=== PATIENT | male | born 1940 | race Caucasian/White ===

== ENCOUNTER 2022-03-04 12:03 | Outpatient (CLI) | payer MEDICARE, SELFPAY ==
--- NOTE | 2022-03-04 12:55 | USCV_ITS ---
AMANDA MCGOWAN Age: 81 Gender: M : 1940 Exam Date: 03/04/2022 13:03 Ordering Phys: Lizzie Turk MD Technologist: Dave Bahena [place] [facility] [place]: CCA stenosis Risk Factors: Previous Vascular Surgery: Right Brachial BP: / Left Brachial BP: / Right Left Velocity (cm/s) Spectral Plaque Velocity (cm/s) Spectral Plaque Syst/Diast Broadening Syst/Diast Broadening 55.20/ 10.10 Prox CCA 94.80 / 14.50 140.70/21.00 Mid CCA 82.90 / 17.90 79.50/ 17.10 Distal CCA 81.20 / 22.20 66.40/ 14.50 Prox ICA 98.60 / 15.80 126.20/25.00 Mid ICA 121.30/ 26.50 123.60/30.20 Distal ICA 80.10 / 22.40 58.50 ECA 107.80 0.90 ICA/CCA 1.46 Antegrade Vertebral Antegrade 45.10/ 10.90 cm/s 68.40/ 17.90 cm/s Tri Subclavian Tri 47.50 131.5 0 CONCLUSIONS Right ICA stenosis <50%. Mild atheromatous plaque right carotid bulb/ICA. Left ICA stenosis <50%. Mild atheromatous plaque left carotid bulb/ICA. Normal antegrade Doppler flow noted in the right vertebral artery. Normal antegrade Doppler flow noted in the left vertebral artery. Ta Diez MD (Electronically Signed) Final Date: 04 March 2022 16:22 S
== END 2022-03-04 12:04 | disposition home or self-care (01) ==
PROVIDERS: PCP Family Medicine; Visit Provider Family Medicine
DX: I25.10 Atherosclerotic heart disease of native coronary artery without angina pectoris (principal); I65.23 Occlusion and stenosis of bilateral carotid arteries
CPT/HCPCS: 93880

== ENCOUNTER → 2024-01-15 10:38 | Outpatient (BNVA) | payer MEDICARE, SELFPAY | PROVIDERS: PCP Nurse Practitioner Family; Visit Provider Nurse Practitioner | DX: R53.83 Other fatigue (principal) | CPT/HCPCS: 87426 ==

== ENCOUNTER 2024-03-08 07:44 | Outpatient (CLI) | payer MEDICARE, SELFPAY ==
--- NOTE | 2024-03-08 08:50 | XR_ITS ---
WS: [id number] XR cervical spine min 6V [id number] REASON FOR EXAM: CERVICALGIA FINDINGS: Anterior subluxation of the cervical spine. Plate and screw anterior fusion C4-C7. Severe narrowing of the disc space at C7-T1. Moderate degenerative arthropathy in the uncovertebral and facet joints. Neural foramina do not appea r significantly narrowed. XR/XR cervical spine min 6V [id number] IMPRESSION: Anterior fusion of the cervical spine as above. Significant degenerative spondylosis.
== END 2024-03-08 07:45 | disposition home or self-care (01) ==
PROVIDERS: PCP Nurse Practitioner Family; Visit Provider Family Medicine
DX: M54.2 Cervicalgia (principal); Z98.1 Arthrodesis status; M47.892 Other spondylosis, cervical region
CPT/HCPCS: 72052

== ENCOUNTER → 2024-09-23 09:44 | Outpatient (BNVA) | payer MEDICARE, SELFPAY | PROVIDERS: PCP Nurse Practitioner Family; Visit Provider Nurse Practitioner | DX: R35.0 Frequency of micturition (principal) | CPT/HCPCS: 81000 ==

== ENCOUNTER 2025-03-03 16:51 | Observation (INO) | payer MEDICARE, SELFPAY ==
--- OUTSIDE RECORDS SUMMARY | 2025-02-27 06:21 | XMS_ITS | Encounter Summary ---
Author Organization [employer] Address [address] [place] [address] Care Team Providers Care Integrated Logistics Support Manager Name Role Phone MarianelaParveen Primary Care Provider [phone] Reason for Referral * Home Health (Routine) - Open Specialty Diagnoses / Procedures Referred By Jessica lang Referred To Contact Diagnoses S/P cervical spinal fusion Chalo Shepherd MD [address] [place] [phone] Phone: tel: fax: [facility] [address] [place] [address] Phone: tel: fax: Referral ID Status Reason Start Date Expiration Date Visits Re quested Visits Authorized [id number] Open 03/02/2025 03/02/2026 1 1 * Radiology Services (Routine) - Open Specialty Diagnoses / Procedures Referred By Jessica t Referred To Contact Diagnoses Chronic neck pain Procedures XR FLUORO LESS THAN 1 HOUR Chalo Shepherd MD [address] [place] [phone] Phone: tel: fax: Referral ID Status Reason Start Date Expiration Date Visits Re quested Visits Authorized [id number] Open 02/27/2025 03/30/2026 1 1 Reason for Visit * Auth/Cert (Routine) Specialty Diagnoses / Procedures Referred By Saiac t Referred To Contact Perioperative Diagnoses Chronic neck pain Spinal stenosis of cervical region Chronic neck pain [M54.2, G89.29] Spinal stenosis of cervical region [M48.02] Procedures RI REMOVAL POSTERIOR SEGMENTAL INSTRUMENTATION RI ARTHRD ANT INTERBODY DECOMPRESS CERVICAL BELW C2 RI ANTERIOR INSTRUMENTATION 2-3 VERTEBRAL SEGMENTS RI INSJ BIOMCHN DEV INTERVERTEBRAL DSC SPC W/ARTHRD RI AUTOGRAFT SPINE SURGERY LOCAL FROM SAME INCISION RI ALLOGRAFT FOR SPINE SURGERY ONLY MORSELIZED RI REMOVAL POSTERIOR NONSEGMENTAL INSTRUMENTATION BACK HARDWARE REMOVAL CERVICAL DISCECTOMY FUSION ANTERIOR - 1 LEVEL Chalo Shepherd MD [address] [place] [phone] Phone: tel: fax: [facility] Operating Room [address] [place] [address] Phone: tel: fax: Referral ID Status Reason Start Date Expiration Date Visits Re quested Visits Authorized [id number] 1 1 Encounter Details Date Type Department Care Team (Latest Contact Info) Description 02/27/2025 6:21 AM CDT - 03/02/2025 2:55 PM CDT Hospital Encounter [facility] 3C Ortho Neuro [address] [place] [address] Chalo Shepherd MD [address] [place] [phone] Chronic neck pain Discharge Disposition: Home Health Care Svc Social History Tobacco Use Types Packs/Day Years Used Date Smoking Tobacco: Former Cigarettes 0.8 28 S tarted: 05/04/1953 Smokeless Tobacco: Never Alcohol Use Standard Drinks/Week Comments Not Currently 0 (1 standard drink = 0.6 oz pur e alcohol) Food Insecurity Answer Date Recorded Do you find you are eating l ess than you should because you can t pay for food? No 02/27/2025 Transportation Needs Answer Date Record ed Have you gone without health care because you didn t have a way to get there? Or worry about transportation for future doctor visits, picker feeder medication, etc.? No 2024 Housing Stability Answer Date Recorded Do you worry you won t have a steady place to sleep or struggle to pay rent or mortgage? No 02/27/2025 Utility Needs Answer Date Recorded Do you have difficulty payin g for utility costs (electric, water or gas bills)? No 02/27/2025 Medication Needs Answer Date Recorded Have you skipped taking medi cation due to cost or worry you can t afford new medications? No 02/27/2025 Feeling Safe Answer Date Recorded Are you in a relationship wi th someone who hurts you emotionally and/or physically? 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 Gender Identity Male 11/15/2024 4:33 PM CDT Sexual Orientation Not on file documented as of this encounter Last Filed Vital Signs Vital Sign Reading Time Taken Comments Blood Pressure 112/65 03/02/2025 11:00 AM CDT Pulse 69 03/02/2025 11:00 AM CDT Temperature 37.2 C (98.9 F) 03/02/2025 11:00 AM CDT Respiratory Rate 16 03/02/2025 11:00 AM CDT Oxygen Saturation 95% 03/02/2025 11:00 AM CDT Inhaled Oxygen Concentration - - Weight 64 kg (141 lb) 03/02/2025 2:58 AM CDT Height 172.7 cm (5' 8 ) 02/28/2025 4:24 AM CDT Body Mass Index 21.44 02/28/2025 4:24 AM CDT documented in this encounter Discharge Instructions * Discharge Instructions* Cristal Judge NP - 02/28/2025 11:09 AM CDT Thank you for choosing [facility] Neurosurgery for your care! The following is a listof instructions, from your provider, to follow upon your discharge to ensure you have the optimal recovery from your recent injury or surgery. Follow up with Cristal RAJAN in 2 weeks. An appointment will be made for you prior to your discharge, however if you are being dismissed on a weekend or after hours please call on the next business day to schedule an appointment Medications will be prescribed for you at your provider???s discretion. These medications are to beused as instructed; if they are taken more often that prescribed they will not be refilled early and in most cases will not be refilled at all. When a refill is needed, you should contact our office 2-3 business days before your prescription runs out. Medications will NOT be refilled by ???regional sales associate?? providers after hours! Many pain medications contain Tylenol (Acetaminophen). Do not consume more than 4,000 mg of Tylenol per day in total with any combination of medications. Pain medicationscan cause constipation. Please use an over the counter stool softener as directed, while taking pain medications. Consult your local pharmacist with questions or recommendations on stool softeners. If constipation persists, contact our office or your primary care provider. While under our care, youare not to receive pain medications or other controlled substances from any other provider unless our office is notified and approves. Any attempts to do so will result in refusal to prescribe any further pain medications and possible dismissal from our practice. Your wound and/or dressing should remain clean and dry for 2 days after surgery. On postoperative day 5 the dressing (if present) should be removed and the wound should be washed twice daily with soap and water. No further dressing should be required from that point on. It is normal for there to dale small amount of discharge (bloody or blood tinged) present from a surgical wound for the first 1-3 days. The wound should be examined twice a day for signs of infection. Mild redness or bruising isto be expected but indications that an infection may be starting would include; An increase in redness, swelling, or discharge, a foul odor present around the incision, and/or a fever greater than 101 ??F Showering is permitted, however we ask that you do not take a bath, sit in a whirlpool / Jacuzzi, or go swimming until further notice. For only the first 2 days after surgery, it will be necessary for you to cover your wound/dressing with plastic and tape to keep it dry. Walking is essential for the healing process after surgery. We would like you to slowly build up to1 mile per day over the next two weeks. This should be done on relatively flat clear ground (insideor out) or can be done on a treadmill. Remember this goal does not have to happen all at once, slowly increase your distance and duration until you can achieve 1 mile. This can be broken into more than one walk per day. Patients who walk as directed after surgery rarely require Physical Therapy. Inthe unlikely event this issue arises your provider will direct hospital staff to make the appropriate arrangements. No lifting over 8 pounds (a gallon of milk) or bending/twisting until further notice. Each of theseactivities places an unnecessary amount of stress onto the body and can impede the delicate healingprocess. Instead of bending at the waist, keep your back straight and bend at the knees. Instead oftwisting your torso, keep your back straight and turn your entire body with your feet. You may sleep in any position which makes you comfortable. Many patients find comfort sleeping in areclining chair. It is not abnormal to have difficulty sleeping for the first several weeks following your surgery. We recommend trying Benadryl or Tylenol PM as directed to help with your sleeping difficulties. Both medications are over the counter and available without prescription. No sexual activity until further notice. NO SMOKING!!! Smoking dramatically increases the probability of developing postoperative wound infections Common complaints after lumbar and/or thoracic spine surgery include, but are not limited to: numbness and/or tingling in the legs, pain around the incision and surrounding tissues, muscle spasms, orstiffness of the middle to low back. Contact our office if these symptoms persist or if an acute change occurs. No driving until further notice. There are no restrictions for riding on short trips, however if you take a longer trip, arrangements should be made to make regular stops to get out of the vehicle and ???stretch?? . Swelling is an unfortunate event that will take place with any surgery and is the primary source ofyour postoperative discomfort. While walking and regular approved activities helps control inflammation, there are additional steps you can take to minimize swelling. Place ice over the surgical siteand surrounding tissue for twenty minutes, followed by applying a low/medium heat (heating pad) shakeel additional twenty minutes every 1-2 hours as needed for pain relief. STARTING 10 days after surgery, use over the counter anti-inflammatory medications (Ibuprofen, Motrin, Aleve, Advil, etc) as directed on the package label will significantly reduce the amount of discomfort you experience after s urgery from swelling. It should be noted that if you have and allergy to any of these medications, or a history of ulcers or kidney disease you should consult you primary care provider prior to starting these medications. If your have been given a brace or bone growth stimulator after your surgery it should be worn exactly as instructed. Contact our office with any concerns or questions about the brace or stimulator. For any further questions or concerns please contact our office at: * Attachments The following attachments cannot be sent through Care Everywhere. * Cervical Collars: General Info (Swazi) * Diazepam (Swazi) * Opioids: Safe Use (Swazi) documented in this encounter Medications at Time of Discharge oxyCODONE (ROXICODONE) 5 mg tabletIndications: S/P cervical spinal fusion Take 1 Tablet (5 mg) by mouth every 4 hours as needed for Pain. Max Daily Amount: 30 mg 42 Tablet 02/28/2025 diazePAM (VALIUM) 5 mg tabletIndications: S/P cervical spinal fusion Take 1 Tablet (5 mg) by mouth every 8 hours as needed for Spasm. 42 Tablet 02/28/2025 acetaminophen (TYLENOL ARTHRITIS) 650 mg Extended Release tablet Take 650 mg by mouth daily. L. acidophilus/L. rhamnosus (PROBIOTIC ORAL) Take 1 Caplet by mouth daily. calcium carbonate (ADAMS-SELTZER ANTACID ORAL) Take by mouth 1 time daily as needed. DULoxetine (CYMBALTA) 30 mg Capsule, Delayed Release(E.C.) Take 1 Capsule by mouth daily. 01/24/2025 sucralfate (CARAFATE) 1 gram tablet Take 1 Gram by mouth 2 times daily. 12/12/2024 docusate sodium (COLACE) 100 mg capsule Take 100 mg by mouth 3 times daily. ferrous sulfate 325 mg (65 mg iron) tablet Take 325 mg by mouth daily. ascorbic acid, vitamin C, (VITAMIN C) 500 mg tablet Take 500 mg by mouth 2 times daily. vitamin A-vitamin C-vitamin E (OCUVITE) Tablet Take 1 Tablet by mouth daily. fluticasone propionate (FLONASE) 50 mcg/spray [place], Suspension nasal inhaler Administer 2 Sprays in each nostril daily. 06/23/2023 sertraline (ZOLOFT) 100 mg tabletIndications: Mild episode of recurrent major depressive disorder Take 1 Tablet (100 mg) by mouth daily. 90 Tablet 1 06/26/2023 hydroCHLOROthiazid e 25 mg tabletIndications: Primary hypertension Take 1 Tablet (25 mg) by mouth daily. 90 Tablet 1 06/26/2023 gabapentin (NEURONTIN) 400 mg capsule Take 400 mg by mouth 2 times daily. 07/07/2022 losartan (COZAAR) 100 mg tablet Take 100 mg by mouth daily. 08/12/2022 omeprazole (PriLOSEC) 20 mg Capsule, Delayed Release(E.C.) 09/02/2022 oxyCODONE (ROXICODONE) 5 mg tablet 06/16/2022 predniSONE (DELTASONE) 1 mg tablet Take 1 mg by mouth daily. 07/31/2022 primidone (MYSOLINE) 50 mg tablet 08/12/2022 rOPINIRole (REQUIP) 2 mg Tablet Take 2 mg by mouth 2 times daily. 06/23/2022 tamsulosin (FLOMAX) 0.4 mg capsule Take 0.4 mg by mouth daily at bedtime. 07/16/2022 traZODone (DESYREL) 100 mg tablet Take 100 mg by mouth daily at bedtime. 09/02/2022 buPROPion HCL (WELLBUTRIN XL) 150 mg Extended Release 24 hour tablet Take 150 mg by mouth 2 times daily. 08/12/2022 documented as of this encounter Progress Notes * Genesis Elder RN - 03/02/2025 2:34 PM CDT Abraham Henson will be discharged via wheelchair to home. Abraham Henson is accompanied by family member(s) and will be transported via private vehicle. * Cristal Judge NP - 03/02/2025 9:30 AM CDT POD #3 No issues Vitals: 03/01/25 1500 03/01/25 1914 03/02/25 0258 03/02/25 0708 Temp: 98 ??F (36.7 ??C) 98 ??F (36.7 ??C) 98 ??F (36.7 ??C) 98.4 ??F (36.9 ??C) Pulse: 71 74 76 73 Heart Rate: BP: 125/72 126/74 128/72 107/62 Mean Arterial Pressure: Resp: 16 20 18 18 SpO2: 96% 97% 96% 94% Assessment: s/p ACDF and posterior back hardware removal Plan: Pt wanting to d/c home today. He has assistance from family. PT is educating family this morning. Plan to d/c home Cosigned by Chalo Shepherd MD at 03/02/2025 12:37 PM CDT * Mando Solomon, Blockmason - 03/01/2025 12:56 PM CDT Attempted to see patient for PT treatment. Patient/Family chose not to participate in therapy due to I just got comfortable . Will continue with attempts for evaluation/established plan of care. Thank you, Mando Solomon, Blockmason * Eloise Duque - 03/01/2025 11:48 AM CDT Reason for Visit: Referral Patient spiritual issues identified: Responded to staff. I visited with Abraham. Who's awake and alert. Abraham has post surgery. No family present. RN and goodwill ambassador were at bedside, I offered spiritual comfort and prayer for God healing be upon Abraham. summary of patient???s most significant issue(s): Family : Abraham has family support at home. His will come. Ada/values: Abraham has FAITH ada tradition. Open for goodwill ambassador visit & prayer Needs/hopes resources: Medical team have been provide good care for Abraham. Spiritual interventions Ministry of presence. Utilized presence and active listening to explore feelings, stressors, perceptions, questions/concerns, and coping patterns of Spiritual support provided;Emotional support CATEGORY MANAGER???S ASSESSMENT OF PATIENT???S LEVEL OF DISTRESS: High Outcomes of Care Abraham's found comfort from goodwill ambassador visit. Expressed thanks for being and prayer with him. Goals of Spiritual Care High School Science Teacher Plan Spiritual Care Services remain available for referral PRN. Recommendations for Healthcare Team As spiritual needs and distress arise, please contact Spiritual Care Services. We will follow up as needed. Thank you for this referral. Sister Elosie Martinezantwan Iqbal Kina.[facility] [employer] Science Teacher-Spiritual Care Team * Cristal Judge NP - 03/01/2025 8:40 AM CDT POD #2 Pt in bed; requesting a wheelchair to get around the room Vitals: 02/28/25 1904 03/01/25 0152 03/01/25 0350 03/01/25 0719 Temp: 98.1 ??F (36.7 ??C) 97.1 ??F (36.2 ??C) 97.6 ??F (36.4 ??C) Pulse: 73 75 63 70 Heart Rate: BP: 107/59 121/68 119/55 134/69 Mean Arterial Pressure: 76 MM HG 83 MM HG 75 MM HG Resp: 18 18 18 16 SpO2: 97% 90% 94% 97% Patient is awake, alert, oriented X 4, in no apparent distress. Speech is fluent. Content is appropriate. Cranial nerves II -intact bilaterally. Vision intact. CN III, IV, - intact bilaterally, good extraocular movements CN V - intact bilaterally, good jaw strength CN VII - facial strength appears nl CN VIII - [facility] CN IX and X - palate elevates symmetrically CN XII - tongue is midline Strength is graded 5/5 throughout the upper and lower extremities on the MRC scale. Incision c/d/I Assessment: s/p ACDF and posterior back hardware removal Plan: PT/OT Awaiting insurance auth for SNF discharge OK to discharge now Cosigned by Chalo Shepherd MD at 03/01/2025 11:53 AM CDT * Brandy Spicer, Occupational Therapist - 02/28/2025 3:40 PM CDT [facility] - Therapy Services Ph. Acute Occupational Therapy Evaluation 02/28/2025 Room: [address] [place] [address] Name: Abraham Henson Age: 84 y.o. Patient Class: Inpatient Date of : 1940 Insurance: Payor: [employer] MEDICARE ADVANTAGE / Plan: Kleen Extreme[employer] MCR / ProductType: HMO / Prior to OT session thorough chart review completed, including prior OT notes as applicable. 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 Home environment: 1-level home Ramp to enter Walk-in shower Durable medical equipment already in home: Walkers: 2WW and 4WW Canes: single point cane Wheelchairs: manual Shower chair Elevated toilet seat Grab bars Hand-held shower head Health And Safety Specialist Sock aid Additional Information Patient/family statement/goal(s): To go to a senior living Comments: Pt was agreeable to treatment. Pain: Refer to flowsheet for documentation of pain and interventions. OBJECTIVE Cognition Level of alertness: alert Orientation: x4 WNL Command following: good Safety awareness: good Memory: WFL conversationally Vision: wears glasses at baseline UE Function Right-hand dominant UE Assessment Right Left ROM Not formally assessed; adequate for functional tasks Not formally assessed; adequate for functional tasks Strength Not formally manual muscle tested; strength is adequate for functional tasks Not formally manual muscle tested; strength is adequate for functional tasks Muscle Tone Normal; frail Normal; frail Coordination WFL; WFL; Sensation Not assessed Not assessed Edema None noted None noted Occupational Performance Activities of Daily Living Feeding: independent for vekh-lt-ehjmg excursion Grooming: minimal assistance standing at sink for oral care and face washing. Upper extremity dressing: maximal assistance to don C-Collar supine in bed. Lower extremity dressing: minimal assistance to don and doff garments at EOB. Toileting: minimal assistance in standing for anterior gemini-care. Toilet transfer: minimal assistance sit < > stand from toilet All tasks not tested with anticipated assist levels are based on observed tasks and movement patterns. Functional Mobility All mobility completed with gait belt, walker, and personal shoes Bed mobility: minimal assistance supine > sit EOB with HOB raised and use of bed rails. Sit to stand: supervision for watchful oversight for safety from EOB Functional ambulation: minimal assistance x 45 feet in room. Pt observed with ambulating with walker too far in front, jerking movements and walking fast. V/c used to slow down. A couple of LOB occurred, tactile assist to correct. Sitting balance: supervision to minimal assistance for static tasks and dynamic tasks at EOB. Pt observed with posterior lean , tactile assist used to correct. Standing balance: minimal assistance for static tasks and dynamic tasks in room. Patient required verbal and tactile cues for attention to task, safety due to impulsivity, sequencing, initiation of task, and command following. [facility]-P[facility] Daily Activity How much help from another person does the patient currently need? Score 1. Putting on and taking off regular lower body clothing? 3 - A little (supervision to min assist) 2. Bathing (including washing, rinsing, drying)? 3 - A little (supervision to min assist) 3. Toileting, which includes using toilet, bedpan or urinal? 3 - A little (supervision to min assist) 4. Putting on and taking off regular upper body clothing? 2 - A lot (max to mod assist) 5. Taking care of personal grooming such as brushing teeth? 3 - A little (supervision to min assist) 6. Eating meals? 4 - None (independent) Total score 18/24 0-19 indicates likely facility discharge 19-24 indicates likely community discharge *Scores determined based on patient report, observation or professional expertise* Vitals Current O2 requirement: room air Vital signs stable throughout. Precautions Patient precautions: fall and spinal with log roll Patient bracing: cervical collar Weight bearing: no restrictions ASSESSMENT & PLAN Evaluation Details Abraham Henson is a 84 y.o. male referred for OT following admission for Chronic neck pain . Additional pertinent diagnoses and past medical history related to this hospital stay are present in physician H&P and physician daily notes. PT and OT combined this date due to anticipated need for two therapists to manage medical complexity impacting safety during transfers. Will separate future sessions to maximize time in therapy and progression with individual disciplines. OT evaluation: Low complexity Assessment Patient is currently functioning below his prior level of function. Patient presents with acute functional deficits including: Functional balance Safety awareness Pain Motor planning Medical complexity These deficits impact patient ability to complete: Functional mobility Bathing Toileting Dressing Personal hygiene/grooming Home management Patient would benefit from continued skilled OT services in order to increase occupational performance through modification and remediation approaches such as ADL training, balance training, endurance training, strength training, functional transfer training, neuromuscular re-education, home safetyeducation, and patient education Plan During acute hospitalization, recommend medium frequency treatment (3-5 times/week). Current plan of care to continue until goals met or patient discharges from facility Anticipate ongoing OT treatment sessions with specific focus on ADL and mobility Recommendations Based on OT assessment of patient's ability to complete self care tasks and AM- PAC Daily Activity Score, anticipated discharge disposition, once medically ready: senior care facility (02/28/25 131). Rationale: Patient needs daily (weekday) skilled OT services. Anticipate tolerance is limited for intensive or adapted intensive rehab program. * The final discharge location is determined through physician, case management, and patient/caregiver input along with insurance authorization of skilled services when appropriate. Plan of care and discharge recommendations shared with patient, toddler caregiver, and PT OT recommended DME and AE upon discharge: No new DME recommended (02/28/251312) No new additional adaptive equipment necessary (02/28/251312) Education provided to patient regarding OT recommendations and plan of care Education response: verbalized understanding Nursing Staff Mobility Recommendations Recommended daily activity during admission: toileting in bathroom, up to chair for meals, and assist x 1 Disposition At start of session, patient found lying in bed At end of session, patient left seated in chair, call light in reach, and phone in reach Further treatment notes and therapeutic goals can be found in Care Plan Notes. If the patient discharges from facility before another therapy visit, this shall serve as therapy discharge summary. Thank you for this referral, Brandy Spicer, Occupational Therapist * Mat Coates, Physical Therapist - 02/28/2025 2:04 PM CDT [facility] - Therapy Services 3K Ph. Acute Physical Therapy Evaluation 02/28/2025 Room: [address] [place] [address]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 8:23 AM CDT Care Management Initial Assessment Initial Discharge Planning Assessment completed. Discussed Care Management's role and Discharge planning. Does the patient have family and/or a caregiver that is willing, able and available to assist if needed? No - Reason: his is on Hospice Patient feels like he need SNF prior to home. DA 124 code is [id number] and sent to the provider for signature did Secure chat the PT and OT for evaluation to determine his need. Provided patient will the in network SNF choice list for his area with his insurance patient choices are [facility], [facility], [place], [facility], [place]. Will send referrals Comments: Patient lives at home and was independent with walking and ADLs. His son in law drives him. Patient Discharge Planning Goal: home vs snf Patient will potentially discharge to a SNF/NH? Yes Care Management visited with: patient via in person. Prior to admission, patient resides at: own home. Patient resides in a one story home with ramp to enter. Patient's bedroom and bathroom are located on the main floor. Prior to admission, living arrangements: family/friend. Prior to admission, patient's functional level:independent; uses N/A for mobility; needs assistancewith iADLs: N/A Community Ambulator: yes Prior to admission, the patient has the following DME? N/A Services in the home/community: none Receives hemodialysis? No Emergency contact(s): Extended Emergency Contact Information Primary Emergency Contact: [place] [address] [facility] [place] Relation: Son-in-Law, Nsydjhhm-ed-Cig Prescription coverage: yes Preferred Pharmacy verified: [facility] - [place], [place] - [address] Insurance coverage verified: Payor: [employer] MEDICARE ADVANTAGE / Plan: [employer] HMO MCR / Product Type: HMO / Secondary Insurance:N/A Medicaid Status: NA Has VA Benefits: no Employment Status: retired PCP verified as: Parveen Bear, Patient has not had a stay at an acute care hospital in the last 30 days. Recent Falls?: Last Known Fall: Within the last month Plan for transportation at discharge: Nannette arango in law Care Management contact information provided. Care Management will continue to follow and assist asneeded. * Care Plan - Abraham Smith RN - 02/28/2025 5:29 AM CDT Shift Summary Pain management interventions included repositioning and administration of oxyCODONE, resulting in decreased pain ratings and verbalized relief. ceFAZolin was administered and then stopped during the shift. Spinal precautions and fall risk measures were maintained, with safety checks completed regularly. Wounds remained within defined limits and skin integrity was supported by regular repositioning andhygiene care. Peripheral neurovascular function in the left upper extremity remained unchanged, with tingling present and ROM performed. Verbalizes/displays acceptable comfort level or baseline comfort level: Pain ratings at rest and with activity increased early in the shift but decreased after administration of oxyCODONE and repositioning, with verbalized relief noted after interventions. Infection Risk/Actual: Infection prevention, control, or resolution by discharge: No changes in temperature or wound status were noted, and ceFAZolin was administered during the shift. Safety/Fall: Absence of fall, injury, harm during hospitalization: Spinal precautions and fall riskarmbands remained in place, and safety checks were completed throughout the shift. Maintain skin integrity and/or promote wound healing by discharge: Wounds on the right cervical spine anterior, cervical spine anterior, and back remained within defined limits, and ecchymosis was unchanged in location and size; regular repositioning and hygiene care were provided. Achieve optimal peripheral neurovascular function by discharge or maintain baseline function: Peripheral sensation in the left upper extremity remained decreased with tingling present, and active/passive ROM was performed during the shift. documented in this encounter Plan of Treatment Upcoming Encounters Date Type Department Care Team (Late st Contact Info) Description 03/14/2025 11:00 AM PAYMENT MANAGER Office Visit [facility] [address] [place] [address] Cristal Judge NP [address] [place] [address] 03/16/2025 3:00 PM PAYMENT MANAGER Office Visit [facility] [address] [phone] Leela Ramires, FLANGING ROLL OPERATOR [address] [place] [phone] Scheduled Referrals Name Type Priority Associated Diagnoses Orde r Schedule AMB REFERRAL TO HOME CARE Outpatient Referral Routine S/P cervical spinal fusion Ordered: 03/02/2025 documented as of this encounter Procedures Procedure Name Priority Date/Time Associated Diagnosis Comments TELEMETRY REPORT 03/03/2025 3:06 AM CDT XR CERVICAL SPINE 2 OR 3 VIEWS Routine 02/28/2025 4:02 PM CDT POC GLUCOSE Routine 02/27/2025 11:45 AM CDT XR FLUORO LESS THAN 1 HOUR Routine 02/27/2025 11:23 AM CDT Chronic neck pain XR CERVICAL SPINE 2 OR 3 VIEWS Routine 02/27/2025 9:56 AM CDT Chronic neck pain BACK HARDWARE REMOVAL 02/27/2025 8:00 AM CDT Chronic neck pain Spinal stenosis of cervical region RI ARTHRD ANT INTERBODY DECOMPRESS CERVICAL BELW C2 02/27/2025 8:00 AM CDT Chronic neck pain Spinal stenosis of cervical region INTRAOP NEUROPHYSIO MONITORING Routine 02/27/2025 7:31 AM CDT documented in this encounter Results * TELEMETRY REPORT (03/03/2025 3:06 AM CDT) us Provider Scanning ECG ORDERABLES Final Result * XR CERVICAL SPINE 2 OR 3 VIEWS (02/28/2025 4:02 PM CDT) Anatomical Region Laterality Modality Spine Computed Radiogr aphy 02/28/2025 4:02 PM CDT Impressions 02/28/2025 6:25 PM CDT IMPRESSION: Recent appearing postsurgical changes without apparent complication. Narrative 02/28/2025 6:25 PM CDT Exam: XR CERVICAL SPINE 2 OR 3 VIEWS Date/Time of Exam: 02/28/2025 4:02 PM Reason For Exam: Fusion. Diagnosis: S/P cervical spinal fusion; Chronic neck pain; Chronic neck pain. Comparison: None. Findings: There are postsurgical changes of discectomy and anterior fusion with intact-appearing hardware at the C3-C6 levels. The vertebral body alignment appears anatomic. There is no definitive evidence of an acute osseous abnormality. There is postsurgical soft tissue swelling and subcutaneous emphysema with a surgical drain in place. Procedure Note Ted Sanford, DO - 02/28/2025 Exam: XR CERVICAL SPINE 2 OR 3 VIEWS Date/Time of Exam: 02/28/2025 4:02 PM Reason For Exam: Fusion. Diagnosis: S/P cervical spinal fusion; Chronic neck pain; Chronic neck pain. Comparison: None. Findings: There are postsurgical changes of discectomy and anterior fusion with intact-appearing hardware at the C3-C6 levels. The vertebral body alignment appears anatomic. There is no definitive evidence of an acute osseous abnormality. There is postsurgical soft tissue swelling and subcutaneous emphysema with a surgical drain in place. IMPRESSION: Recent appearing postsurgical changes without apparent complication. us Chalo Shepherd MD DIAGNOSTIC IMAGING OR DERABLES Final Result * (ABNORMAL) POC GLUCOSE (02/27/2025 11:45 AM CDT) GLUCOSE POC 127(H) 74 - 99 mg/dL 02/27/2025 11:45 AM CDT [facility] SPECIMEN SOURCE, GLUCOSE POC Capillary 02/27/2025 11:45 AM CDT [facility] Blood, whole 02/27/2025 11:4 5 AM CDT 02/27/2025 11:52 AM CDT us Chalo Shepherd MD POINT OF CARE TESTING Final Result [facility] CLIA # [id number] [address] [address] * XR FLUORO LESS THAN 1 HOUR (02/27/2025 11:23 AM CDT) Narrative 02/27/2025 11:24 AM CDT Order information only. Exam was auto-finalized. us Chalo Shepherd MD DIAGNOSTIC IMAGING OR DERABLES Final Result * XR CERVICAL SPINE 2 OR 3 VIEWS (02/27/2025 9:56 AM CDT) Anatomical Region Laterality Modality Spine Computed Radiogr aphy 02/27/2025 9:56 AM CDT Impressions 02/27/2025 10:52 AM CDT IMPRESSION: Please see below. EXAM: XR CERVICAL SPINE 2 OR 3 VIEWS DATE/TIME OF EXAM: 02/27/2025 9:56 AM REASON FOR STUDY: See Diagnosis DIAGNOSIS: Chronic neck pain; Chronic neck pain COMPARISON: None FINDINGS: 4 intraoperative fluoroscopic spot images demonstrate localization of the C3-C4 disc space and subsequent ACDF at this level. Prior ACDF at C4-C6 is noted. Narrative 02/27/2025 10:52 AM CDT Procedure Note Rafael Humphrey MD - 02/27/2025 IMPRESSION: Please see below. EXAM: XR CERVICAL SPINE 2 OR 3 VIEWS DATE/TIME OF EXAM: 02/27/2025 9:56 AM REASON FOR STUDY: See Diagnosis DIAGNOSIS: Chronic neck pain; Chronic neck pain COMPARISON: None FINDINGS: 4 intraoperative fluoroscopic spot images demonstrate localization of the C3-C4 disc space and subsequent ACDF at this level. Prior ACDF at C4-C6 is noted. us Chalo Shepherd MD DIAGNOSTIC IMAGING OR DERABLES Final Result documented in this encounter Visit Diagnoses Diagnosis S/P cervical spinal fusion- Primary Arthrodesis status Chronic neck pain Cervicalgia Chronic neck pain Cervicalgia S/P hardware removal Protein-calorie malnutrition, moderate Malnutrition of moderate degree documented in this encounter Admitting Diagnoses Diagnosis Chronic neck pain Cervicalgia documented in this encounter Administered Medications Inactive Administered Medications - up to 3 most recent administrations Medication Order MAR Action Action Date Dose Rate Site acetaminophen (TYLENOL) tablet 650 mg 650 mg, Oral, EVERY 6 HOURS PRN, Starting on 02/27/25 at 1429, Until Ashly 03/02/25 at 1655, Other (See Comment), See admin instructions, Routine, Post-op - Floor bisacodyL (DULCOLAX) rectal suppository 10 mg 10 mg, Rectal, DAILY PRN, Starting on Thu02/27/25 at 1429, Until Thu03/02/25 at 1655, Constipation, Routine, Post-op - Floor buPROPion HCL (WELLBUTRIN XL) 24 hour tablet 150 mg 150 mg, Oral, TWO TIMES DAILY, First dose on Thu02/27/25 at 2100, Until Discontinued, Routine, Previous Med: buPROPion HCL (WELLBUTRIN XL) 150 mg Extended Release 24 hour tablet - Orig Sig - Take 150 mg by mouth 2 times daily. Given 03/02/2025 9:49 AM CDT 150 mg Given 03/01/2025 8:15 PM CDT 150 mg Given 03/01/2025 8:32 AM CDT 150 mg ceFAZolin (ANCEF,KEFZOL) 2,000 mg in sodium chloride 0.9% 50 mL IVPB (MBP) 2,000 mg, IV, POST-PROCEDURE Q 8 HOURS, 2 doses, First dose on Thu02/27/25 at 1600, Last dose on Thu02/28/25 at 0000, Routine, Post-op - Floor, Antibiotic Indication: Surgical prophylaxis New Bag 02/27/2025 11:52 PM CDT 2,000 mg 118 mL/hr New Bag 02/27/2025 3:56 PM CDT 2,000 mg 118 mL/hr diazePAM (VALIUM) tablet 5 mg 5 mg, Oral, EVERY 8 HOURS PRN, Starting on Thu02/27/25 at 1429, Until Thu03/02/25 at 1655, Spasm, Routine, Post-op - Floor diphenhydrAMINE (BENADRYL) tablet 25 mg 25 mg, Oral, EVERY 8 HOURS PRN, Starting on Thu02/27/25 at 1429, Until Thu03/02/25 at 1655, Itching, Routine, Post-op - Floor docusate sodium (COLACE) capsule 100 mg 100 mg, Oral, TWO TIMES DAILY, First dose on Thu02/27/25 at 2100, Until Discontinued, Routine, Post-op - Floor Given 03/02/2025 9:49 AM CDT 100 mg Given 03/01/2025 8:15 PM CDT 100 mg Given 03/01/2025 8:32 AM CDT 100 mg DULoxetine (CYMBALTA) capsule 30 mg 30 mg, Oral, DAILY, First dose on Thu02/27/25 at 1500, Until Discontinued, Routine, Previous Med: DULoxetine (CYMBALTA) 30 mg Capsule, Delayed Release(E.C.) - Orig Sig - Take 1 Capsule by mouth daily. Given 03/02/2025 9:49 AM CDT 30 mg Given 03/01/2025 8:32 AM CDT 30 mg Given 02/28/2025 8:39 AM CDT 30 mg famotidine (PEPCID) tablet 20 mg 20 mg, Oral, TWO TIMES DAILY, First dose on Thu02/27/25 at 2100, Until Discontinued, Routine, Post-op - Floor Given 03/02/2025 9:49 AM CDT 20 mg Given 03/01/2025 8:15 PM CDT 20 mg Given 03/01/2025 8:32 AM CDT 20 mg fentaNYL (PF) (SUBLIMAZE) 50 mcg/mL injection 50 mcg 50 mcg, IV, POST-PROCEDURE Q 3 MINUTES PRN, 5 doses, Starting on Thu02/27/25 at 0713, Until Thu02/27/25 at 1428, Pain, Mild, Pain, Moderate, Routine, PACU Given 02/27/2025 11:55 AM CDT 50 mcg ferrous sulfate tablet 325 mg 325 mg, Oral, DAILY, First dose on Thu02/27/25 at 1500, Until Discontinued, Routine, Previous Med: ferrous sulfate 325 mg (65 mg iron) tablet - Orig Sig - Take 325 mg by mouth daily. Given 03/02/2025 9:49 AM CDT 325 mg Given 03/01/2025 9:00 AM CDT 325 mg Given 02/28/2025 8:40 AM CDT 325 mg gabapentin (NEURONTIN) capsule 400 mg 400 mg, Oral, TWO TIMES DAILY, First dose on Thu02/27/25 at 2100, Until Discontinued, Routine, Previous Med: gabapentin (NEURONTIN) 400 mg capsule - Orig Sig - Take 400 mg by mouth 2 times daily. Given 03/02/2025 9:49 AM CDT 400 mg Given 03/01/2025 8:15 PM CDT 400 mg Given 03/01/2025 8:32 AM CDT 400 mg hydroCHLOROthiazide tablet 25 mg 25 mg, Oral, DAILY, First dose on Thu02/27/25 at 1500, Until Discontinued, Routine, Previous Med: hydroCHLOROthiazide 25 mg tablet - Orig Sig - Take 1 Tablet (25 mg) by mouth daily. Given 03/02/2025 9:49 AM CDT 25 mg Given 03/01/2025 8:32 AM CDT 25 mg Given 02/28/2025 8:39 AM CDT 25 mg HYDROmorphone (PF) (DILAUDID) injection 0.5 mg 0.5 mg, IV, POST-PROCEDURE Q 5 MINUTES PRN, 5 doses, Starting on Thu02/27/25 at 0713, Until Thu02/27/25 at 1428, Pain, Severe, Routine, PACU Given 02/27/2025 12:43 PM CDT 0.5 mg Given 02/27/2025 12:37 PM CDT 0.5 mg Given 02/27/2025 12:27 PM CDT 0.5 mg HYDROmorphone (PF) (DILAUDID) injection 0.6 mg 0.6 mg, IV, EVERY 3 HOURS PRN, Starting on Thu02/27/25 at 1429, Until Ashly 03/02/25 at 1655, Pain (See admin instructions), Routine, Post-op - Floor lactated ringers infusion IV, at 125 mL/hr, POST-PROCEDURE CONTINUOUS, Starting on Thu02/27/25 at 0715, Until Thu02/27/25 at 1428, Routine, PACU Rate Verify 02/27/2025 7:15 AM CDT 125 mL/hr losartan (COZAAR) tablet 100 mg 100 mg, Oral, DAILY, First dose on Thu02/27/25 at 1500, Until Discontinued, Routine, Previous Med: losartan (COZAAR) 100 mg tablet - Orig Sig - Take 100 mg by mouth daily. Given 03/02/2025 9:49 AM CDT 100 mg Given 03/01/2025 8:32 AM CDT 100 mg Given 02/28/2025 8:40 AM CDT 100 mg naloxone (NARCAN) 0.4 mg/mL injection 0.1-0.4 mg 0.1-0.4 mg, IV, SEE ADMIN INSTRUCTIONS, Starting on Thu02/27/25 at 0713, Until Ashly 03/02/25 at 1655, Routine, PACU ondansetron (ZOFRAN ODT) tablet 4 mg 4 mg, Oral, EVERY 6 HOURS PRN, Starting on Thu02/27/25 at 1429, Until Ashly 03/02/25 at 1655, Nausea/Emesis, Routine, Post-op - Floor ondansetron (ZOFRAN) 4 mg/2 mL injection 4 mg 4 mg, IV, EVERY 6 HOURS PRN, Starting on Thu02/27/25 at 1429, Until Ashly 03/02/25 at 1655, Nausea/Emesis, Routine, Post-op - Floor oxyCODONE (ROXICODONE) tablet 5 mg 5 mg, Oral, EVERY 4 HOURS PRN, Starting on Thu02/27/25 at 1429, Until Ashly 03/02/25 at 1655, Pain (See admin instructions), Routine, Post-op - Floor Given 03/02/2025 7:55 AM CDT 5 mg Given 03/01/2025 8:15 PM CDT 5 mg Given 02/28/2025 10:29 PM CDT 5 mg oxyCODONE (ROXICODONE) tablet 7.5 mg 7.5 mg, Oral, EVERY 4 HOURS PRN, Starting on Thu02/27/25 at 1429, Until Ashly 03/02/25 at 1655, Pain (See admin instructions), Routine, Post-op - Floor Given 03/01/2025 10:48 AM CDT 7.5 mg pantoprazole (PROTONIX) tablet 40 mg 40 mg, Oral, DAILY BEFORE BREAKFAST, First dose on Thu02/27/25 at 1500, Until Discontinued, Indication: Gastroesophageal reflux disease (GERD) Given 03/02/2025 7:47 AM CDT 40 mg Given 03/01/2025 8:32 AM CDT 40 mg Given 02/28/2025 8:39 AM CDT 40 mg polyethylene glycol (MIRALAX) packet 17 Gram 17 Gram, Oral, DAILY PRN, Starting on Thu03/01/25 at 1414, Until Ashly 03/02/25 at 1655, Constipation, Routine Given 03/02/2025 7:56 AM CDT 17 Grams Given 03/01/2025 2:25 PM CDT 17 Grams povidone-iodine (BETADINE) 5 % topical solution Both Nostrils, ONE TIME ONLY, 1 dose, On Thu02/27/25 at 0630, Routine, Pre-op Given 02/27/2025 7:00 AM CDT 4 mL predniSONE (DELTASONE) tablet 1 mg 1 mg, Oral, DAILY, First dose on Thu02/27/25 at 1500, Until Discontinued, Routine, Previous Med: predniSONE (DELTASONE) 1 mg tablet - Orig Sig - Take 1 mg by mouth daily. Given 03/02/2025 9:49 AM CDT 1 mg Given 03/01/2025 11:54 AM CDT 1 mg Given 02/28/2025 8:43 AM CDT 1 mg prochlorperazine maleate (COMPAZINE) tablet 10 mg 10 mg, Oral, EVERY 6 HOURS PRN, Starting on Thu02/27/25 at 1429, Until Ashly 03/02/25 at 1655, Nausea/Emesis, Routine, Post-op - Floor rOPINIRole (REQUIP) tablet 2 mg 2 mg, Oral, TWO TIMES DAILY, First dose on Thu02/27/25 at 2100, Until Discontinued, Routine, Previous Med: rOPINIRole (REQUIP) 2 mg Tablet - Orig Sig - Take 2 mg by mouth 2 times daily. Given 03/02/2025 9:49 AM CDT 2 mg Given 03/01/2025 8:15 PM CDT 2 mg Given 03/01/2025 8:32 AM CDT 2 mg sertraline (ZOLOFT) tablet 100 mg 100 mg, Oral, DAILY, First dose on Thu02/27/25 at 1500, Until Discontinued, Routine, Previous Med: sertraline (ZOLOFT) 100 mg tablet - Orig Sig - Take 1 Tablet (100 mg) by mouth daily. Given 03/02/2025 9:49 AM CDT 100 mg Given 03/01/2025 8:32 AM CDT 100 mg Given 02/28/2025 8:40 AM CDT 100 mg sodium chloride flush injection 10 mL 10 mL, IV, TWO TIMES DAILY, First dose on Thu02/27/25 at 0900, Until Discontinued, Routine, Pre-op Given 03/02/2025 9:49 AM CDT 10 mL Given 03/01/2025 8:16 PM CDT 10 mL Given 03/01/2025 9:00 AM CDT 10 mL tamsulosin (FLOMAX) SR 24 hour capsule 0.4 mg 0.4 mg, Oral, DAILY AT BEDTIME, First dose on Thu02/27/25 at 2100, Until Discontinued, Routine, Previous Med: tamsulosin (FLOMAX) 0.4 mg capsule - Orig Sig - Take 0.4 mg by mouth daily at bedtime. Given 03/01/2025 8:15 PM CDT 0.4 mg Given 02/28/2025 9:08 PM CDT 0.4 mg Given 02/27/2025 9:30 PM CDT 0.4 mg traZODone (DESYREL) tablet 100 mg 100 mg, Oral, DAILY AT BEDTIME, First dose on Thu02/27/25 at 2100, Until Discontinued, Routine, Previous Med: traZODone (DESYREL) 100 mg tablet - Orig Sig - Take 100 mg by mouth daily at bedtime. Given 03/01/2025 8:15 PM CDT 100 mg Given 02/28/2025 9:08 PM CDT 100 mg Given 02/27/2025 10:09 PM CDT 100 mg documented in this encounter Active and Recently Administered Medications Times are shown in CDT. Scheduled Medication Order 02/28/2025 03/01/2025 03/02/2025 buPROPion HCL (WELLBUTRIN XL) 24 hour tablet 150 mg 150 mg, Oral, TWO TIMES DAILY, First dose on Thu02/27/25 at 2100, Until Discontinued, Routine, Previous Med: buPROPion HCL (WELLBUTRIN XL) 150 mg Extended Release 24 hour tablet - Orig Sig - Take 150 mg by mouth 2 times daily. 0839 (Given - Provider: Ivon Quinn RN)2107 (Given - Provider: Kaylee Bee RN) 08 (Given - Provider: Eleni Busch RN)2014 (Given - Provider: Kaylee Bee RN) 0949 (Given - Provider: Genesis Elder RN) docusate sodium (COLACE) capsule 100 mg 100 mg, Oral, TWO TIMES DAILY, First dose on Thu02/27/25 at 2100, Until Discontinued, Routine, Post-op - Floor 0840 (Given - Provider: Ivon Quinn RN)2107 (Given - Provider: Kaylee Bee, ROYCE) 08 (Given - Provider: Eleni Busch, ROYCE)2014 (Given - Provider: Kaylee Bee RN) 0949 (Given - Provider: Genesis Elder, ROYCE) DULoxetine (CYMBALTA) capsule 30 mg 30 mg, Oral, DAILY, First dose on Thu02/27/25 at 1500, Until Discontinued, Routine, Previous Med: DULoxetine (CYMBALTA) 30 mg Capsule, Delayed Release(E.C.) - Orig Sig - Take 1 Capsule by mouth daily. 0839 (Given - Provider: Ivon Quinn RN) 0832 (Given - Provider: Eleni Busch RN) 0949 (Given - Provider: Genesis Elder, ROYCE) famotidine (PEPCID) tablet 20 mg 20 mg, Oral, TWO TIMES DAILY, First dose on Thu02/27/25 at 2100, Until Discontinued, Routine, Post-op - Floor 0840 (Given - Provider: Ivon Quinn RN)2107 (Given - Provider: Kaylee Bee RN) 831 (Given - Provider: Eleni Busch, ROYCE)2014 (Given - Provider: Kaylee Bee RN) 0949 (Given - Provider: Genesis Elder, ROYCE) ferrous sulfate tablet 325 mg 325 mg, Oral, DAILY, First dose on Thu02/27/25 at 1500, Until Discontinued, Routine, Previous Med: ferrous sulfate 325 mg (65 mg iron) tablet - Orig Sig - Take 325 mg by mouth daily. 0840 (Given - Provider: Ivon Quinn RN) 0900 (Given - Provider: Eleni Busch, ROYCE) 0949 (Given - Provider: Genesis Elder, ROYCE) gabapentin (NEURONTIN) capsule 400 mg 400 mg, Oral, TWO TIMES DAILY, First dose on Thu02/27/25 at 2100, Until Discontinued, Routine, Previous Med: gabapentin (NEURONTIN) 400 mg capsule - Orig Sig - Take 400 mg by mouth 2 times daily. 0840 (Given - Provider: Ivon Quinn RN)2107 (Given - Provider: Kaylee Bee RN) 0832 (Given - Provider: Eleni Busch, ROYCE)2014 (Given - Provider: Kaylee Bee RN) 0949 (Given - Provider: Genesis Elder RN) hydroCHLOROthiazide tablet 25 mg 25 mg, Oral, DAILY, First dose on Thu02/27/25 at 1500, Until Discontinued, Routine, Previous Med: hydroCHLOROthiazide 25 mg tablet - Orig Sig - Take 1 Tablet (25 mg) by mouth daily. 0839 (Given - Provider: Ivon Quinn RN) 0832 (Given - Provider: Eleni Busch RN) 0949 (Given - Provider: Genesis Elder RN) losartan (COZAAR) tablet 100 mg 100 mg, Oral, DAILY, First dose on Thu02/27/25 at 1500, Until Discontinued, Routine, Previous Med: losartan (COZAAR) 100 mg tablet - Orig Sig - Take 100 mg by mouth daily. 0840 (Given - Provider: Ivon Quinn RN) 0832 (Given - Provider: Eleni Busch RN) 0949 (Given - Provider: Genesis Elder RN) naloxone (NARCAN) 0.4 mg/mL injection 0.1-0.4 mg 0.1-0.4 mg, IV, SEE ADMIN INSTRUCTIONS, Starting on Thu02/27/25 at 0713, Until Ashly 03/02/25 at 1655, Routine, PACU pantoprazole (PROTONIX) tablet 40 mg 40 mg, Oral, DAILY BEFORE BREAKFAST, First dose on Thu02/27/25 at 1500, Until Discontinued, Indication: Gastroesophageal reflux disease (GERD) 0839 (Given - Provider: Ivon Quinn RN) 0832 (Given - Provider: Eleni Busch, ROYCE) 0747 (Given - Provider: Genesis Elder RN) predniSONE (DELTASONE) tablet 1 mg 1 mg, Oral, DAILY, First dose on Thu02/27/25 at 1500, Until Discontinued, Routine, Previous Med: predniSONE (DELTASONE) 1 mg tablet - Orig Sig - Take 1 mg by mouth daily. 0843 (Given - Provider: Ivon Quinn RN) 1154 (Given - Provider: Eleni Busch RN) 0949 (Given - Provider: Genesis Elder, ROYCE) rOPINIRole (REQUIP) tablet 2 mg 2 mg, Oral, TWO TIMES DAILY, First dose on Thu02/27/25 at 2100, Until Discontinued, Routine, Previous Med: rOPINIRole (REQUIP) 2 mg Tablet - Orig Sig - Take 2 mg by mouth 2 times daily. 0840 (Given - Provider: Ivon Quinn RN)2107 (Given - Provider: Kaylee Bee RN) 08 (Given - Provider: Eleni Busch RN)2014 (Given - Provider: Kaylee Bee RN) 0949 (Given - Provider: Genesis Elder RN) sertraline (ZOLOFT) tablet 100 mg 100 mg, Oral, DAILY, First dose on Thu02/27/25 at 1500, Until Discontinued, Routine, Previous Med: sertraline (ZOLOFT) 100 mg tablet - Orig Sig - Take 1 Tablet (100 mg) by mouth daily. 0840 (Given - Provider: Ivon Quinn RN) 0832 (Given - Provider: Eleni Busch RN) 0949 (Given - Provider: Genesis Elder RN) sodium chloride flush injection 10 mL 10 mL, IV, TWO TIMES DAILY, First dose on Thu02/27/25 at 0900, Until Discontinued, Routine, Pre-op 0840 (Given - Provider: Ivon Quinn RN)2108 (Given - Provider: Kaylee Bee RN) 899 (Given - Provider: Eleni Busch RN)2015 (Given - Provider: Kaylee Bee RN) 0949 (Given - Provider: Genesis Elder RN) tamsulosin (FLOMAX) SR 24 hour capsule 0.4 mg 0.4 mg, Oral, DAILY AT BEDTIME, First dose on Thu02/27/25 at 2100, Until Discontinued, Routine, Previous Med: tamsulosin (FLOMAX) 0.4 mg capsule - Orig Sig - Take 0.4 mg by mouth daily at bedtime. 2107 (Given - Provider: Kaylee Bee RN) 2014 (Given - Provider: Kaylee Bee RN) traZODone (DESYREL) tablet 100 mg 100 mg, Oral, DAILY AT BEDTIME, First dose on Thu02/27/25 at 2100, Until Discontinued, Routine, Previous Med: traZODone (DESYREL) 100 mg tablet - Orig Sig - Take 100 mg by mouth daily at bedtime. 2107 (Given - Provider: Kaylee Bee RN) 2014 (Given - Provider: Kaylee Bee RN) PRN Medication Order 02/28/2025 03/01/2025 03/02/2025 acetaminophen (TYLENOL) tablet 650 mg 650 mg, Oral, EVERY 6 HOURS PRN, Starting on Thu02/27/25 at 1429, Until Thu03/02/25 at 1655, Other (See Comment), See admin instructions, Routine, Post-op - Floor bisacodyL (DULCOLAX) rectal suppository 10 mg 10 mg, Rectal, DAILY PRN, Starting on Thu02/27/25 at 1429, Until Thu03/02/25 at 1655, Constipation, Routine, Post-op - Floor diazePAM (VALIUM) tablet 5 mg 5 mg, Oral, EVERY 8 HOURS PRN, Starting on Thu02/27/25 at 1429, Until Thu03/02/25 at 1655, Spasm, Routine, Post-op - Floor diphenhydrAMINE (BENADRYL) tablet 25 mg 25 mg, Oral, EVERY 8 HOURS PRN, Starting on Thu02/27/25 at 1429, Until Thu03/02/25 at 1655, Itching, Routine, Post-op - Floor HYDROmorphone (PF) (DILAUDID) injection 0.6 mg 0.6 mg, IV, EVERY 3 HOURS PRN, Starting on Thu02/27/25 at 1429, Until Thu03/02/25 at 1655, Pain (See admin instructions), Routine, Post-op - Floor ondansetron (ZOFRAN ODT) tablet 4 mg 4 mg, Oral, EVERY 6 HOURS PRN, Starting on Thu02/27/25 at 1429, Until Thu03/02/25 at 1655, Nausea/Emesis, Routine, Post-op - Floor ondansetron (ZOFRAN) 4 mg/2 mL injection 4 mg 4 mg, IV, EVERY 6 HOURS PRN, Starting on Thu02/27/25 at 1429, Until Ashly 03/02/25 at 1655, Nausea/Emesis, Routine, Post-op - Floor oxyCODONE (ROXICODONE) tablet 5 mg 5 mg, Oral, EVERY 4 HOURS PRN, Starting on Thu02/27/25 at 1429, Until Ashly 03/02/25 at 1655, Pain (See admin instructions), Routine, Post-op - Floor 0844 (Given - Provider: Ivon Quinn RN)9 (Given - Provider: Kaylee Bee, ROYCE) 2014 (Given - Provider: Kaylee Bee, ROYCE) 0755 (Given - Provider: Genesis Elder, ROYCE) oxyCODONE (ROXICODONE) tablet 7.5 mg 7.5 mg, Oral, EVERY 4 HOURS PRN, Starting on Thu02/27/25 at 1429, Until Ashly 03/02/25 at 1655, Pain (See admin instructions), Routine, Post-op - Floor 1048 (Given - Provider: Eleni Busch, ROYCE) polyethylene glycol (MIRALAX) packet 17 Gram 17 Gram, Oral, DAILY PRN, Starting on Thu03/01/25 at 1414, Until Ashly 03/02/25 at 1655, Constipation, Routine 1425 (Given - Provider: Eleni Busch, ROYCE) 0756 (Given - Provider: Genesis Elder, ROYCE) prochlorperazine maleate (COMPAZINE) tablet 10 mg 10 mg, Oral, EVERY 6 HOURS PRN, Starting on Thu02/27/25 at 1429, Until Ashly 03/02/25 at 1655, Nausea/Emesis, Routine, Post-op - Floor documented in this encounter Care Teams Integrated Logistics Support Manager Relationship Specialty Start Date End Date Parveen Bear DO [address] [place] [id number] PCP - General Family Practice 06/26/23 documented as of this encounter
--- OUTSIDE RECORDS SUMMARY | 2025-02-27 07:54 | XMS_ITS | Encounter Summary ---
Author Organization [facility] Address [address] [place] [address] Care Team Providers Care Sharepoint Solutions Architect Name Role Phone Parveen Bear Primary Care Provider [phone] Reason for Visit * Auth/Cert (Routine) Specialty Diagnoses / Procedures Referred By Jessica lang Referred To Contact Perioperative Diagnoses Chronic neck pain Spinal stenosis of cervical region Chronic neck pain [M54.2, G89.29] Spinal stenosis of cervical region [M48.02] Procedures DC REMOVAL POSTERIOR SEGMENTAL INSTRUMENTATION DC ARTHRD ANT INTERBODY DECOMPRESS CERVICAL BELW C2 DC ANTERIOR INSTRUMENTATION 2-3 VERTEBRAL SEGMENTS DC INSJ BIOMCHN DEV INTERVERTEBRAL DSC SPC W/ARTHRD DC AUTOGRAFT SPINE SURGERY LOCAL FROM SAME INCISION DC ALLOGRAFT FOR SPINE SURGERY ONLY MORSELIZED DC REMOVAL POSTERIOR NONSEGMENTAL INSTRUMENTATION BACK HARDWARE REMOVAL CERVICAL DISCECTOMY FUSION ANTERIOR - 1 LEVEL Chalo Shepherd MD [address] [place] [address] Phone: tel: fax: [facility] Operating Room [address] [place] [address] Phone: tel: fax: Referral ID Status Reason Start Date Expiration Date Visits Re quested Visits Authorized [id number] 1 1 Encounter Details Date Type Department Care Team (Late st Contact Info) Description 02/27/2025 7:54 AM CDT Anesthesia Event [facility] Operating Room [address] [place] [address] Daniel Pal II, DO [address] [place] [phone] Jaun Clemons CRNA NO ADDRESS ON FILE Anesthesia Record Procedure Summary Procedure Name Responsible Anesthesiologist Anesthesia Start Time Anesthesia Stop Time CERVICAL DISCECTOMY FUSION ANTERIOR - 1 LEVEL (Neck) Kae Daniel ANNE, 02/27/25 0754 02/27/25 1129 Events Date Time Event Comment 02/27/2025 0655 AN Equip Check Anesthesia eq uipment and materials checked in accordance with local policy. 0715 0753 In Room This event disp lays the In Room time documented in the Surgical Log. Deleting this event will not remove it from the log but will remove it from the Grid and Graph timeline. 0754 An Start 0754 An Start Data 0754 Pre-Induction Immediate pre- induction anesthetic assessment performed. Vital signs as noted on graphic. 0800 An Induction 0802 An Intubation 0810 Anesthesia Ready 0832 Quick Note Bite block plac ed for neuroinitoring 0846 Quick Note Eladio hugger inf lated, fluid watmer on each IV 0848 Procedure Start This event d isplays the Procedure Start time documented in the Surgical Log. Deleting this event will not remove it from the log but will remove it from the Grid and Graph timeline. 0915 Quick Note Face checked 1005 Quick Note Temp probe ferny олег 1034 Quick Note Face checked 1038 Quick Note Surgeon inject local with epi 1115 Procedure Stop This event di splays the Procedure Stop time documented in the Surgical Log. Deleting this event will not remove it from the log but will remove it from the Grid and Graph timeline. 1123 An Extubation Emergence unev entful Awake, spontaneous respirations. Adequate muscle strength demonstrated Adequate tidal volume. Orapharynx suctioned. Extubated with positive pressure ventilation. 1124 an stop data 1125 Out of Room This event disp lays the Out of Room time documented in the Surgical Log. Deleting this event will not remove it from the log but will remove it from the Grid and Graph timeline. 1129 An Stop 1129 Hand-off to Receiving Clinic naina Meds Name Total ceFAZolin in sterile water (ANCEF) 2 gra m/20 mL IV Syringe (PREMIX) 2,000 mg 2,000 mg ketamine (KETALAR) 100 mg/mL injection 30 mg midazolam (VERSED) 1 mg/mL injection 2 mg propofol (DIPRIVAN) 10 mg/mL injection 610.4 mg lidocaine (XYLOCAINE) 2% injection 200 m g fentaNYL (SUBLIMAZE) PF 50 mcg/mL injection 100 mcg phenylephrine 20 mg in dextrose 5 % 250 mL infusion 3.58 mg ePHEDrine 50 mg/mL injection 20 mg dexamethasone (DECADRON) 4 mg/mL injecti on 4 mg glycopyrrolate (ROBINUL) 0.2 mg/mL injec tion 0.6 mg rocuronium (ZEMURON) 10mg/mL injection 5 0 mg hydromorPHONE PF (DILAUDID) 2 mg/mL inje ction 0.6 mg ondansetron (ZOFRAN) 4 mg/2 mL injection 4 mg neostigmine (BLOXIVERZ) 1 mg/mL injectio n 3 mg lactated ringers infusion 500 mL electrolyte-a (PLASMA-LYTE A) 1,000 mL * Agents Name Air O2 O2 * Blood No blood administrations on file. Lines, Drains, and Airways Type Details Placement Removal Wound 02/27/25; 1007; No; 1; Right; cervical spine anterior; Surgical; Closed Surgi 02/27/25 1007 by Ngoc No RN Wound 02/27/25; 1131; cervical spine anterior; Surgical 02/27/25 1131 by Bria Ramirez RN Wound 02/27/25; 1131; back ; Surgical 02/27/25 1131 by Bria Ramirez RN Peripheral IV Orientation: Right; Location: Antecubital; Device: Angiocath; Gauge: 20 gauge; Insertion Attempts: 2; Patient Tolerance: tolerated well; Removal Indication: no longer indicated, removed per policy; Removal Interventions: pressure dressing, catheter intact 02/27/25 0656 by Angelita Olivo (Student), RN 03/02/25 1252 by Genesis Elder RN Endotracheal Airway Type: ETT; Size: 8; Attempts: 1; Verification: Auscultated bilateral breath sounds, Equal chest movement, Continuous waveform capnography 02/27/25 0800 by Jaun Clemons CRNA 02/27/25 1123 by Jaun Clemons CRNA Indwelling Urethral Catheter 02/27/25; 0815; No; Indwelling double lumen coud tip catheter; 16 Fr; inserted; 1; 5; 10; 02/28/25; 0500 02/27/25 0815 by Ngoc No RN 02/28/25 0500 by Abraham Smith RN ART Line Orientation: Right:; Location: radial artery; Size (Ga): 20 Ga; Removal Indication: no longer indicated, removed per policy; Removal Interventions: pressure dressing, direct pressure, catheter intact 02/27/25 0817 by Daniel Pal II, DO 02/27/25 1150 by Kanchan Fernandez RN Drain Present on Admission : No; Tube Number: #1; Orientation: anterior; Location: neck; Type: Drew-[place] 02/27/25 1004 by Ngoc No RN 02/28/252106 by Kaylee Bee RN documented in this encounter Social History Tobacco Use Types Packs/Day Years [...] worry about transportation for future doctor visits, peanut picker medication, etc.? No 2024 Housing Stability Answer [...] on file Legal Sex Male 5:26 AM BLUEPRINTER Gender Identity Male 11/15/2024 4:33 PM CDT Sexual Orientation Not on file documented as of this encounter OR Notes * Anesthesia Postprocedure Evaluation - Daniel Pal II, DO - 02/27/2025 5:51 PM CDT Post Anesthesia Evaluation Vitals: Vitals Value Taken Time BP 167/67 02/27/25 16:57 Temp 36.6 ??C 02/27/25 16:57 Resp 16 02/27/25 16:57 SpO2 100 % 02/27/25 16:57 Pulse 61 02/27/25 16:57 Heart Rate 67 bpm 02/27/25 14:15 Pain Rating: Pain Rating: Rest: 6 (02/27/25 1740) Presence of Pain: complains of pain/discomfort (02/27/25 1155) Score: FLACC (rest): 0 (02/27/25 1350) Anesthesia Post Evaluation Patient location during evaluation: PACU Patient participation: patient was able to participate in the post op evaluation Level of consciousness: 0 = alert, responsive, answers simple questions appropriately, able to perform simple tasks Pain management: adequate Airway patency: patent Nausea or Vomiting: none Cardiovascular status: regular rate and rhythm Respiratory status: no respiratory symptoms Hydration status: well hydrated No notable events documented. Daniel Pal II, DO * Anesthesia Handoff - Jaun Clemons CRNA - 02/27/2025 11:29 AM CDT Post-Anesthetic transfer of care report elements to appropriate post-anesthesia recovery environment completed in accordance with procedure. I completed my handoff to the receiving nurse during which we: 1. Identified the patient 2. Identified the responsible provider 3. Reviewed the pertinent medical history 4. Discussed the surgical course 5. Reviewed intra-op anesthesia management and issues during anesthesia 6. Set expectations for post-procedure period 7. Orders as necessary and appropriate for continuation of care are present in Epic. 8. Allowed opportunity for questions and acknowledgement of understanding. Vital Signs: Vitals Value Taken Time BP 170/69 02/27/25 11:28 Temp Resp 9 02/27/25 11:28 SpO2 100 % 02/27/25 11:28 Pulse 58 02/27/25 11:28 Heart Rate 59 bpm 02/27/25 11:28 Vitals shown include unfiled device data. 11:29 AM Jaun Vides CRNA * Anesthesia Procedure Notes - Jaun Clemons CRNA - 02/27/2025 8:26 AM CDT Associated Order(s): Airway Airway Date/Time: 02/27/2025 8:00 AM Location: OR Plan: routine intubation Patient Identity Confirmed by: Verbally with patient and armband Airway: not difficult Staffing Performed: STEVE/CAA Authorized by: Daniel Pal II, DO Performed by: Jaun Clemons CRNA Indications and Patient Condition: Indications for Airway Management: Anesthesia Sedation Level: general anesthesia Preoxygenated: yes Patient Position: Sniffing (pt positioned self to comfort) Mask Difficulty Assessment: 1 - vent by mask Plan to extubate at end of case: Yes Final Airway Details: Final Airway Type: Endotracheal airway ETT Cuffed: Yes Technique Used for Successful ETT Placement: Direct laryngoscopy Devices/Methods Used in Placement: Intubating stylet Blade Type: curved blade Blade Size: 4 Insertion Site: Oral ETT Size (mm): 8.0 Measured from: Gums ETT to Gums (cm): 21 Tube secured with: Tape Placement Verified by: auscultation, end tidal CO2 and chest rise Cormack-Lehane Classification: Grade I - full view of glottis Number of Attempts at Approach: 1 Additional Procedure Information: atraumatic * Anesthesia Procedure Notes - Daniel Pal II, DO - 02/27/2025 8:13 AM CDTAssociated Order(s): Arterial Line Insertion Arterial Line Insertion Patient location during procedure: OR Staffing Performed: Anesthesiologist (/) Authorized by: Daniel Pal II, DO Performed by: Daniel Pal II, DO time out called Patient was prepped and draped in usual sterile fashion Indications: hemodynamic monitoring Local Anesthetic: lidocaine 1% without epinephrine Anesthetic total: 1 mL Hand hygiene performed prior to procedure Preparation: skin prepped with ChloraPrep Skin prep agent dried: skin prep agent completely dried prior to procedure Patient position: flat Location: right radial modified Seldinger technique used Catheter type: radial kit Catheter size: 20 G Catheter Length (in.): 1.75 [place] Identification: palpation technique Number of attempts: 1 Successful placement: yes Assessment: blood return through port Procedure uneventful Post-procedure: line secured and dressing applied Comments: Sterile technique, sterile dressing, tape secured. * Anesthesia Preprocedure Evaluation - Daniel Pal II, DO - 02/27/2025 7:13 AM CDT Relevant Problems CARDIOVASCULAR (+) Hypertension (+) Mild aortic stenosis (+) Mitral regurgitation (+) Systolic murmur GI (+) GERD (gastroesophageal reflux disease) Anesthesia Evaluation Airway Mallampati: II TM distance: >3 FB Neck ROM: limited Dental Pulmonary breath sounds clear to auscultation (-) asthma, shortness of breath, recent URI Cardiovascular Exercise tolerance: good (+) hypertension, valvular problems/murmurs (-) pacemaker, past CT, CAD, CABG/stent, dysrhythmias, angina, CHF, orthopnea, PND, WILKINSON Rhythm: regular Rate: normal ROS comment: Summary and Conclusion: - Left ventricle: The [...] - Tricuspid valve: There is mild regurgitation. Neuro/Psych (+) psychiatric history (-) neuromuscular disease, TIA, CVA GI/Hepatic/Renal (+) GERD, chronic renal disease (-) PUD, hepatitis Endo/Other (+) arthritis (-) diabetes mellitus, hypothyroidism, hyperthyroidism Abdominal Anesthesia History No history of anesthetic complications and no history of malignant hyperthermia. Anesthesia Plan ASA Final: 3 General (GETA, Glidescope, large bore PIV access, A-line prn.) Intravenous induction Oral ETT airway maintenance NPO status > 8 hours Anesthetic plan and risks discussed with Patient. Use of blood products: consented to blood products. Plan discussed with Instructional Technologist. Post-op Pain Control Plan to use Per surgeon for post-op pain control. Abraham Henson is a 84 y.o. male Date: 02/27/2025 Interview: Pre-Op Preoperative Diagnosis Chronic neck pain [M54.2, G89.29] Spinal stenosis of cervical region [M48.02] Scheduled Procedure CERVICAL DISCECTOMY FUSION ANTERIOR - 1 LEVEL, LUMBAR TO PELVIS FUSION - REVISION NPO: >8 hours (solid food) and >2 hours (clear liquids) Allergies Allergen Reactions Atorvastatin Calcium Muscle Pain Past Medical History: Diagnosis Date Allergic rhinitis 02/13/2025 Anemia 02/13/2025 Arthritis Back pain Cataract Chest pain 6-7 years, comes and goes, points to right side of chest, last time today stated 02/13/2025 CRI (chronic renal insufficiency) GERD (gastroesophageal reflux disease) Hyperlipidemia Hypertension Macular degeneration Motion sickness Pneumothorax, traumatic 74 yo, left pneumo PUD (peptic ulcer disease) Past Surgical History: Procedure Laterality Date HX [...] (POST CATARACT) PT DENIES RELEVANT SURGICAL HISTORY No current facility-administered medications on file prior to encounter. Current Outpatient Medications on File Prior to Encounter Medication Sig Dispense Refill fluticasone propionate (FLONASE) 50 mcg/spray [place], Suspension nasal inhaler Administer 2 Sprays in each nostril daily. meloxicam (MOBIC) 15 mg tablet Take 15 mg by mouth daily. sertraline (ZOLOFT) 100 mg tablet Take 1 Tablet (100 mg) by mouth daily. 90 Tablet 1 hydroCHLOROthiazide 25 mg tablet Take 1 Tablet (25 mg) by mouth daily. 90 Tablet 1 gabapentin (NEURONTIN) 400 mg capsule Take 400 mg by mouth 2 times daily. losartan (COZAAR) 100 mg tablet Take 100 mg by mouth daily. omeprazole (PriLOSEC) 20 mg Capsule, Delayed Release(E.C.) predniSONE (DELTASONE) 1 mg tablet Take 1 mg by mouth daily. primidone (MYSOLINE) 50 mg tablet rOPINIRole (REQUIP) 2 mg Tablet Take 2 mg by mouth 2 times daily. tamsulosin (FLOMAX) 0.4 mg capsule Take 0.4 mg by mouth daily at bedtime. traZODone (DESYREL) 100 mg tablet Take 100 mg by mouth daily at bedtime. buPROPion HCL (WELLBUTRIN XL) 150 mg Extended Release 24 hour tablet Take 150 mg by mouth 2 times daily. oxyCODONE (ROXICODONE) 5 mg tablet Physical Exam: Airway Class: II (soft palate, uvula, fauces visible) Dentition: upper and lower dentures Pulmonary: clear to auscultation Cardiac: regular rate and rhythm Neuro: alert Pertinent lab: No results found for this visit on 02/27/25 (from the past 24 hours). Pertinent lab: Lab Results Component Value Date/Time WBC 6.0 02/13/2025 01:51 PM HGB 11.0 (L) 02/13/2025 01:51 PM HCT 31.4 (L) 02/13/2025 01:51 PM PLT 150 02/13/2025 01:51 PM MCV 91.3 02/13/2025 01:51 PM Lab Results Component Value Date/Time NA 140 02/13/2025 01:51 PM K 3.9 02/13/2025 01:51 PM CL 105 02/13/2025 01:51 PM CO2 26 02/13/2025 01:51 PM CA 8.8 02/13/2025 01:51 PM BUN 16 02/13/2025 01:51 PM CREAT 0.90 02/13/2025 01:51 PM GLUCOSE 98 02/13/2025 01:51 PM TOTALPROTEIN 5.8 (L) 02/13/2025 01:51 PM ALBUMIN 3.9 02/13/2025 01:51 PM BILITOTAL 0.3 02/13/2025 01:51 PM ALKPHOS 70 02/13/2025 01:51 PM AST 18 02/13/2025 01:51 PM ALT 13 02/13/2025 01:51 PM ANIONGAP 9 02/13/2025 01:51 PM BCRATIO SEE NOTE: 06/26/2023 03:05 PM Receiving beta-lisa therapy? No Received dose within last 24 hours? No The risks and benefits of the proposed anesthetic have been discussed. The patient has agreed to GETA. Anesthesia guideline orders initiated. Special considerations: Daniel Pal II, DO documented in this encounter Plan of Treatment Upcoming Encounters Date Type Department Care Team (Late st Contact Info) Description 03/14/2025 11:00 AM BLUEPRINTER Office Visit [facility] Neuro[facility] [address] [place] [phone] Cristal Judge NP [address] [place] [phone] 03/16/2025 3:00 PM BLUEPRINTER Office Visit [facility] Medicine [place] [address] [place] [phone] Leela Ramires FNP [address] [place] [phone] documented as of this encounter Procedures Procedure Name Priority Date/Time Associated Diagnosis Comments DC ANES INSERT CATH, ART, PERCUT, SHORTTERM Routine 02/27/2025 8:13 AM CDT DC ANES INSERT ENDOTRACHEAL AIRWAY Routine 02/27/2025 8:00 AM CDT documented in this encounter Results * DC ANES INSERT CATH, ART, PERCUT, SHORTTERM (02/27/2025 8:13 AM CDT) Narrative Daniel Pal II, DO - 02/27/2025 8:13 AM CDT Daniel Pal II, DO 02/27/2025 8:17 AM Arterial Line Insertion Patient location during procedure: OR Staffing Performed: Anesthesiologist (/) Authorized by: Daniel Pal II, DO Performed by: Daniel Pal II, DO time out called Patient was prepped and draped in usual sterile fashion Indications: hemodynamic monitoring Local Anesthetic: lidocaine 1% without epinephrine Anesthetic total: 1 mL Hand hygiene performed prior to procedure Preparation: skin prepped with ChloraPrep Skin prep agent dried: skin prep agent completely dried prior to procedure Patient position: flat Location: right radial modified Seldinger technique used Catheter type: radial kit Catheter size: 20 G Catheter Length (in.): 1.75 [place] Identification: palpation technique Number of attempts: 1 Successful placement: yes Assessment: blood return through port Procedure uneventful Post-procedure: line secured and dressing applied Comments: Sterile technique, sterile dressing, tape secured. Daniel Pal II, DO PROCEDURE/MINOR ARNDT RGICAL ORDERABLES Final Result * DC ANES INSERT ENDOTRACHEAL AIRWAY (02/27/2025 8:00 AM CDT) Narrative Jaun Clemons CRNA - 02/27/2025 8:00 AM CDT Jaun Clemons CRNA 02/27/2025 8:26 AM Airway Date/Time: 02/27/2025 8:00 AM Location: OR Plan: routine intubation Patient Identity Confirmed by: Verbally with patient and armband Airway: not difficult Staffing Performed: OFFICE CLINICIAN/CAA Authorized by: Daniel Pal II, DO Performed by: Jaun Clemons CRNA Indications and Patient Condition: Indications for Airway Management: Anesthesia Sedation Level: general anesthesia Preoxygenated: yes Patient Position: Sniffing (pt positioned self to comfort) Mask Difficulty Assessment: 1 - vent by mask Plan to extubate at end of case: Yes Final Airway Details: Final Airway Type: Endotracheal airway ETT Cuffed: Yes Technique Used for Successful ETT Placement: Direct laryngoscopy Devices/Methods Used in Placement: Intubating stylet Blade Type: curved blade Blade Size: 4 Insertion Site: Oral ETT Size (mm): 8.0 Measured from: Gums ETT to Gums (cm): 21 Tube secured with: Tape Placement Verified by: auscultation, end tidal CO2 and chest rise Cormack-Lehane Classification: Grade I - full view of glottis Number of Attempts at Approach: 1 Additional Procedure Information: atraumatic Daniel Pal II, DO PROCEDURE/MINOR ARNDT RGICAL ORDERABLES Final Result documented in this encounter Visit Diagnoses Not on filedocumented in this encounter Administered Medications Inactive Administered Medications - up to 3 most recent administrations Medication Order MAR Action Action Date Dose Rate Site ceFAZolin in sterile water (ANCEF) 2 gram/20 mL IV Syringe (PREMIX) 2,000 mg 2,000 mg, IV, PRE-PROCEDURE ONCE, 1 dose, Starting on Thu02/27/25 at 0627, Until Thu02/27/25 at 0819, Routine, Pre-op, Antibiotic Indication: Surgical prophylaxis Given 02/27/2025 8:14 AM CDT 2,000 mg dexAMETHasone (DECADRON) injection IV, INTRA-PROCEDURE PRN, Starting on Thu02/27/25 at 0827, Until Thu02/27/25 at 1129, Routine, Anesthesia Intra-op Given 02/27/2025 8:27 AM CDT 4 mg electrolyte-a (PLASMA-LYTE A) infusion IV, INTRA-PROCEDURE CONTINUOUS PRN, Starting on Thu02/27/25 at 0815, Until Thu02/27/25 at 1129, Routine, Anesthesia Intra-op New Bag 02/27/2025 8:15 AM CDT ePHEDrine injection IV, INTRA-PROCEDURE PRN, Starting on Thu02/27/25 at 1026, Until Thu02/27/25 at 1129, Routine, Anesthesia Intra-op Given 02/27/2025 10:27 AM CDT 10 mg Given 02/27/2025 10:26 AM CDT 10 mg fentaNYL (PF) (SUBLIMAZE) 50 mcg/mL injection IV, INTRA-PROCEDURE PRN, Starting on Thu02/27/25 at 0800, Until Thu02/27/25 at 1129, Routine, Anesthesia Intra-op Given 02/27/2025 8:21 AM CDT 50 mcg Given 02/27/2025 8:00 AM CDT 50 mcg glycopyrrolate (ROBINUL) injection IV, INTRA-PROCEDURE PRN, Starting on Thu02/27/25 at 0823, Until Thu02/27/25 at 1129, Routine, Anesthesia Intra-op Given 02/27/2025 10:53 AM CDT 0.4 mg Given 02/27/2025 8:23 AM CDT 0.2 mg HYDROmorphone (PF) (DILAUDID) injection IV, INTRA-PROCEDURE PRN, Starting on Thu02/27/25 at 0856, Until Thu02/27/25 at 1129, Routine, Anesthesia Intra-op Given 02/27/2025 11:13 AM CDT 0.2 mg Given 02/27/2025 8:56 AM CDT 0.4 mg ketamine 100 mg/mL injection IV, INTRA-PROCEDURE PRN, Starting on Thu02/27/25 at 0823, Until Thu02/27/25 at 1129, Routine, Anesthesia Intra-op Given 02/27/2025 9:39 AM CDT 10 mg Given 02/27/2025 8:39 AM CDT 10 mg Given 02/27/2025 8:23 AM CDT 10 mg lactated ringers infusion IV, at 40 mL/hr, CONTINUOUS, Starting on Thu02/27/25 at 0630, Until Thu02/28/25 at 0629, Routine, Pre-op New Bag 02/27/2025 8:00 AM CDT lidocaine 2 % (XYLOCAINE) injection IV, INTRA-PROCEDURE PRN, Starting on Thu02/27/25 at 0800, Until Thu02/27/25 at 1129, Routine, Anesthesia Intra-op Given 02/27/2025 11:17 AM CDT 100 mg Given 02/27/2025 8:00 AM CDT 100 mg midazolam (VERSED) injection IV, INTRA-PROCEDURE PRN, Starting on Thu02/27/25 at 0753, Until Thu02/27/25 at 1129, Routine, Anesthesia Intra-op Given 02/27/2025 7:59 AM CDT 1 mg Given 02/27/2025 7:53 AM CDT 1 mg neostigmine (BLOXIVERZ) 1 mg/mL injection IV, INTRA-PROCEDURE PRN, Starting on Thu02/27/25 at 1053, Until Thu02/27/25 at 1129, Routine, Anesthesia Intra-op Given 02/27/2025 10:53 AM CDT 3 mg ondansetron (ZOFRAN) 4 mg/2 mL injection IV, INTRA-PROCEDURE PRN, Starting on Thu02/27/25 at 1039, Until Thu02/27/25 at 1129, Routine, Anesthesia Intra-op Given 02/27/2025 10:39 AM CDT 4 mg phenylephrine 20 mg in dextrose 5 % 250 mL infusion IV, INTRA-PROCEDURE CONTINUOUS PRN, Starting on Thu02/27/25 at 0804, Until Thu02/27/25 at 1129, Anesthesia Intra-op Rate Change 02/27/2025 10:54 AM CDT 0.3 mcg/kg/min 14.355 mL/hr Rate Change 02/27/2025 10:26 AM CDT 0.5 mcg/kg/min 23.925 mL/hr Rate Change 02/27/2025 8:50 AM CDT 0.2 mcg/kg/min 9.57 mL/ hr propofoL (DIPRIVAN) injection IV, INTRA-PROCEDURE PRN, Starting on Thu02/27/25 at 0800, Until Thu02/27/25 at 1129, Anesthesia Intra-op Rate Change 02/27/2025 9:45 AM CDT 50 mcg/kg/min 19.14 mL/hr Rate Change 02/27/2025 8:59 AM CDT 75 mcg/kg/min 28.71 mL/ hr New Bag 02/27/2025 8:03 AM CDT 50 mcg/kg/min 19.14 mL/h r rocuronium injection IV, INTRA-PROCEDURE PRN, Starting on Thu02/27/25 at 0800, Until Thu02/27/25 at 1129, Routine, Anesthesia Intra-op Given 02/27/2025 8:00 AM CDT 50 mg documented in this encounter Care Teams Sharepoint Solutions Architect Relationship Specialty Start Date End Date Parveen Bear DO [address], [place] [phone] PCP - General Family Practice 06/26/23 documented as of this encounter
--- OUTSIDE RECORDS SUMMARY | 2025-02-27 08:00 | XMS_ITS | Encounter Summary ---
Author Organization [facility] Address [address] [place] [address] Care Team Providers Care In House Counsel Name Role Phone Parveen Bear Primary Care Provider Reason for Visit * Auth/Cert (Routine) Specialty Diagnoses / Procedures Referred By Jessica lang Referred To Contact Perioperative Diagnoses Chronic neck pain Spinal stenosis of cervical region Chronic neck pain [M54.2, G89.29] Spinal stenosis of cervical region [M48.02] Procedures AR REMOVAL POSTERIOR SEGMENTAL INSTRUMENTATION AR ARTHRD ANT INTERBODY DECOMPRESS CERVICAL BELW C2 AR ANTERIOR INSTRUMENTATION 2-3 VERTEBRAL SEGMENTS AR INSJ BIOMCHN DEV INTERVERTEBRAL DSC SPC W/ARTHRD AR AUTOGRAFT SPINE SURGERY LOCAL FROM SAME INCISION AR ALLOGRAFT FOR SPINE SURGERY ONLY MORSELIZED AR REMOVAL POSTERIOR NONSEGMENTAL INSTRUMENTATION BACK HARDWARE REMOVAL CERVICAL DISCECTOMY FUSION ANTERIOR - 1 LEVEL Chalo Shepherd MD [address] [place] [address] Phone: tel: fax: [facility] Operating Room [address] [place] [address] Phone: tel: fax: Referral ID Status Reason Start Date Expiration Date Visits Re quested Visits Authorized [id number] 1 1 Encounter Details Date Type Department Care Team (Late st Contact Info) Description 02/27/2025 8:00 AM CDT - 02/27/2025 12:10 PM CDT Surgery [facility] Operating Room [address] [place] [address] Chalo Shepherd MD [address] [place] [phone] CERVICAL DISCECTOMY FUSION ANTERIOR - 1 LEVEL Surgery Details Date/Time Status Location OR Service Patient Class Case Class Case Type Trauma Case? 02/27/2025 8:00 AM Posted [facility] OR OR 08 Neurological Surgery Surgical OP/Extended Care Elective No Panel 1 Procedure LRB Anes Op Region Wound Class Comments CERVICAL DISCECTOMY FUSION A NTERIOR - 1 LEVEL N/A General Neck Clean-I BACK HARDWARE REMOVAL N/A General Spine Lumbar Clean -I Surgeon Surgeon Role Service Panel Chalo Shepherd MD Primary Neurological Surgery 1 Carlton Cobb MD Assisting Otorhinolaryngology 1 documented in this encounter Social History Tobacco [...] worry about transportation for future doctor visits, mixing picker tender medication, etc.? No 2024 Housing Stability Answer [...] on file Legal Sex Male 5:26 AM PEDIATRIC ASSISTANT Gender Identity Male 11/15/2024 4:33 PM CDT Sexual Orientation Not on file documented as of this encounter Last Filed Vital Signs Vital Sign Reading Time Taken Comments Blood Pressure 160/74 02/27/2025 12:10 PM CDT Pulse 60 02/27/2025 12:10 PM CDT Temperature 36.1 C (97 F) 02/27/2025 11:42 AM CDT Respiratory Rate 10 02/27/2025 11:3 5 AM CDT Oxygen Saturation 95% 02/27/2025 12: 10 PM CDT Inhaled Oxygen Concentration - - Weight 63.8 kg (140 lb 11.2 oz) 02/27/2025 6:45 AM CDT Height 172.7 cm (5' 8 ) 02/27/2025 6:45 AM CDT Body Mass Index 21.44 02/28/2025 4:24 AM CDT documented in this encounter Discharge Instructions * Discharge Instructions* Cristal Judge NP - 02/28/2025 11:09 AM CDT Thank you for choosing [facility] Neurosurgery for your care! The following is [...] out. Medications will NOT be refilled by ???condemnation engineer?? providers after hours! Many pain medications contain [...] Care Everywhere. * Cervical Collars: General Info (Russian) * Diazepam (Russian) * Opioids: Safe Use (Russian) documented in this encounter Medications at Time [...] mouth daily. fluticasone propionate (FLONASE) 50 mcg/spray Raven, Suspension nasal inhaler Administer 2 Sprays in [...] 03/02/2025 12:37 PM CDT * Mando Solomon, Special Assets Officer - 03/01/2025 12:56 PM CDT Attempted to see patient for PT treatment. Patient/Family chose not to participate in therapy due to I just got comfortable . Will continue with attempts for evaluation/established plan of care. Thank you, Mando Solomon, Special Assets Officer * Winifred Duquezabeth - 03/01/2025 11:48 AM CDT Reason for Visit: Referral Patient spiritual issues identified: Responded to staff. I visited with Abraham. Who's awake and alert. Abraham has post surgery. No family present. RN and chart snatcher were at bedside, I offered spiritual comfort and prayer for God healing be upon Abraham. summary of patient???s most significant issue(s): Family : Abraham has family support at home. His will come. Ada/values: Abraham has [employer]EH[employer] WIT[employer] ada tradition. Open for chart snatcher visit & prayer Needs/hopes resources: Medical team have been provide good care for Abraham. Spiritual interventions Ministry of presence. Utilized presence and active listening to explore feelings, stressors, perceptions, questions/concerns, and coping patterns of Spiritual support provided;Emotional support [facility] ATTENDANT???S ASSESSMENT OF PATIENT???S LEVEL OF DISTRESS: High Outcomes of Care Abraham's found comfort from chart snatcher visit. Expressed thanks for being and prayer with him. Goals of Spiritual Care Round Kiln Drawer Plan Spiritual Care Services remain available for referral PRN. Recommendations for Healthcare Team As spiritual needs and distress arise, please contact Spiritual Care Services. We will follow up as needed. Thank you for this referral. Sister Eloise Deepa Iqbal RSKina.OA Round [place]n Drawer-Spiritual Care Team * Cristal Judge NP - [...] facial strength appears nl CN VIII - KEWEENAW CN IX and X - palate elevates [...] Occupational Therapist - 02/28/2025 3:40 PM CDT [facility] 3K Ph. Acute Occupational Therapy Evaluation 02/28/2025 Room: [address] [place] [address] Name: Abraham Henson Age: 84 y.o. 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 Home environment: 1-level home Ramp to enter Walk-in shower Durable medical equipment already in home: Walkers: 2WW and 4WW Canes: single point cane Wheelchairs: manual Shower chair Elevated toilet seat Grab bars Hand-held shower head Board Hammer Operator Sock aid Additional Information Patient/family statement/goal(s): To go to a [facility] Comments: Pt was agreeable to treatment. Pain: [...] Activities of Daily Living Feeding: independent for shax-gf-mfpnp excursion Grooming: minimal assistance standing at sink [...] sequencing, initiation of task, and command following. [facility] AM-PAC Daily Activity How much help from another [...] Score, anticipated discharge disposition, once medically ready: [facility] facility (02/28/251312). Rationale: Patient needs daily (weekday) skilled OT services. Anticipate tolerance is limited for intensive or adapted intensive rehab program. * The final discharge location is determined through physician, case management, and patient/caregiver input along with insurance authorization of skilled services when appropriate. Plan of care and discharge recommendations shared with patient, district manager primary care sales, and PT OT recommended DME and AE [...] referral, Brandy Spicer, Occupational Therapist * Mat Coates Physical Therapist - 02/28/2025 2:04 PM CDT [facility] 3K Ph. Acute Physical Therapy Evaluation 02/28/2025 Room: [address] [place] [address] Name: Abraham Henson Age: 84 y.o. Date of : 1940 Insurance: Payor: YESIKAKatieREYMUNDO MEDICARE ADVANTAGE / Plan: ABELARDO O MCR / ProductType: HMO / Patient Class: [...] during interventions Vitals Patient on room air [facility] AM-PAC Basic Mobility How much help from [...] patient discharges from facility. Anticipated discharge disposition: [facility] facility (02/28/25 9335). PT Recommended DME: Front Wheeled Walker (02/28/25 7040). Plan of care and/or discharge recommendations shared with: Patient, Banquet Cook, and Nurse Daily activity recommendations: Up with [...] Notes. Thank you for this referral, Mat Coates, Physical Therapist * Qian Chi, BILL - 02/28/2025 12:25 PM CDT The patient was evaluated by the dietitian and was found to have Malnutrition Nutrition Diagnosis: Moderate protein-calorie malnutrition (02/28/251214). The malnutrition pathway is recommended and the assessment via ASPEN criteria and nutrition recommendations from the dietitian are as follows: ASPEN Malnutrition Assessment and Findings Subcutaneous Fat Loss Assessment: Moderate fat loss (02/28/251214) Muscle Wasting Assessment: Moderate (02/28/251214) Edema: Normal contour with a barely perceptible pit (no findings) (02/28/251214) Hand Senior Administrator Support: Mild validation architect (mild) (02/28/251214) Percentage of Energy: < 75% for > or equal to 1 month (moderate-chronic) (02/28/251214) Percentage of Weight Loss: Other (see comments) (weight fluctutaions) (02/28/251214) Malnutrition Decision Malnutrition Nutrition Diagnosis: Moderate protein-calorie malnutrition (02/28/251214) BMI BMI (Calculated): 23.13 (02/28/25 0424) Malnutrition Recommendations Nutrition Interventions: Encourage adequate intake;Modified [...] facial strength appears nl CN VIII - KEWEENAW CN IX and X - palate elevates [...] potato soup ordered for him, consult to cooler supervisor made to make diet dental soft. 1210 Patient able to eat soup for lunch 1330 Patient up in chair. No needs at this time. 1530 Patient transported to [facility] 1730 Patient supervised to the bathroom. Did not eat all of dinner but did consume all of the protein supplement. Patient back into bed. 1820 Resting in bed with no needs at this time. * Michelle Peña, Physical Therapist - 02/27/2025 3:07 PM CDT [facility] Ph. [phone] ORTHOTIC NOTE 02/27/2025 Reason For Visit: education and initial fit of Cervical Collar Abraham Gonzalez Sixto [id number] 1940 3221/02 Time In: 1507 Time Out: 1515 Indications for Orthotic Use: Ordered by Physician: Dr. Shepherd for s/p C3-4 ACDF SUBJECTIVE Patient Subjective: patient reports has not worn a neck brace before, but acknowledges it should bebeneficial. Pain: 0/10 OBJECTIVE Intervention: Patient fit with BREG Poteet Cervical Collar: Issued extra pads. Change replacementpads [...] Peña, Physical Therapist Please contact therapy @ [phone] or Orthotic Coordinator Office [phone] for any questions or concerns. documented in this encounter H&P Notes * Chalo Shepherd MD - 02/27/2025 8:00 AM CDT SPINE HISTORY AND PHYSICAL Abraham Henson 02/27/2025 1940 [id number] PRIMARY CARE PROVIDER: Parveen Bear DO REFERRING [...] injection 10 mL, 10 mL, IV, BID, Shepherd, Luke Sloan Jauregui, MD lactated ringers infusion, , IV, post-proc continuous, Daniel Pal II, DO fentaNYL (PF) (SUBLIMAZE) 50 mcg/mL injection 50 mcg, 50 mcg, IV, post-proc every 3 minutes PRN, Daniel Pal II, DO HYDROmorphone (PF) (DILAUDID) injection 0.5 mg, 0.5 mg, IV, post-proc every 5 minutes PRN, Daniel Pal II, DO naloxone (NARCAN) 0.4 mg/mL injection 0.1-0.4 mg, 0.1-0.4 mg, IV, see admin instructions, Daniel Pal II, DO ondansetron (ZOFRAN) 4 mg/2 mL injection 4 mg, 4 mg, IV, post-proc one time PRN, Daniel Pal II, DO diphenhydrAMINE (BENADRYL) injection 12.5 mg, 12.5 [...] COMPLETE - CONTRAST AND STRAIN IF INDICATED [facility] Cardiovascular Services Echocardiography Laboratory [facility], [id number] [place] [address] Transthoracic Echocardiography Patient: Abraham Henson Study ID: ECHO COMPLETE - F Gender: M : 1940 Age: 84 Room: [facility] 02/17/2025 Outpatient Date: Status: Study 11:29:20 AM CSN #: [id number] Time: Ordering:Sudha Fernandez Tower Technician: ANDREW Indications and History: Systolic murmur. Summary [...] (H) rubén values outside specified reference range. [facility] Echo Labs are accredited with the Intersocietal [...] this documentation were created by an artificial certified bench jeweler technician software. Effort has been done to assure accuracy of certified bench jeweler technician. Any obvious errors or omissions should be clarified with the author of the document. documented in this encounter Consult Notes * Qian Chi, BILL - 02/28/2025 12:19 PM CDTAssociated Order(s): IP [...] barely perceptible pit (no findings) (02/28/251214) Hand Senior Administrator Support: Mild validation architect (mild) (02/28/251214) Percentage of Energy: < 75% for > or equal to 1 month (moderate-chronic) (02/28/251214) Percentage of Weight Loss: Other (see comments) (weight fluctutaions) (02/28/251214) Estimated Needs: Estimated Energy Target: 8252-0025 (02/28/251214) Estimated Protein Target: 70-85 (02/28/251214) Estimated Fluid Target : 9183-9455 (02/28/251214) Nutrition Energy Formula: Calories per kilogram (02/28/251214) Weight Used for Formula: Actual weight (02/28/251214) Clinical Data: Height: 5' 8 (172.7 cm) (02/28/25 042) [place] body weight: 68.4 kg (150 lb 12.7 oz) Adjusted ideal body weight: 68.6 kg (151 lb 5.2 oz) Body mass index is 23.13 kg/m??. Admission:Weight: 63.8 kg (140 lb 11.2 oz) (02/27/25 0645) Weight Method: Actual (02/27/25644) Current:Weight: 69 kg [...] , AMYLASE , LIPASE , HGBA1C , [id number] in the last 72 hours. Invalid input(s): [...] 11:32 AM CDT Brief Postoperative Note Abraham Henson [id number] Pre-operative Diagnosis: Chronic neck pain Spinal stenosis [...] Implant Name Type Inv. Item Serial No. Medical Case Manager Lot No. LRB No. Used Action Thorasic and Lumbar screws, rods, and set screws UNKNOWN [employer] UNKNOWN N/A 1 Explanted Estimated Blood Loss: 150 cc Complications: none Chalo Shepherd MD * Operative Report - Carlton Cobb MD - 02/27/2025 9:21 AM CDT Abraham Henson CSN: [id number] Date of Service: 02/27/2025 Surgeon: Carlton Cobb [...] Notes * Care Plan - Mando Solomon, Special Assets Officer - 03/02/2025 9:26 AM CDT [facility] Ph. Acute Physical Therapy Treatment 03/02/2025 Room: [address] [place] [address] Name: Abraham Henson Age: 84 y.o. Date of : 1940 Insurance: Payor: YESIKAKatieREYMUNDO MEDICARE ADVANTAGE / Plan: AETNA HMO MCR [...] for watchful oversight for safety Balance exercise: [facility] AM-PAC Basic Mobility How much help from [...] assessment of and/or progress with physical function, AM-PAC Basic Mobility score, potential for improvement, participation in therapeutic intervention, tolerance for activity, and safety, anticipated discharge disposition: [facility] facility (pt will d/c home) (03/02/25 8688). Safety concerns if patient is without supervision/assistance. . * The final discharge location is determined through physician, case management, and patient/caregiver input along with insurance authorization of skilled services when appropriate PT Recommended DME: Front Wheeled Walker (02/28/25 3164). Daily activity recommendations: Up with 1 assist, [...] Thank you for this referral, Mando Solomon, Special Assets Officer * Care Plan - Brianne Prakash RN - 03/02/2025 9:05 AM CDT Problem: Discharge Planning Goal: Identify discharge needs upon admission and through discharge Description: Outcome: Resolved Banquet Cook Discharge Planning Patient now is wanting to go home with family and has been accepted to [facility]. Likely discharge home today. Family to transport. 03/02/25 1000 Final Discharge Arrangements Final Discharge Disposition Home Health Agency Name [facility] Plan Discharge To: Home Health Services (02/28/251245) Plan Discharge To - Alternate: Residential Facility (02/28/251245) Family/Caregiver Assist Does the patient have family and/or a caregiver that is willing, able and available to assist if needed?: No (02/28/251245) Reason: His is Ill (02/28/251245) Referrals Status: Follow-up on Referrals Sent: Yes (02/28/251245) Preferred Pharmacy: [facility] [place] [address] [facility] Patient / Family Communications: Patient/Family Communications: Plan [...] admission and through discharge Description: Outcome: Progressing Banquet Cook Discharge Planning [facility] nursing is reviewing patients referral and will get back with CM. Will still need Insurance auth to go to SNF. Plan Discharge To: Home Health Services (02/28/251245) Plan Discharge To - Alternate: Residential Facility (02/28/251245) Family/Caregiver Assist Does the patient have family and/or a caregiver that is willing, able and available to assist if needed?: No (02/28/251245) Reason: His is Ill (02/28/251245) Referrals Status: Facility Referrals - Pending Follow-up on Referrals Sent: Yes (02/28/251245) Preferred Pharmacy: [facility] - [place], [place] - [address] [facility] Patient / Family Communications: Patient/Family Communications: Plan [...] provided, and criteria for home health and longterm facility discussed; however, no family or caregiver [...] prior to home. DA 124 code is [id number] and sent to the provider for signature did Secure chat the PT and OT for evaluation to determine his need. Provided patient will the in network SNF choice list for his area with his insurance patient choices are [facility], [facility], [place], [facility], [place]. Will send referrals Comments: Patient lives at [...] Contact Information Primary Emergency [place] [address] [facility] Relation: Son-in-Law, Laljzdek-ic-Srr Prescription coverage: yes Preferred Pharmacy verified: [facility] [place] - [address] [facility] Insurance coverage verified: Payor: T MEDICARE ADVANTAGE / Plan: AET HMO MCR / Product Type: HMO / Secondary Insurance:N/A Medicaid Status: NA Has VA Benefits: no Employment Status: retired PCP verified as: Parveen Bear DO Patient has not had a stay at [...] st Contact Info) Description 03/14/2025 11:00 AM PEDIATRIC ASSISTANT Office Visit [facility] [address] [place] [phone] Cristal Judge NP [address] [place] [phone] 03/16/2025 3:00 PM PEDIATRIC ASSISTANT Office Visit [facility] Medicine [address] [phone] Leela Ramires FNP [address] [phone] Scheduled Referrals Name Type Priority Associated Diagnoses [...] neck pain Spinal stenosis of cervical region AR ARTHRD ANT INTERBODY DECOMPRESS CERVICAL BELW C2 [...] - 99 mg/dL 02/27/2025 11:45 AM CDT [facility] SPECIMEN SOURCE, GLUCOSE POC Capillary 02/27/2025 11:45 AM CDT [facility] Blood, whole 02/27/2025 11:4 5 AM CDT 02/27/2025 11:52 AM CDT us Chalo Shepherd MD POINT OF CARE TESTING Final Result Performing Organization Address City/State/[facility] Co de Phone Number [facility] CLIA # [id number] [address] [place] [id number] * XR FLUORO LESS THAN 1 HOUR [...] level. Prior ACDF at C4-C6 is noted. Chalo Shepherd MD DIAGNOSTIC IMAGING OR DERABLES Final Result documented in this encounter Visit Diagnoses Diagnosis S/P cervical spinal fusion- Primary Arthrodesis status Chronic neck pain Cervicalgia Chronic neck pain Cervicalgia Spinal stenosis of cervical region Spinal stenosis in cervical region documented in this encounter Admitting Diagnoses Diagnosis [...] at 1429, Until Ashly 03/02/25 at 1655, Constipation, Routine, Post-op - Floor BUPivacaine-EPINEPHrine (PF) (SENSORCAINE MPF WITH EPI) 0.5 %-1:200,000 injection INTRA-PROCEDURE PRN, Starting on Thu02/27/25 at 0845, Until Thu02/27/25 at 1126, Routine, Intra-op Given 02/27/2025 10:45 AM CDT 12 mL Operative Site Given 02/27/2025 8:45 AM CDT 5 mL Op erative Site buPROPion HCL (WELLBUTRIN XL) 24 hour tablet [...] Given 03/01/2025 8:32 AM CDT 150 mg diazePAM (VALIUM) tablet 5 mg 5 mg, [...] Given 03/01/2025 8:32 AM CDT 20 mg ferrous sulfate tablet 325 mg 325 mg, [...] CDT 25 mg HYDROmorphone (PF) (DILAUDID) injection 0.6 mg 0.6 mg, IV, EVERY 3 HOURS PRN, Starting on Thu02/27/25 at 1429, Until Ashly 03/02/25 at 1655, Pain (See admin instructions), Routine, Post-op - Floor losartan (COZAAR) tablet 100 mg 100 mg, [...] Given 03/01/2025 2:25 PM CDT 17 Grams predniSONE (DELTASONE) tablet 1 mg 1 mg, [...] 8:40 AM CDT 100 mg sodium chloride 0.9% irrigation 1,000 mL with vancomycin (VANCOCIN) 1,000 mg IRRIGATION INTRA-PROCEDURE PRN, Starting on Thu02/27/25 at 0920, Until Thu02/27/25 at 1126, Routine, Intra-op Given 02/27/2025 9:20 AM CDT 1,000 mL Opera tive Site sodium chloride flush injection 10 mL 10 [...] Bee RN) 08 (Given - Provider: Eleni Busch, ROYCE)2014 (Given - Provider: Kaylee Bee RN) 0949 (Given - Provider: Genesis Elder, ROYEC) DULoxetine (CYMBALTA) capsule 30 mg 30 mg, [...] Bee RN) 08 (Given - Provider: Eleni Busch, ROYCE)2014 [...] Quinn RN) 0900 (Given - Provider: Eleni Busch RN) 0949 (Given - Provider: Genesis Elder RN) gabapentin (NEURONTIN) capsule 400 mg 400 mg, Oral, TWO TIMES DAILY, First dose on Thu02/27/25 at 2100, Until Discontinued, Routine, Previous Med: gabapentin (NEURONTIN) 400 mg capsule - Orig Sig - Take 400 mg by mouth 2 times daily. 0840 (Given - Provider: Ivon Quinn RN)2107 (Given - Provider: Kaylee Bee, ROYCE) 0832 (Given - Provider: Eleni Busch, ROYCE)2014 [...] 0832 (Given - Provider: Eleni Busch, ROYCE) 0949 (Given - Provider: Genesis Elder, ROYCE) losartan (COZAAR) tablet 100 mg 100 mg, Oral, DAILY, First dose on Thu02/27/25 at 1500, Until Discontinued, Routine, Previous Med: losartan (COZAAR) 100 mg tablet - Orig Sig - Take 100 mg by mouth daily. 0840 (Given - Provider: Ivon Quinn RN) 0832 (Given - Provider: Eleni Busch RN) 0949 (Given - Provider: Genesis Elder, ROYCE) naloxone (NARCAN) 0.4 mg/mL injection 0.1-0.4 mg [...] Busch, ROYCE) 0747 (Given - Provider: Genesis Elder, ROYCE) predniSONE (DELTASONE) tablet 1 mg 1 mg, [...] Bee RN) 0832 (Given - Provider: Eleni Busch RN)2014 (Given [...] RN)2108 (Given - Provider: Kaylee Bee RN) 09 (Given - Provider: Eleni Busch RN)2015 (Given - Provider: Kaylee Bee RN) 0949 (Given - Provider: Genesis Elder RN) tamsulosin (FLOMAX) SR 24 hour capsule 0.4 mg 0.4 mg, Oral, DAILY AT BEDTIME, First dose on Thu02/27/25 at 2100, Until Discontinued, Routine, Previous Med: tamsulosin (FLOMAX) 0.4 mg capsule - Orig Sig - Take 0.4 mg by mouth daily at bedtime. 210 (Given - Provider: Kaylee Bee RN) 2014 [...] Bee RN) 2014 (Given - Provider: Kaylee eBe RN) PRN Medication Order 02/28/2025 03/01/2025 03/02/2025 acetaminophen (TYLENOL) tablet 650 mg 650 mg, Oral, EVERY 6 HOURS PRN, Starting on Thu02/27/25 at 1429, Until Ashly 03/02/25 at 1655, Other (See Comment), See admin instructions, Routine, Post-op - Floor bisacodyL (DULCOLAX) rectal suppository 10 mg 10 mg, Rectal, DAILY PRN, Starting on Thu02/27/25 at 1429, Until Ashly 03/02/25 at 1655, Constipation, Routine, Post-op - Floor diazePAM (VALIUM) tablet 5 mg 5 mg, Oral, EVERY 8 HOURS PRN, Starting on Thu02/27/25 at 1429, Until Ashly 03/02/25 at 1655, Spasm, Routine, Post-op - Floor diphenhydrAMINE (BENADRYL) tablet 25 mg 25 mg, Oral, EVERY 8 HOURS PRN, Starting on Thu02/27/25 at 1429, Until Ashly 03/02/25 at 1655, Itching, Routine, Post-op - Floor [...] Bee, ROYCE) 2014 (Given - Provider: Kaylee Bee RN) 0755 (Given - Provider: Genesis Elder, ROYCE) oxyCODONE (ROXICODONE) tablet 7.5 mg 7.5 mg, Oral, EVERY 4 HOURS PRN, Starting on Thu02/27/25 at 1429, Until Ashly 03/02/25 at 1655, Pain (See admin instructions), Routine, Post-op - Floor 1048 (Given - Provider: Eleni Busch RN) polyethylene glycol (MIRALAX) packet 17 Gram 17 Gram, Oral, DAILY PRN, Starting on Thu03/01/25 at 1414, Until Ahsly 03/02/25 at 1655, Constipation, Routine 1425 (Given - Provider: Eleni Busch RN) 0756 (Given - Provider: Genesis Elder, ROYCE) prochlorperazine maleate (COMPAZINE) tablet 10 mg 10 mg, Oral, EVERY 6 HOURS PRN, Starting on Thu02/27/25 at 1429, Until Ashly 03/02/25 at 1655, Nausea/Emesis, Routine, Post-op - Floor documented in this encounter Care Teams In House Counsel Relationship Specialty Start Date End Date NeliaMilagros [facility] [address] [place] [address] PCP - General Family Practice 06/26/23 documented as of this encounter
--- OUTSIDE RECORDS SUMMARY | 2025-03-03 16:55 | XMS_ITS | Encounter Summary ---
Author Organization [employer] Address [address] [place] [address] Care Team Providers Care Roll Slicing Machine Tender Name Role Phone Parveen Bear Primary Care Provider [phone] Encounter Details Date Type Department Care Team (Late st Contact Info) Description 02/28/2025 External Device Data [facility] ABSTRACTION Provider, Abstract NO ADDRESS ON FILE Social History Tobacco Use Types Packs/Day Years [...] worry about transportation for future doctor visits, berry picker medication, etc.? No 2024 Housing Stability [...] on file Legal Sex Male 5:26 AM DEVELOPER ARCHITECT Gender Identity Male 11/15/2024 4:33 PM CDT Sexual Orientation Not on file documented as of this encounter Plan of Treatment Upcoming Encounters Date Type Department Care Team (Late st Contact Info) Description 03/14/2025 11:00 AM DEVELOPER ARCHITECT Office Visit [facility] Neurosurgery [address] [place] [phone] Cristal Judge NP [address] [place] [address] 03/16/2025 3:00 PM DEVELOPER ARCHITECT Office Visit [facility] Family Medicine [place] [address] [place] [address] [phone] Leela Ramires, JUNIOR ACCOUNT MANAGER [address] [place] [phone] documented as of this encounter Visit Diagnoses Not on filedocumented in this encounter Care Teams Roll Slicing Machine Tender Relationship Specialty Start Date End Date Parveen Bear DO [address] [place] [phone] PCP - General Family Practice 06/26/23 documented as of this encounter
--- OUTSIDE RECORDS SUMMARY | 2025-03-03 16:56 | XMS_ITS | Encounter Summary ---
Author Organization [facility] Address [address] [place] [address] Care Team Providers Care Wound Nurse Name Role Phone Parveen Bear Primary Care Provider [phone] Encounter Details Date Type Department Care Team (Late st Contact Info) Description 02/28/[address] [facility] Neurosurgery [address] [place] [address] Cristal Judge NP [address] [place] [address] S/P spinal fusion (Primary Dx); History of lumbar fusion Social History Tobacco Use Types Packs/Day Years [...] worry about transportation for future doctor visits, leaf size picker medication, etc.? 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 Neurosurgery [address] [place] [address] Cristal Judge NP [address] [place] [phone] 03/16/2025 3:00 PM DELIVERY MERCHANDISER Office Visit [facility] Family [facility] [address] [place] [address] [phone] Leela Ramires, [facility] [address] [place] [phone] Scheduled Orders Name Type Priority Associated Diagnoses Orde r Schedule XR CERVICAL SPINE 2 OR 3 VIEWS Imaging Routine S/P spinal fusion History of lumbar fusion 1 Occurrences starting 02/28/2025 until 02/28/2026 documented as of this encounter Visit Diagnoses Diagnosis S/P spinal fusion- Primary Arthrodesis status History of lumbar fusion documented in this encounter Care Teams Wound Nurse Relationship Specialty Start Date End Date Parveen Bear DO [address] [place] [address] [phone] PCP - General Family Practice 06/26/23 documented as of this encounter
--- OUTSIDE RECORDS SUMMARY | 2025-03-03 16:56 | XMS_ITS | Clinical Summary ---
Author Organization [place] Address [address] [facility] [address] Pardo: Epic Prelude ADT MAURA GALICIA [address] Care Team Providers Care Air Tool Operator Name Role Phone Parveen Bear Primary Care Provider [phone] Allergies Active Allergy Reactions Criticality Noted Date Comments Atorvastatin Calcium Muscle Pain High 02/24/2025 Medications gabapentin (NEURONTIN) 400 mg capsule Take 400 mg by mouth 2 times daily. 07/08/19 23 Active losartan (COZAAR) 100 mg tablet Take 100 mg by mouth daily. 08/13/19 23 Active omeprazole (PriLOSEC) 20 mg Capsule, Delayed Release(E.C.) 09/03/19 23 Active oxyCODONE (ROXICODONE) 5 mg tablet 06/16/19 23 Active predniSONE (DELTASONE) 1 mg tablet Take 1 mg by mouth daily. 08/01/19 23 Active primidone (MYSOLINE) 50 mg tablet 08/13/19 23 Active rOPINIRole (REQUIP) 2 mg Tablet Take 2 mg by mouth 2 times daily. 06/23/19 23 Active tamsulosin (FLOMAX) 0.4 mg capsule Take 0.4 mg by mouth daily at bedtime. 07/17/19 23 Active traZODone (DESYREL) 100 mg tablet Take 100 mg by mouth daily at bedtime. 09/03/19 23 Active buPROPion HCL (WELLBUTRIN XL) 150 mg Extended Release 24 hour tablet Take 150 mg by mouth 2 times daily. 08/13/19 23 Active fluticasone propionate (FLONASE) 50 mcg/spray [place], Suspension nasal inhaler Administer 2 Sprays in each nostril daily. 06/23/19 24 Active sertraline (ZOLOFT) 100 mg tabletIndication s:Mild episode of recurrent major depressive disorder Take 1 Tablet (100 mg) by mouth daily. 90 Tablet 1 06/26/19 24 Active hydroCHLOROthiaz daiana 25 mg tabletIndication s:Primary hypertension Take 1 Tablet (25 mg) by mouth daily. 90 Tablet 1 06/26/19 24 Active sucralfate (CARAFATE) 1 gram tablet Take 1 Gram by mouth 2 times daily. 12/13/19 Active docusate sodium (COLACE) 100 mg capsule Take 100 mg by mouth 3 times daily. Active ferrous sulfate 325 mg (65 mg iron) tablet Take 325 mg by mouth daily. Active ascorbic acid, vitamin C, (VITAMIN C) 500 mg tablet Take 500 mg by mouth 2 times daily. Active vitamin A-vitamin C-vitamin E (OCUVITE) Tablet Take 1 Tablet by mouth daily. Active DULoxetine (CYMBALTA) 30 mg Capsule, Delayed Release(E.C.) Take 1 Capsule by mouth daily. 01/25/20 Active acetaminophen (TYLENOL ARTHRITIS) 650 mg Extended Release tablet Take 650 mg by mouth daily. Active L. acidophilus/L. rhamnosus (PROBIOTIC ORAL) Take 1 Caplet by mouth daily. Active calcium carbonate (ADAMS-SELTZER ANTACID ORAL) Take by mouth 1 time daily as needed. Active oxyCODONE (ROXICODONE) 5 mg tabletIndication s:S/P cervical spinal fusion Take 1 Tablet (5 mg) by mouth every 4 hours as needed for Pain. Max Daily Amount: 30 mg 42 Tablet 02/29/20 25 Active diazePAM (VALIUM) 5 mg tabletIndication s:S/P cervical spinal fusion Take 1 Tablet (5 mg) by mouth every 8 hours as needed for Spasm. 42 Tablet 02/29/20 25 Active meloxicam (MOBIC) 15 mg tablet Take 15 mg by mouth daily. 06/08/19 24 025 Discontinued aspirin (ECOTRIN EC) 81 mg Tablet, Delayed Release (E.C.) Take 81 mg by mouth daily. 025 Discontinued Active Problems Problem Noted Date Diagnosed Date S/P hardware removal 02/28/2025 Protein-calorie malnutrition, moderate Mild aortic stenosis 02/17/2025 Overview (02/17/2025): Echo 02/17/25 Mitral regurgitation 02/17/2025 Overview (02/17/2025): Echo 02/17/25 Preoperative general physical examination 2024 Chronic neck pain 02/13/2025 Hx of AKA (above knee amputation), left 02/14/20 Systolic murmur 02/13/2025 GERD (gastroesophageal reflux disease) RLS (restless legs syndrome) 02/13/2025 BPH (benign prostatic hyperplasia) 02/13/2025 Allergic rhinitis 02/13/2025 Constipation 02/13/2025 Anemia 02/13/2025 Mild episode of recurrent major depressive disor andrés 06/26/2023 Pseudophakia of both eyes 03/19/2023 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 09/09/2022 Hypertension Encounters Date Type Department Care Team Description 03/03/[address] [address] Parveen Bear, Remote Monitoring 03/03/[address] [phone] Parveen Bear, Remote Monitoring 03/02/[address] [phone] Parveen Bear, Provider Call 03/02/[address] [address] Parveen Bear DO Provider Call 02/28/2025 External Device Data STL ABSTRACTION Provider, Abstract 02/28/2025 External Device Data STL ABSTRACTION Provider, Abstract 02/28/2025 Orders Only [facility] Neurosurgery [address] [place] [address] Cristal Judge NP S/P spinal fusion (Primary Dx); History of lumbar fusion 02/27/2025 8:00 AM CDT - 02/27/2025 12:10 PM CDT Surgery [facility] Operating Room [address] [place] [phone] Chalo Shepherd MD CERVICAL DISCECTOMY FUSION ANTERIOR - 1 LEVEL 02/27/2025 7:54 AM CDT Anesthesia Event [facility] Operating [facility] [address] [place] [phone] Daniel Pal II, DO True, Cybil A, CRNA 02/27/2025 6:21 AM CDT - 03/02/2025 2:55 PM CDT Hospital Encounter [facility] 3C Ortho Neuro [address] [place] [address] Chalo Shepherd MD Chronic neck pain Discharge Disposition: [place] [facility] [place]25 Telephone [facility] Neurosurgery [address] [place] [address] Chalo Shepherd MD Other 02/22/2025 External Device Data STL ABSTRACTION Provider, Abstract 02/21/2025 External Device Data STL ABSTRACTION Provider, Abstract 02/17/2025 10:43 AM CDT - 02/17/2025 11:59 PM CDT Hospital Encounter [facility] Echo [address] [place] [phone] Sudha Fernandez FNP Discharge Disposition: Home or Self Care 02/17/2025 Results Follow-Up [place] [facility] [address] [place] [phone] Sudha Fernandez, COM WRITER ECHO COMPLETE - CONTRAST AND STRAIN IF INDICATED 02/13/2025 1:06 PM CDT - 02/13/2025 11:59 PM CDT Hospital Encounter [facility] [address] [place] [phone] Miguel Donohue MD Discharge Disposition: Home or Self Care 02/13/2025 12:42 PM CDT - 02/13/2025 11:59 PM CDT Hospital Encounter [facility] Pre Admission [facility] [address] [place] [phone] Chalo Shepherd MD Discharge Disposition: Home or Self Care 02/13/2025 Orders Only [facility] [address] [place] [phone] Sudha Fernandez, COM WRITER Systolic murmur (Primary Dx); Preoperative general physical examination 02/13/2025 Travel 01/17/2025 External Device Data STL ABSTRACTION Provider, Abstract 01/17/2025 External Device Data STL ABSTRACTION Provider, Abstract 12/23/2024 Results Follow-Up [facility] [address] [phone] Parveen Bear DO CBC WITH DIFFERENTIAL 12/23/2024 Patient Self-Triage [facility] [address] [place] [address] 12/22/2024 Telephone [facility] Neurosurgery [facility] [address] [facility] [address] [place] [phone] Chalo Shepherd MD Information 12/22/2024 Telephone [facility] Neurosurgery [address] [place] [phone] Chalo Shepherd MD peer to peer 12/20/2024 External Device Data STL ABSTRACTION Provider, Abstract 12/20/2024 External Device Data STL ABSTRACTION Provider, Abstract 12/20/2024 Telephone [facility] [address] [phone] Parveen Bear DO Question; Patient Communication 12/13/2024 12:45 PM CDT - 12/13/2024 11:59 PM CDT Hospital Encounter [facility] Pre Admission Testing [facility] [address] [place] [phone] Chalo Shepherd MD Discharge Disposition: Home or Self Care 12/13/2024 10:00 AM CDT Office Visit [facility] Ear Nose and Throat Head Neck [facility] [address] [place] [address] Carlton Cobb MD Cervical radiculopathy (Primary Dx) 12/07/2024 External Device Data STL ABSTRACTION Provider, Abstract 12/06/2024 Telephone [facility] Neurosurgery [address] [place] [address] Chalo Shepherd MD Needs Orders Written 12/06/2024 Orders Only [facility] Neurosurgery [address] [place] [address] Chalo Shepherd MD S/P spinal fusion (Primary Dx); Cervical radiculopathy 12/06/2024 Telephone [facility] [address] [phone] Parveen Bear DO Question 12/06/2024 Telephone [facility] [address] [phone] Parveen Bear DO Information; Request Physical Therapy 12/02/2024 Telephone [facility] [address] [phone] Elzbieta Ocampo Needs Appointment from Last 3 Months Immunizations Immunization Administration Dates Next Due (ABRYSVO)(60 YR UP/GA 32-36 WKS) RSV, BIVALENT, PROTEIN SUBUNIT RSVPREF, DILUENT RECONSTITUTED, 0.5 ML, PF 05/26/2023 INFLUENZA VACCINE HIGH DOSE QUADRIVALENT 63 YR U P PF IM 01/30/2021 Family History Medical History Relation Name Comments Cancer Brother Cancer Father Stroke Mother 80's Cancer Sister Relation Name Status Comments Brother Father Mother Sister Social History Tobacco Use Types Packs/Day Years Used Date Smoking Tobacco: Former Cigarettes 0.8 28 S tarted: [birth year]/04/1951 Smokeless Tobacco: Never Tobacco Cessation:Counseling Given: Not Answered Alcohol Use Standard Drinks/Week Comments Not Currently [...] on file Legal Sex Male 5:26 AM LEAD ESTHETICIAN Gender Identity Male 11/15/2024 4:33 PM CDT Sexual Orientation Not on file Last Filed Vital Signs Vital Sign Reading [...] Mass Index 21.44 02/28/2025 4:24 AM CDT Plan of Treatment Upcoming Encounters Date Type Department Care Team (Late st Contact Info) Description 03/14/2025 11:00 AM LEAD ESTHETICIAN Office Visit [facility] Neurosurgery [address] [place] [address] Cristal Judge NP [address] [place] [address] 03/16/2025 3:00 PM LEAD ESTHETICIAN Office Visit [facility] Family Medicine [place] [address], [place] [address] Leela Ramires, COM WRITER [address], [place] [address] Health Maintenance Due Date Last Done Comments Medicare Advantage ([place]) Preventative Visit/Annual Wellness Visit 05/04/2024 INFLUENZA VACCINE (#1) 2024 , 01/23/2022, 01/30/2021, Additional history exists COVID-19 Vaccine (2024-2 6 season) 2025 11/21/2021, 04/18/2021, 07/07/2020, Additional history exists DTAP/TDAP/TD VACCINES (3 - T d or Tdap) 06/16/2029 06/16/2019, 11/01/2001, 11/01/2001 PNEUMOCOCCAL VACCINE 50+ YEARS Completed 0 12/15/2017, 06/23/2016, 02/14/2015, Additional history exists ZOSTER VACCINE Completed 02/17/2022, 11/01, 12/18/2009 RSV VACCINE (60+ or ) Completed 05/26/2023 Medical Devices Implanted Type Area Property Management Supervisor Device Identifier Shelf Expiration Date Model / Serial / Lot Hemostatic Surgiflo 8ml W/ Thrombin 2994 - [id number] Implanted:Qty: 1 on 02/27/2025 by Chalo Shepherd MD at [facility] Hemostatic N/A: Spine Cervical Anterior [employer] [id number] 05/03/2026 2994 / / [id number] Hemostatic Surgiflo 8ml W/ Thrombin 2994 - [id number] Implanted:Qty: 1 on 02/27/2025 by Chalo Shepherd MD at [facility] Hemostatic N/A: Spine Cervical Anterior [employer] [id number] 05/03/2026 2994 / / [id number] Plate Endoskeleton Tcs Strl Barrier Loc 6092-3795-S - [id number] Implanted:Qty: 1 on 02/27/2025 by Chalo Shepherd MD at [facility] Plate N/A: Spine Cervical Anterior [employer] SOFAMOR DANEK 05/30/2027 5303-140 5-S / / [id number] Screw Endoskeleton 3.5x14mm Tcs Ns 1561-2568 - [id number] Implanted:Qty: 1 on 02/27/2025 by Chalo Shepherd MD at [facility] Screw N/A: Spine Cervical Anterior [employer] SOFAMOR DANEK 02/28/2100 5301-351 4 / / [id number]- 01 Screw Endoskeleton 3.5x16mm Tcs Ns 9155-5224 - [id number] Implanted:Qty: 1 on 02/27/2025 by Chalo Shepherd MD at [facility] Screw N/A: Spine Cervical Anterior [employer] SOFAMOR DANEK 02/28/2100 5301-351 6 / / [id number] 540MAIN- 01 Cage Endoskeleton Tcs Nanoloc 6 Lrdtc [id number] Med 7252-0962-N - [id number] Implanted:Qty: 1 on 02/27/2025 by Chalo Shepherd MD at [facility] Spacer N/A: Spine Cervical Anterior [employer] SOFAMOR DANEK 05/22/2027 5366-140 7-N / / [id number] Allograft Putty Influx+ Dbm 1ml Iflx-- - [id number] Implanted:Qty: 1 on 02/27/2025 by Chalo Shepherd MD at [facility] Tissue N/A: Spine Cervical Anterior [employer] 05/04/2027 IFLX-- / [id number] / Explanted Type Area Property Management Supervisor Device Identifier Shelf Expiration Date Model / Serial / Lot Thorasic And Lumbar Screws, Rods, And Set Screws Explanted:Qty: 1 on 02/27/2025 by Chalo Shepherd MD at [facility] N/A: Spine Lumbar [employer] UNKNOWN / UNKNOWN / UNKNOWN Description:6 SET SCREWS 2 RODS 6 SPINAL SCREWS ALL IMPLANTS ABOVE WERE NOT DOCUMENTED IN THIS ELECTRONIC RECORD Procedures Procedure Name Priority Date/Time Associated Diagnosis Comments TELEMETRY REPORT 03/03/2025 3:06 AM CDT XR CERVICAL SPINE 2 OR 3 VIEWS Routine 02/28/2025 4:02 PM CDT POC GLUCOSE Routine 02/27/2025 11:45 AM CDT XR FLUORO LESS THAN 1 HOUR Routine 02/27/2025 11:23 AM CDT Chronic neck pain XR CERVICAL SPINE 2 OR 3 VIEWS Routine 02/27/2025 9:56 AM CDT Chronic neck pain NV ANES INSERT CATH, ART, PERCUT, SHORTTERM Routine 02/27/2025 8:13 AM CDT BACK HARDWARE REMOVAL 02/27/2025 8:00 AM CDT Chronic neck pain Spinal stenosis of cervical region NV ARTHRD ANT INTERBODY DECOMPRESS CERVICAL BELW C2 02/27/2025 8:00 AM CDT Chronic neck pain Spinal stenosis of cervical region NV ANES INSERT ENDOTRACHEAL AIRWAY Routine 02/27/2025 8:00 AM CDT INTRAOP NEUROPHYSIO MONITORING Routine 02/27/2025 7:31 AM CDT ECHO COMPLETE Stat 02/17/2025 12:23 PM CDT Systolic murmur Preoperative general physical examination XR CHEST PA OR AP 1 VW Routine 2:04 PM CDT Preoperative testing TYPE AND SCREEN Routine 02/13/2025 1:51 PM CDT COMPREHENSIVE METABOLIC PANEL Routine 02/13/2025 1:51 PM CDT CBC WITH DIFFERENTIAL Routine 02/13/2025 1:51 PM CDT EKG 12-LEAD Routine 02/13/2025 1:47 PM CDT TYPE AND SCREEN Routine 12/13/2024 1:32 PM CDT Preop testing Pain in extremity, unspecified extremity PROTIME-INR Routine 12/13/2024 1:32 PM CDT Preop testing Pain in extremity, unspecified extremity CBC WITH DIFFERENTIAL Routine 12/13/2024 1:32 PM CDT Preop testing Pain in extremity, unspecified extremity BASIC METABOLIC PANEL Routine 12/13/2024 1:32 PM CDT Preop testing Pain in extremity, unspecified extremity MRSA PCR RAPID SCREEN Routine 12/13/2024 1:20 PM CDT Preop testing Pain in extremity, unspecified extremity VERIFICATION BLOOD GROUP Stat 12/13/2024 1:15 PM CDT EKG 12-LEAD Routine 12/13/2024 1:10 PM CDT from Last 3 Months Results * TELEMETRY REPORT (03/03/2025 3:06 AM CDT) us Provider Scanning ECG ORDERABLES Final Result * XR CERVICAL SPINE 2 OR 3 VIEWS (02/28/2025 4:02 PM CDT) Only the most recent of2 resultswithin the time period is included. Anatomical Region Laterality Modality Spine Computed Radiogr [...] - 99 mg/dL 02/27/2025 11:45 AM CDT [facility] SPECIMEN SOURCE, GLUCOSE POC Capillary 02/27/2025 11:45 AM CDT [facility] Blood, whole 02/27/2025 11:4 5 AM CDT 02/27/2025 11:52 AM CDT us Chalo Shepherd MD POINT OF CARE TESTING Final Result [facility] CLIA # [id number] [address] [address] [place] [address] * XR FLUORO LESS THAN 1 HOUR (02/27/2025 11:23 AM CDT) Narrative 02/27/2025 11:24 AM CDT Order information only. Exam was auto-finalized. Chalo Shepherd MD DIAGNOSTIC IMAGING OR DERABLES Final Result * NV ANES INSERT CATH, ART, PERCUT, SHORTTERM (02/27/2025 [...] size: 20 G Catheter Length (in.): 1.75 [place] Identification: palpation technique Number of attempts: 1 Successful placement: yes Assessment: blood return through port Procedure uneventful Post-procedure: line secured and dressing applied Comments: Sterile technique, sterile dressing, tape secured. Daniel Pal II, DO PROCEDURE/MINOR ARNDT RGICAL ORDERABLES Final Result * NV ANES INSERT ENDOTRACHEAL AIRWAY (02/27/2025 8:00 AM CDT) Narrative Jaun Clemons CRNA - 02/27/2025 8:00 AM CDT Jaun Clemons CRNA 02/27/2025 8:26 AM Airway Date/Time: 02/27/2025 8:00 AM Location: OR Plan: routine intubation Patient Identity Confirmed by: Verbally with patient and armband Airway: not difficult Staffing Performed: DATA ENTRY SUPERVISOR/CAA Authorized by: Daniel Pal II, DO Performed by: aJun Clemons CRNA Indications and Patient Condition: Indications [...] at Approach: 1 Additional Procedure Information: atraumatic us Daniel Pal II, DO PROCEDURE/MINOR ARNDT RGICAL ORDERABLES Final Result * ECHO COMPLETE - CONTRAST AND STRAIN IF INDICATED (02/17/2025 12:23 PM CDT) EJECTION FRACTION 58 INTERFACE SYSTEM 02/17/2025 11:2 9 AM CDT Narrative INTERFACE SYSTEM - 02/17/2025 1:59 PM CDT [facility] Echocardiography Laboratory [address] [place] [id number] Transthoracic Echocardiography Patient: Amanda Henson Study ID: ECHO COMPLETE - F Gender: M : 1940 Age: 84 Room: [facility] Study 02/17/2025 Pt Outpatient Date: Status: Study 11:29:20 AM CSN #: [id number] Time: Ordering:Sudha Fernandez Heavy Truck Mechanic: ANDREW Indications and History: Systolic murmur. Summary [...] (H) rubén values outside specified reference range. [facility] are accredited with the Intersocietal Accreditation Commission - Echocardiography. Prepared and Electronically Authenticated Dylan Sales MD Confirmed 02/17/2025 13:59 Procedure Note Dylan Sales MD - 02/17/2025 [facility] Echocardiography Laboratory [address] [place] [address] Transthoracic Echocardiography Patient: Amanda Henson Study ID: ECHO COMPLETE- F Gender: M : 1940 Age: 84 Room: [facility] Study 02/17/2025 Outpatient Date: Status: Study 11:29:20 AM [facility] #: [id number] Time: Ordering:Sudha Fernandez Heavy Truck Mechanic: ANDREW Indications and History: Systolic murmur. Summary and Conclusion: - Left ventricle: The cavity size is normal. Wall thickness is normal.Global systolic function is normal. The estimated ejection fraction is 60-65%.For Epic reporting: the left ventricular ejection fraction is 58% bybiplane method of disks. No diagnostic regional wall motion abnormalityidentified. Doppler parameters are consistent with abnormal left ventricularrelaxation (grade 1 diastolic dysfunction). The longitudinal strain is -20.9%(Normal range is -18 to -25). - Right ventricle: The cavity size is normal. Systolic function isnormal. Systolic pressure is at the upper limits of normal. - Aortic valve: Not well visualized. The valve is trileaflet. The leafletsare thickened and calcified. There is mild stenosis. - Mitral valve: Not well visualized. There is mild to moderateregurgitation. - Tricuspid valve: There is mild regurgitation. Procedure information: No prior study is available for comparison.Study status: STAT. Procedure: A transthoracic echocardiogram wasperformed. Image quality was adequate. Scanning was performed from the parasternal, apical, subcostal, and suprasternal notch acoustic windows.Study components: M-mode, 2D, complete spectral Doppler, and color Doppler. Height: 172.7cm. Height: 68in. Weight: 63.5kg. Weight: 140lb. BMI: 21.3kg/m^2. BSA: 1.74m^2. Blood pressure: 165/61 Studydate: 02/17/2025. Study time: 11:29 AM. Location: Echo laboratory. Cardiac Anatomy: LEFT VENTRICLE: The cavity size is normal. Wall thickness is normal.Global systolic function is normal. The estimated ejection fraction is 60-65%.For Epic reporting: the left ventricular ejection fraction is 58% by biplane method of disks. No diagnostic regional wall motion abnormalityidentified. The longitudinal strain is -20.9% (Normal range is -18 to -25). Doppler parameters are consistent with abnormal left ventricular relaxation (grade1 diastolic dysfunction). RIGHT VENTRICLE: The cavity size is normal. Systolic function isnormal. Systolic pressure is at the upper limits of normal. LEFT ATRIUM: The atrium is normal in size. RIGHT ATRIUM: The atrium is normal in size. ATRIAL SEPTUM: No obvious PFO or ASD identified by 2D imaging and color Doppler. AORTIC VALVE: Not well visualized. The valve is trileaflet. The leafletsare thickened and calcified. Mobility is restricted. There is mildstenosis. There is no significant regurgitation. MITRAL VALVE: Not well visualized. Structurally normal valve. Mobilityis not restricted. No evidence for prolapse. There is no evidence forstenosis. There is mild to moderate regurgitation. TRICUSPID VALVE: Structurally normal valve. Mobility isunrestricted. There is no evidence for stenosis. There is mild regurgitation. PULMONIC VALVE: Not well visualized. The valve appears to be grosslynormal. There is no evidence for stenosis. There is no significantregurgitation. PERICARDIUM: There is no pericardial effusion. AORTA: Aortic root: The root is not dilated. Aortic arch: The vessel is not dilated. INTRACARDIAC MASS THROMBUS: No apparent intracavitary masses or thrombi detected. Measurements Left ventricle Value Right ventricle continued Value GLS, 2D -20.9 % AINSLEY minor ax, A4C mid 2.3cm ESD, LAX 2.8 cm AINSLEY 2.3cm ESD/bsa, LAX 1.6 cm/m^2 TAPSE, 2D 2.4cm FS, LAX 34 % TAPSE, MM 2.4cm FS, LAX chord 34 % S' lateral 11.6cm/sec ESD major ax, A4C 5.6 cm ESD/bsa major ax, A4C 3.2 cm/m^2 Left atrium Value AINSLEY minor ax, A4C 5.6 cm AP dim, ES 3.6cm AINSLEY/bsa minor ax, A4C 3.2 cm/m^2 AP dim index, ES 2.1cm/m^2 JANIE, A4C 29.9 cm^2 Area ES, A4C 17cm^2 SUSY, A4C 15.5 cm^2 SI dim, A2C 5.2cm FAC, A4C 48 % Vol, ES, 1-p A4C 41ml AINSLEY major ax, A2C 7.8 cm Vol/bsa, ES, 1-p A4C 23ml/m^2 AINSLEY/bsa major ax, A2C 4.5 cm/m^2 Vol, ES, 1-p A2C 39ml JANIE, A2C 30.9 cm^2 Vol/bsa, ES, 1-p A2C 23ml/m^2 SUSY, A2C 17.2 cm^2 Vol, ES, 2-p 40ml FAC, A2C 44 % Vol/bsa, ES, 2-p 23ml/m^2 IVS, ED 0.9 cm PW, ED 1.0 cm Right atrium Value IVS/PW, ED 0.96 Area, ES, A4C 17cm^2 EDV 78 ml ESV 29 ml Aortic valve Value EF 64 % Mean v, S 128cm/sec SV 72 ml VTI, S 45.0cm EDV/bsa 45 ml/m^2 Mean grad, S 8 mmHg ESV/bsa 16 ml/m^2 LVOT/AV, VTI ratio 0.51 SV/bsa 41 ml/m^2 ANTONIO, VTI 1.6cm^2 EDV, 1-p A2C 98 ml ANTONIO/bsa, VTI 0.92cm^2/m^2 ESV, 1-p A2C 61 ml LVOT/AV, Vmean ratio 0.5 EF, 1-p A2C 62 % ANTONIO, Vmean 1.6cm^2 SV, 1-p A2C 50 ml ANTONIO/bsa, Vmean 0.89cm^2/m^2 EDV/bsa, 1-p A2C 56 ml/m^2 ESV/bsa, 1-p A2C 35 ml/m^2 Mitral valve Value SV/bsa, 1-p A2C 28.5 ml/m^2 Mean v, D 46.8cm/sec EDV, 1-p A4C 93 ml Peak E 74.4cm/sec ESV, 1-p A4C 38 ml Peak A 84.9cm/sec EF, 1-p A4C 59 % VTI leaflet coapt 21.5cm SV, 1-p A4C 53 ml MiV/LVOT VTI 0.9 EDV/bsa, 1-p A4C 53 ml/m^2 Decel slope 302cm/s^2 ESV/bsa, 1-p A4C 22 ml/m^2 Decel time 180ms SV/bsa, 1-p A4C 30 ml/m^2 PHT 66ms EDV, 2-p 97 ml Mean grad, D 1 mmHg ESV, 2-p 41 ml Peak grad, D 2 mmHg EF, 2-p 58 % Peak E/A ratio 0.9 SV, 2-p 56 ml E-VTI 21.5cm EDV/bsa, 2-p 55 ml/m^2 A-VTI 21.5cm ESV/bsa, 2-p 23 ml/m^2 VTI E/A 1.0 SV/bsa, 2-p 31 ml/m^2 MVA 3.36cm^2 EDV, MM Teich. 78 ml MVA/bsa 1.93cm^2/m^2 EF, MM Teich. 64 % MVA, PHT 3.33cm^2 EDV/bsa, MM Teich. 45 ml/m^2 MVA/bsa, PHT 1.91cm^2/m^2 EF, MM on 2D Teich. 64 % MVA, LVOT cont 3.4cm^2 MVA/bsa, LVOT cont 1.93cm^2/m^2 LVOT Value Estefani VTI 21.5cm Diam, S 2.0 cm Vena contracta width 2.3cm Area 3.1 cm^2 Peak maral, S 104 cm/sec Tricuspid valve Value Mean maral, S 63.4 cm/sec TR vena contracta width 2.0cm VTI, S 23.0 cm Peak RV-RA grad, S 31 mmHg Peak grad, S 4 mm Hg SV 72 ml Aortic root Value SV/bsa 41 ml/m^2 S-T junct diam, ED 3.0cm S-T junct diam/bsa, ED 1.7cm/m^2 Right ventricle Value AINSLEY, LAX 2.3 cm Descending aorta Value AINSLEY minor ax, A4C base 3.2 cm Rick diam 2.3cm Legend: (L) and (H) rubén values outside specified reference range. [facility] are accredited with theIntersocietal Accreditation Commission - Echocardiography. Prepared and Electronically Authenticated Dylan Sales MD Confirmed 02/17/2025 13:59 us Sudha Fernandez COM WRITER US ORDERABLES Final Resu lt INTERFACE SYSTEM Refer to clinic/hospital department * XR CHEST PA OR AP 1 VW (02/13/2025 2:04 PM CDT) Anatomical Region Laterality Modality Chest Computed Radiogr aphy 02/13/2025 2:04 PM CDT Impressions 02/14/2025 9:09 AM CDT IMPRESSION: Please see below. Exam: XR CHEST PA OR AP 1 VW Date/Time of Exam: 02/13/2025 2:04 PM REASON FOR EXAM: See Diagnosis. DIAGNOSIS: Preoperative testing. Findings: There is mild pulmonary hyperinflation. The lungs are free of consolidation, pneumothorax or pleural effusion. The heart size is normal. The thoracic aorta is atherosclerotic and mildly tortuous. Posterior spinal fusion screws without the nick are identified. There is partially imaged ACDF change in the cervical spine. There is thoracic spondylosis. 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 Narrative Procedure Note Ted Olivas MD - 02/14/2025 IMPRESSION: Please see below. Exam: XR CHEST PA OR AP 1 VW Date/Time of Exam: 02/13/2025 2:04 PM REASON FOR EXAM: See Diagnosis. DIAGNOSIS: Preoperative testing. Findings: There is mild pulmonary hyperinflation. The lungs are free of consolidation, pneumothorax or pleural effusion. The heart size is normal. The thoracic aorta is atherosclerotic and mildly tortuous. Posterior spinal fusion screws without the nick are identified. There is partially imaged ACDF change in the cervical spine. There is thoracic spondylosis. 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 us Miguel Donohue MD DIAGNOSTIC IMAGING ORDERABLES F inal Result * (ABNORMAL) CBC WITH DIFFERENTIAL (02/13/2025 1:51 PM CDT) Only the most recent of2 resultswithin the time period is included. WBC 6.0 4.8 - 10.8 K/uL 02/13/2025 2:01 PM CDT [facility] RBC 3.44(L) 4.60 - 6.20 M/uL 02/13/2025 2:01 PM CDT [facility] HEMOGLOBIN 11.0(L) 14.0 - 18.0 g/dL 02/13/2025 2:01 PM CDT [facility] HEMATOCRIT 31.4(L) 41.0 - 53.0 % 02/13/2025 2:01 PM CDT [facility] MCV 91.3 84.0 - 103.0 fL 02/13/2025 2:01 PM CDT [facility] MCH 32.0 31.0 - 37.0 pg 02/13/2025 2:01 PM CDT [facility] MCHC 35.0 30.0 - 35.0 g/dL 02/13/2025 2:01 PM CDT [facility] RDW 11.9 11.0 - 14.5 % 02/13/2025 2:01 PM CDT [facility] RDW-STDEV 39.8 37.0 - 54.0 fL 02/13/2025 2:01 PM CDT [employer] [facility] PLATELETS 150 140 - 440 K/uL 02/13/2025 2:01 PM CDT [facility] MPV 8.8(L) 8.9 - 12.8 fL 02/13/2025 2:01 PM CDT [facility] NEUTROPHILS 66 42 - 75 % 02/13/2025 2:01 PM CDT [facility] LYMPHOCYTES 22(L) 24 - 44 % 02/13/2025 2:01 PM CDT [facility] MONOCYTES 9 2 - 10 % 02/13/2025 2:01 PM CDT [facility] EOSINOPHILS 2 0 - 7 % 02/13/2025 2:01 PM CDT [facility] BASOPHILS 0 0 - 1 % 02/13/2025 2:[address] [facility] IMMATURE GRANULOCYTES 0 0 - 2 % 02/13/2025 2:01 PM CDT [facility] NEUTROPHIL ABSOLUTE 3.95 2.00 - 8.00 K/uL 02/13/2025 2:01 PM CDT [facility] LYMPHOCYTE ABSOLUTE 1.32 1.20 - 4.00 K/uL 02/13/2025 2:01 PM CDT [facility] MONOCYTE ABSOLUTE 0.56 0.10 - 0.60 K/uL 02/13/2025 2:01 PM CDT [facility] EOSINOPHIL ABSOLUTE 0.13 0.00 - 0.70 K/uL 02/13/2025 2:01 PM CDT [facility] BASOPHILS ABSOLUTE 0.02 0.00 - 0.20 K/uL 02/13/2025 2:01 PM CDT [facility] IMMATURE GRANULOCYTES ABSOLUTE 0.01 0.00 - 0.10 K/uL 02/13/2025 2:01 PM CDT [facility] Blood Venipuncture / Unknown 02/13/2025 1:51 PM CDT 02/13/2025 1:58 PM CDT us Miguel Donohue MD HEMATOLOGY ORDERABLES Final Res ult [facility] CLIA #[id number] [address] [place] [address] * TYPE AND SCREEN (02/13/2025 1:51 PM CDT) Only the most recent of2 resultswithin the time period is included. ABO GROUP AB 02/13/2025 7:29 PM CDT [facility] [place] RH (D) TYPE Positive 02/13/2025 7:29 PM CDT [facility] [place] ANTIBODY SCREEN Negative 02/13/2025 7:29 PM CDT [facility] [place] Blood Venipuncture / Unknown 02/13/2025 1:51 PM CDT 02/13/2025 1:59 PM CDT us Miguel Donohue MD BLOOD BANK ORDERABLES Edited Re sult - Final [facility] [place] CLIA#[id number] [address] [place] [address], * (ABNORMAL) COMPREHENSIVE METABOLIC PANEL (02/13/2025 1:51 PM CDT) SODIUM 140 136 - 145 mmol/L 02/13/2025 2:23 PM CDT [facility] POTASSIUM 3.9 3.5 - 5.1 mmol/L 02/13/2025 2:23 PM CDT [facility] CHLORIDE 105 98 - 107 mmol/L 02/13/2025 2:23 PM CDT [facility] CO2 26 22 - 29 mmol/L 02/13/2025 2:23 PM T [facility] CALCIUM 8.8 8.8 - 10.2 mg/dL 02/13/2025 2:23 PM CDT [facility] BUN 16 8 - 23 mg/dL 02/13/2025 2:23 PM T [facility] CREATININE 0.90 0.67 - 1.17 mg/dL 02/13/2025 2:23 PM T [facility] Comment:The GFR result is no t clinically significant on patients <18 or >70 years of age. GLUCOSE 98 74 - 99 mg/dL 02/13/2025 2:23 PM T [facility] TOTAL PROTEIN 5.8(L) 6.6 - 8.7 g/dL 02/13/2025 2:23 PM CDT [facility] ALBUMIN 3.9 3.5 - 5.2 g/dL 02/13/2025 2:[address] [facility] BILIRUBIN TOTAL 0.3 0.0 - 1.2 mg/dL 02/13/2025 2:[address] [facility] ALKALINE PHOSPHATASE 70 40 - 129 U/L 02/13/2025 2:[address] [facility] AST 18 0 - 50 U/L 02/13/2025 2:[address] [facility] ALT 13 0 - 50 U/L 02/13/2025 2:[address] [facility] GFR >60 mL/min/1.7 3 sq meter 02/13/2025 2:[address] [facility] Comment:eGFR calculated with 2020 CKD-EPI equation. Vegetarian diet, extremely high or low muscle mass, and may affect results. Cystatin C with Glomerular Filtration Rate is a suitable alternative for these patients. ANION GAP 9 5 - 20 mmol/L 02/13/2025 2:[address] [facility] Blood Venipuncture / Unknown 02/13/2025 1:51 PM CDT 02/13/2025 1:58 PM CDT us Miguel Donohue MD CHEMISTRY ORDERABLES Final Resu lt [facility] CLIA #[id number] [address] [place] [address] * EKG 12-LEAD (02/13/2025 1:47 PM CDT) Only the most recent of2 resultswithin the time period is included. 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1940 Requested By: Order Number: [id number] Reading MD: Aldair Balbuena Measurements Intervals [place] Rate: 57 P: 52 NV: 182 QRS: 70 QRSD: 88 T: 72 QT: 398 QTc: 387 Interpretive Statements Sinus bradycardia Otherwise normal ECG Electronically Signed On 02-13-2025 22:22:38 CDT by Aldair Balbuena Procedure Note Aldair Balbuena MD - 02/13/[address] [place] [address] Test Date: 2025-02-13 Pat Name: AMANDA HENSON Department: 50 Room: Gender: Male 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1940 Requested By: Order Number: [id number] Reading MD: Aldair Balbuena Measurements Intervals [place] Rate: 57 P: 52 NV: 182 QRS: 70 QRSD: 88 T: 72 QT: 398 QTc: 387 Interpretive Statements Sinus bradycardia Otherwise normal ECG Electronically Signed On 02-13-2025 22:22:38 CDT by Aldair Balbuena us Miguel Donohue MD ECG ORDERABLES Final Result Performing Organization Address City/State/[facility] Co de Phone Number INTERFACE SYSTEM Refer to clinic/hospital department * PROTIME-INR (12/13/2024 1:32 PM CDT) PROTIME 14.9 12.7 - 14.9 Seconds 12/13/2024 5:42 PM CDT [facility] INR 1.1 0.8 - 1.2 12/13/2024 5:42 PM CDT [facility] Blood Venipuncture / Unknown 12/13/2024 1:32 PM CDT 12/13/2024 5:24 PM CDT Narrative [facility] - 12/13/2024 5:42 PM CDT Expected Values for INR: DVT/PE Goal INR 2.5; range 2.0 - 3.0 Valve Replacement Tissue Goal INR 2.5; range 2.0 - 3.0 Valve Replacement Mechanical Goal INR 3.0; range 2.5 - 3.5 POST-WA Goal INR 2.5; range 2.0 - 3.0 or Goal INR 3.0; range 2.5 - 3.5 Atrial Fibrillation Goal INR 2.5; range 2.0 - 3.0 Ischemic Stroke Goal INR 2.5; range 2.0 - 3.0 us Chalo Shepherd MD HEMATOLOGY ORDERABLES Final Result [facility] CLIA # [id number] [address] [place] [address] * (ABNORMAL) BASIC METABOLIC PANEL (12/13/2024 1:32 PM CDT) SODIUM 142 136 - 145 mmol/L 12/13/2024 5:43 PM CDT [facility] POTASSIUM 4.5 3.5 - 5.1 mmol/L 12/13/2024 5:43 PM CDT [facility] CHLORIDE 108(H) 98 - 107 mmol/L 12/13/2024 5:43 PM CDT [facility] CO2 24 22 - 29 mmol/L 12/13/2024 5:43 PM CDT [facility] CALCIUM 8.7(L) 8.8 - 10.2 mg/dL 12/13/2024 5:43 PM CDT [facility] BUN 21 8 - 23 mg/dL 12/13/2024 5:43 PM CDT [facility] CREATININE 0.98 0.67 - 1.17 mg/dL 12/13/2024 5:43 PM CDT [facility] Comment:The GFR result is no t clinically significant on patients <18 or >70 years of age. GLUCOSE 110(H) 74 - 99 mg/dL 12/13/2024 5:43 PM CDT [facility] GFR >60 mL/min/1.7 3 sq meter 12/13/2024 5:43 PM CDT [facility] Comment:eGFR calculated with 2020 CKD-EPI equation. Vegetarian diet, extremely high or low muscle mass, and may affect results. Cystatin C with Glomerular Filtration Rate is a suitable alternative for these patients. ANION GAP 10 9 - 20 mmol/L 12/13/2024 5:43 PM CDT [facility] Blood Venipuncture / Unknown 12/13/2024 1:32 PM CDT 12/13/2024 5:26 PM CDT Chalo Shepherd MD CHEMISTRY ORDERABLES Final Result Performing Organization Address [facility] Co de Phone Number [facility] CLIA # [id number] [address] [place] [address] * MRSA PCR RAPID SCREEN (12/13/2024 1:20 PM CDT) [facility] MRSA PCR RESULT MRSA not detected MRSA not detected 12/13/2024 3:39 PM CDT [facility] Surveillance ANTERIOR NARES SWAB / Unknown Collection / Unknown 12/13/2024 1:20 PM CDT 12/13/2024 2:09 PM CDT Narrative [facility] - 12/13/2024 3:39 PM CDT This assay is used to detect Methicillin-Resistant S. aureus (MRSA) colonization of the nares. PLEASE NOTE: This test has not been approved to monitor effectiveness of MRSA decolonization. Residual DNA may temporarily be present after successful decolonization. This test was performed using an FDA approved screening methodology. Chalo Shepherd MD MICROBIOLOGY - GENERA L ORDERABLES Final Result Performing Organization Address City/[facility]/ZIP Co de Phone Number [facility] CLIA # [id number] [address] [facility] [place] [address] * VERIFICATION BLOOD GROUP (12/13/2024 1:15 PM CDT) ABO GROUP AB 12/13/2024 5:44 PM CDT [facility] [place] RH (D) TYPE Positive 12/13/2024 5:44 PM CDT [facility] [place] Blood Venipuncture / Unknown 12/13/2024 1:15 PM CDT 12/13/2024 5:18 PM CDT Chalo Shepherd MD BLOOD BANK ORDERABLES Final Result [facility] [place] CLIA#[id number] [facility] [place] [address], from Last 3 Months Insurance [facility] M[facility] Advance Directives For more information, please contact: [phone] * Full Code (Latest Code Status on File) Date Activated Date Inactivated Comments 02/27/2025 2:29 PM 03/02/2025 5:00 PM * Full Code Date Activated Date Inactivated Comments 02/27/2025 6:27 AM 02/27/2025 2:29 PM Care Teams Air Tool Operator Relationship Specialty Start Date End Date Parveen Bear DO [address] [place] [address] PCP - General Family Practice 06/26/23
--- OUTSIDE RECORDS SUMMARY | 2025-03-03 16:56 | XMS_ITS | Encounter Summary ---
Author Organization [facility] Address [address] [place] [address] Care Team Providers Care Bounty Trapper Name Role Phone Parveen Bear DO Primary Care Provider [phone] Reason for Visit * Reason Comments Provider Call Encounter Details Date Type Department Care Team (Late st Contact Info) Description 03/02/2025 Telephone [facility] Medicine [place] [address] [place] [phone] Parveen Bear DO [address] [phone] Provider Call Social History Tobacco Use Types Packs/Day Years [...] worry about transportation for future doctor visits, citrus picker medication, etc.? 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 Discussed that we would follow and he needs to keep his upcoming appointment. Estela RN * Telephone Encounter - Keshia De Los Santos - 03/02/2025 10:12 AM CDT Copied from [facility] #[id number]. Topic: Jkhofzci-Um-Yfvtrkhc Call >> Mar 02, 2025 10:11 AM Keshia Childers wrote: Caller is requesting to speak with Clinical Care Team. Caller Name: Amber amari/ [facility] Callback Number: [phone] ext [phone] Is the caller a Physician, Nurse Practitioner or Physician Fire Prevention Inspector? No Call Notes: Amber needs to confirm that Dr. Bear will sign and follow for home health. Is this addressing an immediate patient care need? No documented in this encounter Plan of Treatment Upcoming Encounters Date Type Department Care Team (Late st Contact Info) Description 03/14/2025 11:00 AM AUTO SERVICER Office Visit [facility] Neurosurgery [address] [place] [address] Cristal Judge NP [address] [place] [address] 03/16/2025 3:00 PM AUTO SERVICER Office Visit [facility] [address] [place] [phone] Leela Ramires, [facility] [address] [place] [phone] documented as of this encounter Visit Diagnoses Not on filedocumented in this encounter Care Teams Bounty Trapper Relationship Specialty Start Date End Date Parveen Bear DO [address] [place] [phone] PCP - General Family Practice 06/26/23 documented as of this encounter
--- OUTSIDE RECORDS SUMMARY | 2025-03-03 16:56 | XMS_ITS | Encounter Summary ---
Author Organization [facility] Address [address] [place] [address] Care Team Providers Care Ocean Rescue Lieutenant Name Role Phone Parveen Bear DO Primary Care Provider [phone] Reason for Visit * Reason Comments Provider Call Encounter Details Date Type Department Care Team (Late st Contact Info) Description 03/02/2025 Telephone [facility] Medicine [place] [address] [place] [phone] Parveen Bear DO [address] [phone] Provider Call Social History Tobacco [...] worry about transportation for future doctor visits, machine operator hop picker medication, etc.? 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 Discussed that verbal was already given to Sharon earlier today. Estela RN * Telephone Encounter - Keanu Santiago - 03/02/2025 2:37 PM CDT Copied from [facility] #[id number]. Topic: Ksxtptoh-Sk-Pigjeevz Call >> Mar 02, 2025 2:22 PM Keanu Escobar wrote: Caller is requesting to speak with Clinical Care Team. Caller Name: Laura from [facility] Callback Number: [phone] Is the caller a Physician, Nurse Practitioner or Physician Green End Man? No Call Notes: Laura is calling in to find out if DR Bear will follow and sign orders for Home health Is this addressing an immediate patient care need? No documented in this encounter Plan of Treatment Upcoming Encounters Date Type Department Care Team (Late st Contact Info) Description 03/14/2025 11:00 AM LUGGAGE REPAIRER Office Visit [facility] Neurosurgery [address] [place] [address] Cristal Judge NP [address] [place] [address] 03/16/2025 3:00 PM LUGGAGE REPAIRER Office Visit [facility] [address] [place] [phone] Leela Ramires, INVENTORY CONTROL PLANNER [address] [place] [phone] documented as of this encounter Visit Diagnoses Not on filedocumented in this encounter Care Teams Ocean Rescue Lieutenant Relationship Specialty Start Date End Date Parveen Bear DO [address] [place] [phone] PCP - General Family Practice 06/26/23 documented as of this encounter
--- OUTSIDE RECORDS SUMMARY | 2025-03-03 16:56 | XMS_ITS | Encounter Summary ---
Author Organization [employer] Address [address] [place] [address] Care Team Providers Care Special Service Officer Name Role Phone Parveen Bear Primary Care Provider [phone] Encounter Details Date Type Department Care Team [...] worry about transportation for future doctor visits, parts picker medication, etc.? No 2024 Housing Stability [...] on file Legal Sex Male 5:26 AM ENROUTE CONTROLLER Gender Identity Male 11/15/2024 4:33 PM CDT Sexual Orientation Not on file documented as of this encounter Plan of Treatment Upcoming Encounters Date Type Department Care Team (Late st Contact Info) Description 03/14/2025 11:00 AM ENROUTE CONTROLLER Office Visit [facility] Neurosurgery [address] [place] [phone] Cristal Judge NP [address] [place] [address] 03/16/2025 3:00 PM ENROUTE CONTROLLER Office Visit [facility] Family Medicine [place] [address] [place] [phone] Leela Ramires, HEAD SHIPPER [address] [place] [phone] documented as of this encounter Visit Diagnoses Not on filedocumented in this encounter Care Teams Special Service Officer Relationship Specialty Start Date End Date Parveen Bear DO [address] [place] [phone] PCP - General Family Practice 06/26/23 documented as of this encounter
--- OUTSIDE RECORDS SUMMARY | 2025-03-03 16:56 | XMS_ITS | Encounter Summary ---
Author Organization [facility] Address [address] [place] [address] Care Team Providers Care Electric Razor Assembler Name Role Phone Parveen Bear DO Primary Care Provider [phone] Reason for Visit * Reason Comments Remote Monitoring Encounter Details Date Type Department Care Team (Late st Contact Info) Description 03/03/2025 Telephone [facility] Medicine [place] [address] [place] [phone] Parveen Bear DO [address] [phone] Remote Monitoring Social History Tobacco Use Types Packs/Day Years [...] worry about transportation for future doctor visits, fruit picker medication, etc.? 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 He said yesterday he was able to get up on his feet but after the fall today he is not able to. He was advised to take Abraham back to the emergency room so he can be evaluated and make sure that he does not have something else going on. Curt said that they will be looking for halfway placement as they are not able to care for him at home. There was also another call from Glenys and Curt was going to let her know what was going on. Estela CRANE * Telephone Encounter - Flor Keating - 03/03/2025 2:42 PM CDT Copied from [facility] #[id number]. Topic: Patient Reported Outcome Metrics >> Mar 03, 2025 2:38 PM Flor Herrera wrote: Caller Name: Nannette Callback Number: [phone] Call Notes: Caller is reporting Follow up information from an appointment Patient's son needs to report patient needs to be put in a halfway today. The family is unableto take care of patient. Patient's son Nannette said if he does not get a call back today they will have to call 911. Please call Gagandeep to discuss. documented in this encounter Plan of Treatment Upcoming Encounters Date Type Department Care Team (Late st Contact Info) Description 03/14/2025 11:00 AM PROCESS MAINTENANCE TECHNICIAN Office Visit [facility] Neurosurgery [address] [place] [address] Cristal Judge NP [address] [place] [address] 03/16/2025 3:00 PM PROCESS MAINTENANCE TECHNICIAN Office Visit [facility] [address] [place] [phone] Leela Ramires, ELECTRONICS MAINTENANCE TECHNICIAN [address] [place] [phone] documented as of this encounter Visit Diagnoses Not on filedocumented in this encounter Care Teams Electric Razor Assembler Relationship Specialty Start Date End Date Parveen Bear DO [address] [place] [phone] PCP - General Family Practice 06/26/23 documented as of this encounter
--- OUTSIDE RECORDS SUMMARY | 2025-03-03 16:56 | XMS_ITS | Encounter Summary ---
Author Organization [facility] Address [address] [place] [address] Care Team Providers Care Doll Wig Maker Rooted Hair Name Role Phone Parveen Bear DO Primary Care Provider [phone] Reason for Visit * Reason Comments Remote Monitoring Encounter Details Date Type Department Care Team (Late st Contact Info) Description 03/03/2025 Telephone [facility] Medicine [place] [address] [place] [phone] Parveen Bear DO [address] [phone] Remote Monitoring Social History Tobacco [...] worry about transportation for future doctor visits, filler picker medication, etc.? 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 They were going to take him to the emergency room to be evaluated further and then they would see about getting him longterm placement. Glenys is not on the PHI. Estela RN * Telephone Encounter - Radha Harris - 03/03/2025 2:39 PM CDT Copied from [facility] #[id number]. Topic: Patient Reported Outcome Metrics >> Mar 03, 2025 2:36 PM Radah Tay wrote: Caller Name: Glenys - daughter Callback Number: [phone] Call Notes: pt is needing to be longterm for a few days - she stated he is weak after his surgery and is needing assistance - she is wanting it done today - advised I would let them know documented in this encounter Plan of Treatment Upcoming Encounters Date Type Department Care Team (Late st Contact Info) Description 03/14/2025 11:00 AM HYBRID CAR MECHANIC Office Visit [facility] Neurosurgery [address] [place] [phone] Cristal Judge NP [address] [place] [phone] 03/16/2025 3:00 PM HYBRID CAR MECHANIC Office Visit [facility] [address] [place] [phone] Leela Ramires DIRECTOR TALENT [address] [place] [phone] documented as of this encounter Visit Diagnoses Not on filedocumented in this encounter Care Teams Doll Wig Maker Rooted Hair Relationship Specialty Start Date End Date Parveen Bear DO [address] [place] [phone] PCP - General Family Practice 06/26/23 documented as of this encounter
--- OUTSIDE RECORDS SUMMARY | 2025-03-03 16:56 | XMS_ITS | Encounter Summary ---
Author Organization [facility] Address [address] [place] [address] Care Team Providers Care Citrix Administrator Name Role Phone Parveen Bear DO Primary Care Provider [phone] Reason for Visit * Reason Comments Question Encounter Details Date Type Department Care Team (Late st Contact Info) Description 12/06/[address] 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 There is not a Fidelina added. * Telephone Encounter - Precious Keith - 12/06/2024 1:52 PM CDT Copied from [facility] #[id number]. Topic: Administrative >> Dec 06, 2024 1:50 PM Precious Tay wrote: Caller Name: Fidelina, daughter in law Callback Number: [phone] Call Notes: Fidelina says that patient dropped by office to fill out PHI form with her name on it. She asks that it be submitted so she can speak to all his care givers at [facility]. Are they reporting a patient safety concern? No Patient Access Instructions 1. Inform caller they are not on the patient's PHI and we cannot release information. 2. Select Res[employer] Reason and [employer] CRM. documented in this encounter Plan of Treatment Upcoming Encounters Date Type Department Care Team (Late st Contact Info) Description 03/14/2025 11:00 AM JEWEL BEARING GRINDER Office Visit [facility] Neurosurgery [address] [place] [phone] Cristal Judge NP [address] [place] [phone] 03/16/2025 3:00 PM JEWEL BEARING GRINDER Office Visit [facility] Family Medicine [place] [address] [place] [phone] Leela Ramires FNP [address] [place] [phone] documented as of this encounter Visit Diagnoses Not on filedocumented in this encounter Care Teams Citrix Administrator Relationship Specialty Start Date End Date Parveen Bear DO [address] [place] [phone] PCP - General Family Practice 06/26/23 documented as of this encounter
[2025-03-03 17:10] VITALS: BP 93/55; PULSE 88; RESP 18; TEMP 36.7; O2SAT 92
--- NOTE | 2025-03-03 17:19 | CTR_ITS ---
PROCEDURE INFORMATION: Exam: CT Cervical Spine Without Contrast Exam date and time: 03/03/2025 5:42 PM Age: 84 years old Clinical indication: Injury or trauma; Blunt trauma; Prior surgery; Surgery date: 3-7 days post-operative; Surgery type: Cervical revision with spacer 02/27/2025; Ground level fall. C/O neck pain. ; Additional info: Trauma/recent surgery TECHNIQUE: Imaging protocol: Computed tomography of the cervical spine without contrast. Radiation optimization: All CT scans at this facility use at least one of these dose optimization techniques: automated exposure control; mA and/or kV adjustment per patient size (includes targeted exams where dose is matched to clinical indication); or iterative reconstruction. COMPARISON: CR XR cervical spine min 6V [id number] 03/08/2024 8:58 AM RADIATION DOSE METRICS: Total DLP (mGy-cm): 160.87 FINDINGS: Bones: Previous anterior disc discectomy and fusion at C4, C5, and C6. Anterior fixation plate and attached screws at C4, C5, and C6. Recent anterior discectomy at C3-C4 placement of a stabilizing device. Marked degenerative changes between the anterior arch of C1 and odontoid process C2. Diffuse degenerative disc disease and degenerative changes involving vertebral bodies and disc spaces. Hypertrophic degenerative changes facet joints marked involving the upper cervical facet joints. No acute appearing posttraumatic change. Mild AP narrowing of the spinal canal at the level of the C6-C7. Bilateral foraminal narrowing at C6-C7 disc space. Lungs: Lung apices are are clear of an acute process. Soft tissues: Prevertebral soft tissue swelling due to recent surgery. Postsurgical changes right neck due to recent surgery. Small amount of residual air right neck probably on a postsurgical basis. CT/CT cervical spin wo con* [id number] IMPRESSION: 1. Postsurgical changes, degenerative changes. No evidence of the acute post traumatic changes in the cervical spine. 2. Postsurgical changes anterior neck due to recent surgery.
--- NOTE | 2025-03-03 17:19 | W.ED.FALL ---
HPI - Fall General: Chief Complaint: Fall Stated Complaint: fall (5xday postop) Time Seen by Provider: 03/03/25 17:11 History of Present Illness: 84-year-old male presents emergency room after a fall. He fell of his wheelchair and was trying to reposition himself. He is currently on hospice recently had surgery to his neck and to his back. 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 He has been coughing somewhat. He is not able to manage for himself he is complaining a little bit of low back pain after the fall he did not strike his head and no loss consciousness. While he is on hospice he tells me he does want to be treated. Associated symptoms-after fall: Denies abdominal pain, chest pain or neck pain Related Data Home Medications ?Medication ?Instructions ?Recorded ?Confirmed bupropion HCl 150 mg 24 hr tablet, 150 mg PO QAM 10/22/21 09/23/24 extended release (Wellbutrin XL) cetirizine 10 mg tablet (All Day 10 mg PO DAILY PRN 10/22/21 09/23/24 Allergy (cetirizine)) diclofenac sodium 1 % topical gel 2 g topical QID 10/22/21 09/23/24 (Arthritis Pain (diclofenac)) gabapentin 400 mg capsule 400 mg PO TID 10/22/21 09/23/24 ketoconazole 2 % topical cream 1 applic topical BID 10/22/21 09/23/24 meloxicam 15 mg tablet 15 mg PO DAILY 10/22/21 09/23/24 methocarbamol 750 mg tablet 750 mg PO QID 10/22/21 09/23/24 mupirocin 2 % topical ointment 1 applic topical TID 10/22/21 09/23/24 nystatin 100,000 unit/gram topical 1 applic topical BID 10/22/21 09/23/24 ointment omeprazole 20 mg capsule,delayed 20 mg PO BID 10/22/21 09/23/24 release oxycodone myristate 9 mg capsule 9 mg PO BID 10/22/21 09/23/24 sprinkle extended release 12 hr(DON'T CRUSH) (Xtampza ER) ropinirole 2 mg tablet 2 mg PO BID 10/22/21 09/23/24 tamsulosin 0.4 mg capsule 0.4 mg PO DAILY 10/22/21 09/23/24 trazodone 100 mg tablet 100 mg PO DAILY 10/22/21 09/23/24 Previous Rx's ?Medication ?Instructions ?Recorded ondansetron 4 mg disintegrating 4 mg PO Q8H #20 tabs 09/02/23 tablet sucralfate 1 gram tablet (Carafate) 1 g PO BID #30 tabs 09/17/23 dexamethasone 4 mg tablet 4 mg PO DAILY #6 tabs 01/15/24 Allergies Allergy/AdvReac Type Severity Reaction Status Date / Time No Known Allergies Allergy Verified 09/23/24 09:43 Review of Systems Const: Denies: fever(s) or chills Card: Denies: chest pain Resp: Reports: dyspnea, productive cough and chest congestion GI: Denies: abdominal pain : Denies: dysuria, urinary frequency or urinary urgency Musc: Reports: back pain; Denies: neck pain Skin/Breast: Denies: rash PFSH ED PFSH: Medical History Skin lesion of face GERD (gastroesophageal reflux disease) Family History Father Cancer Brother Cancer Social History Smoking and tobacco/nicotine status: former use of tobacco/nicotine Physical Exam Const: COMMON NORMALS: no acute distress GENERAL APPEARANCE: cooperative and comfortable ORIENTATION/CONSCIOUSNESS: Yes awake, Yes oriented to person, Yes oriented to place and Yes oriented to time HENMT: COMMON NORMALS: normocephalic, atraumatic and hearing grossly normal bilaterally HEAD & SCALP: normocephalic and atraumatic Neck/C-Spine: OTHER: C-collar in place Resp: COMMON NORMALS: normal respiratory effort, No retractions, No use of accessory muscles and clear to auscultation bilaterally AUSCULTATION: clear to auscultation bilaterally Cardio: COMMON NORMALS: regular rate, regular rhythm and No murmurs present (Cardio) RATE: regular rate RHYTHM: regular rhythm GI: COMMON NORMALS: Soft to palpation and No hepatosplenomegaly present AUSCULTATION: Yes normoactive bowel sounds PALPATION: Yes Soft to palpation, No Tenderness to palpation present (GI), No Guarding due to palpation present (GI) and Yes No hepatosplenomegaly present Back/Pelvis: OTHER: Recent back incision well-approximated arielle still in place no signs of infection Extremity: OTHER: 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 There is no edema in the right lower leg negative Homans in the right lower leg Neuro: SENSORIUM/ORIENTATION: Yes oriented to person, Yes oriented to place and Yes oriented to time Skin: COMMON NORMALS: no rashes or lesions noted GENERAL SKIN EXAM: no rashes or lesions noted Course Vital Signs: Vital signs: Vital Signs Temperature 97.7 F 03/04/25 07:26 Pulse Rate 77 03/04/25 07:26 Respiratory Rate 16 03/04/25 07:26 Blood Pressure 121/63 03/04/25 07:26 Pulse Oximetry 92 03/04/25 07:26 Oxygen Delivery Me thod Room Air 03/04/25 07:26 MDM - Fall Medical Decision Making On x-ray patient does have Right lower lobe and left retrocardiac pneumonia. Mild hypoxemia with sats in the low 90s and leukocytosis. Lactic acid 1.3. Reviewed discharge medications from the paperwork patient had from [facility] in [place] he is not on any steroids. He wishes to be treated for this we will start him on IV antibiotics Place in observation discussed with hospitalist orders written Medical Records I reviewed the patient's medical records. Lab Data I reviewed the patient's lab results. 03/04/25 05:34 03/04/25 05:34 Radiology Impressions Cervical Spine CT 03/03/25 17:19 IMPRESSION: 1. Postsurgical changes, degenerative changes. No evidence of the acute post traumatic changes in the cervical spine. 2. Postsurgical changes anterior neck due to recent surgery. Chest X-Ray 03/03/25 17:37 IMPRESSION: 1. Mild right lower lobe pneumonia. 2. Left retrocardiac atelectasis or pneumonia. 3. Postsurgical changes cervical spine. Scoliosis and degenerative changes. Previous resection distal right and left clavicle. Lumbar Spine X-Ray 03/03/25 18:24 IMPRESSION: 1. Midline skin clips seen posterior to the lumbar spine which would be consistent with recent surgery. 2. Posterolateral fusion at L3, L4 and L5. Possible laminectomy at L4. 3. Fusion of the body of T12, L1 and L2. 4. 1.8 cm anterior spondylolisthesis of L5 with respect S1. Laboratory Results WBC 19.24 10^3/uL (3.29-11.43) H 03/03/25 17:10 RBC 3.51 10^6/uL (3.85-5.65) L 03/03/25 17:10 Hgb 11.00 g/dL (11.27-16.99) L 03/03/25 17:10 Hct 32.1 % (37-53) L 03/03/25 17:10 MCV 91.5 fl (82-101) 03/03/25 17:10 MCH 31.3 pg (27-33) 03/03/25 17:10 MCHC 34.3 g/dL (30-55) 03/03/25 17:10 RDW 11.8 % (12.1-15.1) L 03/03/25 17:10 Plt Count 224 10^3/cmm (157-399) 03/03/25 17:10 MPV 8.3 fL (7.4-10.4) 03/03/25 17:10 Neut % (Auto) 89.4 % 03/03/25 17:10 Lymph % (Auto) 5.9 % 03/03/25 17:10 Navarro % (Auto) 4.0 % 03/03/25 17:10 Eos % (Auto) 0.1 % 03/03/25 17:10 Baso % (Auto) 0.2 % 03/03/25 17:10 Neut # (Auto) 17.21 10^3/uL (1.8-7.7) H 03/03/25 17:10 Lymph # (Auto) 1.1 10^3/uL (0.8-4.8) 03/03/25 17:10 Navarro # (Auto) 0.8 10^3/uL (0.2-0.9) 03/03/25 17:10 Eos # (Auto) 0.0 10^3/uL (0.0-0.8) 03/03/25 17:10 Baso # (Auto) 0.0 10^3/uL (0.0-0.1) 03/03/25 17:10 Nucleated RBC % (auto) 0 % 03/03/25 17:10 Nucleated RBCs # 0.0 /100WBC 03/03/25 17:10 Sodium 133 mmol/L (136-145) L 03/03/25 17:10 Potassium 4.6 mmol/L (3.5-5.1) 03/03/25 17:10 Chloride 95 mmol/L (98-107) L 03/03/25 17:10 Carbon Dioxide 25 mmol/L (22-29) 03/03/25 17:10 Anion Gap 17.6 (5-19) 03/03/25 17:10 BUN 40 mg/dL (8-23) H 03/03/25 17:10 Creatinine 1.6 mg/dL (0.7-1.2) H 03/03/25 17:10 GFR Calculation Not Reportable 03/03/25 17:10 Glucose 126 mg/dL (65-115) H 03/03/25 17:10 Calculated Osmolality 287 mOsm/kg (285-295) 03/03/25 17:10 Lactic Acid 1.3 mmol/L (0.5-2.2) 03/03/25 17:10 Calcium 8.6 mg/dL (8.5-10.5) 03/03/25 17:10 Total Bilirubin 0.5 mg/dL (0.15-1.2) 03/03/25 17:10 AST 11 U/L (0-40) 03/03/25 17:10 ALT 9 U/L (0-41) 03/03/25 17:10 Alkaline Phosphatase 73 U/L (40-130) 03/03/25 17:10 Total Protein 6.1 g/dL (6.6-8.7) L 03/03/25 17:10 Albumin 3.6 g/dL (3.5-5.2) 03/03/25 17:10 Globulin 2.5 g/dL (1.3-4.6) 03/03/25 17:10 All radiology interpretation(s) finalized by discharge EKG Data EKG 1: I personally reviewed and interpreted this EKG as follows: Interpretation: EKG sinus rhythm rate of 77. KS interval 95 QTc 413 no previous EKG for comparison no acute ST changes noted on today's EKG Discharge Plan Discharge Patient Disposition: Admitted As Inpatient Admit Provider: Ta Rosenberg Clinical Impression: Pneumonia Condition: Stable Coding Level of Care Code ED It Security Consultant for Leonard Mike
[2025-03-03 17:21] LABS: Hematocrit 32.1 % (37-53); Hemoglobin 11.00 g/dL (11.27-16.99); Mean Corpuscular HGB Conc 34.3 g/dL (30-55); Mean Corpuscular Hemoglobin 31.3 pg (27-33); Mean Corpuscular Volume 91.5 fl (82-101); Nucleated Red Blood Cells % 0 %; Platelet Count 224 10^3/cmm (157-399); Red Blood Count 3.51 10^6/uL (3.85-5.65); White Blood Count 19.24 10^3/uL (3.29-11.43)
--- NOTE | 2025-03-03 17:37 | XRR_ITS ---
PROCEDURE INFORMATION: Exam: XR Chest Exam date and time: 03/03/2025 5:45 PM Age: 84 years old Clinical indication: Other: Weakness; Additional info: Postop leukocytosis weakness TECHNIQUE: Imaging protocol: Radiologic exam of the chest. Views: 1 view. COMPARISON: CT cervical spin wo con* [id number] 03/03/2025 5:42 PM FINDINGS: Lungs: Small peribronchial opacities in the right lower lung consistent with pneumonia. Increased retrocardiac density on the left. This may represent atelectasis. Can not rule out pneumonia. Pleural spaces: Unremarkable. No pleural effusion. No pneumothorax. Heart/Mediastinum: Tortuosity thoracic aorta with calcification. No cardiomegaly. Bones/joints: Previous resection distal right clavicle. Mild right convexity thoracolumbar scoliosis with fdxlbdbd-jv-fkntpt degenerative changes. Postsurgical changes lower cervical spine. Upper abdomen: Unremarkable. XR/XR chest 1V portable [id number] IMPRESSION: 1. Mild right lower lobe pneumonia. 2. Left retrocardiac atelectasis or pneumonia. 3. Postsurgical changes cervical spine. Scoliosis and degenerative changes. Previous resection distal right and left clavicle.
[2025-03-03 17:39] LABS: Alanine Aminotransferase 9 U/L (0-41); Albumin Level 3.6 g/dL (3.5-5.2); Alkaline Phosphatase 73 U/L (40-130); Anion Gap 17.6 (5-19); Aspartate Amino Transferase 11 U/L (0-40); Blood Urea Nitrogen 40 mg/dL (8-23); Calcium 8.6 mg/dL (8.5-10.5); Carbon Dioxide 25 mmol/L (22-29); Chloride 95 mmol/L (98-107); Globulin 2.5 g/dL (1.3-4.6); Glucose 126 mg/dL (65-115); Osmolality Calculated 287 mOsm/kg (285-295); Potassium 4.6 mmol/L (3.5-5.1); Sodium 133 mmol/L (136-145); Total Protein 6.1 g/dL (6.6-8.7)
[2025-03-03 17:57] LABS: Lactic Sepsis W/Reflex 1.3 mmol/L (0.5-2.2)
--- NOTE | 2025-03-03 17:57 | ECG_ITS ---
[facility] Date: 2025-03-03 Pat Name: Abraham Henson Department: Room: Gender: Male Automation/Controls Manager: : 1940 Requested By: Bertram Redman Order Number: [id number] Zane MD: Edwardo Kurtz M.D. Measurements Intervals [place] Rate: 77 P: 55 PA: 195 QRS: 52 QRSD: 86 T: 37 QT: 363 QTc: 413 Interpretive Statements SINUS RHYTHM NONSPECIFIC T-WAVE ABNORMALITY No previous ECG available for comparison Electronically Signed On 03-04-2025 21:07:04 CDT by Edwardo Kurtz M.D. [email or web address]
[2025-03-03] MEDS: cefTRIAXone 1,000 mg SDV 1000 MG IVP (18:19)
--- NOTE | 2025-03-03 18:24 | XRR_ITS ---
PROCEDURE INFORMATION: Exam: XR Lumbosacral Spine Exam date and time: 03/03/2025 6:28 PM Age: 84 years old Clinical indication: Low back pain TECHNIQUE: Imaging protocol: Radiologic exam of the lumbosacral spine. Views: 2 or 3 views. COMPARISON: No relevant prior studies available. FINDINGS: History low back pain. No additional history given. Bones/joints: Demineralization consistent with the patient's age. Appears to be anterior spondylolisthesis of L5 with respect to S1 of 1.8 cm. There is a appearance of apparent posterolateral fusion at L3, L4, and L5. Possible previous laminectomy at L4. Narrowing of L3-L4, L4-L5 and L5-S1 disc spaces. Apparent fusion between bodies of T12, L1 and L2. Degenerative changes right SI joint. Other: Skin clips seen midline posterior back. Gas seen in a mildly dilated colon. Aortoiliac calcification. XR/XR lumbar spine 2-3V* [id number] IMPRESSION: 1. Midline skin clips seen posterior to the lumbar spine which would be consistent with recent surgery. 2. Posterolateral fusion at L3, L4 and L5. Possible laminectomy at L4. 3. Fusion of the body of T12, L1 and L2. 4. 1.8 cm anterior spondylolisthesis of L5 with respect S1.
[2025-03-03 18:35] VITALS: BP 118/65; PULSE 72; O2SAT 91
[2025-03-03 19:57] LABS: Respiratory Syncytial Virus Ce NEGATIVE (Negative); SARS-CoV-2 PCR NEGATIVE (Negative)
--- NOTE | 2025-03-03 20:07 | PM.HP ---
Providers/Chief Complaint Admitting Physician: MARIANNE MONAE --admitted before 12 midnight Primary Care Provider: Penelope Vora NP Chief Complaint: fall (5xday postop) History of Present Illness Abraham Henson is a 84 year old male who had neck surgery in the cervical spine anterior aspect approach just 5 days ago at [facility]. Patient is due to follow-up with the spine surgeon later on this coming month March. Patient is to wear the neck collar at all times except when he is in bed lying down. Otherwise he is fine. Patient does have leukocytosis because patient is on dexamethasone postsurgery and still active. Patient had presented to the emergency room because of a mechanical fall imaging had been done and there is no acute injury to the brain or to the neck. And there has been radiographic sign of bilateral pneumonia significant for mild right lower lobe and another in the retrosternal region. Patient had received azithromycin and ceftriaxone in the emergency room. Patient is placed under observation at this time to continue current care along with antibiotics for which the patient can go home on should he continue to do well into tomorrow. Patient relates if he had been short of breath he did not pay any particular attention to it Will continue current care with nebulizing treatment supplemental oxygen and antibiotics of azithromycin and ceftriaxone. Patient admits to [facility] under observation. Patient verbalized to myself and the primary nurse that he desired to be full code when he was asked. Patient is full code Review of Systems Narrative: System review patient denies any complaints nothing had changed since surgery will continue to follow through and optimize. Patient does have postsurgical pain and discomfort in the neck. Medications/Allergies Home Medications ?Medication ?Instructions ?Recorded ?Confirmed ?Last Taken ?Type bupropion HCl 150 mg 24 hr tablet, 150 mg PO QAM 10/22/21 09/23/24 Unknown History extended release (Wellbutrin XL) cetirizine 10 mg tablet (All Day 10 mg PO DAILY PRN 10/22/21 09/23/24 Unknown History Allergy (cetirizine)) diclofenac sodium 1 % topical gel 2 g topical QID 10/22/21 09/23/24 Unknown History (Arthritis Pain (diclofenac)) gabapentin 400 mg capsule 400 mg PO TID 10/22/21 09/23/24 Unknown History ketoconazole 2 % topical cream 1 applic topical BID 10/22/21 09/23/24 Unknown History meloxicam 15 mg tablet 15 mg PO DAILY 10/22/21 09/23/24 Unknown History methocarbamol 750 mg tablet 750 mg PO QID 10/22/21 09/23/24 Unknown History mupirocin 2 % topical ointment 1 applic topical TID 10/22/21 09/23/24 Unknown History nystatin 100,000 unit/gram topical 1 applic topical BID 10/22/21 09/23/24 Unknown History ointment omeprazole 20 mg capsule,delayed 20 mg PO BID 10/22/21 09/23/24 Unknown History release oxycodone myristate 9 mg capsule 9 mg PO BID 10/22/21 09/23/24 Unknown History sprinkle extended release 12 hr(DON'T CRUSH) (Xtampza ER) ropinirole 2 mg tablet 2 mg PO BID 10/22/21 09/23/24 Unknown History tamsulosin 0.4 mg capsule 0.4 mg PO DAILY 10/22/21 09/23/24 Unknown History trazodone 100 mg tablet 100 mg PO DAILY 10/22/21 09/23/24 Unknown History ondansetron 4 mg disintegrating 4 mg PO Q8H #20 tabs 09/02/23 09/23/24 Unknown Rx tablet sucralfate 1 gram tablet (Carafate) 1 g PO BID #30 tabs 09/17/23 09/23/24 Unknown Rx dexamethasone 4 mg tablet 4 mg PO DAILY #6 tabs 01/15/24 09/23/24 Unknown Rx Allergies Allergy/AdvReac Type Severity Reaction Status Date / Time No Known Allergies Allergy Verified 09/23/24 09:43 PFSH Acute PFSH: Medical History Skin lesion of face GERD (gastroesophageal reflux disease) Family History Father Cancer Brother Cancer Social History Smoking and tobacco/nicotine status: former use of tobacco/nicotine Vitals/I&O/Wt Last Vital Signs Temp 98.1 F 03/03/25 17:10 Pulse 72 03/03/25 18:35 Resp 18 03/03/25 17:10 BP 118/65 03/03/25 18:35 Pulse Ox 91 03/03/25 18:35 O2 Del Method Room Air 03/03/25 17:10 03/03/25 03/03/25 03/03/25 06:59 14:59 22:59 Intake Total 2320 / 2320 Balance 232 / 2320 Physical Exam Narrative: Generally patient looks good very hard of hearing bilaterally and does wear hearing aid patient is wearing the hearing aid to the right ear and the left ear hearing aid patient is actually looking for rate the nurses cannot help to see if they can locate it. HEENT normocephalic atraumatic neck neck is supple with anterior lateral right neck incision for the recent neck surgery site is clean with no drainage cardiovascular heart rate is regular. Lungs clear only diminished at the bases abdomen soft nontender nondistended unremarkable extremities intact no edema has good pulses. Patient does have a left lower extremity prosthesis for ambulation. Neurology has no focality lab studies lab studies reviewed and noted. COMPARISON: CT cervical spin wo con* [id number] 03/03/2025 5:42 PM FINDINGS: Lungs: Small peribronchial opacities in the right lower lung consistent with pneumonia. Increased retrocardiac density on the left. This may represent atelectasis. Can not rule out pneumonia. Pleural spaces: Unremarkable. No pleural effusion. No pneumothorax. Heart/Mediastinum: Tortuosity thoracic aorta with calcification. No cardiomegaly. Bones/joints: Previous resection distal right clavicle. Mild right convexity thoracolumbar scoliosis with [id number] degenerative changes. Postsurgical changes lower cervical spine. Upper abdomen: Unremarkable. XR/XR chest 1V portable [id number] IMPRESSION: 1. Mild right lower lobe pneumonia. 2. Left retrocardiac atelectasis or pneumonia. 3. Postsurgical changes cervical spine. Scoliosis and degenerative changes. Previous resection distal right and left clavicle. Dictated By: Zachary Hdez MD Signed By: Zachary Hdez MD Signed Date/Time: 03/03/251828 DD/ 44 Data 03/03/25 17:10 03/03/25 17:10 Micro: Microbiology 03/03/25 18:02 Blood Culture - Preliminary Blood SPECIMEN COLLECTED 03/03/25 18:00 Blood Culture - Preliminary Blood SPECIMEN COLLECTED A&P Assessment and plan 1. Pneumonia: 2. Post-op pain: Plan: Bilateral pneumonia - Patient with low oxygen sats with bilateral pneumonia radiographically - Admitted under observation to [facility] - Antibiotics initiated with nebulizing treatment and supplemental oxygen - Patient is doing okay. Recent postop neck surgery - Patient is okay staying still in bed - Patient has pain when moving around because of neck pain. - Update patient home medication for reconciliation - Meanwhile patient has morphine IV available for pain CODE STATUS - Patient is hard of hearing but verbalized full code - Have the nurse Blue to verify and patient told him as well that he likes to be full code PDMP PDMP Reviewed: Not Reviewed Attestations Medical Necessity Statement*: Patient with bilateral pneumonia that is of low-grade and an 84-year-old this should be optimized prior to discharge and patient qualifies for observation for this for 23 hours stay. Coding Level of Care Code 87731 Diagnoses Pneumonia J18.9 Post-op pain G89.18 Time Spent (min) 60
[2025-03-03] MEDS: heparin 5,000 unit/mL INJ 1 mL 5000 UNIT SUBCUT (20:45)
[2025-03-03 20:49] VITALS: BP 116/57; PULSE 87; RESP 16; O2SAT 93
[2025-03-03 21:18] VITALS: BP 127/57; PULSE 62; RESP 16
[2025-03-03 22:05] VITALS: BP 131/52; PULSE 79; RESP 16; O2SAT 98
[2025-03-03 22:09] LABS: Glucose Urine UA Negative (Normal); Nitrate Urine Negative (Negative); Specific Gravity, Urine 1.011 (1.005-1.030)
[2025-03-03 22:14] LABS: Add Urine Microscopic? YES
[2025-03-03 23:41] VITALS: BP 121/76; PULSE 69; RESP 16; TEMP 36.7; O2SAT 96
[2025-03-03 23:43] VITALS: BMI 22.3
[2025-03-04] VITALS (14 sets, daily range): BP systolic 114–159; BP diastolic 63–72; PULSE 73–101; RESP 16–18; TEMP 36.4–37; O2SAT 91–96
[2025-03-04] MEDS: morphine 4 mg/mL SDV 1 mL IVP ×2 (00:25→17:25)
[2025-03-04 05:51] LABS: Hematocrit 30.0 % (37-53); Hemoglobin 10.00 g/dL (11.27-16.99); Mean Corpuscular HGB Conc 33.3 g/dL (30-55); Mean Corpuscular Hemoglobin 31.2 pg (27-33); Mean Corpuscular Volume 93.5 fl (82-101); Nucleated Red Blood Cells % 0 %; Platelet Count 195 10^3/cmm (157-399); Red Blood Count 3.21 10^6/uL (3.85-5.65); White Blood Count 10.34 10^3/uL (3.29-11.43)
[2025-03-04 06:15] LABS: Alanine Aminotransferase 9 U/L (0-41); Albumin Level 3.4 g/dL (3.5-5.2); Alkaline Phosphatase 71 U/L (40-130); Anion Gap 11.2 (5-19); Aspartate Amino Transferase 13 U/L (0-40); Blood Urea Nitrogen 26 mg/dL (8-23); Calcium 8.4 mg/dL (8.5-10.5); Carbon Dioxide 25 mmol/L (22-29); Chloride 104 mmol/L (98-107); Creatinine Clr Calc Pharmacy 52.7439; Globulin 2.1 g/dL (1.3-4.6); Glucose 95 mg/dL (65-115); Osmolality Calculated 287 mOsm/kg (285-295); Potassium 4.2 mmol/L (3.5-5.1); Sodium 136 mmol/L (136-145); Total Protein 5.5 g/dL (6.6-8.7)
[2025-03-04] MEDS: heparin 5,000 unit/mL INJ 1 mL 5000 UNIT SUBCUT ×2 (12:14→21:10)
[2025-03-04] MEDS: cefTRIAXone 1,000 mg SDV 1000 MG IVP (17:25)
--- NOTE | 2025-03-04 18:14 | P.PN_ITS ---
Subjective 2 Subjective: the patient was seen in the morning and doing well family prefer to have rehab and therefore need auth and further case management onboard Vitals/I&O/Wt Last Vital Signs Temp 97.8 F 03/04/25 16:00 Pulse 90 03/04/25 16:00 Resp 16 03/04/25 17:25 BP 155/70 03/04/25 16:00 Pulse Ox 94 03/04/25 17:25 O2 Del Method Room Air 03/04/25 16:00 03/04/25 03/04/25 03/04/25 06:59 14:59 22:59 Intake Total 1498.75 / 1498.75 240 / 1738.75 Output Total 300 / 300 1100 / 1100 Balance -300 / 2020 398.75 / 398.75 240 / 638.75 Weight last 48 hrs Weight 69.763 kg Weight 68.629 kg Physical Exam 2 Narrative: General: Alert and oriented, lying comfortably without any distress, having neck stabilised with support post neck and back surgery at room air HEENT: Normocephalic, atraumatic, grossly unremarkable exam Cardio: normal rate rhythm, normal S1-S2 without any murmurs, rubs, or gallops and JVD normal Respiratory: normal vascular breathing on auscultation without any wheezes, stridor, rhonchi GI: Abdomen soft, nontender, nondistended, normoactive bowel sounds present all 4 quadrants, Neuro: intact cranial nerves motor and sensory and cerebellar/coordination function without any focal neurological deficit Behavior: Appropriate and cooperative Extremities: Adequate palpable pulses, having prosthetic leg Data 03/04/25 05:34 03/04/25 05:34 Micro: Microbiology 03/03/25 18:02 Blood Culture - Preliminary Blood NEGATIVE TO DATE 03/03/25 18:00 Blood Culture - Preliminary Blood NEGATIVE TO DATE A&P Assessment and plan 1. Pneumonia: Continue on ceftriaxone and azithromycin Resp viral panel maintain normal O2 continue duonebs currently stable 2. Encounter for screening involving social determinants of health (SDoH): case management onboard for further disposition to rehab/SNF as per the family since he has neck surgery in [facility] and has a prosthetic leg OT/PT evaluation Plan: - home medications reconciled and on anti HTN - pain medications such a gabapentin - mood disorder medications, bupriopion 150mg PDMP PDMP Reviewed: Not Reviewed Attestations 2 Medical Necessity Statement*: Patient will stay overnight for for further disposition through case management for rehab as per family preference Time Spent in Patient Care: 16 - 35 minutes (>than 50% of time sp ent in counselling and/or direct pt care on unit) . Other Attestations: Patient condition has been discussed at length with the patient/family, I have independently reviewed the chart labs imaging/diagnostics/EKG. the goals of care and code status with the patient/family/NOK/legal business banking representative, and documented accordingly. The management has been done according to the current clinical condition with respect to patient goals of care and based on recommendations/guidelines. The patient/family has been informed about the current condition and further plan of care. Agreed with the plan of care and understood without any language barrier. Every effort was made to ensure accuracy of director patient accounting. Any obvious errors or omissions should be clarified with the author of the document. Coding Level of Care Code Acute Code for Chg Fwd Diagnoses Pneumonia J18.9 Encounter for screening involving social determinants of health (SDoH) Z13.9
[2025-03-04 20:24] LABS: Coronavirus 229E,HKU1,NL63,OC4 Not Detected (NOT DETECT); Parainfluenza Virus Type 1 Not Detected (NOT DETECT); Parainfluenza Virus Type 2 Not Detected (NOT DETECT); Parainfluenza Virus Type 3 Not Detected (NOT DETECT); Parainfluenza Virus Type 4 Not Detected (NOT DETECT); SARS-COV-2 Not Detected (NOT DETECT)
[2025-03-05] VITALS (12 sets, daily range): BP systolic 147–174; BP diastolic 69–76; PULSE 72–86; RESP 14–18; TEMP 36.4–37.5; O2SAT 93–96
[2025-03-05] MEDS: LOSARTAN 100 MG TABLET PO (04:45)
[2025-03-05 05:49] LABS: Hematocrit 28.7 % (37-53); Hemoglobin 9.70 g/dL (11.27-16.99); Mean Corpuscular HGB Conc 33.8 g/dL (30-55); Mean Corpuscular Hemoglobin 31.7 pg (27-33); Mean Corpuscular Volume 93.8 fl (82-101); Nucleated Red Blood Cells % 0 %; Platelet Count 192 10^3/cmm (157-399); Red Blood Count 3.06 10^6/uL (3.85-5.65); White Blood Count 6.83 10^3/uL (3.29-11.43)
[2025-03-05 06:02] LABS: Alanine Aminotransferase 10 U/L (0-41); Albumin Level 3.4 g/dL (3.5-5.2); Alkaline Phosphatase 68 U/L (40-130); Anion Gap 13.1 (5-19); Aspartate Amino Transferase 13 U/L (0-40); Blood Urea Nitrogen 15 mg/dL (8-23); Calcium 8.6 mg/dL (8.5-10.5); Carbon Dioxide 24 mmol/L (22-29); Chloride 106 mmol/L (98-107); Creatinine Clr Calc Pharmacy 65.7938; Globulin 2.0 g/dL (1.3-4.6); Glucose 95 mg/dL (65-115); Magnesium 1.9 mg/dL (1.7-2.3); Osmolality Calculated 289 mOsm/kg (285-295); Potassium 4.1 mmol/L (3.5-5.1); Sodium 139 mmol/L (136-145); Total Protein 5.4 g/dL (6.6-8.7)
[2025-03-05] MEDS: polyethylene glycol 3350 Pkt 17 gm PO ×2 (08:44→16:57)
[2025-03-05] MEDS: heparin 5,000 unit/mL INJ 1 mL 5000 UNIT SUBCUT ×2 (08:44→20:47)
--- NOTE | 2025-03-05 15:24 | PM.PN ---
Subjective Subjective: the patient was seen in the morning and doing well, his surgery site at the right lateral neck and lower back arielle seen, stable and no discharge or oozing or any signs of infection family prefer to have rehab and therefore need auth and further case management onboard Vitals/I&O/Wt Last Vital Signs Temp 98.1 F 03/05/25 11:51 Pulse 76 03/05/25 15:21 Resp 17 03/05/25 15:14 BP 156/72 03/05/25 11:51 Pulse Ox 94 03/05/25 15:14 O2 Del Method Room Air 03/05/25 15:14 03/05/25 03/05/25 03/05/25 05:59 14:59 22:59 Intake Total 1522.5 / 3511.25 1720 / 1720 Output Total 600 / 1700 1850 / 1850 Balance 922.5 / 1811.25 -130 / -130 Weight last 48 hrs Weight 69.4 kg Weight 69.763 kg Weight 68.629 kg Physical Exam Narrative: General: Alert and oriented, lying comfortably without any distress, having neck stabilised with support post neck and back surgery at room air, areas of surgery at the lateral necka and lower back with arielle clean and no signs of infection. HEENT: Normocephalic, atraumatic, grossly unremarkable exam Cardio: normal rate rhythm, normal S1-S2 without any murmurs, rubs, or gallops and JVD normal Respiratory: normal vascular breathing on auscultation without any wheezes, stridor, rhonchi GI: Abdomen soft, nontender, nondistended, normoactive bowel sounds present all 4 quadrants, Neuro: intact cranial nerves motor and sensory and cerebellar/coordination function without any focal neurological deficit Behavior: Appropriate and cooperative Extremities: Adequate palpable pulses, having prosthetic left leg, mild right shoulder pain without limitation of ROM Data 03/05/25 05:23 03/05/25 05:23 Micro: Microbiology 03/03/25 18:02 Blood Culture - Preliminary Blood NEGATIVE TO DATE 03/03/25 18:00 Blood Culture - Preliminary Blood NEGATIVE TO DATE A&P Assessment and plan 1. Pneumonia: Continue on ceftriaxone for 5 days and azithro for 3 days Resp viral panel negatibe maintain normal O2 continue duonebs currently stable 2. Encounter for screening involving social determinants of health (SDoH): case management onboard for further disposition to rehab/SNF as per the family since he has neck surgery in [facility] and has a prosthetic leg OT/PT evaluation 3. Post-op pain: h/o back and neck surgery at [facility] adequate analgesia early mobility with OT/PT on board Plan: - home medications reconciled and on anti HTN - pain medications such a gabapentin - mood disorder medications, bupriopion 150mg PDMP PDMP Reviewed: Not Reviewed Attestations Medical Necessity Statement*: Patient will stay overnight for for further disposition through case management for rehab as per family/patient preference Time Spent in Patient Care: 16 - 35 minutes (>than 50% of time spent in counselling and/or direct pt care on unit). Other Attestations: Patient condition has been discussed at length with the patient/family, I have independently reviewed the chart labs imaging/diagnostics/EKG. the goals of care and code status with the patient/family/NOK/legal retail field representative, and documented accordingly. The management has been done according to the current clinical condition with respect to patient goals of care and based on recommendations/guidelines. The patient/family has been informed about the current condition and further plan of care. Agreed with the plan of care and understood without any language barrier. Every effort was made to ensure accuracy of human resources manager. Any obvious errors or omissions should be clarified with the author of the document. Coding Level of Care Code Acute Code for Chg Fwd Diagnoses Pneumonia J18.9 Encounter for screening involving social determinants of health (SDoH) Z13.9 Post-op pain G89.18
[2025-03-05] MEDS: cefTRIAXone 1,000 mg SDV 1000 MG IVP (16:58)
[2025-03-06] VITALS (13 sets, daily range): BP systolic 137–172; BP diastolic 66–80; PULSE 70–84; RESP 16–18; TEMP 36.6–37.2; O2SAT 93–96
[2025-03-06] MEDS: LOSARTAN 100 MG TABLET PO (05:28)
[2025-03-06] MEDS: heparin 5,000 unit/mL INJ 1 mL 5000 UNIT SUBCUT ×2 (08:06→20:35)
--- NOTE | 2025-03-06 09:28 | PC.CHAP ---
Pastoral Care Encounter/Spiritual Assessment Type of Contact [] Declined hang gliding instructor visit [] Patient/Family/Request visit [] Outpatient visit [] Follow-up visit [] Physician referral [] Code/Alert [x] Routine visit [] Staff referral [] Actively dying [] Patient sleeping [] Family support [] [x] Out of room [] Palliative care [] [] Receiving care in room [] Pre-surgical visit [] Trauma [] Long length of stay [] ICU visit [] Other: Relational/Emotional Strength [] Patient feels connected with others/family/visitors/staff [] Distress [] Loneliness/isolation [] Abandonment Spirituality of Patient [] Person of Ada [] Attends Taoism of their Ada [] Believes in Prayer [] Reads Bible or Methodist materials [] There are Spiritual issues to be addressed Railway Station Manager Interventions [x] Prayer [] Active listening [] Non-anxious presence [] Spiritual/emotional support [] Crisis/trauma care [] Spiritual counseling [] Bereavement support [] Provided bereavement packet [] Provided Bible/devotional materials [] Provided toy/stuffed animal, coloring book to patient or family member [] Provided Communion [] Anointing/[place] [] Salvation [] Completed spiritual assessment [] Other: Impact on Illness or Injury [] Angry [] Fearful [] Anxious [] Often cries [] Exhaustion [] Unable to work [] Unable to attend sikh [] Unable to walk/stand [] Unable to read [] Unable to drive [] Unable to eat/drink [] Unable to sleep [] Unable to be with family [] Patient intubated [] Other: Summary Time spent with patient
--- NOTE | 2025-03-06 15:14 | PM.PN ---
Subjective Subjective: No new complaints today. Pain is controlled. Medications: Reviewed: Yes Vitals/I&O/Wt Last Vital Signs Temp 97.9 F 03/06/25 11:10 Pulse 74 03/06/25 12:00 Resp 18 03/06/25 12:00 BP 137/66 03/06/25 11:10 Pulse Ox 95 03/06/25 12:00 O2 Del Method Room Air 03/06/25 12:00 03/06/25 03/06/25 03/06/25 06:59 14:59 22:59 Intake Total 997.5 / 3347.5 1558.75 / 1558.75 Output Total 1365 / 3740 775 / 775 Balance -367.5 / -392.5 783.75 / 783.75 Weight last 48 hrs Weight 68.991 kg Weight 69.4 kg Physical Exam Narrative: General: No acute distress, AO x3 HEENT: PERRLA, pupils bilaterally equal and reactive, pallors not present Chest: Normal vesicular breath sounds, no added sounds, equal good air entry bilaterally CVS: S1-S2 regular, no murmurs, no tachycardia, no gallops, no rubs Abdomen: Soft, nontender, no organomegaly, bowel sounds present Neuro: No focal deficits, no facial deformity, AO x3, power 5/5 in all limbs Data 03/05/25 05:23 03/05/25 05:23 A&P Assessment and plan 1. Pneumonia: Continue on ceftriaxone for 5 days and azithro for 3 days Resp viral panel negatibe maintain normal O2 continue duonebs currently stable 2. Encounter for screening involving social determinants of health (SDoH): case management onboard for further disposition to rehab/SNF as per the family since he has neck surgery in [facility] and has a prosthetic leg OT/PT evaluation 3. Post-op pain: h/o back and neck surgery at [facility] adequate analgesia early mobility with OT/PT on board Plan: - home medications reconciled and on anti HTN - pain medications such a gabapentin - mood disorder medications, bupriopion 150mg March 06, 2025 Chart reviewed. 84-year-old male who appears to have had an elective surgery of the C-spine (no instrumentation per patient ) and lumbar spine related to loosening of her prior placed screw hardware on February 27. He was admitted to our hospital on March 03, 2025 after being discharged from [facility] and having taken a mechanical fall at home. He was found to have right sided pneumonia for which she is currently on treatment with ceftriaxone and azithromycin. 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 He typically ambulates at home with a walker, cane or a wheelchair more recently. He uses a combination of all 3 devices to ambulate. Patient was assessed by physical therapy and Occupational Therapy today. 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 High fall risk at home after recent surgery. Disposition planning ongoing for possible transfer to SNF. PDMP PDMP Reviewed: Not Reviewed Attestations Medical Necessity Statement*: Ongoing disposition plan Coding Level of Care Code Acute Code for [facility] Fwd Diagnoses Pneumonia J18.9 Encounter for screening involving social determinants of health (SDoH) Z13.9 Post-op pain G89.18
--- NOTE | 2025-03-06 15:37 | PC.SOCIAL ---
IMM updated IMM dated and initialed, Copy given to patient and copy put in chart.
[2025-03-06] MEDS: polyethylene glycol 3350 Pkt 17 gm PO (17:02)
[2025-03-06] MEDS: cefTRIAXone 1,000 mg SDV 1000 MG IVP (17:03)
[2025-03-07] VITALS (12 sets, daily range): BP systolic 139–173; BP diastolic 46–89; PULSE 73–90; RESP 16–20; TEMP 36.6–36.9; O2SAT 91–98
[2025-03-07] MEDS: LOSARTAN 100 MG TABLET PO (05:39)
[2025-03-07 06:10] LABS: Hematocrit 33.7 % (37-53); Hemoglobin 11.20 g/dL (11.27-16.99); Mean Corpuscular HGB Conc 33.2 g/dL (30-55); Mean Corpuscular Hemoglobin 31.1 pg (27-33); Mean Corpuscular Volume 93.6 fl (82-101); Nucleated Red Blood Cells % 0 %; Platelet Count 304 10^3/cmm (157-399); Red Blood Count 3.60 10^6/uL (3.85-5.65); White Blood Count 6.87 10^3/uL (3.29-11.43)
[2025-03-07 06:27] LABS: Alanine Aminotransferase 17 U/L (0-41); Albumin Level 3.8 g/dL (3.5-5.2); Alkaline Phosphatase 92 U/L (40-130); Aspartate Amino Transferase 19 U/L (0-40); Blood Urea Nitrogen 9 mg/dL (8-23); Calcium 9.6 mg/dL (8.5-10.5); Carbon Dioxide 23 mmol/L (22-29); Chloride 106 mmol/L (98-107); Creatinine Clr Calc Pharmacy 65.6404; Globulin 2.6 g/dL (1.3-4.6); Glucose 93 mg/dL (65-115); Osmolality Calculated 292 mOsm/kg (285-295); Sodium 142 mmol/L (136-145); Total Protein 6.4 g/dL (6.6-8.7)
[2025-03-07 06:32] LABS: Anion Gap 17.4 (5-19); Potassium 4.4 mmol/L (3.5-5.1)
[2025-03-07 06:52] LABS: Slide Review Slide Review Perform
[2025-03-07] MEDS: heparin 5,000 unit/mL INJ 1 mL 5000 UNIT SUBCUT ×2 (08:44→21:10)
--- NOTE | 2025-03-07 09:24 | PC.CHAP ---
Pastoral Care Encounter/Spiritual Assessment Type of Contact [] Declined field radio technician visit [] Patient/Family/Request visit [] Outpatient visit [] Follow-up visit [] Physician referral [] Code/Alert [] Routine visit [] Staff referral [] Actively dying [] Patient sleeping [] Family support [] [] Out of room [] Palliative care [] [x] Receiving care in room [] Pre-surgical visit [] Trauma [] Long length of stay [] ICU visit [] Other: Relational/Emotional Strength [] Patient feels connected with others/family/visitors/staff [] Distress [] Loneliness/isolation [] Abandonment Spirituality of Patient [] Person of Ada [] Attends Oriental Orthodox of their Ada [] Believes in Prayer [] Reads Bible or Yazdanism materials [] There are Spiritual issues to be addressed Refinery Process Engineer Interventions [] Prayer [] Active listening [] Non-anxious presence [] Spiritual/emotional support [] Crisis/trauma care [] Spiritual counseling [] Bereavement support [] Provided bereavement packet [] Provided Bible/devotional materials [] Provided toy/stuffed animal, coloring book to patient or family member [] Provided Communion [] Anointing/[place] [] Salvation [] Completed spiritual assessment [] Other: Impact on Illness or Injury [] Angry [] Fearful [] Anxious [] Often cries [] Exhaustion [] Unable to work [] Unable to attend jew [] Unable to walk/stand [] Unable to read [] Unable to drive [] Unable to eat/drink [] Unable to sleep [] Unable to be with family [] Patient intubated [] Other: Summary Time spent with patient
--- NOTE | 2025-03-07 15:26 | PM.PN ---
Subjective Subjective: No new complaints today. Pain is controlled Medications: Reviewed: Yes Vitals/I&O/Wt Last Vital Signs Temp 98.3 F 03/07/25 11:50 Pulse 86 03/07/25 15:14 Resp 18 03/07/25 15:14 BP 153/74 03/07/25 11:50 Pulse Ox 96 03/07/25 15:14 O2 Del Method Room Air 03/07/25 15:14 03/07/25 03/07/25 03/07/25 06:59 14:59 22:59 Intake Total 120 / 2038.75 360 / 360 Output Total 1250 / 2975 750 / 750 Balance -1130 / -936.25 -390 / -390 Weight last 48 hrs Weight 69.4 kg Weight 68.991 kg Physical Exam Narrative: General: No acute distress, AO x3 HEENT: PERRLA, pupils bilaterally equal and reactive, pallors not present Chest: Normal vesicular breath sounds, no added sounds, equal good air entry bilaterally CVS: S1-S2 regular, no murmurs, no tachycardia, no gallops, no rubs Abdomen: Soft, nontender, no organomegaly, bowel sounds present Neuro: No focal deficits, no facial deformity, AO x3, power 5/5 in all limbs Data 03/07/25 05:55 03/07/25 05:55 A&P Assessment and plan 1. Pneumonia: Continue on ceftriaxone for 5 days and azithro for 3 days Resp viral panel negatibe maintain normal O2 continue duonebs currently stable 2. Encounter for screening involving social determinants of health (SDoH): case management onboard for further disposition to rehab/SNF as per the family since he has neck surgery in [facility] and has a prosthetic leg OT/PT evaluation 3. Post-op pain: h/o back and neck surgery at [facility] adequate analgesia early mobility with OT/PT on board Plan: - home medications reconciled and on anti HTN - pain medications such a gabapentin - mood disorder medications, bupriopion 150mg March 06, 2025 Chart reviewed. 84-year-old male who appears to have had an elective surgery of the C-spine (no instrumentation per patient ) and lumbar spine related to loosening of her prior placed screw hardware on February 27. He was admitted to our hospital on March 03, 2025 after being discharged from [facility] and having taken a mechanical fall at home. He was found to have right sided pneumonia for which she is currently on treatment with ceftriaxone and azithromycin. 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 He typically ambulates at home with a walker, cane or a wheelchair more recently. He uses a combination of all 3 devices to ambulate. Patient was assessed by physical therapy and Occupational Therapy today. 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 High fall risk at home after recent surgery. Disposition planning ongoing for possible transfer to SNF. March 07, 2025 No new complaints today. Pain is well-controlled. Day 4 ceftriaxone today. Azithromycin discontinued after 3 days. Awaiting appropriate disposition planning for discharge to SNF. Awaiting auth from insurance PDMP PDMP Reviewed: Not Reviewed Attestations Medical Necessity Statement*: disposition planning Coding Level of Care Code Acute Code for [facility] Fwd Diagnoses Pneumonia J18.9 Encounter for screening involving social determinants of health (SDoH) Z13.9 Post-op pain G89.18
[2025-03-07] MEDS: cefTRIAXone 1,000 mg SDV 1000 MG IVP (17:12)
[2025-03-07] MEDS: polyethylene glycol 3350 Pkt 17 gm PO (17:12)
[2025-03-08 02:19] VITALS: BP 150/77; PULSE 78; RESP 16; TEMP 37; O2SAT 94
[2025-03-08 03:40] VITALS: BP 133/72; PULSE 75; RESP 16; TEMP 36.7; O2SAT 94
[2025-03-08] MEDS: LOSARTAN 100 MG TABLET PO (04:48)
[2025-03-08] MEDS: polyethylene glycol 3350 Pkt 17 gm PO (04:50)
[2025-03-08 07:34] VITALS: BP 168/81; PULSE 84; RESP 17; TEMP 36.4; O2SAT 95
[2025-03-08 07:38] VITALS: PULSE 76; RESP 18; O2SAT 94
[2025-03-08] MEDS: heparin 5,000 unit/mL INJ 1 mL 5000 UNIT SUBCUT (08:07)
--- NOTE | 2025-03-08 09:34 | PC.CHAP ---
Pastoral Care Encounter/Spiritual Assessment Type of Contact [] Declined automotive dismantler visit [] Patient/Family/Request visit [] Outpatient visit [] Follow-up visit [] Physician referral [] Code/Alert [x] Routine visit [] Staff referral [] Actively dying [] Patient sleeping [] Family support [] [] Out of room [] Palliative care [] [] Receiving care in room [] Pre-surgical visit [] Trauma [] Long length of stay [] ICU visit [] Other: Relational/Emotional Strength [x] Patient feels connected with others/family/visitors/staff [] Distress [] Loneliness/isolation [] Abandonment Spirituality of Patient [x] Person of Ada [x] Attends Evangelical of their Ada [x] Believes in Prayer [x] Reads Bible or Restorationism materials [] There are Spiritual issues to be addressed Carpenter Repair Interventions [x] Prayer [x] Active listening [x] Non-anxious presence [x] Spiritual/emotional support [] Crisis/trauma care [] Spiritual counseling [] Bereavement support [] Provided bereavement packet [] Provided Bible/devotional materials [] Provided toy/stuffed animal, coloring book to patient or family member [] Provided Communion [] Anointing/[place] [] Salvation [x] Completed spiritual assessment [] Other: Impact on Illness or Injury [] Angry [] Fearful [] Anxious [] Often cries [] Exhaustion [] Unable to work [] Unable to attend gnosticism [] Unable to walk/stand [] Unable to read [] Unable to drive [] Unable to eat/drink [] Unable to sleep [] Unable to be with family [] Patient intubated [] Other: Summary Time spent with patient 5 min
--- NOTE | 2025-03-08 09:41 | PC.NURSE ---
Called report to Tika Lacey RN at [facility]
[2025-03-08 12:05] VITALS: BP 121/71; PULSE 76; RESP 17; TEMP 36.4; O2SAT 96
--- NOTE | 2025-03-08 14:08 | P.DS_ITS ---
Discharge Providers Date of Admission: 03/03/25 18:38 Date of Discharge: March 08, 2025 Attending Provider at Admission: Ta Rosenberg MD Attending Provider at Discharge: Rosemary Palmer MD Primary Care Provider: Penelope Vora NP Diagnoses at Discharge Discharge Diagnosis 1. Pneumonia: 2. Encounter for screening involving social determinants of health (SDoH): 3. Post-op pain: Reason for Visit Reason for Visit: fall (5xday postop) Brief History: 84-year-old male who had an elective demetria viviana of the C-spine (no instrumentation per patient ) and lumbar spine related to loosening of her prior placed screw hardware on February 27 at [facility]. He was admitted to our hospital on March 03, 2025 after being discharged from [facility] after having taken a mechanical fall at home. He was found to have right sided pneumonia for which he received treatment with ceftriaxone and azithromycin. 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 He typically ambulates at home with a walker, cane or a wheelchair. . He uses a combination of all 3 devices to ambulate. Patient was assessed by physical therapy and Occupational Therapy. Due to high fall risk at home appropriate disposition planning was sought and he was transitioned to SNF for rehab. Physical Exam Narrative: General: No acute distress, AO x3 HEENT: PERRLA, pupils bilaterally equal and reactive, pallors not present Chest: Normal vesicular breath sounds, no added sounds, equal good air entry bilaterally CVS: S1-S2 regular, no murmurs, no tachycardia, no gallops, no rubs Abdomen: Soft, nontender, no organomegaly, bowel sounds present Neuro: No focal deficits, no facial deformity, AO x3, power 5/5 in all limbs Discharge Data Studies Completed and Pending Completed Studies During Hospitalization Category Date Time Status CT cervical spin wo con* [id number] Stat Cat Scan 03/03/25 17:19 Completed XR chest 1V portable [id number] Stat Exams 03/03/25 17:37 Completed XR lumbar spine 2-3V* [id number] Stat Exams 03/03/25 18:24 Completed Pending at discharge Category Date Time Status Blood Culture Stat Lab 03/03/25 18:02 Results Radiology Impressions Cervical Spine CT 03/03/25 17:19 IMPRESSION: 1. Postsurgical changes, degenerative changes. No evidence of the acute post traumatic changes in the cervical spine. 2. Postsurgical changes anterior neck due to recent surgery. Chest X-Ray 03/03/25 17:37 IMPRESSION: 1. Mild right lower lobe pneumonia. 2. Left retrocardiac atelectasis or pneumonia. 3. Postsurgical changes cervical spine. Scoliosis and degenerative changes. Previous resection distal right and left clavicle. Lumbar Spine X-Ray 03/03/25 18:24 IMPRESSION: 1. Midline skin clips seen posterior to the lumbar spine which would be consistent with recent surgery. 2. Posterolateral fusion at L3, L4 and L5. Possible laminectomy at L4. 3. Fusion of the body of T12, L1 and L2. 4. 1.8 cm anterior spondylolisthesis of L5 with respect S1. Laboratory Results WBC 6.87 10^3/uL (3.29-11.43) 03/07/25 05:55 RBC 3.60 10^6/uL (3.85-5.65) L 03/07/25 05:55 Hgb 11.20 g/dL (11.27-16.99) L 03/07/25 05:55 Hct 33.7 % (37-53) L 03/07/25 05:55 MCV 93.6 fl (82-101) 03/07/25 05:55 MCH 31.1 pg (27-33) 03/07/25 05:55 MCHC 33.2 g/dL (30-55) 03/07/25 05:55 RDW 11.7 % (12.1-15.1) L 03/07/25 05:55 Plt Count 304 10^3/cmm (157-399) 03/07/25 05:55 MPV 8.5 fL (7.4-10.4) 03/07/25 05:55 Neut % (Auto) 72.5 % 03/07/25 05:55 Lymph % (Auto) 15.3 % 03/07/25 05:55 Andrews % (Auto) 8.9 % 03/07/25 05:55 Eos % (Auto) 2.5 % 03/07/25 05:55 Baso % (Auto) 0.4 % 03/07/25 05:55 Neut # (Auto) 4.98 10^3/uL (1.8-7.7) 03/07/25 05:55 Lymph # (Auto) 1.1 10^3/uL (0.8-4.8) 03/07/25 05:55 Andrews # (Auto) 0.6 10^3/uL (0.2-0.9) 03/07/25 05:55 Eos # (Auto) 0.2 10^3/uL (0.0-0.8) 03/07/25 05:55 Baso # (Auto) 0.0 10^3/uL (0.0-0.1) 03/07/25 05:55 Nucleated RBC % (auto) 0 % 03/07/25 05:55 Nucleated RBCs # 0.0 /100WBC 03/07/25 05:55 Sodium 142 mmol/L (136-145) 03/07/25 05:55 Potassium 4.4 mmol/L (3.5-5.1) 03/07/25 05:55 Chloride 106 mmol/L (98-107) 03/07/25 05:55 Carbon Dioxide 23 mmol/L (22-29) 03/07/25 05:55 Anion Gap 17.4 (5-19) 03/07/25 05:55 BUN 9 mg/dL (8-23) 03/07/25 05:55 Creatinine 0.7 mg/dL (0.7-1.2) 03/07/25 05:55 GFR Calculation Not Reportable 03/07/25 05:55 Glucose 93 mg/dL (65-115) 03/07/25 05:55 Calculated Osmolality 292 mOsm/kg (285-295) 03/07/25 05:55 Lactic Acid 1.3 mmol/L (0.5-2.2) 03/03/25 17:10 Calcium 9.6 mg/dL (8.5-10.5) 03/07/25 05:55 Phosphorus 2.6 mg/dL (2.5-4.5) 03/04/25 05:34 Magnesium 1.9 mg/dL (1.7-2.3) 03/05/25 05:23 Total Bilirubin 0.3 mg/dL (0.15-1.2) 03/07/25 05:55 AST 19 U/L (0-40) 03/07/25 05:55 ALT 17 U/L (0-41) 03/07/25 05:55 Alkaline Phosphatase 92 U/L (40-130) 03/07/25 05:55 Total Protein 6.4 g/dL (6.6-8.7) L 03/07/25 05:55 Albumin 3.8 g/dL (3.5-5.2) 03/07/25 05:55 Globulin 2.6 g/dL (1.3-4.6) 03/07/25 05:55 Urine Color Yellow (Yellow) 03/03/25 22:00 Urine Appearance Clear (CLEAR) 03/03/25 22:00 Urine pH 6.0 (5-7) 03/03/25 22:00 Ur Specific [place] 1.011 (1.005-1.030) 03/03/25 22:00 Urine Protein Negative (Negative) 03/03/25 22:00 Urine Glucose (UA) Negative (Normal) 03/03/25 22:00 Urine Ketones Negative (Negative) 03/03/25 22:00 Urine Blood Negative (Negative) 03/03/25 22:00 Urine Nitrate Negative (Negative) 03/03/25 22:00 Urine Bilirubin Negative (Negative) 03/03/25 22:00 Urine Urobilinogen 1.0 mg/dL (Negative) 03/03/25 22:00 Ur Leukocyte Esterase Negative (Negative) 03/03/25 22:00 Urine RBC 0-2 /hpf (0-2) 03/03/25 22:00 Urine WBC 0-5 /hpf (0-5) 03/03/25 22:00 Ur Squamous Epith Cells 0-5 /hpf (0-5) 03/03/25 22: Amorphous Sediment Not Reportable 03/03/25 22:00 Urine Bacteria None seen /hpf (NONE) 03/03/25 22:00 Hyaline Casts 4.11 /lpf 03/03/25 22:00 Adenovirus (PCR) Not detected (NOT DETECT) 03/04/25 18: C. pneumoniae DNA (PCR) Not detected (NOT DETECT) 03/04/25: Coronavirus 229E (PCR) Not detected (NOT DETECT) 03/04/25 18: Human Metapneumovir PCR Not detected (NOT DETECT) 03/04/25: Influenza A (H1) PCR Not detected (NOT DETECT) 03/04/25 18: Influenza A (PCR) Negative (Negative) 03/03/25 19:15 Influ A (H1/09) PCR Not detected (NOT DETECT) 03/04/25 18:25 Influenza A (H3) PCR Not detected (NOT DETECT) 03/04/25 18: Influenza Type A (PCR) Not detected (NOT DETECT) 03/04/25 18: Influenza Type B (PCR) Not detected (NOT DETECT) 03/04/25 18:25 M. pneumoniae (PCR) Not detected (NOT DETECT) 03/04/25 18: Parainfluenza 1 (PCR) Not detected (NOT DETECT) 03/04/25 18: Parainfluenza 2 (PCR) Not detected (NOT DETECT) 03/04/25 18: Parainfluenza 3 (PCR) Not detected (NOT DETECT) 03/04/25 18: Parainfluenza 4 (PCR) Not detected (NOT DETECT) 03/04/25 18: RSV (PCR) Negative (Negative) 03/03/25 19:15 RSV Type A (PCR) Not detected (NOT DETECT) 03/04/25 18: RSV Type B (PCR) Not detected (NOT DETECT) 03/04/25 18: Entero/Rhino (PCR) Not detected (NOT DETECT) 03/04/25 18: SARS-CoV-2 (PCR) Not detected (NOT DETECT) 03/04/25 18:25 Vitals Last Vital Signs Temp 97.6 F 03/08/25 12:05 Pulse 76 03/08/25 12:05 Resp 17 03/08/25 12:05 BP 121/71 03/08/25 12:05 Pulse Ox 96 03/08/25 12:05 O2 Del Method Room Air 03/08/25 07:38 Discharge Plan Discharge Patient Disposition: Home Condition: Stable Prescriptions: Continued cetirizine [All Day Allergy (cetirizine)] 10 mg tablet 10 mg PO DAILY PRN (Reason: allergies) gabapentin 400 mg capsule 400 mg PO TID omeprazole 20 mg capsule,delayed release(DR/EC) 20 mg PO BID ropinirole 2 mg tablet 2 mg PO BID tamsulosin 0.4 mg capsule 0.4 mg PO DAILY trazodone 100 mg tablet 100 mg PO BEDTIME bupropion HCl [Wellbutrin XL] 150 mg tablet extended release 24 hr 150 mg PO QAM prednisone 1 mg tablet 1 mg PO DAILY losartan 100 mg tablet 100 mg PO DAILY Changed meloxicam 15 mg tablet 15 mg PO DAILY PRN (Reason: pain) Qty: 30 0RF Discharge Order = DC NOW: Discharge Order (Routine); Ordered 03/08/25 Ordered By: Rosemary Palmer Referrals: Penelope Vora, DOCTOR OF RADIOLOGY [Primary Care Provider, Family Practice] - 7-10 days Referral Note: post discharge follow up Discharge Diet: Usual diet Discharge Activity: As per PT/OT instructions Patient Instructions: Opioid Safety, Pneumonia Stoplight, Patient Portal & Bisi Instructions Discharge Attestations Time Spent in Discharge Care*: greater than 30 min Quality Metrics Clinical Quality Measures [ No reported AMI, CVA or VTE this stay] Coding Level of Care Code Acute Code for Chg Fwd Diagnoses Pneumonia J18.9 Encounter for screening involving social determinants of health (SDoH) Z13.9 Post-op pain G89.18
[2025-03-08 14:39] VITALS: BP 121/71; PULSE 76; RESP 17; TEMP 36.4; O2SAT 96
== END 2025-03-08 14:44 | disposition skilled nursing facility (03) ==
LOC: ER 21:51 → MEDSURG 23:14
PROVIDERS: Internal Medicine; Student in an Organized Health Care Education/Training Program; Admitting Provider Internal Medicine; Emergency Provider Family Medicine; PCP Nurse Practitioner Family; Visit Provider Student in an Organized Health Care Education/Training Program
DX: J18.9 Pneumonia, unspecified organism (principal); G89.18 Other acute postprocedural pain; Z13.9 Encounter for screening, unspecified; K21.9 Gastro-esophageal reflux disease without esophagitis; Z80.9 Family history of malignant neoplasm, unspecified; W05.0XXA Fall from non-moving wheelchair, initial encounter; Z89.612 Acquired absence of left leg above knee; Z79.891 Long term (current) use of opiate analgesic; Z87.891 Personal history of nicotine dependence
CPT/HCPCS: 36415; 71045; 72100; 72125; 80053; 81001; 83605; 83735; 84100; 85025; 87040; 87486; 87581; 87633; 87637; 93005; 94640; 96361; 96365; 96372; 96375; 96376; 97110; 97116; 97161; 97165; 97530; 99285; G0378; J0456; J0696; J1644; J1885; J2270; J7030; J7050; J9999

== ENCOUNTER 2025-03-25 00:24 | Observation (INO) | payer MEDICARE, SELFPAY ==
--- OUTSIDE RECORDS SUMMARY | 2023-09-18 08:18 | XMS_ITS | Continuity of Care Document ---
Author Name [facility] Organization [facility] Care Team Providers Care Accounting Policy Consultant Name Role Phone [facility] Unavailable Unavailable Encounters Combined list of: 1) Encounters from [facility] facilities going backup to the last 18 months, not all [facility] inpatient encounters are included; 2) Encounters from the Department of [employer] facilities going backup to 280 months. Location Location Details Encounter Type Encounter Number Reason For Visit Attending Provider ADM Date DC Date Status Disposition Source JESSICA LORENZO [facility] Outpatient Encounter [id number] 09/17 JESSICA ESTRADA [facility] Advance Directives List of completed, amended, or rescinded Advance Directives on record at Department of [facility] facilities. An actual copy of the Directive is not included. Date Advance Directive Provider Source 09/18/2023 ADVANCE DIRECTIVE LEVI BOO [facility]
--- OUTSIDE RECORDS SUMMARY | 2023-09-18 08:18 | XMS_ITS | Continuity of Care Document ---
Author Name [facility] Organization [facility] Care Team Providers Care Sales Associate Cashier Name Role Phone [facility] Unavailable Unavailable Encounters Combined list of: 1) Encounters from [facility] facilities going backup to the last 18 months, not all VA inpatient encounters are included; 2) Encounters from the Department of [employer] facilities going backup to 280 months. Location Location Details Encounter Type Encounter Number Reason For Visit Attending Provider ADM Date DC Date Status Disposition Source JESSICA LORENZO [facility] Outpatient Encounter [id number] 09/17 JESSICA ESTRADA [facility] Advance Directives List of completed, amended, or rescinded Advance Directives on record at Department of [facility] facilities. An actual copy of the Directive is not included. Date Advance Directive Provider Source 09/18/2023 ADVANCE DIRECTIVE LEVI BOO [facility]
--- OUTSIDE RECORDS SUMMARY | 2025-03-20 14:40 | XMS_ITS | Encounter Summary ---
Author Organization [facility] Address [address] [place] [address] Care Team Providers Care Block Placer Name Role Phone NeliaParveen tapia Primary Care Provider [phone] Reason for Referral * Home Health (Routine) - Closed Specialty Diagnoses / Procedures Referred By Jessica t Referred To Contact Diagnoses History of falling Rib pain on left side Hipolito Cuadra, CUTTING MACHINE TENDER HELPER [address] [facility] [address] [place] [address] Phone: tel: fax: [facility] [address] [place] [id number] Phone: tel: fax: Referral ID Status Reason Start Date Expiration Date Visits Re quested Visits Authorized [id number] Closed 03/20/2025 03/20/2026 1 1 COM BILLING ANALYST Reason for Visit * Reason Comments Fall Patient reports a fa ll yesterday, patient hit his head. Encounter Details Date Type Department Care Team (Late st Contact Info) Description 03/20/2025 2:40 PM TELECOM BILLING ANALYST Office Visit [facility] Medicine [place] [address] [phone] History of falling (Primary Dx); Rib pain on left side Social History Tobacco Use Types Packs/Day Years Used Date Smoking Tobacco: Former Cigarettes 0.8 28 0 05/04/1951 - 05/04/1979 Smokeless Tobacco: Never Alcohol Use Standard Drinks/Week [...] about transportation for future doctor visits, picker packer medication, etc.? No 2024 Housing Stability Answer [...] on file Legal Sex Male 5:26 AM TELECOM BILLING ANALYST Gender Identity Male 11/15/2024 4:33 PM CDT Sexual Orientation Not on file documented as of this encounter Last Filed Vital Signs Vital Sign Reading Time Taken Comments Blood Pressure 110/58 03/20/2025 2:46 PM TELECOM BILLING ANALYST Pulse 77 03/20/2025 2:46 PM TELECOM BILLING ANALYST Temperature 36.6 C (97.8 F) 03/20/2025 2:46 PM TELECOM BILLING ANALYST Respiratory Rate 16 03/20/2025 2:46 PM TELECOM BILLING ANALYST Oxygen Saturation 98% 03/20/2025 2:4 6 PM TELECOM BILLING ANALYST Inhaled Oxygen Concentration - - Weight 68 kg (150 lb) 03/20/2025 2:46 PM TELECOM BILLING ANALYST patient reports Height 177.8 cm (5' 10 ) 03/20/2025 2:4 6 PM TELECOM BILLING ANALYST Body Mass Index 21.52 03/20/2025 2:46 PM TELECOM BILLING ANALYST documented in this encounter Progress Notes * Hipolito Cuadra, CUTTING MACHINE TENDER HELPER - 03/20/2025 2:46 PM CST Abraham Henson is pleasant 84 y.o. male who is here for management of medical problem(s) and other following issues. Chief Complaint Patient presents with Fall Patient reports a fall yesterday, patient hit his head. SUBJECTIVE: The medical record reflects the History of Present Illness as obtained by myself in discussion withthe patient. Patient is a pleasant active alert 84-year-old male presents clinic after a fall couple times over the weekend. He had recent cervical spine surgery. He is on some medication but states he is not taking his narcotic. But he did fall injuring his left ribs. No shortness of breath or chest pain. Has a posterior left rib tenderness. No masses or obvious signs of trauma. His surgical site is clean and intact with arielle. No signs of infection. Appetite is good. No change in bowel bladder habits. If possible he is requesting home health for an evaluation for possible physical therapy and Occupational Therapy. No other concerns today. Has follow-up with neurosurgery in about a month. The history is provided by the patient. Review of systems completed and negative except where noted in HPI. ICD-10-CM ICD-9-CM 1. History of falling Z91.81 V15.88 2. Rib pain on left side R07.89 786.50 Current Outpatient Medications Medication Sig Dispense Refill diazePAM (VALIUM) 5 mg tablet Take 1 Tablet (5 mg) by mouth every 8 hours as needed for Spasm. 42 Tablet 0 acetaminophen (TYLENOL ARTHRITIS) 650 mg Extended Release tablet Take 650 mg by mouth daily. L. acidophilus/L. rhamnosus (PROBIOTIC ORAL) Take 1 Caplet by mouth daily. calcium carbonate (ADAMS-SELTZER ANTACID ORAL) Take by mouth 1 time daily as needed. DULoxetine (CYMBALTA) 30 mg Capsule, Delayed Release(E.C.) Take 1 Capsule by mouth daily. sucralfate (CARAFATE) 1 gram tablet Take 1 Gram by mouth 2 times daily. docusate sodium (COLACE) 100 mg capsule Take 100 mg by mouth 3 times daily. ferrous sulfate 325 mg (65 mg iron) tablet Take 325 mg by mouth daily. ascorbic acid, vitamin C, (VITAMIN C) 500 mg tablet Take 500 mg by mouth 2 times daily. vitamin A-vitamin C-vitamin E (OCUVITE) Tablet Take 1 Tablet by mouth daily. sertraline (ZOLOFT) 100 mg [...] times daily. oxyCODONE (ROXICODONE) 5 mg tablet Take 1 Tablet (5 mg) by mouth every 4 hours as needed for Pain. Max Daily Amount: 30 mg (Patient not taking: Reported on 03/20/2025) 42 Tablet 0 fluticasone propionate (FLONASE) 50 mcg/spray [place], Suspension nasal inhaler Administer 2 Sprays in each nostril daily. (Patient not taking: Reported on 03/20/2025) oxyCODONE (ROXICODONE) 5 mg tablet (Patient not taking: Reported on 03/20/2025) No current facility-administered medications for this visit. Immunization History Administered Date(s) Administered (ABRYSVO)(60 YR UP/GA 32-36 WKS) RSV, BIVALENT, PROTEIN SUBUNIT RSVPREF, DILUENT RECONSTITUTED, 0.5ML, PF 05/26/2023 (SPIKEVAX) (12 YRS UP PRIMARY SERIES) COVID-19 VACCINE - MRNA-1273(PF) 100 MCG/0.5 ML IM SUSP 06/09/2020, 07/07/2020, 04/18/2021, 11/21/2021 INFLUENZA VACCINE HIGH DOSE QUADRIVALENT 65 YR UP PF IM 01/30/2021 INFLUENZA VACCINE HIGH DOSE TRIVALENT SPLIT VIRUS, (65 YR UP), 0.5ML (PF), IM 03/16/2025 Health Maintenance Topic Date Due Medicare Advantage ([place]) Preventative Visit/Annual Wellness Visit Never done COVID-19 Vaccine ( season) 2025 DTAP/TDAP/TD VACCINES (3 - Td or Tdap) 06/16/2029 PNEUMOCOCCAL VACCINE 50+ YEARS Completed ZOSTER VACCINE Completed INFLUENZA VACCINE Completed RSV VACCINE (60+ or ) Completed Social History Social History Narrative Not on file Family History Problem Relation Name Age of Onset Cancer Father Stroke Mother 80's Cancer Sister Cancer Brother Blood pressure 110/58, pulse 77, temperature 97.8 ??F (36.6 ??C), temperature source Temporal, resp. rate 16, height 5' 10 (1.778 m), weight 68 kg (150 lb), SpO2 98%.Body mass index is 21.52 kg/m??. OBJECTIVE: Physical Exam Constitutional: General: He is not in acute distress. Appearance: Normal appearance. He is not ill-appearing or toxic-appearing. HENT: Head: Normocephalic and atraumatic. Eyes: General: No scleral icterus. Right eye: No discharge. Left eye: No discharge. Pupils: Pupils are equal, round, and reactive to light. Cardiovascular: Rate and Rhythm: Normal rate and regular rhythm. Pulmonary: Effort: Pulmonary effort is normal. No respiratory distress. Breath sounds: Normal breath sounds. Neurological: Mental Status: He is alert and oriented to person, place, and time. Comments: Left leg prosthesis. Patient grossly neurologically intact. Surgical site to back is clean and intact. Patient is in a neck collar. In a wheelchair for mobility assistance. Psychiatric: Mood and Affect: Mood normal. Behavior: Behavior normal. Thought Content: Thought content normal. Judgment: Judgment normal. Wt Readings from Last 3 Encounters: 03/20/25 68 kg (150 lb) 03/16/25 69.9 kg (154 lb) 03/02/25 64 kg (141 lb) Lab Results Component Value Date/Time WBC 7.0 03/16/2025 03:45 PM HGB 10.8 (L) 03/16/2025 03:45 PM HCT 33.4 (L) 03/16/2025 03:45 PM PLT 330 03/16/2025 03:45 PM MCV 96.0 03/16/2025 03:45 PM CHOLTOT 138 03/16/2025 03:46 PM HDL 46 03/16/2025 03:46 PM LDLCALC 78 03/16/2025 03:46 PM TRIGLYCERIDE 55 03/16/2025 03:46 PM ALT 13 02/13/2025 01:51 PM AST 18 02/13/2025 01:51 PM NA 140 02/13/2025 01:51 PM K 3.9 02/13/2025 01:51 PM CL 105 02/13/2025 01:51 PM CO2 26 02/13/2025 01:51 PM CREAT 0.90 02/13/2025 01:51 PM BUN 16 02/13/2025 01:51 PM TSH 1.38 03/16/2025 03:45 PM INR 1.1 12/13/2024 01:32 PM No results found for: URICACID Lab Results Component Value Date/Time GLUCOSE 98 02/13/2025 01:51 PM ASSESSMENT AND PLAN: ICD-10-CM ICD-9-CM 1. History of falling Z91.81 V15.88 XR RIBS UNILATERAL 2 VW LEFT AMB REFERRAL TO HOME CARE For evaluation Discussed medications Orthopedics 2. Rib pain on left side R07.89 786.50 XR RIBS UNILATERAL 2 VW LEFT AMB REFERRAL TO HOME CARE Analgesics as needed Orders Placed This Encounter XR RIBS UNILATERAL 2 VW LEFT AMB REFERRAL TO HOME CARE There are no discontinued medications. PROCEDURES: None Patient and/or patient's guardian is amendable with plan of care and verbalized understanding priorto discharge. If symptoms worsen, they were instructed to contact the clinic or go to the nearest emergency department. Plan of care was reviewed with patient prior to discharge. Information from this visit will be available on [employer]. Depression Screen Positive: PHQ-2 score >= 3 or PHQ-9 score >= 9 PHQ-2 Total: 3 (03/20/2025 2:00 PM) PHQ-9 Total: 15 (03/20/2025 2:00 PM) DEPRESSION PLAN OF CARE His depression screen was positive. His antidepressant medication was reviewed COM BILLING ANALYST documented in this encounter Plan of Treatment Upcoming Encounters Date Type Department Care Team (Late st Contact Info) Description 03/29/2025 8:40 AM TELECOM BILLING ANALYST Office Visit [facility] [address] [phone] Parveen Bear, [address] [place] [phone] 04/19/2025 11:30 AM TELECOM BILLING ANALYST Office Visit [facility] Neuro[facility] [address] [place] [address] Cristal Judge, CHANDNI [address] [place] [address] 10/04/2025 2:40 PM CDT Office Visit [address] [phone] Parveen Bear, [address] [place] [phone] Scheduled Referrals Name Type Priority Associated Diagnoses Orde r Schedule AMB REFERRAL TO HOME CARE Outpatient Referral Routine History of falling Rib pain on left side Ordered: 03/20/2025 documented as of this encounter Results * XR RIBS UNILATERAL 2 VW LEFT (03/20/2025 3:08 PM TELECOM BILLING ANALYST) Anatomical Region Laterality Modality Chest Computed Radiogr aphy 03/20/2025 3:08 PM TELECOM BILLING ANALYST Impressions 03/21/2025 8:48 AM TELECOM BILLING ANALYST IMPRESSION: No evidence of any left-sided rib fractures. Narrative 03/21/2025 8:48 AM TELECOM BILLING ANALYST Exam: XR RIBS UNILATERAL 2 VW LEFT Date/Time of Exam: 03/20/2025 3:08 PM Reason For Exam: See Diagnosis Diagnosis: History of falling; Rib pain on left side AP and oblique views of the ribs of the left hemithorax are submitted. No acute fracture or dislocation is seen. The left lung is clear. No pneumothorax is seen. Procedure Note Kurt Chavez MD - 03/21/2025 Exam: XR RIBS UNILATERAL 2 VW LEFT Date/Time of Exam: 03/20/2025 3:08 PM Reason For Exam: See Diagnosis Diagnosis: History of falling; Rib pain on left side AP and oblique views of the ribs of the left hemithorax are submitted. No acute fracture or dislocation is seen. The left lung is clear. No pneumothorax is seen. IMPRESSION: No evidence of any left-sided rib fractures. Hipolito Cuadra NP DIAGNOSTIC IMAGING ORDERABLES Final Result documented in this encounter Visit Diagnoses Diagnosis History of falling- Primary Personal history of fall Rib pain on left side Chest pain, unspecified History of falling Personal history of fall Rib pain on left side Chest pain, unspecified documented in this encounter Additional Health Concerns Assessment Noted Time PHQ-9 Depression Total Score: 3 03/20/20 25 2:00 PM TELECOM BILLING ANALYST documented as of this encounter Care Teams Block Placer Relationship Specialty Start Date End Date Parveen Bear DO [address] [place] [phone] PCP - General Family Practice 06/26/23 documented as of this encounter
--- OUTSIDE RECORDS SUMMARY | 2025-03-20 14:40 | XMS_ITS | Encounter Summary ---
Author Organization [facility] Address [address] [place] [address] Care Team Providers Care System Specialist Name Role Phone NeliaParveen tapia Primary Care Provider [phone] Reason for Referral * Home Health (Routine) - Closed Specialty Diagnoses / Procedures Referred By Jessica t Referred To Contact Diagnoses History of falling Rib pain on left side Hipolito Cuadra, LABORER STORES [address] [facility] [address] [place] [address] Phone: tel: fax: [facility] [address] [place] [address] Phone: tel: fax: Referral ID Status Reason Start Date Expiration Date Visits Re quested Visits Authorized [id number] Closed 03/20/2025 03/20/2026 1 1 LEY LINEBACKER CREWMEMBER Reason for Visit * Reason Comments Fall Patient reports a fa ll yesterday, patient hit his head. Encounter Details Date Type Department Care Team (Late st Contact Info) Description 03/20/2025 2:40 PM BRADLEY LINEBACKER CREWMEMBER Office Visit [facility] [place] [address] [phone] History of falling (Primary Dx); Rib pain [...] worry about transportation for future doctor visits, grape picker medication, etc.? No 2024 Housing Stability [...] on file Legal Sex Male 5:26 AM BRADLEY LINEBACKER CREWMEMBER Gender Identity Male 11/15/2024 4:33 PM CDT Sexual Orientation Not on file documented as of this encounter Last Filed Vital Signs Vital Sign Reading Time Taken Comments Blood Pressure 110/58 03/20/2025 2:46 PM BRADLEY LINEBACKER CREWMEMBER Pulse 77 03/20/2025 2:46 PM BRADLEY LINEBACKER CREWMEMBER Temperature 36.6 C (97.8 F) 03/20/2025 2:46 PM BRADLEY LINEBACKER CREWMEMBER Respiratory Rate 16 03/20/2025 2:46 PM BRADLEY LINEBACKER CREWMEMBER Oxygen Saturation 98% 03/20/2025 2:4 6 PM BRADLEY LINEBACKER CREWMEMBER Inhaled Oxygen Concentration - - Weight 68 kg (150 lb) 03/20/2025 2:46 PM BRADLEY LINEBACKER CREWMEMBER patient reports Height 177.8 cm (5' 10 ) 03/20/2025 2:4 6 PM BRADLEY LINEBACKER CREWMEMBER Body Mass Index 21.52 03/20/2025 2:46 PM BRADLEY LINEBACKER CREWMEMBER documented in this encounter Progress Notes * Hipolito Cuadra, LABORER STORES - 03/20/2025 2:46 PM CST Abraham Henson [...] Tablet 0 fluticasone propionate (FLONASE) 50 mcg/spray [place], Suspension nasal inhaler Administer 2 Sprays in [...] from this visit [facility]. Depression Screen Positive: PHQ-2 score >= 3 or PHQ-9 score >= 9 PHQ-2 Total: 3 (03/20/2025 2:00 PM) PHQ-9 Total: 15 (03/20/2025 2:00 PM) DEPRESSION PLAN OF CARE His depression screen was positive. His antidepressant medication was reviewed LEY LINEBACKER CREWMEMBER documented in this encounter Plan of Treatment Upcoming Encounters Date Type Department Care Team (Late st Contact Info) Description 03/29/2025 8:40 AM BRADLEY LINEBACKER CREWMEMBER Office Visit [facility] [address] [phone] Parveen Bear, [address] [place] [phone] 04/19/2025 11:30 AM BRADLEY LINEBACKER CREWMEMBER Office Visit [facility] [address] [place] [address] [place] [address] Cristal Judge, CHANDNI [address] [place] [address] 10/04/2025 2:40 PM CDT Office Visit [address] [phone] Parveen Bear, [address] [place] [phone] Scheduled Referrals Name Type Priority Associated Diagnoses Orde r Schedule AMB REFERRAL TO HOME CARE Outpatient Referral Routine History of falling Rib pain on left side Ordered: 03/20/2025 documented as of this encounter Results * XR RIBS UNILATERAL 2 VW LEFT (03/20/2025 3:08 PM BRADLEY LINEBACKER CREWMEMBER) Anatomical Region Laterality Modality Chest Computed Radiogr aphy 03/20/2025 3:08 PM BRADLEY LINEBACKER CREWMEMBER Impressions 03/21/2025 8:48 AM BRADLEY LINEBACKER CREWMEMBER IMPRESSION: No evidence of any left-sided rib fractures. Narrative 03/21/2025 8:48 AM BRADLEY LINEBACKER CREWMEMBER Exam: XR RIBS UNILATERAL 2 VW LEFT [...] Total Score: 3 03/20/20 25 2:00 PM BRADLEY LINEBACKER CREWMEMBER documented as of this encounter Care Teams System Specialist Relationship Specialty Start Date End Date Parveen Bear DO [address] [place] [phone] PCP - General Family Practice 06/26/23 documented as of this encounter
--- OUTSIDE RECORDS SUMMARY | 2025-03-20 15:15 | XMS_ITS | Encounter Summary ---
Author Organization [facility] Address [address] [place] [address] Care Team Providers Care Fuel Agent Name Role Phone Parveen Bear DO Primary Care Provider [phone] Encounter Details Date Type Department Care Team (Latest Contact Info) Description 03/20/2025 3:15 PM LEASING PROPERTY MANAGER Ancillary Procedure [facility] [place] [address] [phone] Hipolito Cuadra, FIRER BISQUE KILN [address] [facility] [address] [place] [address] History of falling; Rib pain on left side Social History [...] worry about transportation for future doctor visits, pick out hand medication, etc.? No 2024 Housing Stability Answer [...] on file Legal Sex Male 5:26 AM LEASING PROPERTY MANAGER Gender Identity Male 11/15/2024 4:33 PM CDT Sexual Orientation Not on file documented as of this encounter Plan of Treatment Upcoming Encounters Date Type Department Care Team (Late st Contact Info) Description 03/29/2025 8:40 AM LEASING PROPERTY MANAGER Office Visit [facility] [address] [phone] Parveen Bear DO [address] [place] [phone] 04/19/2025 11:30 AM LEASING PROPERTY MANAGER Office Visit [facility] [address] [place] [address] [place] [phone] Cristal Judge NP [address] [place] [phone] 10/04/2025 2:40 PM CDT Office Visit [facility] [address] [phone] Parveen Bear DO [address] [place] [phone] documented as of this encounter Procedures Procedure Name Priority Date/Time Associated Diagnosis Comments XR RIBS UNILATERAL 2 VW LEFT Routine 03/20/2025 3:08 PM LEASING PROPERTY MANAGER History of falling Rib pain on left side documented in this encounter Results * XR RIBS UNILATERAL 2 VW LEFT (03/20/2025 3:08 PM LEASING PROPERTY MANAGER) Anatomical Region Laterality Modality Chest Computed Radiogr aphy 03/20/2025 3:08 PM LEASING PROPERTY MANAGER Impressions 03/21/2025 8:48 AM LEASING PROPERTY MANAGER IMPRESSION: No evidence of any left-sided rib fractures. Narrative 03/21/2025 8:48 AM LEASING PROPERTY MANAGER Exam: XR RIBS UNILATERAL 2 VW LEFT [...] this encounter Visit Diagnoses Diagnosis History of falling Personal history of fall Rib pain on left side Chest pain, unspecified documented in this encounter Additional Health Concerns Assessment Noted Time PHQ-9 Depression Total Score: 3 03/20/20 25 2:00 PM LEASING PROPERTY MANAGER documented as of this encounter Care Teams Fuel Agent Relationship Specialty Start Date End Date Parveen Bear DO [address] [place] [address] PCP - General Family Practice 06/26/23 documented as of this encounter
--- OUTSIDE RECORDS SUMMARY | 2025-03-20 15:15 | XMS_ITS | Encounter Summary ---
Author Organization [facility] Address [address] [place] [address] Care Team Providers Care C 40A Crew Chief Name Role Phone Parveen Bear DO Primary Care Provider [phone] Encounter Details Date Type Department Care Team (Latest Contact Info) Description 03/20/2025 3:15 PM WRAPPER STEMMER OPERATOR Ancillary Procedure [facility] [place] [address] [phone] Hipolito Cuadra, SHAVING MACHINE OPERATOR [address] [facility] [address] [place] [address] History of falling; Rib pain [...] worry about transportation for future doctor visits, bean picker machine operator medication, etc.? No 2024 Housing Stability Answer [...] on file Legal Sex Male 5:26 AM WRAPPER STEMMER OPERATOR Gender Identity Male 11/15/2024 4:33 PM CDT Sexual Orientation Not on file documented as of this encounter Plan of Treatment Upcoming Encounters Date Type Department Care Team (Late st Contact Info) Description 03/29/2025 8:40 AM WRAPPER STEMMER OPERATOR Office Visit [facility] [address] [phone] Parveen Bear DO [address] [place] [phone] 04/19/2025 11:30 AM WRAPPER STEMMER OPERATOR Office Visit [facility] [address] [place] [address] [place] [address] [phone] Cristal Judge NP [address] [place] [address] [phone]- 10/04/2025 2:40 PM CDT Office Visit [facility] [address] [phone] Parveen Bear DO [address] [place] [phone] documented as of this encounter Procedures Procedure Name Priority Date/Time Associated Diagnosis Comments XR RIBS UNILATERAL 2 VW LEFT Routine 03/20/2025 3:08 PM WRAPPER STEMMER OPERATOR History of falling Rib pain on left side documented in this encounter Results * XR RIBS UNILATERAL 2 VW LEFT (03/20/2025 3:08 PM WRAPPER STEMMER OPERATOR) Anatomical Region Laterality Modality Chest Computed Radiogr aphy 03/20/2025 3:08 PM WRAPPER STEMMER OPERATOR Impressions 03/21/2025 8:48 AM WRAPPER STEMMER OPERATOR IMPRESSION: No evidence of any left-sided rib fractures. Narrative 03/21/2025 8:48 AM WRAPPER STEMMER OPERATOR Exam: XR RIBS UNILATERAL 2 VW LEFT [...] Total Score: 3 03/20/20 25 2:00 PM WRAPPER STEMMER OPERATOR documented as of this encounter Care Teams C 40A Crew Chief Relationship Specialty Start Date End Date Parveen Bear DO [address] [place] [phone] PCP - General Family Practice 06/26/23 documented as of this encounter
--- OUTSIDE RECORDS SUMMARY | 2025-03-23 08:00 | XMS_ITS | Encounter Summary ---
Author Organization [facility] Address [address] [place] [address] Care Team Providers Care Launch Commander [employer] Name Role Phone Parveen Bear DO Primary Care Provider [phone] Reason for Visit * Reason Comments Laceration Fall Encounter Details Date Type Department Care Team (Late st Contact Info) Description 03/23/2025 8:00 AM RODENT EXTERMINATOR Office Visit [facility] [address] [phone] Parveen Bear DO [address] [phone] Laceration of left forearm without foreign body, initial encounter (Primary Dx); Chronic obstructive pulmonary disease with emphysema, unspecified emphysema type (CMS/HCC); ISTAP type 3 skin tear of left forearm; Polypharmacy Social History Tobacco Use Types Packs/Day Years [...] 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 2024 Housing Stability [...] on file Legal Sex Male 5:26 AM RODENT EXTERMINATOR Gender Identity Male 11/15/2024 4:33 PM CDT Sexual Orientation Not on file documented as of this encounter Last Filed Vital Signs Vital Sign Reading Time Taken Comments Blood Pressure - - Pulse 118 03/23/2025 8:18 AM RODENT EXTERMINATOR Temperature 35.9 C (96.6 F) 03/23/2025 8:18 AM RODENT EXTERMINATOR Respiratory Rate - - Oxygen Saturation 98% 03/23/2025 8:18 AM RODENT EXTERMINATOR Inhaled Oxygen Concentration - - Weight - - Height 177.8 cm (5' 10 ) 03/23/2025 8:18 AM RODENT EXTERMINATOR Body Mass Index - - documented in this encounter Patient Instructions * Attachments The following attachments cannot be sent through Care Everywhere. * Lacerations: Stitches (Romanian) documented in this encounter Progress Notes * Parveen Bear DO - 03/23/2025 8:18 AM CSTAssociated Order(s): Laceration Repair Post-Procedure Diagnose(s): Laceration of left forearm without foreign body, initial encounter; ISTAP type 3 skin tear of left forearm Images from the original note were not included. Chief Complaint Patient presents with Laceration Fall Patient reports he fallen twice in the middle of the night while getting up to go to the restroom. . SUBJECTIVE: History of Present Illness Wt Readings from Last 5 Encounters: 03/20/25 68 kg (150 lb) 03/16/25 69.9 kg (154 lb) 03/02/25 64 kg (141 lb) 02/13/25 63.5 kg (140 lb) 12/13/24 71.7 kg (158 lb) Ht Readings from Last 1 Encounters: 03/23/25 5' 10 (1.778 m) BMI Readings from Last 5 Encounters: 03/23/25 21.52 kg/m?? 03/20/25 21.52 kg/m?? 03/16/25 22.10 kg/m?? 03/02/25 21.44 kg/m?? 02/13/25 21.29 kg/m?? Current Outpatient Medications on File Prior to Visit Medication Sig Dispense Refill diazePAM (VALIUM) 5 [...] 30 mg (Patient not taking: Reported on 03/23/2025) 42 Tablet 0 fluticasone propionate (FLONASE) 50 mcg/spray [place], Suspension nasal inhaler Administer 2 Sprays in each nostril daily. (Patient not taking: Reported on 03/23/2025) oxyCODONE (ROXICODONE) 5 mg tablet (Patient not taking: Reported on 03/23/2025) No current facility-administered medications on file prior to visit. PAST MEDICAL/SURGICAL HISTORY: Past Medical History: Diagnosis Date Allergic rhinitis [...] X 1 and Lumbar X 2 HX SPINE HARDWARE REMOVAL N/A 02/27/2025 BACK HARDWARE REMOVAL performed by Chalo Shepherd MD at [facility] MAIN OR HX YAG LASER (POST CATARACT) [place] ARTHRD ANT INTERBODY DECOMPRESS CERVICAL BELW C2 N/A 02/27/2025 CERVICAL DISCECTOMY FUSION ANTERIOR - 1 LEVEL performed by Chalo Shepherd MD at [facility] MAIN OR PT DENIES RELEVANT SURGICAL HISTORY Social History Socioeconomic History Marital status: Tobacco Use Smoking status: Former Current packs/day: 0.00 Average packs/day: 0.8 packs/day for 28.0 years (21.0 ttl pk-yrs) Types: Cigarettes Start date: 05/04/1953 Quit date: 05/04/1979 Years since quittin.9 Smokeless tobacco: Never Vaping Use Vaping status: Never Used Substance and Sexual Activity Alcohol use: Not Currently Drug use: Never Health-Related Social Needs Food Insecurity: Low Risk (02/27/2025) Food Insecurity Eating less because can't pay for food: No Transportation Needs: Low Risk (02/27/2025) Transportation Needs 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 Physical Exam Vitals and nursing note reviewed. Constitutional: General: He is not in acute distress. Appearance: Normal appearance. He is normal weight. He is not ill-appearing, toxic-appearing or diaphoretic. HENT: Head: Normocephalic and atraumatic. Right Ear: External ear normal. Left Ear: External ear normal. Nose: Nose normal. No rhinorrhea. Mouth/Throat: Mouth: Mucous membranes are moist. Eyes: General: No scleral icterus. Extraocular Movements: Extraocular movements intact. Conjunctiva/sclera: Conjunctivae normal. Neck: Trachea: Phonation normal. Comments: Cervical brace Cardiovascular: Rate and Rhythm: Normal rate and regular rhythm. Pulses: Normal pulses. Pulmonary: Effort: Pulmonary effort is normal. Breath sounds: No stridor. No wheezing. Abdominal: General: Abdomen is flat. Musculoskeletal: General: No deformity or signs of injury. Normal range of motion. Right lower leg: No edema. Left lower leg: No edema. Comments: Lumbar spine surgical dressing clean, dry, intact, no apparent saturation. Skin: General: Skin is warm and dry. Capillary Refill: Capillary refill takes less than 2 seconds. Findings: No bruising or erythema. Neurological: General: No focal deficit present. Mental Status: He is alert and oriented to person, place, and time. Gait: Gait normal. Psychiatric: Mood and Affect: Mood normal. Behavior: Behavior normal. Laceration Repair Date/Time: 03/23/2025 8:00 AM Performed by: Parveen Bear DO Authorized by: Parveen Bear DO Body area: upper extremity Location details: left lower arm Laceration length: 4 cm Foreign bodies: no foreign bodies Tendon involvement: none Nerve involvement: superficial Vascular damage: no Anesthesia: local infiltration Anesthesia: Local Anesthetic: lidocaine 2% without epinephrine Anesthetic total: 6 mL Sedation: Patient sedated: no Preparation: Patient was prepped and draped in the usual sterile fashion. Irrigation solution: saline Irrigation method: syringe Amount of cleaning: standard Debridement: minimal Degree of undermining: none Skin closure: 4-0 nylon Wound subcutaneous closure material used: 0 Chromic. Number of sutures: 7 Technique: simple and running Approximation: close Approximation difficulty: simple Dressing: antibiotic ointment, non-adhesive packing strip and pressure dressing Patient tolerance: patient tolerated the procedure well with no immediate complications Comments: Wound was explored through full range of motion and found to be without foreign body. Devitalized flap trimmed with scissors. Fascial layer closed with 0 chromic gut x2 simple interrupted subcuticular suture. Skin closed with running suture, x 5, tied with Rodanthe knot. Triple antibiotic ointment, nonstick dressing, pressure dressing applied. Remove and clean in 24 to48 hours with mild soap and warm water. Redress with antibiotic ointment or Vaseline and nonstick dressing. Apply antibiotic ointment or Vaseline twice daily. Follow-up 1 week for suture removal RESULTS: Results ASSESSMENT/PLAN: ICD-10-CM ICD-9-CM 1. Laceration of left forearm without foreign body, initial encounter S51.812A 881.00 Laceration Repair cefTRIAXone (ROCEPHIN) vial 1,000 mg 2. Chronic obstructive pulmonary disease with emphysema, unspecified emphysema type (CMS/[facility]) J43.9492.8 3. ISTAP type 3 skin tear of left forearm S51.812A 881.00 Laceration Repair cefTRIAXone (ROCEPHIN) vial 1,000 mg Assessment & Plan Laceration repair as noted above. Skin tear with with loss of devitalized flap. Additional skin tear of left forearm both proximal and distal to medial wound, not requiring additional treatment other than routine bandaging. COPD, not currently on inhaler therapy. Polypharmacy with multiple medications for depression as well as overlap of oxycodone and Valium, concurrent use of gabapentin. All could contribute to increased risk of falls as well as other psychotherapeutic's including duloxetine, sertraline, trazodone, and medication for BPH tamsulosin. Reviewat follow-up for potential deprescribing. Follow-up 1 week suture removal, medication review for deprescribing TOBACCO/NICOTINE COUNSELING He is not a tobacco/nicotine user. Depression Screen Positive: PHQ-2 score >= 3 or PHQ-9 score >= 9 PHQ-2 Total: 3 (03/20/2025 2:00 PM) PHQ-9 Total: 15 (03/20/2025 2:00 PM) DEPRESSION PLAN OF CARE His depression screen was positive. His antidepressant medication was reviewed The author of this note, patient (or authorized field representative/health education), and all other persons present consent to the audio recording of this visit for charting documentation purposes. This note was automatically generated by a CITYBIZLISTtive DataSift technology (Acuity[employer]), reviewed, edited, and finalized by Parveen Bear DO. Parveen Bear DO Portions of this note were created using Guess Your Songs Dictation software. Attempts were made to correct any mistakes prior to signing this note. There is always a possibility that words were not transcribed correctly. This note is made as a medical record and medical terms have been used where appropriate. If you do not recognize a term or feel it is inaccurate please call the office to discuss or schedule a follow-up appointment. NT EXTERMINATOR documented in this encounter Plan of Treatment Upcoming Encounters Date Type Department Care Team (Late st Contact Info) Description 03/29/2025 8:40 AM RODENT EXTERMINATOR Office Visit [facility] [address] [place] [phone] Parveen Bear DO [address] [place] [phone] 04/19/2025 11:30 AM RODENT EXTERMINATOR Office Visit [facility] [address] [place] [phone] Cristal Judge NP [address] [place] [address] 10/04/2025 2:40 PM CDT Office Visit [facility] [address] [place] [phone] Parveen Bear DO [address] [place] [phone] documented as of this encounter Procedures Procedure Name Priority Date/Time Associated Diagnosis Comments UT REPAIR INTERMEDIATE S/A/T/E 2.6-7.5 CM Routine 03/23/2025 8:00 AM RODENT EXTERMINATOR Laceration of left forearm without foreign body, initial encounter ISTAP type 3 skin tear of left forearm documented in this encounter Results * UT REPAIR INTERMEDIATE S/A/T/E 2.6-7.5 CM (03/23/2025 8:00 AM RODENT EXTERMINATOR) Narrative [facility] - 03/23/2025 8:00 AM RODENT EXTERMINATOR Parveen Bear DO 03/23/2025 9:33 AM Laceration Repair Date/Time: 03/23/2025 8:00 AM Performed by: Parveen Bear DO Authorized by: Parveen Bear DO Body area: upper extremity Location details: left lower arm Laceration length: 4 cm Foreign bodies: no foreign bodies Tendon involvement: none Nerve involvement: superficial Vascular damage: no Anesthesia: local infiltration Anesthesia: Local Anesthetic: lidocaine 2% without epinephrine Anesthetic total: 6 mL Sedation: Patient sedated: no Preparation: Patient was prepped and draped in the usual sterile fashion. Irrigation solution: saline Irrigation method: syringe Amount of cleaning: standard Debridement: minimal Degree of undermining: none Skin closure: 4-0 nylon Wound subcutaneous closure material used: 0 Chromic. Number of sutures: 7 Technique: simple and running Approximation: close Approximation difficulty: simple Dressing: antibiotic ointment, non-adhesive packing strip and pressure dressing Patient tolerance: patient tolerated the procedure well with no immediate complications Comments: Wound was explored through full range of motion and found to be without foreign body. Devitalized flap trimmed with scissors. Fascial layer closed with 0 chromic gut x2 simple interrupted subcuticular suture. Skin closed with running suture, x 5, tied with Rodanthe knot. Triple antibiotic ointment, nonstick dressing, pressure dressing applied. Remove and clean in 24 to 48 hours with mild soap and warm water. Redress with antibiotic ointment or Vaseline and nonstick dressing. Apply antibiotic ointment or Vaseline twice daily. Follow-up 1 week for suture removal Parveen Bear DO PROCEDURE/MINOR SURGICAL ORDE JOSEFA Final Result [facility] [place]# [id number] [address] [address] documented in this encounter Visit Diagnoses Diagnosis Laceration of left forearm without foreign body, initial encounter- Primary Chronic obstructive pulmonary disease with emphysema, unspecified emphysema type (CMS/HCC) ISTAP type 3 skin tear of left forearm Polypharmacy Issue of repeat prescriptions documented in this encounter Administered Medications Inactive Administered Medications - up to 3 most recent administrations Medication Order MAR Action Action Date Dose Rate Site cefTRIAXone (ROCEPHIN) vial 1,000 mg 1,000 mg, IM, ONE TIME ONLY, 1 dose, On Ashly 03/23/25 at 0915, Routine, Antibiotic Indication: Wound / Cellulitis / AbscessIndications:Lace ration of left forearm without foreign body, initial encounter,ISTAP type 3 skin tear of left forearm Given 03/23/2025 9:24 AM RODENT EXTERMINATOR 1,000 mg Ventrogluteal, Right documented in this encounter Additional Health Concerns Assessment Noted Time PHQ-9 Depression Total Score: 3 03/20/20 2:00 PM RODENT EXTERMINATOR documented as of this encounter Care Teams Launch Commander [employer] Relationship Specialty Start Date End Date Parveen Bear DO [address] [phone] PCP - General Family Practice 06/26/23 documented as of this encounter
--- OUTSIDE RECORDS SUMMARY | 2025-03-23 08:00 | XMS_ITS | Encounter Summary ---
Author Organization [facility] Address [address] [place] [address] Care Team Providers Care Block Hacker Name Role Phone Parveen Bear DO Primary Care Provider [phone] Reason for Visit * Reason Comments Laceration Fall Encounter Details Date Type Department Care Team (Late st Contact Info) Description 03/23/2025 8:00 AM BAND SAW RUNNER Office Visit 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 2024 Housing Stability [...] on file Legal Sex Male 5:26 AM BAND SAW RUNNER Gender Identity Male 11/15/2024 4:33 PM CDT Sexual Orientation Not on file documented as of this encounter Last Filed Vital Signs Vital Sign Reading Time Taken Comments Blood Pressure - - Pulse 118 03/23/2025 8:18 AM BAND SAW RUNNER Temperature 35.9 C (96.6 F) 03/23/2025 8:18 AM BAND SAW RUNNER Respiratory Rate - - Oxygen Saturation 98% 03/23/2025 8:18 AM BAND SAW RUNNER Inhaled Oxygen Concentration - - Weight - - Height 177.8 cm (5' 10 ) 03/23/2025 8:18 AM BAND SAW RUNNER Body Mass Index - - documented in this encounter Patient Instructions * Attachments The following attachments cannot be sent through Care Everywhere. * Lacerations: Stitches (Icelandic) documented in this encounter Progress Notes * [...] Tablet 0 fluticasone propionate (FLONASE) 50 mcg/spray [place], Suspension nasal inhaler Administer 2 Sprays in [...] REMOVAL performed by Chalo Shepherd MD at [facility] MAIN OR HX YAG LASER (POST CATARACT) [place] ARTHRD ANT INTERBODY DECOMPRESS CERVICAL BELW C2 N/A 02/27/2025 CERVICAL DISCECTOMY FUSION ANTERIOR - 1 LEVEL performed by Chalo Shepherd MD at 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 Triple antibiotic ointment, nonstick dressing, pressure [...] pulmonary disease with emphysema, unspecified emphysema type (CMS/[facility]) J43.9492.8 3. ISTAP type 3 skin tear [...] author of this note, patient (or authorized brewery representative), and all other persons present consent to the audio recording of this visit for charting documentation purposes. This note was automatically generated by a anywayanydaytive iCreate Software technology (Rethink Books), reviewed, edited, and finalized by Parveen Bear DO. Parveen Bear DO Portions of this note were created using Wheelz Dictation software. Attempts were made to correct [...] to discuss or schedule a follow-up appointment. SAW RUNNER documented in this encounter Plan of Treatment Upcoming Encounters Date Type Department Care Team (Late st Contact Info) Description 03/29/2025 8:40 AM BAND SAW RUNNER Office Visit [facility] [address] [place] [phone] Parveen Bear DO [address] [place] [phone] 04/19/2025 11:30 AM BAND SAW RUNNER Office Visit [facility] Neurosurgery [address] [place] [phone] Cristal Judge NP [address] [place] [address] 10/04/2025 2:40 PM CDT Office Visit [facility] [address] [place] [phone] Parveen Bear DO [address] [place] [phone] documented as of this encounter Procedures Procedure Name Priority Date/Time Associated Diagnosis Comments SC REPAIR INTERMEDIATE S/A/T/E 2.6-7.5 CM Routine 03/23/2025 8:00 AM BAND SAW RUNNER Laceration of left forearm without foreign body, initial encounter ISTAP type 3 skin tear of left forearm documented in this encounter Results * SC REPAIR INTERMEDIATE S/A/T/E 2.6-7.5 CM (03/23/2025 8:00 AM BAND SAW RUNNER) Narrative [facility] - 03/23/2025 8:00 AM BAND SAW RUNNER Parveen Bear DO 03/23/2025 9:33 AM Laceration [...] with running suture, x 5, tied with Allen knot. Triple antibiotic ointment, nonstick dressing, pressure dressing applied. Remove and clean in 24 to 48 hours with mild soap and warm water. Redress with antibiotic ointment or Vaseline and nonstick dressing. Apply antibiotic ointment or Vaseline twice daily. Follow-up 1 week for suture removal Parveen Bear DO PROCEDURE/MINOR SURGICAL ORDE JOSEFA Final Result [facility]# [id number] [address] [address] documented in this encounter Visit Diagnoses Diagnosis [...] of left forearm Given 03/23/2025 9:24 AM BAND SAW RUNNER 1,000 mg Ventrogluteal, Right documented in this encounter Additional Health Concerns Assessment Noted Time PHQ-9 Depression Total Score: 3 03/20/20 2:00 PM BAND SAW RUNNER documented as of this encounter Care Teams Block Hacker Relationship Specialty Start Date End Date Parveen Bear DO [address] [phone] PCP - General Family Practice 06/26/23 documented as of this encounter
[2025-03-25] VITALS (12 sets, daily range): BP systolic 112–164; BP diastolic 51–84; PULSE 62–96; RESP 14–22; TEMP 36.2–37.3; O2SAT 93–100; BMI 24.3; BMI 23.3
--- OUTSIDE RECORDS SUMMARY | 2025-03-25 00:34 | XMS_ITS | Clinical Summary ---
Author Organization [facility] Address [address] Pardo: Epic Prelude ADT MAURA GALICIA [address] Care Team Providers Care Make Up Artist Name Role Phone Parveen Bear DO Primary Care Provider [phone] Allergies Active Allergy Reactions Criticality Noted Date Comments Atorvastatin Calcium Muscle Pain High 02/24/2025 Medications gabapentin (NEURONTIN) 400 mg capsule Take 400 mg by mouth 2 times daily. 07/08/19 23 Active losartan (COZAAR) 100 mg tablet Take 100 mg by mouth daily. 08/13/19 23 Active omeprazole (PriLOSEC) 20 mg Capsule, Delayed Release(E.C.) 09/03/19 23 Active predniSONE (DELTASONE) 1 mg tablet [...] 23 Active fluticasone propionate (FLONASE) 50 mcg/spray [place], Suspension nasal inhaler Administer 2 Sprays in each nostril daily. 06/23/19 24 Active sertraline (ZOLOFT) 100 mg tabletIndicatio ns:Mild episode of recurrent major depressive disorder Take 1 Tablet (100 mg) by mouth daily. 90 Tablet 1 06/26/19 24 Active hydroCHLOROthia zide 25 mg tabletIndicatio ns:Primary hypertension Take 1 Tablet (25 mg) by mouth daily. 90 Tablet 1 06/26/19 24 Active sucralfate (CARAFATE) 1 gram tablet Take 1 Gram by mouth 2 times daily. 12/13/19 25 Active docusate sodium (COLACE) 100 mg capsule [...] as needed. Active oxyCODONE (ROXICODONE) 5 mg tabletIndicatio ns:S/P cervical spinal fusion Take 1 Tablet (5 mg) by mouth every 4 hours as needed for Pain. Max Daily Amount: 30 mg 42 Tablet 02/29/20 Active Additional Information Patient not taking.Reported on 03/23/2025 diazePAM (VALIUM) 5 mg tabletIndicatio ns:S/P cervical spinal fusion Take 1 Tablet (5 mg) by mouth every 8 hours as needed for Spasm. 42 Tablet 02/29/20 25 Active oxyCODONE (ROXICODONE) 5 mg tablet 06/16/192024 Discontinued(D uplicate Therapy) meloxicam (MOBIC) 15 mg tablet Take 15 mg by mouth daily. 06/08/19 24 2024 Discontinued aspirin (ECOTRIN EC) 81 mg Tablet, Delayed Release (E.C.) Take 81 mg by mouth daily. 2024 Discontinued Hospital, Clinic, or Other Facility Administered Medication Ordered Dose Route Frequency Start Date End Date Status cefTRIAXone (ROCEPHIN) vial 1,000 mgIndications:Laceratio n of left forearm without foreign body, initial encounter,ISTAP type 3 skin tear of left forearm 1000 mg IM ONE TIME ONLY 03/23/2025 03/23/2025 Ended Active Problems Problem Noted Date Diagnosed Date Above-knee amputation 03/23/2025 Atherosclerosis of both carotid arteries 025 Overview (03/23/2025): US done at [facility] 11.05.25 due to bruit on exam; US show <50% bilaterally Benign essential tremor 03/23/2025 Bilateral sensorineural hearing loss 03/23/2025 Fibromyalgia 03/23/2025 Chronic low back pain with sciatica 03/23/2025 Sciatica, right side 03/23/2025 Phantom limb pain 03/23/2025 Generalized OA 03/23/2025 Failed back surgical syndrome 03/23/2025 Ex-smoker 03/23/2025 Drug-induced myopathy 03/23/2025 Overview (03/23/2025): started due to cartoid athero but he has severe myopathy 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 03/23/2025 Polypharmacy 03/23/2025 S/P hardware removal 02/28/2025 Protein-calorie malnutrition, moderate Mild aortic stenosis 02/17/2025 Overview (02/17/2025): Echo 02/17/25 Mitral regurgitation 02/17/2025 Overview (02/17/2025): Echo 02/17/25 Chronic neck pain 02/13/2025 Hx of AKA (above knee amputation), left 02/14/20 Systolic murmur 02/13/2025 GERD (gastroesophageal reflux disease) RLS (restless legs syndrome) 02/13/2025 BPH (benign prostatic hyperplasia) 02/13/2025 Allergic rhinitis 02/13/2025 Constipation 02/13/2025 Anemia 02/13/2025 Mild episode of recurrent major depressive disor andrés 06/26/2023 Pseudophakia of both eyes 03/19/2023 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 09/09/2022 Hypertension Resolved Problems Problem Noted Date Diagnosed Date Resolved Date Solar lentigo 03/23/2025 03/23/2025 Pneumothorax, left 03/23/2025 Preoperative general physical examination 02/13/2025 03/23/2025 Encounters Date Type Department Care Team Description 03/24/[address] [phone] Parveen Bear DO Provider Call 03/23/2025 8:00 AM BROOMCORN PRESS FEEDER Office Visit [address] [phone] Parveen Bear DO Laceration of left forearm without foreign body, initial encounter (Primary Dx); Chronic obstructive pulmonary disease with emphysema, unspecified emphysema type (CMS/HCC); ISTAP type 3 skin tear of left forearm; Polypharmacy 03/22/[address] [phone] Parveen Bear DO Provider Call 03/21/2025 External Device Data STL ABSTRACTION Provider, Abstract 03/21/2025 Results Follow-Up [address] [phone] Hipolito Cuadra, CHANDNI XR RIBS UNILATERAL 2 VW LEFT 03/20/2025 3:15 PM BROOMCORN PRESS FEEDER Ancillary Procedure [address] [phone] Hipolito Cuadra, CHANDNI History of falling; Rib pain on left side 03/20/2025 2:40 PM BROOMCORN PRESS FEEDER Office Visit [address] [phone] History of falling (Primary Dx); Rib pain on left side 03/20/2025 Nurse Triage [address] [phone] Parveen Bear DO 03/17/2025 Results Follow-Up [address] [phone] Leela Ramires FNP TSH, CBC WITH DIFFERENTIAL, LIPID PANEL 03/16/2025 3:00 PM BROOMCORN PRESS FEEDER Office Visit [address] [phone] Leela Ramires FNP Primary hypertension (Primary Dx); Mild episode of recurrent major depressive disorder; Need for influenza vaccination; Gastroesophageal reflux disease without esophagitis; Hx of AKA (above knee amputation), left (CMS/HCC); Chronic idiopathic constipation; Chronic neck pain; RLS (restless legs syndrome); Elevated LDL cholesterol level 03/14/2025 Orders Only [facility] [address] [place] [address] Provider, Abstract 03/14/[address] [phone] Parveen Bear DO 03/03/[address] [phone] Parveen Bear, Remote Monitoring 03/03/[address] [phone] Parveen Bear, Remote Monitoring 03/02/[address] [phone] Parveen Bear DO Provider Call 03/02/[address] [phone] Parveen Bear DO Provider Call 02/28/2025 External Device Data STL ABSTRACTION Provider, Abstract 02/28/2025 External Device Data STL ABSTRACTION Provider, Abstract 02/28/2025 Orders Only [facility] [address] [place] [phone] Cristal Judge, CHANDNI S/P spinal fusion (Primary Dx); History of lumbar fusion 02/27/2025 8:00 AM CDT - 02/27/2025 12:10 PM CDT Surgery [facility] Operating Room [address] [place] [phone] Chalo Shepherd MD CERVICAL DISCECTOMY FUSION ANTERIOR - 1 LEVEL 02/27/2025 7:54 AM CDT Anesthesia Event [facility] Operating Room [address] [place] [phone] Kae ANNE, DO Deonte Flynn Cybil A, STEVE 02/27/2025 6:21 AM CDT - 03/02/2025 2:55 PM CDT Hospital Encounter [facility] 3C Ortho Neuro [address] [place] [address] Chalo Shepherd MD Chronic neck pain Discharge Disposition: Home Health Care [place] 02/22/2025 Telephone [facility] [address] [place] [address] Chalo Shepherd MD Other 02/22/2025 External Device Data STL ABSTRACTION Provider, Abstract 02/21/2025 External Device Data STL ABSTRACTION Provider, Abstract 02/17/2025 10:43 AM CDT - 02/17/2025 11:59 PM CDT Hospital Encounter [facility] Echo [address] [place] [phone] Sudha Fernandez, COOKER PROCESS CHEESE Discharge Disposition: Home or Self Care 02/17/2025 Results Follow-Up [facility] [address] [place] [phone] Sudha Fernandez, COOKER PROCESS CHEESE ECHO COMPLETE - CONTRAST AND STRAIN IF INDICATED 02/13/2025 1:06 PM CDT - 02/13/2025 11:59 PM CDT Hospital Encounter [facility] [address] [place] [address] Miguel Donohue MD Discharge Disposition: Home or Self Care 02/13/2025 12:42 PM CDT - 02/13/2025 11:59 PM CDT Hospital Encounter [facility] Pre Admission [facility] [address] [place] [address] Chalo Shepherd MD Discharge Disposition: Home or Self Care 02/13/2025 Orders Only [facility] [address] [place] [address] Sudha Fernandez, MOHINI Systolic murmur (Primary Dx); Preoperative general physical examination 02/13/2025 Travel 01/17/2025 External Device Data STL ABSTRACTION Provider, Abstract 01/17/2025 External Device Data STL ABSTRACTION Provider, Abstract 12/23/2024 Results Follow-Up [facility] [address] [phone] Parveen Bear, CBC WITH DIFFERENTIAL 12/23/2024 Patient Self-Triage [facility] [address] [facility] [place] [phone] from Last 3 Months Immunizations Immunization Administration Dates Next Due (ABRYSVO)(60 YR UP/GA 32-36 WKS) RSV, BIVALENT, PROTEIN SUBUNIT RSVPREF, DILUENT RECONSTITUTED, 0.5 ML, PF 05/26/2023 INFLUENZA VACCINE HIGH DOSE QUADRIVALENT 65 YR U P PF IM 01/30/2021 INFLUENZA VACCINE HIGH DOSE TRIVALENT SPLIT VIRUS, (65 YR UP), 0.5ML (PF), IM 03/16/2025 Family History Medical History Relation Name Comments Cancer Brother Cancer Father Stroke Mother 80's Cancer Sister Relation Name Status Comments Brother Father Mother Sister Social History Tobacco Use Types Packs/Day Years Used Date Smoking Tobacco: Former Cigarettes 0.8 28 0 [birth year]/04/1951 - 05/04/1979 Smokeless Tobacco: Never Tobacco Cessation:Counseling Given: Not [...] worry about transportation for future doctor visits, 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 No 2024 [...] on file Legal Sex Male 5:26 AM BROOMCORN PRESS FEEDER Gender Identity Male 11/15/2024 4:33 PM CDT Sexual Orientation Not on file Last Filed Vital Signs Vital Sign Reading Time Taken Comments Blood Pressure 110/58 03/20/2025 2:46 PM BROOMCORN PRESS FEEDER Pulse 118 03/23/2025 8:18 AM BROOMCORN PRESS FEEDER Temperature 35.9 C (96.6 F) 03/23/2025 8:18 AM BROOMCORN PRESS FEEDER Respiratory Rate 16 03/20/2025 2:46 PM BROOMCORN PRESS FEEDER Oxygen Saturation 98% 03/23/2025 8:1 8 AM BROOMCORN PRESS FEEDER Inhaled Oxygen Concentration - - Weight 68 kg (150 lb) 03/20/2025 2:46 PM BROOMCORN PRESS FEEDER patient reports Height 177.8 cm (5' 10 ) 03/23/2025 8:1 8 AM BROOMCORN PRESS FEEDER Body Mass Index 21.52 03/20/2025 2:46 PM BROOMCORN PRESS FEEDER Plan of Treatment Upcoming Encounters Date Type Department Care Team (Late st Contact Info) Description 03/29/2025 8:40 AM BROOMCORN PRESS FEEDER Office Visit [facility] [address] [place] [address] [phone] Parveen Bear DO [address] [place] [phone] 04/19/2025 11:30 AM BROOMCORN PRESS FEEDER Office Visit [facility] [address] [place] [address] Cristal Judge, ELECTRICAL CONSTRUCTION PROJECT MANAGER [address] [place] [address] 10/04/2025 2:40 PM CDT Office Visit [facility] [address] [phone] Parveen Bear DO [address] [place] [phone] Health Maintenance Due Date Last Done Comments Medicare Advantage ([place]) Preventative Visit/Annual Wellness Visit 05/04/2024 COVID-19 Vaccine ( - 2024-2 6 season) 2025 11/21/2021, 04/18/2021, 07/07/2020, Additional history exists DTAP/TDAP/TD VACCINES (3 - T d or Tdap) 06/16/2029 06/16/2019, 11/01/2001, 11/01/2001 PNEUMOCOCCAL VACCINE 50+ YEARS Completed 0 12/15/2017, 06/23/2016, 02/14/2015, Additional history exists ZOSTER VACCINE Completed 02/17/2022, 11/01, 12/18/2009 RSV VACCINE (60+ or ) Completed 05/26/2023 INFLUENZA VACCINE Completed 03/16/2025, , 01/23/2022, Additional history exists Medical Devices Implanted Type Area Records And Tape Recordings Engineer Device Identifier Shelf Expiration Date Model / Serial / Lot Hemostatic Surgiflo 8ml W/ Thrombin 2994 - [id number] Implanted:Qty: 1 on 02/27/2025 by Chalo Shepherd MD at [facility] Hemostatic N/A: Spine Cervical Anterior [employer] [id number] 05/03/2026 2994 / / [id number] Hemostatic Surgiflo 8ml W/ Thrombin 2994 - [id number] Implanted:Qty: 1 on 02/27/2025 by Chalo Shepherd MD at [facility] Hemostatic N/A: Spine Cervical Anterior [employer] [id number] 05/03/2026 2994 / / [id number] Plate Endoskeleton Tcs Strl Barrier Loc 4701-4438-S - [id number] Implanted:Qty: 1 on 02/27/2025 by Chalo Shepherd MD at [facility] Plate N/A: Spine Cervical Anterior [employer] SOFAMOR DANEK 05/30/2027 5303-140 5-S / / [id number] Screw Endoskeleton 3.5x14mm Tcs Ns 4089-0370 - [id number] Implanted:Qty: 1 on 02/27/2025 by Chalo Shepherd MD at [facility] Screw N/A: Spine Cervical Anterior [employer] SOFAMOR DANEK 02/28/2100 5301-351 4 / / [id number]- 01 Screw Endoskeleton 3.5x16mm Tcs Ns 0035-9738 - [id number] Implanted:Qty: 1 on 02/27/2025 by Chalo Shepherd MD at [facility] Screw N/A: Spine Cervical Anterior [employer] SOFAMOR DANEK 02/28/2100 5301-351 6 / / [id number]- 01 Cage Endoskeleton Tcs Nanoloc 6 Lrdtc [id number] Med 9169-2593-N - [id number] Implanted:Qty: 1 on 02/27/2025 by Chalo Shepherd MD at [facility] Spacer N/A: Spine Cervical Anterior [employer] SOFAMOR DANEK 05/22/2027 5366-140 7-N / / [id number] Allograft Putty Influx+ Dbm 1ml Iflx-Fw-01 - [id number] Implanted:Qty: 1 on 02/27/2025 by Chalo Shepherd MD at [facility] Tissue N/A: Spine Cervical Anterior [employer] 05/04/2027 IFLX-FW- 01 / [id number] / Explanted Type Area Records And Tape Recordings Engineer Device Identifier Shelf Expiration Date Model / Serial / Lot Thorasic And Lumbar Screws, Rods, And Set Screws Explanted:Qty: 1 on 02/27/2025 by Chalo Shepherd MD at [facility] N/A: Spine Lumbar [employer] UNKNOWN / UNKNOWN / UNKNOWN Description:6 SET SCREWS 2 RODS 6 SPINAL SCREWS ALL IMPLANTS ABOVE WERE NOT DOCUMENTED IN THIS ELECTRONIC RECORD Procedures Procedure Name Priority Date/Time Associated Diagnosis Comments WY REPAIR INTERMEDIATE S/A/T/E 2.6-7.5 CM Routine 03/23/2025 8:00 AM BROOMCORN PRESS FEEDER Laceration of left forearm without foreign body, initial encounter ISTAP type 3 skin tear of left forearm XR RIBS UNILATERAL 2 VW LEFT Routine 03/20/2025 3:08 PM BROOMCORN PRESS FEEDER History of falling Rib pain on left side LIPID PANEL Routine 03/16/2025 3:46 PM BROOMCORN PRESS FEEDER Elevated LDL cholesterol level CBC WITH DIFFERENTIAL Routine 03/16/2025 3:45 PM BROOMCORN PRESS FEEDER Primary hypertension TSH Routine 03/16/2025 3:45 PM BROOMCORN PRESS FEEDER Primary hypertension COMPREHENSIVE METABOLIC PANEL Routine 03/05/2025 10:47 AM BROOMCORN PRESS FEEDER TELEMETRY REPORT 03/03/2025 3:06 AM CDT XR CERVICAL SPINE 2 OR 3 VIEWS Routine 02/28/2025 4:02 PM CDT POC GLUCOSE Routine 02/27/2025 11:45 AM CDT XR FLUORO LESS THAN 1 HOUR Routine 02/27/2025 11:23 AM CDT Chronic neck pain XR CERVICAL SPINE 2 OR 3 VIEWS Routine 02/27/2025 9:56 AM CDT Chronic neck pain WY ANES INSERT CATH, ART, PERCUT, SHORTTERM Routine 02/27/2025 8:13 AM CDT BACK HARDWARE REMOVAL 02/27/2025 8:00 AM CDT Chronic neck pain Spinal stenosis of cervical region WY ARTHRD ANT INTERBODY DECOMPRESS CERVICAL BELW C2 02/27/2025 8:00 AM CDT Chronic neck pain Spinal stenosis of cervical region WY ANES INSERT ENDOTRACHEAL AIRWAY Routine 02/27/2025 8:00 AM CDT INTRAOP NEUROPHYSIO MONITORING Routine 02/27/2025 7:31 AM CDT ECHO COMPLETE Stat 02/17/2025 12:23 PM CDT Systolic murmur Preoperative general physical examination XR CHEST PA OR AP 1 VW Routine 02/13/2025 2:04 PM CDT Preoperative testing TYPE AND SCREEN Routine 02/13/2025 1:51 PM CDT COMPREHENSIVE METABOLIC PANEL Routine 02/13/2025 1:51 PM CDT CBC WITH DIFFERENTIAL Routine 02/13/2025 1:51 PM CDT EKG 12-LEAD Routine 02/13/2025 1:47 PM CDT from Last 3 Months Results * WY REPAIR INTERMEDIATE S/A/T/E 2.6-7.5 CM (03/23/2025 8:00 AM BROOMCORN PRESS FEEDER) Narrative [facility] - 03/23/2025 8:00 AM BROOMCORN PRESS FEEDER Parveen Bear DO 03/23/2025 9:33 AM Laceration [...] with running suture, x 5, tied with [place] knot. Triple antibiotic ointment, nonstick dressing, pressure dressing applied. Remove and clean in 24 to 48 hours with mild soap and warm water. Redress with antibiotic ointment or Vaseline and nonstick dressing. Apply antibiotic ointment or Vaseline twice daily. Follow-up 1 week for suture removal us Parveen Bear DO PROCEDURE/MINOR SURGICAL ORDE JOSEFA Final Result [facility]# [id number] [address] [place] [id number] * XR RIBS UNILATERAL 2 VW LEFT (03/20/2025 3:08 PM BROOMCORN PRESS FEEDER) Anatomical Region Laterality Modality Chest Computed Radiogr aphy 03/20/2025 3:08 PM BROOMCORN PRESS FEEDER Impressions 03/21/2025 8:48 AM BROOMCORN PRESS FEEDER IMPRESSION: No evidence of any left-sided rib fractures. Narrative 03/21/2025 8:48 AM BROOMCORN PRESS FEEDER Exam: XR RIBS UNILATERAL 2 VW LEFT Date/Time of Exam: 03/20/2025 3:08 PM Reason For Exam: See Diagnosis Diagnosis: History of falling; Rib pain on left side AP and oblique views of the ribs of the left hemithorax are submitted. No acute fracture or dislocation is seen. The left lung is clear. No pneumothorax is seen. Procedure Note Scott, Kurt G, MD - 03/21/2025 Exam: XR RIBS UNILATERAL [...] Cuadra NP DIAGNOSTIC IMAGING ORDERABLES Final Result * LIPID PANEL (03/16/2025 3:46 PM BROOMCORN PRESS FEEDER) CHOLESTEROL 138 <200 mg/dL [facility] HDL 46 > OR = 40 mg/dL [facility] TRIGLYCERIDE 55 <150 mg/dL [facility] LDL CALCULATED 78 mg/dL (calc) [facility] Comment: Reference range: <100 Desirable range <100 mg/dL for primary prevention; <70 mg/dL for patients with CHD or diabetic patients with > or = 2 CHD risk factors. LDL-C is now calculated using the Herb-Castro calculation, which is a validated novel method providing better accuracy than the Friedewald equation in the estimation of LDL-C. Herb SS et al. HEAVEN. 2013;310(19): 4727-9117 (http://education.[employer]/faq/ITZ306) CHOL/HDL RATIO 3.0 <5.0 (calc) [facility] NON-HDL CHOLESTEROL 92 <130 mg/dL (calc) [facility] Comment: For patients with diabetes plus 1 major ASCVD risk factor, treating to a non-HDL-C goal of <100 mg/dL (LDL-C of <70 mg/dL) is considered a therapeutic option. Test Performed at: [facility] [address] [facility] [place] [address] Laurita Solitario MD Blood 03/16/2025 3:46 PM BROOMCORN PRESS FEEDER 03/16/2025 3:46 PM BROOMCORN PRESS FEEDER us Leela Madhavi Ramires COOKER PROCESS CHEESE CHEMISTRY ORDERABLES Final Re sult [facility] [phone] [facility] [address] [address] * (ABNORMAL) CBC WITH DIFFERENTIAL (03/16/2025 3:45 PM BROOMCORN PRESS FEEDER) Only the most recent of2 resultswithin the time period is included. WBC 7.0 3.8 - 10.8 Thousand/u L [facility] RBC 3.48(L) 4.20 - 5.80 Million/uL [facility] HEMOGLOBIN 10.8(L) 13.2 - 17.1 g/dL [facility] HEMATOCRIT 33.4(L) 38.5 - 50.0 % [facility] MCV 96.0 80.0 - 100.0 fL [facility] MCH 31.0 27.0 - 33.0 pg [facility] MCHC 32.3 32.0 - 36.0 g/dL [facility] Comment: For adults, a slight decrease in the calculated MCHC value (in the range of 30 to 32 g/dL) is most likely not clinically significant; however, it should be interpreted with caution in correlation with other red cell parameters and the patient's clinical condition. RDW 11.8 11.0 - 15.0 % [facility] PLATELETS 330 140 - 400 Thousand/u L [facility] MPV 8.8 7.5 - 12.5 fL [facility] NEUTROPHIL ABSOLUTE 5,026 1,500 - 7,800 cells/uL [facility] LYMPHOCYTE ABSOLUTE 1,197 850 - 3,900 cells/uL [facility] MONOCYTE ABSOLUTE 497 200 - 950 cells/uL [facility] EOSINOPHIL ABSOLUTE 231 15 - 500 cells/uL [facility] BASOPHILS ABSOLUTE 49 0 - 200 cells/uL [facility] NEUTROPHIL 71.8 % [facility] LYMPHOCYTES 17.1 % [facility] MONOCYTE 7.1 % [facility] EOSINOPHILS 3.3 % [facility] BASOPHILS 0.7 % [facility] Comment: Test Performed at: [facility] [address] [place] [address] Laurita Solitario MD Blood 03/16/2025 3:45 PM BROOMCORN PRESS FEEDER 03/16/2025 3:46 PM BROOMCORN PRESS FEEDER Leela FELICIANOP HEMATOLOGY ORDERABLES Final R esult Performing Organization Address [facility]/ZIP Co de Phone Number [facility] [phone] [facility] [address] [place] [address] * TSH (03/16/2025 3:45 PM BROOMCORN PRESS FEEDER) TSH 1.38 0.40 - 4.50 mIU/L [facility] Comment: Test Performed at: [facility] [address] KeriAlyse Solitario MD Blood 03/16/2025 3:45 PM BROOMCORN PRESS FEEDER 03/16/2025 3:46 PM BROOMCORN PRESS FEEDER Leela FELICIANOP CHEMISTRY ORDERABLES Final Re sult Performing Organization Address [facility] Co de Phone Number [facility] [phone] [facility] [address] * COMPREHENSIVE METABOLIC PANEL (03/05/2025 10:47 AM BROOMCORN PRESS FEEDER) Only the most recent of2 resultswithin the time period is included. Blood us Abstract Provider CHEMISTRY ORDERABLES Final Res ult * TELEMETRY REPORT (03/03/2025 3:06 AM CDT) [...] Recent appearing postsurgical changes without apparent complication. Agnes Sloan Shepherd MD DIAGNOSTIC IMAGING OR DERABLES Final Result * (ABNORMAL) POC GLUCOSE (02/27/2025 11:45 AM CDT) GLUCOSE POC 127(H) 74 - 99 mg/dL 02/27/2025 11:45 AM CDT [facility] SPECIMEN SOURCE, GLUCOSE POC Capillary 02/27/2025 11:45 AM CDT [facility] Blood, whole 02/27/2025 11:4 5 AM CDT 02/27/2025 11:52 AM CDT Chalo Shepherd MD POINT OF CARE TESTING Final Result [facility] [id number] [address] [facility] [place] [address] * XR FLUORO LESS THAN 1 HOUR (02/27/2025 11:23 AM CDT) Narrative 02/27/2025 11:24 AM CDT Order information only. Exam was auto-finalized. Chalo Shepherd MD DIAGNOSTIC IMAGING OR DERABLES Final Result * WY ANES INSERT CATH, ART, PERCUT, SHORTTERM (02/27/2025 [...] size: 20 G Catheter Length (in.): 1.75 [place] Identification: palpation technique Number of attempts: 1 Successful placement: yes Assessment: blood return through port Procedure uneventful Post-procedure: line secured and dressing applied Comments: Sterile technique, sterile dressing, tape secured. Daniel Pal II, DO PROCEDURE/MINOR ARNDT RGICAL ORDERABLES Final Result * WY ANES INSERT ENDOTRACHEAL AIRWAY (02/27/2025 8:00 AM CDT) Narrative Jaun Clemons CRNA - 02/27/2025 8:00 AM CDT Jaun Clemons CRNA 02/27/2025 8:26 AM Airway Date/Time: 02/27/2025 8:00 AM Location: OR Plan: routine intubation Patient Identity Confirmed by: Verbally with patient and armband Airway: not difficult Staffing Performed: STEVE/JAMIR Authorized by: Daniel Pal II, DO Performed [...] INTERFACE SYSTEM - 02/17/2025 1:59 PM CDT [facility] Cardiovascular Services Echocardiography Laboratory [address] [place] [address] Transthoracic Echocardiography Patient: Amanda Henson Study ID: ECHO COMPLETE - F Gender: M : 1940 Age: 84 Room: [facility] Study 02/17/2025 Outpatient Date: Status: Study 11:29:[address] [facility] #: [id number] Time: Ordering:Sudha Fernandez Senior Database Administrator: ANDREW Indications and History: Systolic murmur. Summary [...] cm Vol/bsa, ES, 1-p A4C 23 ml/m^2 AISNLEY/bsa major ax, A2C 4.5 cm/m^2 Vol, ES, [...] (H) rubén values outside specified reference range. [facility] Echo [facility] are accredited with the Intersocietal Accreditation Commission - Echocardiography. Prepared and Electronically Authenticated Dylan Sales MD Confirmed 02/17/2025 13:59 Procedure Note Dylan Sales MD - 02/17/2025 [facility] Cardiovascular Services Echocardiography Laboratory [facility] [place] [address] Transthoracic Echocardiography Patient: Amanda Henson Study ID: ECHO COMPLETE- F Gender: M : 1940 Age: 84 Room: [facility] Study 02/17/2025 Pt Outpatient Date: Status: Study 11:29:[address] [facility] #: [id number] Time: Ordering:Sudha Fernandez Senior Database Administrator: ANDREW Indications and History: Systolic murmur. Summary [...] (H) rubén values outside specified reference range. [facility] are accredited with thePho[facility] Memorial Hospitalsocietal Accreditation Commission - Echocardiography. Prepared and Electronically Authenticated Dylan Sales MD Confirmed 02/17/2025 13:59 Sudha Fernandez [facility] US ORDERABLES Final Resu lt INTERFACE SYSTEM [...] DIAGNOSTIC IMAGING ORDERABLES F inal Result * TYPE AND SCREEN (02/13/2025 1:51 PM CDT) ABO GROUP AB 02/13/2025 7:29 PM CDT [facility] [place] RH (D) TYPE Positive 02/13/2025 7:29 PM CDT [facility] ANTIBODY SCREEN Negative 02/13/2025 7:29 PM CDT [facility] [place] Blood Venipuncture / Unknown 02/13/2025 1:51 PM CDT 02/13/2025 1:59 PM CDT us Miguel Donohue MD BLOOD BANK ORDERABLES Edited Re sult - Final [facility] [place] CLIA#[id number] [address] [place] [address], * EKG 12-LEAD (02/13/2025 1:47 PM CDT) 02/13/2025 1:47 PM CDT Narrative INTERFACE SYSTEM - 02/13/2025 10:[address] [facility] [address] [place] [address] Test Date: 2025-02-13 Pat Name: AMANDA HENSON Department: 50 Room: Gender: Male Despatch Clerk: ian : 1940 Requested By: Order Number: [id number] [place] MD: Aldair Balbuena Measurements Intervals [place] Rate: 57 P: 52 WY: 182 QRS: 70 QRSD: 88 T: 72 QT: 398 QTc: 387 Interpretive Statements Sinus bradycardia Otherwise normal ECG Electronically Signed On 02-13-2025 22:22:38 CDT by Aldair Balbuena Procedure Note Aldair Balbuena MD - 02/13/2025 [address] [place] [address] Test Date: 2025-02-13 Pat Name: AMANDA HENSON Department: 50 Room: Gender: Male Despatch Clerk: ian : 1940 Requested By: Order Number: [id number] [place] MD: Aldair Balbuena Measurements Intervals [place] Rate: 57 P: 52 WY: 182 QRS: 70 QRSD: 88 T: 72 QT: 398 QTc: 387 Interpretive Statements Sinus bradycardia Otherwise normal ECG Electronically Signed On 02-13-2025 22:22:38 CDT by Aldair Balbuena us Miguel Donohue MD ECG ORDERABLES Final Result Performing Organization Address City/State/[facility] Co de Phone Number INTERFACE SYSTEM Refer to clinic/hospital department from Last 3 Months Insurance [facility] Advance Directives For more information, please contact: [phone] * Full Code (Latest Code Status on File) Date Activated Date Inactivated Comments 02/27/2025 2:29 PM 03/02/2025 5:00 PM * Full Code Date Activated Date Inactivated Comments 02/27/2025 6:27 AM 02/27/2025 2:29 PM Care Teams Make Up Artist Relationship Specialty Start Date End Date Parveen Bear DO [address] [address] PCP - General Family Practice 06/26/23
--- OUTSIDE RECORDS SUMMARY | 2025-03-25 00:34 | XMS_ITS | Encounter Summary ---
Author Organization [facility] Address [address] [place] [address] Care Team Providers Care Grain Loader Name Role Phone Parveen Bear DO Primary Care Provider [phone] Reason for Visit * Reason Comments Patient Communication Encounter Details Date Type Department Care Team (Late st Contact Info) Description 03/21/2025 Results Follow-Up [facility] [address] [address] Hipolito Cuadra, TECHNICAL ENGINEER [address] [facility] [address] [place] [phone] XR RIBS UNILATERAL 2 VW LEFT Social History Tobacco Use Types Packs/Day Years [...] worry about transportation for future doctor visits, pickling grader medication, etc.? No 2024 Housing Stability Answer [...] on file Legal Sex Male 5:26 AM ASL INTERPRETER Gender Identity Male 11/15/2024 4:33 PM CDT Sexual Orientation Not on file documented as of this encounter Miscellaneous Notes * Telephone Encounter - Shira Dunbar - 03/22/2025 2:58 PM CST Copied from [facility] #[id number]. Topic: CPA Information Request >> Mar 22, 2025 2:57 PM Shira Victoria wrote: Caller is returning phone call from clinic. Caller Name: Abraham Henson Patient/Caregiver Callback Number: Telephone Information: Clinic Left Note In Chart Is there a note from the clinic requesting the caller be transferred when they call back? No Are the credentials of the caregiver who called the patient small wind energy installer? Yes Call Notes: Communicated information that is documented in the note. Caller does not want a call back from clinic. INTERPRETER * Result Encounter Note - Carla Choi LPN - 03/21/2025 1:10 PM CST 03/21/2025 1:09 PM No answer. Will continue to try to reach patient/caregiver. If patient/caregiver calls back, contact center may tell caller No rib fracture. Carla GONZALEZ INTERPRETER documented in this encounter Plan of Treatment Upcoming Encounters Date Type Department Care Team (Late st Contact Info) Description 03/29/2025 8:40 AM ASL INTERPRETER Office Visit [address] [address] Parveen Bear DO [address] [place] [phone] 04/19/2025 11:30 AM ASL INTERPRETER Office Visit [facility] Neurosurgery [address] [place] [address] Cristal Judge NP [address] [place] [address] 10/04/2025 2:40 PM CDT Office Visit [facility] [address] [place] [phone] Parveen Bear DO [address] [place] [phone] documented as of this encounter Visit Diagnoses Not on filedocumented in this encounter Additional Health Concerns Assessment Noted Time PHQ-9 Depression Total Score: 3 03/20/20 25 2:00 PM ASL INTERPRETER documented as of this encounter Care Teams Grain Loader Relationship Specialty Start Date End Date Parveen Bear DO [address] [place] [phone] PCP - General Family Practice 06/26/23 documented as of this encounter
--- OUTSIDE RECORDS SUMMARY | 2025-03-25 00:35 | XMS_ITS | Encounter Summary ---
Author Organization [facility] Address [address] [place] [address] Care Team Providers Care Checkroom Chief Name Role Phone Parveen Bear DO Primary Care Provider [phone] Encounter Details Date Type Department Care Team (Late st Contact Info) Description 03/21/2025 External Device Data STL ABSTRACTION Provider, [...] worry about transportation for future doctor visits, shredder picker medication, etc.? No 2024 Housing Stability [...] on file Legal Sex Male 5:26 AM SPRAY UNIT FEEDER Gender Identity Male 11/15/2024 4:33 PM CDT Sexual Orientation Not on file documented as of this encounter Plan of Treatment Upcoming Encounters Date Type Department Care Team (Late st Contact Info) Description 03/29/2025 8:40 AM SPRAY UNIT FEEDER Office Visit [facility] [address] [phone] Parveen Bear DO [address] [place] [phone] 04/19/2025 11:30 AM SPRAY UNIT FEEDER Office Visit [facility] Neurosurgery [address] [place] [phone] Cristal Judge NP [address] [place] [phone] 10/04/2025 2:40 PM CDT Office Visit [facility] [address] [phone] Parveen Bear DO [address] [place] [phone] documented as of this encounter Visit Diagnoses Not on filedocumented in this encounter Additional Health Concerns Assessment Noted Time PHQ-9 Depression Total Score: 3 03/20/20 25 2:00 PM SPRAY UNIT FEEDER documented as of this encounter Care Teams Checkroom Chief Relationship Specialty Start Date End Date Parveen Bear DO [address] [place] [phone] PCP - General Family Practice 06/26/23 documented as of this encounter
--- OUTSIDE RECORDS SUMMARY | 2025-03-25 00:35 | XMS_ITS | Encounter Summary ---
Author Organization [facility] Address [address] [place] [address] Care Team Providers Care Specifications Writer Name Role Phone Parveen Bear Primary Care Provider [phone] Encounter Details Date Type Department Care Team (Late st Contact Info) Description 03/14/2025 Orders Only [facility] HIM [address] [place] [address] Provider, Abstract NO ADDRESS ON FILE Social [...] worry about transportation for future doctor visits, order picker/assembler medication, etc.? No 2024 Housing Stability Answer [...] on file Legal Sex Male 5:26 AM SIGNALING PROJECT ENGINEER Gender Identity Male 11/15/2024 4:33 PM CDT Sexual Orientation Not on file documented as of this encounter Plan of Treatment Upcoming Encounters Date Type Department Care Team (Late st Contact Info) Description 03/29/2025 8:40 AM SIGNALING PROJECT ENGINEER Office Visit [address] [phone] Parveen Bear DO [address] [place] [phone] 04/19/2025 11:30 AM SIGNALING PROJECT ENGINEER Office Visit [facility] Neurosurgery [address] [place] [phone] Cristal Judge NP [address] [place] [phone] 10/04/2025 2:40 PM CDT Office Visit [address] [phone] Parveen Bear DO [address] [place] [phone] documented as of this encounter Procedures Procedure Name Priority Date/Time Associated Diagnosis Comments COMPREHENSIVE METABOLIC PANEL Routine 03/05/2025 10:47 AM SIGNALING PROJECT ENGINEER documented in this encounter Results * COMPREHENSIVE METABOLIC PANEL (03/05/2025 10:47 AM SIGNALING PROJECT ENGINEER) Blood us Abstract Provider CHEMISTRY ORDERABLES Final Res ult documented in this encounter Visit Diagnoses Not on filedocumented in this encounter Care Teams Specifications Writer Relationship Specialty Start Date End Date Parveen Bear DO [address] [place] [address] PCP - General Family Practice 06/26/23 documented as of this encounter
--- OUTSIDE RECORDS SUMMARY | 2025-03-25 00:35 | XMS_ITS | Encounter Summary ---
Author Organization [facility] Address [address] [place] [address] Care Team Providers Care Warehouse Specialist Name Role Phone Parveen Bear DO Primary Care Provider [phone] Encounter Details Date Type Department Care Team (Late st Contact Info) Description 03/17/2025 Results Follow-Up [facility] [place] [address] [place] [phone] Leela Ramires, WOUND SPECIALIST [address] [phone] TSH, CBC WITH DIFFERENTIAL, LIPID PANEL Social History Tobacco Use Types Packs/Day Years [...] file Legal Sex Male 5:26 AM AUTO HIKER Gender Identity Male 11/15/2024 4:33 PM CDT Sexual Orientation Not on file documented as of this encounter Plan of Treatment Upcoming Encounters Date Type Department Care Team (Late st Contact Info) Description 03/29/2025 8:40 AM AUTO HIKER Office Visit [address] [phone] Parveen Bear DO [address] [place] [phone] 04/19/2025 11:30 AM AUTO HIKER Office Visit [facility] Neurosurgery [address] [address] [place] [address] Cristal Judge NP [address] [place] [phone]21- 10/04/2025 2:40 PM CDT Office Visit [address] [phone] Parveen Bear DO [address] [place] [phone] documented as of this encounter Visit Diagnoses Not on filedocumented in this encounter Care Teams Warehouse Specialist Relationship Specialty Start Date End Date Parveen Bear DO [address] [place] [phone] PCP - General Family Practice 06/26/23 documented as of this encounter
--- OUTSIDE RECORDS SUMMARY | 2025-03-25 00:35 | XMS_ITS | Encounter Summary ---
Author Organization [facility] Address [address] [place] [address] Care Team Providers Care Dcs Engineer Name Role Phone Parveen Bear DO Primary Care Provider [phone] Reason for Visit * Reason Comments Provider Call Encounter Details Date Type Department Care Team (Late st Contact Info) Description 03/22/2025 Telephone [facility] Medicine [place] [address] [phone] Parveen Bear DO [address] [phone] Provider Call Social History Tobacco [...] worry about transportation for future doctor visits, sweet pickle maker medication, etc.? No 2024 Housing Stability Answer [...] on file Legal Sex Male 5:26 AM DIRECTOR OF GUIDANCE IN PUBLIC SCHOOLS Gender Identity Male 11/15/2024 4:33 PM CDT Sexual Orientation Not on file documented as of this encounter Miscellaneous Notes * Telephone Encounter - Carla Choi LPN - 03/22/2025 4:09 PM CST Noted. CTOR OF GUIDANCE IN PUBLIC [employer] * Telephone Encounter - Bertram Magana - 03/22/2025 4:03 PM CST Copied from [facility] #[id number]. Topic: [id number] Call >> Mar 22, 2025 4:02 PM Bertram Victoria wrote: Caller is requesting to speak with Clinical Care Team. Caller Name: Carin Black PRAKASH PT Callback Number: [phone] Is the caller a Physician, Nurse Practitioner or Physician Medical Assistant? No Call Notes: Admitted patient to home health services today 03/22, will get PT and OT and will fax orders with plan of care by the end of this week Is this addressing an immediate patient care need? No CTOR OF GUIDANCE IN [employer] documented in this encounter Plan of Treatment Upcoming Encounters Date Type Department Care Team (Late st Contact Info) Description 03/29/2025 8:40 AM DIRECTOR OF GUIDANCE IN PUBLIC [employer] Office Visit [facility] [address] [place] [phone] Parveen Bear DO [address] [place] [phone] 04/19/2025 11:30 AM DIRECTOR OF GUIDANCE IN [employer]CHO[employer] Office Visit [facility] Neurosurgery [address] [place] [address] [place] [address] Cristal Judge NP [address] [place] [phone] 10/04/2025 2:40 PM CDT Office Visit [facility] [address] [place] [phone] Parveen Bear DO [address] [place] [phone] documented as of this encounter Visit Diagnoses Not on filedocumented in this encounter Additional Health Concerns Assessment Noted Time PHQ-9 Depression Total Score: 3 03/20/20 25 2:00 PM DIRECTOR OF GUIDANCE IN PUBLIC [employer]CHOOL[employer] documented as of this encounter Care Teams Dcs Engineer Relationship Specialty Start Date End Date Parveen Bear DO [address] [place] [phone] PCP - General Family Practice 06/26/23 documented as of this encounter
--- OUTSIDE RECORDS SUMMARY | 2025-03-25 00:35 | XMS_ITS | Encounter Summary ---
Author Organization [facility] Address [address] [place] [address] Care Team Providers Care Conference Director Name Role Phone Parveen Bear DO Primary Care Provider [phone] Reason for Visit * Reason Comments Question Encounter Details Date Type Department Care Team (Late st Contact Info) Description 12/06/2024 Telephone [facility] Medicine [address] [phone] Parveen Bear DO [address] [place] [phone] Question Social History Tobacco Use Types Packs/Day Years Used Date Smoking Tobacco: Former Cigarettes Smokeless Tobacco: Never Alcohol Use Standard Drinks/Week Comments Not Currently 0 (1 standard drink = 0.6 oz pur e alcohol) Sex and Gender Information Value Date Recorded Sex Assigned at Not on file Legal Sex Male 5:26 AM SLICING MACHINE OPERATOR Gender Identity Male 11/15/2024 4:33 PM CDT Sexual Orientation Not on file documented as of this encounter Miscellaneous Notes * Telephone Encounter - Kristina Thomas - 12/06/2024 4:55 PM CDT New PHI and Physician's forms in chart. There is not a Fidelina added. * Telephone Encounter - Precious Keith - 12/06/2024 1:52 PM CDT Copied from [facility] #[id number]. Topic: Administrative >> Dec 06, 2024 1:50 PM Precious Tay wrote: Caller Name: Fidelina, daughter in law Callback Number: [phone] Call Notes: Fidelina says that patient dropped by office to fill out PHI form with her name on it. She asks that it be submitted so she can speak to all his care givers at [facility]. Are they reporting a patient safety concern? No Patient Access Instructions 1. Inform caller they are not on the patient's PHI and we cannot release information. 2. Select Resolve Reason and Click Close CRM. documented in this encounter Plan of Treatment Upcoming Encounters Date Type Department Care Team (Late st Contact Info) Description 03/29/2025 8:40 AM SLICING MACHINE OPERATOR Office Visit [address] [phone] Parveen Bear DO [address] [place] [phone] 04/19/2025 11:30 AM SLICING MACHINE OPERATOR Office Visit [facility] Neurosurgery [address] [place] [address] Cristal Judge NP [address] [place] [phone] 622- 10/04/2025 2:40 PM CDT Office Visit [facility] [address] [phone] Parveen Bear DO [address] [place] [phone] documented as of this encounter Visit Diagnoses Not on filedocumented in this encounter Care Teams Conference Director Relationship Specialty Start Date End Date Parveen Bear DO [address] [place] [phone] PCP - General Family Practice 2/23/24 documented as of this encounter
--- OUTSIDE RECORDS SUMMARY | 2025-03-25 00:35 | XMS_ITS | Encounter Summary ---
Author Organization [facility] Address [address] [place] [address] Care Team Providers Care Story Analyst Name Role Phone Parveen Bear DO Primary Care Provider [phone] Reason for Visit * Reason Comments Provider Call Encounter Details Date Type Department Care Team (Late st Contact Info) Description 03/24/2025 Telephone [facility] Medicine [place] [address] [phone] Parveen Bear DO [address] [phone] Provider Call Social History Tobacco [...] worry about transportation for future doctor visits, shrimp picker medication, etc.? No 2024 Housing Stability [...] on file Legal Sex Male 5:26 AM BURN OUT SCARFING OPERATOR Gender Identity Male 11/15/2024 4:33 PM CDT Sexual Orientation Not on file documented as of this encounter Miscellaneous Notes * Telephone Encounter - Estela Santoro RN - 03/24/2025 4:34 PM CST 03/24/2025 4:34 PM Returned call and spoke with patient. Discussed that Sofia will reach out to him to get a another visit scheduled. He states that he just got out of the fpc and did not have plans on returning. sEtela RN OUT SCARFING OPERATOR * Telephone Encounter - Gi Beckham - 03/24/2025 4:19 PM CST Copied from [facility] #[id number]. Topic: [id number]-[id number] Call >> Mar 24, 2025 4:18 PM Gi Escobar wrote: Caller is requesting to speak with Clinical Care Team. Caller Name: Klaus BURKS with [facility] Callback Number: [phone] Is the caller a Physician, Nurse Practitioner or Physician Mud Jack Operator? No Call Notes: Needing to let the provider know that he was not seen this week for an evaluation and is a missed visit. is stated that she was having trouble taking care of him at home and was trying to get him in a fpc. Is this addressing an immediate patient care need? No OUT SCARFING OPERATOR documented in this encounter Plan of Treatment Upcoming Encounters Date Type Department Care Team (Late st Contact Info) Description 03/29/2025 8:40 AM BURN OUT SCARFING OPERATOR Office Visit [facility] [address] [phone] Parveen Bear DO [address] [place] [phone] 04/19/2025 11:30 AM BURN OUT SCARFING OPERATOR Office Visit [facility] Neurosurgery [address] [place] [address] [place] [address] Cristal Judge NP [address] [place] [address] 10/04/2025 2:40 PM CDT Office Visit [facility] [address] [phone] Parveen Bear DO [address] [place] [phone] documented as of this encounter Visit Diagnoses Not on filedocumented in this encounter Additional Health Concerns Assessment Noted Time PHQ-9 Depression Total Score: 3 03/20/20 25 2:00 PM BURN OUT SCARFING OPERATOR documented as of this encounter Care Teams Story Analyst Relationship Specialty Start Date End Date Parveen Bear DO [address] [place] [address] [phone] PCP - General Family Practice 06/26/23 documented as of this encounter
--- OUTSIDE RECORDS SUMMARY | 2025-03-25 00:35 | XMS_ITS | Encounter Summary ---
Author Organization [facility] Address [address] [place] [address] Care Team Providers Care Upset Operator Name Role Phone Parveen Bear DO Primary Care Provider [phone] Reason for Visit * Reason Comments Clinical Consult Before Scheduling Encounter Details Date Type Department Care Team (Late st Contact Info) Description 03/20/2025 Nurse Triage [facility] Medicine [place] [address] [phone] Parveen Bear DO [address] [phone] Social History Tobacco Use Types Packs/Day Years [...] worry about transportation for future doctor visits, continuous pickling line pickler helper medication, etc.? No 2024 Housing Stability Answer [...] on file Legal Sex Male 5:26 AM SENIOR COST ANALYST Gender Identity Male 11/15/2024 4:33 PM CDT Sexual Orientation Not on file documented as of this encounter Miscellaneous Notes * Telephone Encounter - Beba Talbot RN - 03/20/2025 11:18 AM SENIOR COST ANALYST Adult patient complains of Fall: Patient experienced a fall on Thursday and Thursday, in which he hurt his back and hit his head reports having fallen before. If yes how many falls has the patient had several Did patient get back up from the fall independently? no reports hitting head during fall. reports other injuries from the fall. (if yes, describe here) Patient denies being on anticoagulants or antiplatelet agents. (If denied, review medication list to verify) Was fall related to orthostatic hypotension, medication changes or vertigo?: no Patient fell on Thursday and Thursday. He fell on hardwood. He hit his back on the floor and hit his head on the china cabinet. Denies any swelling or bruising that he is aware of. Patient denies beingon anticoagulants or antiplatelets. Patient was in the hospital last week for pneumonia and he had neck/back surgery on Feb 27. Scheduled patient an appointment with cindy at 240 today. Advised patient the S/S of when to seek emergency care. OR COST ANALYST * Telephone Encounter - Tracy Ortiz - 03/20/2025 11:17 AM CST Copied from [facility] #[id number]. Topic: Symptomatic Care >> Mar 20, 2025 11:13 AM Tracy Childers wrote: Has this patient seen any provider (current or former) at the requested clinic in the past? Yes, Select the appropriate age range and symptom Patient has symptoms and is seeking care. Caller Name: berny sanchez Callback Number: Telephone Information: Call Notes: fall last night- 03/19 - Sunday 03/18- fall and hit his head. Age Range/Symptom: Adult: 18+ & not High Risk Trauma or Injury (including fall, electrocution, etc) Is there an encounter open? No Transferred to [facility] aj and beba answered call. OR COST ANALYST documented in this encounter Plan of Treatment Upcoming Encounters Date Type Department Care Team (Late st Contact Info) Description 03/29/2025 8:40 AM SENIOR COST ANALYST Office Visit [address] [phone] Parveen Bear DO [address] [place] [phone] 04/19/2025 11:30 AM SENIOR COST ANALYST Office Visit [facility] Neurosurgery [address] [place] [address] Cristal Judge NP [address] [place] [phone] 10/04/2025 2:40 PM CDT Office Visit [facility] [address] [phone] Parveen Bear DO [address] [place] [phone] documented as of this encounter Visit Diagnoses Not on filedocumented in this encounter Additional Health Concerns Assessment Noted Time PHQ-9 Depression Total Score: 3 03/20/20 25 2:00 PM SENIOR COST ANALYST documented as of this encounter Care Teams Upset Operator Relationship Specialty Start Date End Date Parveen Bear DO [address] [place] [phone] PCP - General Family Practice 06/26/23 documented as of this encounter
--- NOTE | 2025-03-25 01:21 | CTR_ITS ---
PROCEDURE INFORMATION: Exam: CT Abdomen And Pelvis With Contrast Exam date and time: 03/25/2025 1:52 AM Age: 84 years old Clinical indication: Other: Diarrhea; Abdominal pain; Localized; Lower; Prior surgery; Surgery date: <1 month; Surgery type: Lumbar laminectomy; Fall with head strike. Laceration to left parietal. C/O head and neck pain. ; Additional info: Diffuse lower abd pain, diarrhea TECHNIQUE: Imaging protocol: Computed tomography of the abdomen and pelvis with contrast. Radiation optimization: All CT scans at this facility use at least one of these dose optimization techniques: automated exposure control; mA and/or kV adjustment per patient size (includes targeted exams where dose is matched to clinical indication); or iterative reconstruction. Contrast material: OMNI 350; Contrast volume: 100 ml; Contrast route: INTRAVENOUS (IV); COMPARISON: CR (PELVIS, ) 03/03/2025 6:28 PM RADIATION DOSE METRICS: Total DLP (mGy-cm): 1111.22 FINDINGS: Liver: Normal. No mass. Gallbladder and biliary ducts: Normal. No calcified stones. No ductal dilation. Pancreas: Normal. No ductal dilation. Spleen: Multiple calcified splenic granulomas. Adrenal glands: Normal. No mass. Kidneys and ureters: No hydronephrosis or delayed nephrogram. Stomach and bowel: Moderate fecal retention, correlate for constipation. Appendix: No evidence of appendicitis. Intraperitoneal space: Unremarkable. No free air. No significant fluid collection. Vasculature: Atherosclerotic changes of the aorta. Lymph nodes: Unremarkable. No enlarged lymph nodes. Urinary bladder: Unremarkable as visualized. Reproductive: Unremarkable as visualized. Bones/joints: Degenerative changes of the spine. Grade 1 anterolisthesis of L5 on S1 measures 1 cm. Multilevel laminectomies at L5, L4, L3, and L2. Posterior midline cutaneous skin arielle. Soft tissues: See Bones/joints finding. CT/CT abdomen pelvis w con* [id number] IMPRESSION: 1. Moderate fecal retention, correlate for constipation. 2. Grade 1 anterolisthesis of L5 on S1 measures 1 cm. Multilevel laminectomies at L5, L4, L3, and L2. Posterior midline cutaneous skin arielle. 3. No hydronephrosis or delayed nephrogram.
--- NOTE | 2025-03-25 01:21 | CTR_ITS ---
PROCEDURE INFORMATION: Exam: CT Cervical Spine Without Contrast Exam date and time: 03/25/2025 1:49 AM Age: 84 years old Clinical indication: Injury or trauma; Blunt trauma; Prior surgery; Surgery date: <1 month; Surgery type: Cervical fusion revision; Fall with head strike. Laceration to left parietal. C/O head and neck pain. ; Additional info: Prior fusion, fall and neck pain TECHNIQUE: Imaging protocol: Computed tomography of the cervical spine without contrast. Radiation optimization: All CT scans at this facility use at least one of these dose optimization techniques: automated exposure control; mA and/or kV adjustment per patient size (includes targeted exams where dose is matched to clinical indication); or iterative reconstruction. COMPARISON: CT cervical spin wo con* [id number] 03/03/2025 5:42 PM RADIATION DOSE METRICS: Total DLP (mGy-cm): 380.57 FINDINGS: Bones: No acute cervical spine fracture or subluxation. The vertebral body heights are maintained. The craniocervical junction is intact. The atlantodental interval is within normal limits. The dens is intact. No spondylolisthesis. Multilevel degenerative changes. Multilevel cervical spondylosis and degenerative endplate changes/disc disease. Straightening of the cervical lordosis. ACDF at C4-C6. The anterior plate is well seated. No CT evidence of hardware complication. Interbody spacers present at C3-C4. Multilevel posterior spondylotic ridging. Lungs: Lung apices are normal. Soft tissues: Unremarkable. CT/CT cervical spin wo con* [id number] IMPRESSION: 1. No acute cervical spine fracture or subluxation. 2. Multilevel degenerative changes. 3. ACDF at C4-C6. The anterior plate is well seated. No CT evidence of hardware complication. Interbody spacers present at C3-C4.
--- NOTE | 2025-03-25 01:21 | CTR_ITS ---
PROCEDURE INFORMATION: Exam: CT Head Without Contrast Exam date and time: 03/25/2025 1:48 AM Age: 84 years old Clinical indication: Injury or trauma; Blunt trauma (contusions or hematomas); Fall with head strike. Laceration to left parietal. C/O head and neck pain. ; Additional info: Fall. Lac to L pariteal scalp TECHNIQUE: Imaging protocol: Computed tomography of the head without contrast. Radiation optimization: All CT scans at this facility use at least one of these dose optimization techniques: automated exposure control; mA and/or kV adjustment per patient size (includes targeted exams where dose is matched to clinical indication); or iterative reconstruction. COMPARISON: CT cervical spin wo con* [id number] 03/03/2025 5:42 PM RADIATION DOSE METRICS: Total DLP (mGy-cm): 891.9 FINDINGS: Brain: No acute intracranial hemorrhage. No midline shift or mass effect. No acute territorial infarct. Global age-related cerebral atrophy. Chronic, age related microangiopathy, consistent periventricular and subcortical white matter hypoattenuation. Cerebral ventricles: No ventriculomegaly. Paranasal sinuses: Visualized sinuses are unremarkable. No fluid levels. Mastoid air cells: Visualized mastoid air cells are well aerated. Bones: Unremarkable. No acute fracture. Soft tissues: Unremarkable. CT/CT head wo con* [id number] IMPRESSION: No acute intracranial hemorrhage. No midline shift or mass effect.
--- NOTE | 2025-03-25 01:21 | XRR_ITS ---
PROCEDURE INFORMATION: Exam: XR Chest Exam date and time: 03/25/2025 1:29 AM Age: 84 years old Clinical indication: Injury or trauma; Blunt trauma (contusions or hematomas); Fall at home. Recent pneumonia. TECHNIQUE: Imaging protocol: Radiologic exam of the chest. Views: 1 view. COMPARISON: CR (CHEST, ) 03/03/2025 5:45 PM FINDINGS: Lungs: Unremarkable. No consolidation. Pleural spaces: Unremarkable. No pleural effusion. No pneumothorax. Heart/Mediastinum: Unremarkable. No cardiomegaly. Bones/joints: Unremarkable. XR/XR chest 1V portable [id number] IMPRESSION: No consolidation.
[2025-03-25 01:36] LABS: Hematocrit 30.3 % (37-53); Hemoglobin 10.00 g/dL (11.27-16.99); Mean Corpuscular HGB Conc 33.0 g/dL (30-55); Mean Corpuscular Hemoglobin 30.7 pg (27-33); Mean Corpuscular Volume 92.9 fl (82-101); Nucleated Red Blood Cells % 0 %; Platelet Count 194 10^3/cmm (157-399); Red Blood Count 3.26 10^6/uL (3.85-5.65); White Blood Count 6.06 10^3/uL (3.29-11.43)
[2025-03-25 01:43] LABS: Glucose Urine UA Negative (Normal); Nitrate Urine Negative (Negative); Specific Gravity, Urine 1.008 (1.005-1.030)
[2025-03-25 01:48] LABS: Add Urine Microscopic? YES
[2025-03-25] MEDS: iohexol 350 mg/mL 500 mL Btl (per mL) IV (01:51)
[2025-03-25 01:53] LABS: Alanine Aminotransferase 8 U/L (0-41); Albumin Level 3.6 g/dL (3.5-5.2); Alkaline Phosphatase 77 U/L (40-130); Anion Gap 13.1 (5-19); Aspartate Amino Transferase 11 U/L (0-40); Blood Urea Nitrogen 13 mg/dL (8-23); Calcium 8.7 mg/dL (8.5-10.5); Carbon Dioxide 25 mmol/L (22-29); Chloride 103 mmol/L (98-107); Globulin 2.3 g/dL (1.3-4.6); Glucose 92 mg/dL (65-115); Lipase 11 U/L (13-60); Magnesium 1.9 mg/dL (1.7-2.3); Osmolality Calculated 284 mOsm/kg (285-295); Potassium 4.1 mmol/L (3.5-5.1); Sodium 137 mmol/L (136-145); Total Protein 5.9 g/dL (6.6-8.7)
[2025-03-25 01:55] LABS: Lactic Sepsis W/Reflex 0.5 mmol/L (0.5-2.2)
--- NOTE | 2025-03-25 04:13 | W.ED.FALL ---
HPI - Fall General: Chief Complaint: Fall Stated Complaint: fall hit head Time Seen by Provider: 03/25/25 00:50 History of Present Illness: Patient is an 84-year-old male with a history of recent neck surgery who presents after a fall resulting in a scalp laceration and neck pain. He reports multiple falls daily over the past several days, with the most recent fall causing pain at the top of his head and neck. He also has had significant diarrhea for the past two days, with 2 episodes last night, leading to generalized weakness and dehydration. No chest pain or respiratory symptoms are reported. The patient lives at home, but his is in home hospice and unable to care for him; son lives nearby and frequently checks on him, he was recently in a short-term rehab. He also sustained a laceration to his arm two days ago, requiring 18 stitches. He is on a baby aspirin only, he did briefly hit his head, no LOC, no confusion or vomiting. Associated symptoms-after fall: Reports abdominal pain Related Data Home Medications ?Medication ?Instructions ?Recorded ?Confirmed bupropion HCl 150 mg 24 hr tablet, 150 mg PO QAM 10/22/21 03/04/25 extended release (Wellbutrin XL) cetirizine 10 mg tablet (All Day 10 mg PO DAILY PRN allergies 10/22/21 03/04/25 Allergy (cetirizine)) gabapentin 400 mg capsule 400 mg PO TID 10/22/21 03/04/25 omeprazole 20 mg capsule,delayed 20 mg PO BID 10/22/21 03/04/25 release ropinirole 2 mg tablet 2 mg PO BID 10/22/21 03/04/25 tamsulosin 0.4 mg capsule 0.4 mg PO DAILY 10/22/21 03/04/25 trazodone 100 mg tablet 100 mg PO BEDTIME 10/22/21 03/04/25 losartan 100 mg tablet 100 mg PO DAILY 03/04/25 03/04/25 prednisone 1 mg tablet 1 mg PO DAILY 03/04/25 03/04/25 Previous Rx's ?Medication ?Instructions ?Recorded meloxicam 15 mg tablet 15 mg PO DAILY PRN pain #30 tabs 03/08/25 Allergies Allergy/AdvReac Type Severity Reaction Status Date / Time No Known Allergies Allergy Verified 09/23/24 09:43 Review of Systems General: Reports: 10 or more systems reviewed and unremarkable except in HPI and below Const: Reports: fatigue GI: Reports: abdominal pain and diarrhea PFSH ED PFSH: Medical History (Updated 03/25/25 @ 04:20 by Ej Sarmiento DO) Skin lesion of face GERD (gastroesophageal reflux disease) Surgical History (Updated 03/05/25 @ 15:27 by Martha Gupta MD) Previous back surgery Family History Father Cancer Brother Cancer Social History Smoking and tobacco/nicotine status: former use of tobacco/nicotine Physical Exam Narrative: EXAM NARRATIVE: Patient frail but overall well-appearing, vital signs stable on arrival, afebrile, no acute distress. GCS 15, pupils equal round reactive, no nystagmus, motor and sensation 5 out of 5 in all 4 extremities, has prosthetic to his left lower leg. Has about 6 cm linear skin laceration to his left parietal scalp otherwise no signs of facial trauma, and cervical collar, no thoracic or lumbar midline tenderness. Mild diffuse abdominal tenderness, bowel sounds intact, no CVA tenderness. Breathing comfortably on room air, no adventitious lung sounds. Procedures Laceration Laceration 1: Site: scalp Side (If applicable): left Size (cm): 6 Description: linear Skin layer closed with: other (staple) Number of sutures: 4 Course Vital Signs: Vital signs: Vital Signs Temperature 97.5 F L 03/25/25 00:30 Pulse Rate 69 03/25/25 02:54 Respiratory Rate 16 03/25/25 00:30 Blood Pressure 143/63 03/25/25 02:54 Pulse Oximetry 100 03/25/25 02:54 Oxygen Delivery Me thod Room Air 03/25/25 02:14 MDM - Fall Medical Decision Making -ddx: Head trauma, concussion, skin avulsion, gastroenteritis, dehydration, intra-abdominal abscess, SBO, constipation, electrolyte abnormality, coagulopathy, acute blood loss - Patient overall well-appearing, has been having increasing falls over the last few days, has clinically been dealing with a gastroenteritis, did diarrhea and dehydration probably contributing to this, was recently in a rehab facility and is having a hard time with his ADLs at home currently. He had a recent neck fusion and has a cervical collar since then but has seemingly new neck pain today. Will evaluate for traumatic injury, abdominal pathology with CTs, labs and reassess, will start with 1 L of fluids, denying needing any pain or nausea medication at this time. - Patient with no evidence of traumatic injury on his CT scans, no significant coagulopathy, seemingly intact hardware from his recent neurosurgical procedure. Had mild inflammatory marker elevation, no leukocytosis, vital stable, not septic or bacteremic at this time, likely in setting of his resolving gastroenteritis, felt improved with fluids. Scalp laceration repaired with sutures with good hemostasis after thorough cleaning. No reason to start antibiotics at this time. With his profound weakness, recurrent falls in elderly patient, patient admitted to the hospitalist for rehabilitation, nutrition and strengthening and possible placement at that time, admitted in stable condition. Lab Data 03/25/25 01:32 03/25/25 01:32 Radiology Impressions Abdomen/Pelvis CT 03/25/25 01:21 IMPRESSION: 1. Moderate fecal retention, correlate for constipation. 2. Grade 1 anterolisthesis of L5 on S1 measures 1 cm. Multilevel laminectomies at L5, L4, L3, and L2. Posterior midline cutaneous skin arielle. 3. No hydronephrosis or delayed nephrogram. Cervical Spine CT 03/25/25 01:21 IMPRESSION: 1. No acute cervical spine fracture or subluxation. 2. Multilevel degenerative changes. 3. ACDF at C4-C6. The anterior plate is well seated. No CT evidence of hardware complication. Interbody spacers present at C3-C4. Chest X-Ray 03/25/25 01:21 IMPRESSION: No consolidation. Head CT 03/25/25 01:21 IMPRESSION: No acute intracranial hemorrhage. No midline shift or mass effect. Laboratory Results WBC 6.06 10^3/uL (3.29-11.43) 03/25/25 01:32 RBC 3.26 10^6/uL (3.85-5.65) L 03/25/25 01:32 Hgb 10.00 g/dL (11.27-16.99) L 03/25/25 01:32 Hct 30.3 % (37-53) L 03/25/25 01:32 MCV 92.9 fl (82-101) 03/25/25 01: MCH 30.7 pg (27-33) 03/25/25 01:32 MCHC 33.0 g/dL (30-55) 03/25/25 01:32 RDW 11.6 % (12.1-15.1) L 03/25/25 01:32 Plt Count 194 10^3/cmm (157-399) 03/25/25 01:32 MPV 8.6 fL (7.4-10.4) 03/25/25 01:32 Neut % (Auto) 67.4 % 03/25/25 01:32 Lymph % (Auto) 18.0 % 03/25/25 01:32 Tillman % (Auto) 10.7 % 03/25/25 01:32 Eos % (Auto) 3.3 % 03/25/25 01:32 Baso % (Auto) 0.3 % 03/25/25 01:32 Neut # (Auto) 4.08 10^3/uL (1.8-7.7) 03/25/25 01:32 Lymph # (Auto) 1.1 10^3/uL (0.8-4.8) 03/25/25 01:32 Tillman # (Auto) 0.7 10^3/uL (0.2-0.9) 03/25/25 01:32 Eos # (Auto) 0.2 10^3/uL (0.0-0.8) 03/25/25 01:32 Baso # (Auto) 0.0 10^3/uL (0.0-0.1) 03/25/25 01:32 Nucleated RBC % (auto) 0 % 03/25/25 01:32 Nucleated RBCs # 0.0 /100WBC 03/25/25 01:32 ESR 17 mm/hr (0-10) H 03/25/25 01:32 Sodium 137 mmol/L (136-145) 03/25/25 01:32 Potassium 4.1 mmol/L (3.5-5.1) 03/25/25 01:32 Chloride 103 mmol/L (98-107) 03/25/25 01:32 Carbon Dioxide 25 mmol/L (22-29) 03/25/25 01:32 Anion Gap 13.1 (5-19) 03/25/25 01:32 BUN 13 mg/dL (8-23) 03/25/25 01:32 Creatinine 0.8 mg/dL (0.7-1.2) 03/25/25 01:32 GFR Calculation Not Reportable 03/25/25 01:32 Glucose 92 mg/dL (65-115) 03/25/25 01:32 Calculated Osmolality 284 mOsm/kg (285-295) L 03/25/25 01:32 Lactic Acid 0.5 mmol/L (0.5-2.2) 03/25/25 01:32 Calcium 8.7 mg/dL (8.5-10.5) 03/25/25 01:32 Phosphorus 3.3 mg/dL (2.5-4.5) 03/25/25 01:32 Magnesium 1.9 mg/dL (1.7-2.3) 03/25/25 01:32 Total Bilirubin 0.2 mg/dL (0.15-1.2) 03/25/25 01:32 AST 11 U/L (0-40) 03/25/25 01:32 ALT 8 U/L (0-41) 03/25/25 01:32 Alkaline Phosphatase 77 U/L (40-130) 03/25/25 01:32 C-Reactive Protein 46.6 mg/L (0.0-4.9) H 03/25/25 01:32 Total Protein 5.9 g/dL (6.6-8.7) L 03/25/25 01:32 Albumin 3.6 g/dL (3.5-5.2) 03/25/25 01:32 Globulin 2.3 g/dL (1.3-4.6) 03/25/25 01:32 Lipase 11 U/L (13-60) L 03/25/25 01:32 Urine Color Yellow (Yellow) 03/25/25 00:47 Urine Appearance Clear (CLEAR) 03/25/25 00:47 Urine pH 6.0 (5-7) 03/25/25 00:47 Ur Specific [place] 1.008 (1.005-1.030) 03/25/25 00:47 Urine Protein Negative (Negative) 03/25/25 00:47 Urine Glucose (UA) Negative (Normal) 03/25/25 00:47 Urine Ketones Negative (Negative) 03/25/25 00:47 Urine Blood Negative (Negative) 03/25/25 00:47 Urine Nitrate Negative (Negative) 03/25/25 00:47 Urine Bilirubin Negative (Negative) 03/25/25 00:47 Urine Urobilinogen 0.2 mg/dL (Negative) 03/25/25 00:47 Ur Leukocyte Esterase Negative (Negative) 03/25/25 00:47 Urine RBC 0-2 /hpf (0-2) 03/25/25 00:47 Urine WBC 0-5 /hpf (0-5) 03/25/25 00:47 Ur Squamous Epith Cells 0-5 /hpf (0-5) 03/25/25 00:47 Amorphous Sediment Not Reportable 03/25/25 00:47 Urine Bacteria None seen /hpf (NONE) 03/25/25 00:47 Hyaline Casts 0-4 /lpf H 03/25/25 00:47 All radiology interpretation(s) finalized by discharge Discharge Plan Discharge Admit Provider: Ej Sarmiento Condition: Stable Prescriptions: No Action cetirizine [All Day Allergy (cetirizine)] 10 mg tablet 10 mg PO DAILY PRN (Reason: allergies) gabapentin 400 mg capsule 400 mg PO TID omeprazole 20 mg capsule,delayed release(DR/EC) 20 mg PO BID ropinirole 2 mg tablet 2 mg PO BID tamsulosin 0.4 mg capsule 0.4 mg PO DAILY trazodone 100 mg tablet 100 mg PO BEDTIME bupropion HCl [Wellbutrin XL] 150 mg tablet extended release 24 hr 150 mg PO QAM prednisone 1 mg tablet 1 mg PO DAILY losartan 100 mg tablet 100 mg PO DAILY meloxicam 15 mg tablet 15 mg PO DAILY PRN (Reason: pain) Qty: 30 0RF Print Language: Spanish Coding Level of Care Code ED Hand Bunch Maker for Leonard Mike
--- NOTE | 2025-03-25 04:19 | PM.HP ---
Providers/Chief Complaint Primary Care Provider: Parveen Bear DO Chief Complaint: fall hit head History of Present Illness Abraham Henson is a 84 year old male Medications/Allergies Home Medications ?Medication ?Instructions ?Recorded ?Confirmed ?Last Taken ?Type bupropion HCl 150 mg 24 hr tablet, 150 mg PO QAM 10/22/21 03/04/25 03/03/25 History extended release (Wellbutrin XL) cetirizine 10 mg tablet (All Day 10 mg PO DAILY PRN allergies 10/22/21 03/04/25 03/03/25 History Allergy (cetirizine)) gabapentin 400 mg capsule 400 mg PO TID 10/22/21 03/04/25 03/03/25 History omeprazole 20 mg capsule,delayed 20 mg PO BID 10/22/21 03/04/25 Unknown History release ropinirole 2 mg tablet 2 mg PO BID 10/22/21 03/04/25 03/03/25 History tamsulosin 0.4 mg capsule 0.4 mg PO DAILY 10/22/21 03/04/25 03/03/25 History trazodone 100 mg tablet 100 mg PO BEDTIME 10/22/21 03/04/25 03/02/25 History losartan 100 mg tablet 100 mg PO DAILY 03/04/25 03/04/25 03/03/25 History prednisone 1 mg tablet 1 mg PO DAILY 03/04/25 03/04/25 03/03/25 History meloxicam 15 mg tablet 15 mg PO DAILY PRN pain #30 tabs 03/08/25 03/04/25 03/03/25 Rx Allergies Allergy/AdvReac Type Severity Reaction Status Date / Time No Known Allergies Allergy Verified 09/23/24 09:43 PFSH Acute PFSH: Medical History (Updated 03/25/25 @ 04:20 by Ej Sarmiento DO) Skin lesion of face GERD (gastroesophageal reflux disease) Surgical History (Updated 03/05/25 @ 15:27 by Martha Gupta MD) Previous back surgery Family History Father Cancer Brother Cancer Social History Smoking and tobacco/nicotine status: former use of tobacco/nicotine Vitals/I&O/Wt Last Vital Signs Temp 97.5 F L 03/25/25 00:30 Pulse 69 03/25/25 02:54 Resp 16 03/25/25 00:30 BP 143/63 03/25/25 02:54 Pulse Ox 100 03/25/25 02:54 O2 Del Method Room Air 03/25/25 02:14 Weight last 48 hrs Weight 72.575 kg Data 03/25/25 01:32 03/25/25 01:32 A&P Assessment and plan 1. Fall: START OF MEDICAL REPORT Ej Sarmiento D.O. Board Certified Internal Medicine Chief Complaint: Generalized weakness History of Present Illness: The patient is an 84-year-old male who present chief complaint of generalized weakness and falls. The last week leading up to his hospitalization he states that he has fallen approximately 4-5 times. He attributes his falls to generalized weakness. In the 48 hours leading up to his hospitalization he admits to nausea and emesis. The patient states that he is been having diarrhea and has been using laxatives and imaging performed in the emergency department actually shows that the patient is now constipated. In 48 hours leading up to his hospitalization the patient denies fever, rigors, cough, wheeze, abdominal pain, myalgia, dysuria, chest pain, dyspnea, light headiness, dizziness, diaphoresis, palpitations, sensation of a rapid heartbeat, since an irregular heartbeat, diplopia, blurry vision, dysphagia, dysphagia, paresthesia/anesthesia/myasthenia of any particular part of his body. He does admit to headache due to his fall. He presents for further evaluation I have explained to the patient (if they are coherent, able to comprehend, and/or are communicative) and/or their family member(s), friend(s), guardian(s), and/or other individual(s) present on the patient?s behalf (if present) the patient?s current medical condition, the patient?s current plan of care, and I have answered all questions posed to me. Family History: Cancer Physical Examination: General: -Alert. -No acute distress. -No dyspnea. -No tachypnea. Head: ? There is trauma to the lef occiput t -Normocephalic. Eyes: -Pupils equally round and reactive to light and accommodation. -Extraocular muscles intact. Neurological: -Cranial nerves II-XII intact. Neck: -No jugular venous distention. -No thyromegaly. -No cervical lymphadenopathy. Heart: -Regular rate. -Regular rhythm. -No murmurs. -No gallops. -No rubs. Lungs: -No wheeze. -No rhonchi. -No rales. Abdomen: -Normal bowel sounds in all four quadrants. -No rebound. -No guarding. -No tenderness. Extremities: -2/4 pulse in bilateral upper extremities and right lower extremity -No clubbing. -No cyanosis. -No edema. -No right calf tenderness present -Negative right Brenda?s sign Musculoskeletal: -5/5 bilateral upper extremity strength. -5/5 right lower extreme strength -Sensorium of bilateral upper extremities are equal and intact. -Sensorium of right lower extremity is intact ? Patient status post left AKA Additional Details / Additional Findings / Exceptions / Miscellaneous: Pertinent Laboratory Results / Pertinent Radiology Results / Pertinent Diagnostic Results / Pertinent Vital Signs: Blood pressure 143/63, heart rate 69, respiration 16, temperature 97.5?, 100% room air. Hemoglobin 10 Social History: Caffeine: Coffee Tobacco: Former smoker Alcohol: Denies Pets: Denies + Allergies: No known drug allergies Code Status: DNR, DNI Admission Date: 4:17 AM on March 25, 2025 Discharge Date: History of Present Illness / Hospital Course Summary: The patient is an 84-year-old male who present chief complaint of generalized weakness and falls. The last week leading up to his hospitalization he states that he has fallen approximately 4-5 times. He attributes his falls to generalized weakness. In the 48 hours leading up to his hospitalization he admits to nausea and emesis. The patient states that he is been having diarrhea and has been using laxatives and imaging performed in the emergency department actually shows that the patient is now constipated. In 48 hours leading up to his hospitalization the patient denies fever, rigors, cough, wheeze, abdominal pain, myalgia, dysuria, chest pain, dyspnea, light headiness, dizziness, diaphoresis, palpitations, sensation of a rapid heartbeat, since an irregular heartbeat, diplopia, blurry vision, dysphagia, dysphagia, paresthesia/anesthesia/myasthenia of any particular part of his body. He does admit to headache due to his fall. He presents for further evaluation Surgical History: Bilateral cataract surgery, bilateral shoulder surgery, bilateral knee surgery, surgery as a child for abdominal ?rupture?, left above-knee imitation, cervical spine fusion, lumbar surgery Assessment / Plan + Medical History: Generalized weakness. This may be secondary to his recent gastroenteritis. Urinalysis unremarkable. Chest x-ray unremarkable. Magnesium within normal limits. Check TSH, free T4, B12, folate, 25 hydroxy vitamin D level, 1, 25 hydroxy vitamin D level. PT eval. OT eval. IV normal saline 100 ML?s per hour Laxative-induced constipation with presence of recent gastroenteritis. Stool panel pending. Colace 200 mg by mouth twice a day plus senna 17.2 mg by mouth twice a day plus IV normal saline 100 ML?s per hour Neuropathy Depression Seasonal allergies Status post recent cervical spine surgery. Consideration for orthopedic surgery consult Anemia. We will monitor hemoglobin level intermittently GERD Hypertension Arthritis Restless leg syndrome BPH DVT perplexes. Bilateral SCD Consultations: Consideration for orthopedic surgery consult for patient?s recent cervical spine surgery Disposition: Anticipate discharge within 24 hours however the patient may require placement based on the reformations of physical therapy and occupational therapy + Discharge Diet: 2 g sodium Discharge Activity: Discharge Condition: Discharge Medications: Time Spent with Patient: Greater than 30 minutes. Ej Sarmiento D.O. Board Certified Internal Medicine END OF MEDICAL REPORT PDMP PDMP Reviewed: Not Reviewed Attestations Medical Necessity Statement*: Anticipate discharge within 24 hours however the patient may require placement based on the reformations of physical therapy and occupational therapy Coding Level of Care Code Acute Code for Chg Fwd Diagnoses Fall W19.XXXA
[2025-03-25 04:39] LABS: Free T4 Free Thyroxine 1.10 ng/dL (0.82-1.77); Thyroid Stimulating Hormone 2.43 uIU/mL (0.27-4.20)
[2025-03-25 05:11] LABS: Vitamin B12 555 pg/mL (232-1245)
--- NOTE | 2025-03-25 11:57 | P.PN_ITS ---
Subjective 2 Subjective: He has been weak recently. Vitals/I&O/Wt Last Vital Signs Temp 97.5 F L 03/25/25 00:30 Pulse 76 03/25/25 09:07 Resp 18 03/25/25 09:07 BP 154/68 03/25/25 09:07 Pulse Ox 93 03/25/25 09:07 O2 Del Method Room Air 03/25/25 11:21 03/24/25 03/25/25 03/25/25 22:59 06:59 14:59 Intake Total 1000 / 1000 Balance 1000 / 1000 Weight last 48 hrs Weight 72.575 kg Physical Exam 2 Narrative: Sitting up in bed. Const: COMMON NORMALS: patient oriented x3 and alert GENERAL APPEARANCE: c ooperative ORIENTATION/CONSCIOUSNESS: Yes awake OTHER: C-collar in place. HENMT: COMMON NORMALS: oropharynx normal Neck/C-Spine: COMMON NORMALS: no JVD Resp: COMMON NORMALS: normal respiratory effort and clear to auscultation bilaterally AUSCULTATION: clear to auscultation bilaterally Cardio: COMMON NORMALS: no JVD, regular rhythm, S1 normal heart sound present, S2 normal heart sound present and No murmurs present (Cardio) RHYTHM: regular rhythm HEART SOUNDS: S1 normal heart sound present and S2 normal heart sound present GI: COMMON NORMALS: Normal to inspection, nondistended, normoactive bowel sounds present, Soft to palpation and non-tender PALPATION: Yes Soft to palpation Extremity: COMMON NORMALS: no joint enlargement and no pedal edema OTHER: L AKA Neuro: COMMON NORMALS: patient oriented x3 and moves all extremities S ENSORIUM/ORIENTATION: Yes alert Skin: COMMON NORMALS: no rashes or lesions noted GENERAL SKIN EXAM: no rashes or lesions noted Data 03/25/25 01:32 03/25/25 01:32 A&P Assessment and plan 1. Fall: Generalized weakness. This may be secondary to his recent gastroenteritis. Possible dehydration with reported 2 weeks of diarrhea. Continues on gentle IV hydration. Monitor for risk of fluid overload. Oral intake is tolerating. So far no further diarrhea since last night. Urinalysis unremarkable. Chest x-ray unremarkable. Magnesium within normal limits. Reviewed TSH, free T4, discussed with him, unremarkable. Reviewed B12, folate, unremarkable. Noted pending 25 hydroxy vitamin D level, 1, 25 hydroxy vitamin D level. Reviewed CT C-spine, head CT, abdomen pelvis CT, chest x-ray. PT eval, OT eval reviewed notes. Discussed with case investigator. Would benefit from further rehabilitation, they will work with him regarding arrangements. IV normal saline 100 ML?s per hour Opioid-induced constipation with presence of recent gastroenteritis. Stool panel pending. Colace 200 mg by mouth twice a day plus senna 17.2 mg by mouth twice a day plus IV normal saline 100 ML?s per hour Neuropathy Depression: Resume bupropion, duloxetine Seasonal allergies Status post recent cervical spine surgery. Anemia. We will monitor hemoglobin level intermittently. Repeat blood count requested. GERD Hypertension: Resume losartan Arthritis Restless leg syndrome. Resume gabapentin. BPH: Resume Flomax DVT perplexes. Bilateral SCD PDMP PDMP Reviewed: Not Reviewed Attestations 2 Medical Necessity Statement*: Continue observation with generalized weakness, post discharge planning and arrangements. and High MDM includes amount and/or complexity of data reviewed/ordered [ resulted lab(s)/test(s) and other healthcare professional discussion] as documented Diagnoses Fall W19.XXXA
--- NOTE | 2025-03-25 12:48 | PC.OT ---
Evaluation not completed as patient remains in the ER. Will evaluate when transferred to floor.
--- OUTSIDE RECORDS SUMMARY | 2025-03-25 12:59 | XMS_ITS | Encounter Summary ---
Author Organization [facility] Address [address] [place] [address] Care Team Providers Care Punch Press Setter Name Role Phone Parveen Bear DO Primary Care Provider [phone] Reason for Visit * Reason Comments Question Encounter Details Date Type Department Care Team (Late st Contact Info) Description 12/06/2024 Telephone [facility] Medicine [address] [phone] Parveen Bear DO [address] [place] [phone] Question Social History Tobacco Use Types Packs/Day Years Used Date Smoking Tobacco: Former Cigarettes Smokeless Tobacco: Never Alcohol Use Standard Drinks/Week Comments Not Currently 0 (1 standard drink = 0.6 oz pur e alcohol) Sex and Gender Information Value Date Recorded Sex Assigned at Not on file Legal Sex Male 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 There is not a Fidelina added. * Telephone Encounter - Precious Keith - 12/06/2024 1:52 PM CDT Copied from [facility] #[id number]. Topic: Administrative >> Dec 06, 2024 1:50 PM Precious Tay wrote: Caller Name: Fidelina, daughter in law Callback Number: [phone] Call Notes: Fidelina says that patient dropped by office to fill out PHI form with her name on it. She asks that it be submitted so she can speak to all his care givers at [facility]. Are they reporting a patient safety concern? No Patient Access Instructions 1. Inform caller they are not on the patient's PHI and we cannot release information. 2. Select Resolve Reason and [employer] CRM. documented in this encounter Plan of Treatment Upcoming Encounters Date Type Department Care Team (Late st Contact Info) Description 03/29/2025 8:40 AM DRY HEAT ROOM ATTENDANT Office Visit [address] [phone] Parveen Bear DO [address] [place] [address] [phone] 04/19/2025 11:30 AM DRY HEAT ROOM ATTENDANT Office Visit [facility] Neurosurgery [address] [place] [address] Cristal Judge NP [address] [place] [address] [phone] 10/04/2025 2:40 PM CDT Office Visit [facility] [address] [phone] Parveen Bear DO [address] [place] [address] [phone] documented as of this encounter Visit Diagnoses Not on filedocumented in this encounter Care Teams Punch Press Setter Relationship Specialty Start Date End Date Parveen Bear DO [address] [place] [address] [phone] PCP - General Family Practice 2/23/24 documented as of this encounter
--- OUTSIDE RECORDS SUMMARY | 2025-03-25 12:59 | XMS_ITS | Encounter Summary ---
Author Organization [facility] Address [address] [place] [address] Care Team Providers Care Belt Knife Feeder Name Role Phone Parveen Bear DO Primary Care Provider [phone] Reason for Visit * Reason Comments Patient Communication Encounter Details Date Type Department Care Team (Late st Contact Info) Description 03/21/2025 Results Follow-Up [facility]- [address] [phone] Hipolito Cuadra, FILM LIBRARY CLERK [address] [facility] [address] [place] [phone] XR RIBS UNILATERAL 2 VW LEFT Social [...] about transportation for future doctor visits, pick up and delivery driver medication, etc.? No 2024 Housing Stability Answer [...] on file Legal Sex Male 5:26 AM CREAM BUYER Gender Identity Male 11/15/2024 4:33 PM CDT Sexual Orientation Not on file documented as of this encounter Miscellaneous Notes * Telephone Encounter - Shira Dunbar - 03/22/2025 2:58 PM CST Copied from [facility] #[id number]. Topic: CPA Information Request >> Mar 22, 2025 2:57 PM Shira Victoria wrote: Caller is returning phone call from clinic. Caller Name: Abraham Henson Patient/Caregiver Callback Number: Telephone Information: Clinic Left Note In Chart Is there a note from the clinic requesting the caller be transferred when they call back? No Are the credentials of the caregiver who called the patient picking machine operator helper? Yes Call Notes: Communicated information that is documented in the note. Caller does not want a call back from clinic. M BUYER * Result Encounter Note - Carla Choi LPN - 03/21/2025 1:10 PM CST 03/21/2025 1:09 PM No answer. Will continue to try to reach patient/caregiver. If patient/caregiver calls back, contact center may tell caller No rib fracture. Carla GONZALEZ M BUYER documented in this encounter Plan of Treatment Upcoming Encounters Date Type Department Care Team (Late st Contact Info) Description 03/29/2025 8:40 AM CREAM BUYER Office Visit [address] [phone] Parveen Bear DO [address] [place] [address] [phone] 04/19/2025 11:30 AM CREAM BUYER Office Visit [facility] Neurosurgery [address] [place] [address] Cristal Judge NP [address] [place] [address] 10/04/2025 2:40 PM CDT Office Visit [facility] [address] [place] [phone] Parveen Bear DO [address] [place] [address] [phone] documented as of this encounter Visit Diagnoses Not on filedocumented in this encounter Additional Health Concerns Assessment Noted Time PHQ-9 Depression Total Score: 3 03/20/20 25 2:00 PM CREAM BUYER documented as of this encounter Care Teams Belt Knife Feeder Relationship Specialty Start Date End Date Parveen Bear DO [address] [place] [address] [phone] PCP - General Family Practice 06/26/23 documented as of this encounter
--- OUTSIDE RECORDS SUMMARY | 2025-03-25 12:59 | XMS_ITS | Encounter Summary ---
Author Organization [facility] Address [address] [place] [address] Care Team Providers Care Tipple Greaser Name Role Phone Parveen Bear DO Primary Care Provider [phone] Encounter Details Date Type Department Care Team [...] worry about transportation for future doctor visits, molded goods spot picker medication, etc.? No 2024 Housing Stability [...] on file Legal Sex Male 5:26 AM CONTENT DIRECTOR Gender Identity Male 11/15/2024 4:33 PM CDT Sexual Orientation Not on file documented as of this encounter Plan of Treatment Upcoming Encounters Date Type Department Care Team (Late st Contact Info) Description 03/29/2025 8:40 AM CONTENT DIRECTOR Office Visit [facility] [address] [phone] Parveen Bear DO [address] [place] [address] [phone] 04/19/2025 11:30 AM CONTENT DIRECTOR Office Visit [facility] Neurosurgery [address] [place] [address] [phone] Cristal Judge NP [address] [place] [address] [phone] 10/04/2025 2:40 PM CDT Office Visit [facility] [address] [phone] Parveen Bear DO [address] [place] [address] [phone] documented as of this encounter Visit Diagnoses Not on filedocumented in this encounter Additional Health Concerns Assessment Noted Time PHQ-9 Depression Total Score: 3 03/20/20 25 2:00 PM CONTENT DIRECTOR documented as of this encounter Care Teams Tipple Greaser Relationship Specialty Start Date End Date Parveen Bear DO [address] [place] [address] [phone] PCP - General Family Practice 06/26/23 documented as of this encounter
--- OUTSIDE RECORDS SUMMARY | 2025-03-25 12:59 | XMS_ITS | Clinical Summary ---
Author Organization [facility] Address [address] Pardo: Epic Prelude ADT MAURA GALICIA [address] Care Team Providers Care Elevator Tender Name Role Phone Parveen Bear DO Primary Care Provider [phone] Allergies Active Allergy Reactions Criticality Noted Date [...] 23 Active fluticasone propionate (FLONASE) 50 mcg/spray Paron, Suspension nasal inhaler Administer 2 Sprays in [...] arteries 025 Overview (03/23/2025): US done at [facility] 11.05.25 due to bruit on exam; US [...] Type Department Care Team Description 03/24/[address] [phone] Parveen Bear DO Provider Call 03/23/2025 8:00 AM STUDIO MUSICIAN Office Visit [address] [phone] Parveen Bear DO Laceration of left forearm without foreign body, initial encounter (Primary Dx); Chronic obstructive pulmonary disease with emphysema, unspecified emphysema type (CMS/HCC); ISTAP type 3 skin tear of left forearm; Polypharmacy 03/22/[address] [phone] Parveen Bear DO Provider Call 03/21/2025 External Device Data STL ABSTRACTION Provider, Abstract 03/21/2025 Results Follow-Up [address] [phone] Hipolito Cuadra, CHANDNI XR RIBS UNILATERAL 2 VW LEFT 03/20/2025 3:15 PM STUDIO MUSICIAN Ancillary Procedure [address] [phone] Hipolito Cuadra, CHANDNI History of falling; Rib pain on left side 03/20/2025 2:40 PM STUDIO MUSICIAN Office Visit [address] [phone] History of falling (Primary Dx); Rib pain on left side 03/20/2025 Nurse Triage [address] [phone] Parveen Bear DO 03/17/2025 Results Follow-Up [address] [phone] Leela Ramires FNP TSH, CBC WITH DIFFERENTIAL, LIPID PANEL 03/16/2025 3:00 PM STUDIO MUSICIAN Office Visit [address] [phone] Leela Ramires FNP Primary hypertension (Primary Dx); Mild episode of recurrent major depressive disorder; Need for influenza vaccination; Gastroesophageal reflux disease without esophagitis; Hx of AKA (above knee amputation), left (CMS/HCC); Chronic idiopathic constipation; Chronic neck pain; RLS (restless legs syndrome); Elevated LDL cholesterol level 03/14/2025 Orders Only [facility] [address] [place] [address] Provider, Abstract 03/14/[address] [phone] Parveen Bear DO 03/03/[address] [phone] Parveen Bear, Remote Monitoring 03/03/[address] [phone] Parveen Bear, Remote Monitoring 03/02/[address] [phone] Parveen Bear DO Provider Call 03/02/[address] [address] Parveen Bear DO Provider Call 02/28/2025 External Device Data STL ABSTRACTION Provider, Abstract 02/28/2025 External Device Data STL ABSTRACTION Provider, Abstract 02/28/2025 Orders Only [facility] [address] [place] [phone] Cristal Judge, CHANDNI S/P spinal fusion (Primary Dx); History of lumbar fusion 02/27/2025 8:00 AM CDT - 02/27/2025 12:10 PM CDT Surgery [facility] Operating Room [address] [place] [phone] Chalo Shepherd MD CERVICAL DISCECTOMY FUSION ANTERIOR - 1 LEVEL 02/27/2025 7:54 AM CDT Anesthesia Event [facility] Operating Room [address] [place] [phone] Kae ANNE, DO Deonte Flynn Cybil A, STEVE 02/27/2025 6:21 AM CDT - 03/02/2025 2:55 PM CDT Hospital Encounter [facility] 3C Ortho Neuro [address] [place] [address] Chalo Shepherd MD Chronic neck pain Discharge Disposition: [place] Health Care [facility] 02/22/2025 Telephone [facility] [address] [place] [address] Chalo Shepherd MD Other 02/22/2025 External Device Data STL ABSTRACTION Provider, Abstract 02/21/2025 External Device Data STL ABSTRACTION Provider, Abstract 02/17/2025 10:43 AM CDT - 02/17/2025 11:59 PM CDT Hospital Encounter [facility] Echo [address] [place] [phone] Sudha Fernandez, HEALTH COMPANION Discharge Disposition: Home or Self Care 02/17/2025 Results Follow-Up [place] [address] [place] [phone] Sudha Fernandez, HEALTH COMPANION ECHO COMPLETE - CONTRAST AND STRAIN IF INDICATED 02/13/2025 1:06 PM CDT - 02/13/2025 11:59 PM CDT Hospital Encounter [place] [address] [place] [address] Miguel Donohue MD Discharge Disposition: Home or Self Care 02/13/2025 12:42 PM CDT - 02/13/2025 11:59 PM CDT Hospital Encounter [facility] Pre Admission [facility] Orthopedic [facility] [address] [place] [address] Chalo Shepherd MD Discharge Disposition: Home or Self Care 02/13/2025 Orders Only [facility] [address] [place] [address] Sudha Fernandez, MOHINI Systolic murmur (Primary Dx); Preoperative general physical examination 02/13/2025 Travel 01/17/2025 External Device Data STL ABSTRACTION Provider, Abstract 01/17/2025 External Device Data STL ABSTRACTION Provider, Abstract 12/23/2024 Results Follow-Up [facility] [address] [phone] Parveen Bear, CBC WITH DIFFERENTIAL 12/23/2024 Patient Self-Triage [facility] [address] [facility] [place] [phone] from Last 3 Months Immunizations Immunization Administration [...] on file Legal Sex Male 5:26 AM STUDIO MUSICIAN Gender Identity Male 11/15/2024 4:33 PM CDT Sexual Orientation Not on file Last Filed Vital Signs Vital Sign Reading Time Taken Comments Blood Pressure 110/58 03/20/2025 2:46 PM STUDIO MUSICIAN Pulse 118 03/23/2025 8:18 AM STUDIO MUSICIAN Temperature 35.9 C (96.6 F) 03/23/2025 8:18 AM STUDIO MUSICIAN Respiratory Rate 16 03/20/2025 2:46 PM STUDIO MUSICIAN Oxygen Saturation 98% 03/23/2025 8:1 8 AM STUDIO MUSICIAN Inhaled Oxygen Concentration - - Weight 68 kg (150 lb) 03/20/2025 2:46 PM STUDIO MUSICIAN patient reports Height 177.8 cm (5' 10 ) 03/23/2025 8:1 8 AM STUDIO MUSICIAN Body Mass Index 21.52 03/20/2025 2:46 PM STUDIO MUSICIAN Plan of Treatment Upcoming Encounters Date Type Department Care Team (Late st Contact Info) Description 03/29/2025 8:40 AM STUDIO MUSICIAN Office Visit [facility] [address] [place] [address] [phone] Parveen Bear DO [address] [place] [phone] 04/19/2025 11:30 AM STUDIO MUSICIAN Office Visit [facility] [address] [place] [address] Cristal Judge, PLATEMAKER [address] [place] [address] 10/04/2025 2:40 PM CDT Office Visit [facility] [address] [phone] Parveen Bear DO [address] [place] [phone] Health Maintenance Due Date Last Done Comments Medicare Advantage (SD) Preventative Visit/Annual Wellness Visit 05/04/2024 COVID-19 Vaccine [...] history exists Medical Devices Implanted Type Area Patient Service Representative Device Identifier Shelf Expiration Date Model / Serial / Lot Hemostatic Surgiflo 8ml W/ Thrombin 2994 - [id number] Implanted:Qty: 1 on 02/27/2025 by Chalo Shepherd MD at [facility] Hemostatic N/A: Spine Cervical Anterior [employer] [id number] 05/03/2026 2994 / / [id number] Hemostatic Surgiflo 8ml W/ Thrombin 2994 - [id number] Implanted:Qty: 1 on 02/27/2025 by Chalo Shepherd MD at [facility] Hemostatic N/A: Spine Cervical Anterior [employer] [id number] 05/03/2026 2994 / / [id number] Plate Endoskeleton Tcs Strl Barrier Loc 1712-6111-S - [id number] Implanted:Qty: 1 on 02/27/2025 by Chalo Shepherd MD at [facility] Plate N/A: Spine Cervical Anterior [employer] SOFAMOR DANEK 05/30/2027 5303-140 5-S / / [id number] Screw Endoskeleton 3.5x14mm Tcs Ns 1622-9113 - [id number] Implanted:Qty: 1 on 02/27/2025 by Chalo Shepherd MD at [facility] Screw N/A: Spine Cervical Anterior [employer]FAM[employer]ANEK 02/28/2100 5301-351 4 / / [id number]- 01 Screw Endoskeleton 3.5x16mm Tcs Ns 9557-0182 - [id number] Implanted:Qty: 1 on 02/27/2025 by Chalo Shepherd MD at [facility] Screw N/A: Spine Cervical Anterior [employer]ANEK 02/28/2100 5301-351 6 / / [id number]- 01 Cage Endoskeleton Tcs Nanoloc 6 Lrdtc [id number] Med 8291-1503-N - [id number] Implanted:Qty: 1 on 02/27/2025 by Chalo Shepherd MD at [facility] Spacer N/A: Spine Cervical Anterior [employer]OR [employer]ANEK 05/22/2027 5366-140 7-N / / [id number] Allograft Putty Influx+ Dbm 1ml Iflx-Fw-01 - [id number] Implanted:Qty: 1 on 02/27/2025 by Chalo Shepherd MD at [facility] Tissue N/A: Spine Cervical Anterior [employer] 05/04/2027 IFLX-FW- 01 / [id number] / Explanted Type Area Patient Service Representative Device Identifier Shelf Expiration Date Model / Serial / Lot Thorasic And Lumbar Screws, Rods, And Set Screws Explanted:Qty: 1 on 02/27/2025 by Chalo Shepherd MD at [facility] N/A: Spine Lumbar [employer] UNKNOWN / UNKNOWN / UNKNOWN Description:6 SET SCREWS 2 RODS 6 SPINAL SCREWS ALL IMPLANTS ABOVE WERE NOT DOCUMENTED IN THIS ELECTRONIC RECORD Procedures Procedure Name Priority Date/Time Associated Diagnosis Comments OK REPAIR INTERMEDIATE S/A/T/E 2.6-7.5 CM Routine 03/23/2025 8:00 AM STUDIO MUSICIAN Laceration of left forearm without foreign body, initial encounter ISTAP type 3 skin tear of left forearm XR RIBS UNILATERAL 2 VW LEFT Routine 03/20/2025 3:08 PM STUDIO MUSICIAN History of falling Rib pain on left side LIPID PANEL Routine 03/16/2025 3:46 PM STUDIO MUSICIAN Elevated LDL cholesterol level CBC WITH DIFFERENTIAL Routine 03/16/2025 3:45 PM STUDIO MUSICIAN Primary hypertension TSH Routine 03/16/2025 3:45 PM STUDIO MUSICIAN Primary hypertension COMPREHENSIVE METABOLIC PANEL Routine 03/05/2025 10:47 AM STUDIO MUSICIAN TELEMETRY REPORT 03/03/2025 3:06 AM CDT XR CERVICAL SPINE 2 OR 3 VIEWS Routine 02/28/2025 4:02 PM CDT POC GLUCOSE Routine 02/27/2025 11:45 AM CDT XR FLUORO LESS THAN 1 HOUR Routine 02/27/2025 11:23 AM CDT Chronic neck pain XR CERVICAL SPINE 2 OR 3 VIEWS Routine 02/27/2025 9:56 AM CDT Chronic neck pain OK ANES INSERT CATH, ART, PERCUT, SHORTTERM Routine 02/27/2025 8:13 AM CDT BACK HARDWARE REMOVAL 02/27/2025 8:00 AM CDT Chronic neck pain Spinal stenosis of cervical region OK ARTHRD ANT INTERBODY DECOMPRESS CERVICAL BELW C2 02/27/2025 8:00 AM CDT Chronic neck pain Spinal stenosis of cervical region OK ANES INSERT ENDOTRACHEAL AIRWAY Routine 02/27/2025 8:00 [...] CDT from Last 3 Months Results * OK REPAIR INTERMEDIATE S/A/T/E 2.6-7.5 CM (03/23/2025 8:00 AM STUDIO MUSICIAN) Narrative [facility] - 03/23/2025 8:00 AM STUDIO MUSICIAN Parveen Bear DO 03/23/2025 9:33 AM Laceration [...] with running suture, x 5, tied with Pharr knot. Triple antibiotic ointment, nonstick dressing, pressure dressing applied. Remove and clean in 24 to 48 hours with mild soap and warm water. Redress with antibiotic ointment or Vaseline and nonstick dressing. Apply antibiotic ointment or Vaseline twice daily. Follow-up 1 week for suture removal us Parveen Bear DO PROCEDURE/MINOR SURGICAL ORDE JOSEFA Final Result [facility]# [id number] [address] [place] [id number] * XR RIBS UNILATERAL 2 VW LEFT (03/20/2025 3:08 PM STUDIO MUSICIAN) Anatomical Region Laterality Modality Chest Computed Radiogr aphy 03/20/2025 3:08 PM STUDIO MUSICIAN Impressions 03/21/2025 8:48 AM STUDIO MUSICIAN IMPRESSION: No evidence of any left-sided rib fractures. Narrative 03/21/2025 8:48 AM STUDIO MUSICIAN Exam: XR RIBS UNILATERAL 2 VW LEFT [...] Result * LIPID PANEL (03/16/2025 3:46 PM STUDIO MUSICIAN) CHOLESTEROL 138 <200 mg/dL [facility] HDL 46 > OR = 40 mg/dL [facility] TRIGLYCERIDE 55 <150 mg/dL [facility] LDL CALCULATED 78 mg/dL (calc) [facility] Comment: Reference range: <100 Desirable range <100 mg/dL for primary prevention; <70 mg/dL for patients with CHD or diabetic patients with > or = 2 CHD risk factors. LDL-C is now calculated using the Herb-Castro calculation, which is a validated novel method providing better accuracy than the Friedewald equation in the estimation of LDL-C. Herb SS et al. HEAVEN. 2013;310(19): 9050-4396 (http://education.Subtech/faq/JFW581) CHOL/HDL RATIO 3.0 <5.0 (calc) [facility] NON-HDL CHOLESTEROL 92 <130 mg/dL (calc) [facility] Comment: For patients with diabetes plus 1 major ASCVD risk factor, treating to a non-HDL-C goal of <100 mg/dL (LDL-C of <70 mg/dL) is considered a therapeutic option. Test Performed at: [facility] [address] [facility] [place] [address] Laurita Solitario MD Blood 03/16/2025 3:46 PM STUDIO MUSICIAN 03/16/2025 3:46 PM STUDIO MUSICIAN us Leela Madhavi Ramires HEALTH COMPANION CHEMISTRY ORDERABLES Final Re sult [facility] [phone] [facility] [address] [address] [address] * (ABNORMAL) CBC WITH DIFFERENTIAL (03/16/2025 3:45 PM STUDIO MUSICIAN) Only the most recent of2 resultswithin the [...] [facility] Comment: Test Performed at: [facility] [address] [place] [address] Laurita Solitario MD Blood 03/16/2025 3:45 PM STUDIO MUSICIAN 03/16/2025 3:46 PM STUDIO MUSICIAN Leela FELICIANOP HEMATOLOGY ORDERABLES Final R esult Performing Organization Address [facility]/ZIP Co de Phone Number [facility] [phone] [facility] [address] [place] [address] * TSH (03/16/2025 3:45 PM STUDIO MUSICIAN) TSH 1.38 0.40 - 4.50 mIU/L [facility] Comment: Test Performed at: [facility] [address] KeriAlyse Solitario MD Blood 03/16/2025 3:45 PM STUDIO MUSICIAN 03/16/2025 3:46 PM STUDIO MUSICIAN Leela FELICIANOP CHEMISTRY ORDERABLES Final Re sult Performing Organization Address [facility] Co de Phone Number [facility] [phone] [facility] [address] * COMPREHENSIVE METABOLIC PANEL (03/05/2025 10:47 AM STUDIO MUSICIAN) Only the most recent of2 resultswithin the [...] - 99 mg/dL 02/27/2025 11:45 AM CDT [facility] SPECIMEN SOURCE, GLUCOSE POC Capillary 02/27/2025 11:45 AM CDT [facility] Blood, whole 02/27/2025 11:4 5 AM CDT 02/27/2025 11:52 AM CDT Chalo Shepherd MD POINT OF CARE TESTING Final Result [facility] # [id number] [address] [facility] [place] [address] * XR FLUORO LESS THAN 1 HOUR (02/27/2025 11:23 AM CDT) Narrative 02/27/2025 11:24 AM CDT Order information only. Exam was auto-finalized. Chalo Shepherd MD DIAGNOSTIC IMAGING OR DERABLES Final Result * OK ANES INSERT CATH, ART, PERCUT, SHORTTERM (02/27/2025 [...] size: 20 G Catheter Length (in.): 1.75 [place] Identification: palpation technique Number of attempts: 1 Successful placement: yes Assessment: blood return through port Procedure uneventful Post-procedure: line secured and dressing applied Comments: Sterile technique, sterile dressing, tape secured. Daniel Pal II, DO PROCEDURE/MINOR ARNDT RGICAL ORDERABLES Final Result * OK ANES INSERT ENDOTRACHEAL AIRWAY (02/27/2025 8:00 AM [...] INTERFACE SYSTEM - 02/17/2025 1:59 PM CDT [facility] Cardiovascular Services Echocardiography Laboratory [address] [place] [address] Transthoracic Echocardiography Patient: Amanda Henson Study ID: ECHO COMPLETE - F Gender: M : 1940 Age: 84 Room: [facility] Study 02/17/2025 Outpatient Date: Status: Study 11:29:20 AM [facility] #: [id number] Time: Ordering:Sudha Fernandez Bill Board Poster: ANDREW Indications and History: Systolic murmur. Summary [...] (H) rubén values outside specified reference range. [facility] Echo Labs are accredited with the Intersocietal Accreditation Commission - Echocardiography. Prepared and Electronically Authenticated Dylan Sales MD Confirmed 02/17/2025 13:59 Procedure Note Dylan Sales MD - 02/17/2025 [facility] Echocardiography Laboratory [facility] [place] [address] Transthoracic Echocardiography Patient: Amanda Henson Study ID: ECHO COMPLETE- F Gender: M : 1940 Age: 84 Room: [facility] Study 02/17/2025 Pt Outpatient Date: Status: Study 11:29:20 AM [facility] #: [id number] Time: Ordering:Sudha Fernandez Bill Board Poster: ANDREW Indications and History: Systolic murmur. Summary [...] (H) rubén values outside specified reference range. [facility] Echo Labs are accredited with theTucson Va Medical Centersocietal Accreditation Commission - Echocardiography. Prepared and Electronically Authenticated Dylan Sales MD Confirmed 02/17/2025 13:59 Sudha Fernandez [facility] US ORDERABLES Final Resu lt INTERFACE SYSTEM [...] ABO GROUP AB 02/13/2025 7:29 PM CDT [facility] [place] RH (D) TYPE Positive 02/13/2025 7:29 PM CDT [facility] [place] ANTIBODY SCREEN Negative 02/13/2025 7:29 PM CDT [facility] [place] Blood Venipuncture / Unknown 02/13/2025 1:51 PM CDT 02/13/2025 1:59 PM CDT us Miguel Donohue MD BLOOD BANK ORDERABLES Edited Re sult - Final [facility] [place] CLIA#[id number] [address] [place] [address], * EKG 12-LEAD (02/13/2025 1:47 PM CDT) 02/13/2025 1:47 PM CDT Narrative INTERFACE SYSTEM - 02/13/2025 10:22 PM CDT [facility] [address] [place] [address] Test Date: 2025-02-13 Pat Name: AMANDA HENSON Department: 50 Room: Gender: Male Research Worker Encyclopedia: ian : 1940 Requested By: Order Number: [id number] Reading MD: Aldair Balbuena Measurements Intervals Tracy Rate: 57 P: 52 OK: 182 QRS: 70 QRSD: 88 T: 72 QT: 398 QTc: 387 Interpretive Statements Sinus bradycardia Otherwise normal ECG Electronically Signed On 02-13-2025 22:22:38 CDT by Aldair Balbuena Procedure Note Aldair Balbuena MD - 02/13/2025 [address] [place] [address] Test Date: 2025-02-13 Pat Name: AMANDA HENSON Department: 50 Room: Gender: Male Research Worker Encyclopedia: ian : 1940 Requested By: Order Number: [id number] Reading MD: Aldair Balbuena Measurements Intervals Tracy Rate: 57 P: 52 OK: 182 QRS: 70 QRSD: 88 T: 72 QT: 398 QTc: 387 Interpretive Statements Sinus bradycardia Otherwise normal ECG Electronically Signed On 02-13-2025 22:22:38 CDT by Aldair Balbuena us Miguel Donohue MD ECG ORDERABLES Final Result Performing Organization Address City/State/[facility] Co de Phone Number INTERFACE SYSTEM Refer to clinic/hospital department from Last 3 Months Insurance [facility] Advance Directives For more information, please contact: [phone] * Full Code (Latest Code Status on File) Date Activated Date Inactivated Comments 02/27/2025 2:29 PM 03/02/2025 5:00 PM * Full Code Date Activated Date Inactivated Comments 02/27/2025 6:27 AM 02/27/2025 2:29 PM Care Teams Elevator Tender Relationship Specialty Start Date End Date Parveen Bear DO [address], [place] [address] PCP - General Family Practice 06/26/23
--- OUTSIDE RECORDS SUMMARY | 2025-03-25 12:59 | XMS_ITS | Encounter Summary ---
Author Organization [facility] Address [address] [place] [address] Care Team Providers Care Miscellaneous Machine Operator Name Role Phone Parveen Bear DO Primary Care Provider [phone] Reason for Visit * Reason Comments Clinical Consult Before Scheduling Encounter Details Date Type Department Care Team (Late st Contact Info) Description 03/20/2025 Nurse Triage [facility] [place] [address] [phone] Parveen Bear DO [address] [phone] Social History Tobacco Use Types [...] worry about transportation for future doctor visits, sisal picker medication, etc.? No 2024 Housing Stability [...] on file Legal Sex Male 5:26 AM GEOPHYSICAL LABORATORY SUPERVISOR Gender Identity Male 11/15/2024 4:33 PM CDT Sexual Orientation Not on file documented as of this encounter Miscellaneous Notes * Telephone Encounter - Beba Talbot RN - 03/20/2025 11:18 AM GEOPHYSICAL LABORATORY SUPERVISOR Adult patient complains of Fall: Patient experienced [...] S/S of when to seek emergency care. HYSICAL LABORATORY SUPERVISOR * Telephone Encounter - Tracy Ortiz - 03/20/2025 11:17 AM CST Copied from [facility] #[id number]. Topic: Symptomatic Care >> Mar 20, 2025 [...] there an encounter open? No Transferred to [facility] aj and beba answered call. HYSICAL LABORATORY SUPERVISOR documented in this encounter Plan of Treatment Upcoming Encounters Date Type Department Care Team (Late st Contact Info) Description 03/29/2025 8:40 AM GEOPHYSICAL LABORATORY SUPERVISOR Office Visit [address] [phone] Parveen Bear DO [address] [place] [phone] 04/19/2025 11:30 AM GEOPHYSICAL LABORATORY SUPERVISOR Office Visit [facility] [address] [place] [address] Cristal Judge NP [address] [place] [phone] 10/04/2025 2:40 PM CDT Office Visit [facility] [address] [phone] Parveen Bear DO [address] [place] [phone] documented as of this encounter Visit Diagnoses Not on filedocumented in this encounter Additional Health Concerns Assessment Noted Time PHQ-9 Depression Total Score: 3 03/20/20 25 2:00 PM GEOPHYSICAL LABORATORY SUPERVISOR documented as of this encounter Care Teams Miscellaneous Machine Operator Relationship Specialty Start Date End Date Parveen Bear DO [address] [place] [phone] PCP - General Family Practice 06/26/23 documented as of this encounter
--- OUTSIDE RECORDS SUMMARY | 2025-03-25 12:59 | XMS_ITS | Encounter Summary ---
Author Organization [facility] Address [address] [place] [address] Care Team Providers Care Quality Worker Name Role Phone Parveen Bear DO Primary Care Provider [phone] Reason for Visit * Reason Comments Provider Call Encounter Details Date Type Department Care Team (Late st Contact Info) Description 03/24/2025 Telephone [facility] Medicine [place] [address] [phone] Parveen Bear DO [address] [phone] Provider Call Social History Tobacco [...] on file Legal Sex Male 5:26 AM SUPERVISOR TELEPHONE INFORMATION Gender Identity Male 11/15/2024 4:33 PM CDT Sexual Orientation Not on file documented as of this encounter Miscellaneous Notes * Telephone Encounter - Estela Santoro RN - 03/24/2025 4:34 PM CST 03/24/2025 4:34 PM Returned call and spoke with patient. Discussed that Sofia will reach out to him to get a another visit scheduled. He states that [facility] the [facility] and did not have plans on returning. Estela RN RVISOR TELEPHONE INFORMATION * Telephone Encounter - Gi Beckham - 03/24/2025 4:19 PM CST Copied from [facility] #[id number]. Topic: [id number] Call >> Mar 24, 2025 4:18 PM Gi Escobar wrote: Caller is requesting to speak with Clinical Care Team. Caller Name: Klaus BURKS with [facility] Callback Number: [phone] Is the caller a Physician, Nurse Practitioner or Physician Air Sampler? No Call Notes: Needing to let the provider know that he was not seen this week for an evaluation and is a missed visit. is stated that she was having trouble taking care of him at home and was trying to get him in a fci. Is this addressing an immediate patient care need? No RVISOR TELEPHONE INFORMATION documented in this encounter Plan of Treatment Upcoming Encounters Date Type Department Care Team (Late st Contact Info) Description 03/29/2025 8:40 AM SUPERVISOR TELEPHONE INFORMATION Office Visit [facility] [address] [phone] Parveen Bear DO [address] [place] [phone] 04/19/2025 11:30 AM SUPERVISOR TELEPHONE INFORMATION Office Visit [facility] Neurosurgery [address] [place] [address] Cristal Judge NP [address] [place] [address] 10/04/2025 2:40 PM CDT Office Visit [facility] [address] [phone] Parveen Bear DO [address] [place] [phone] documented as of this encounter Visit Diagnoses Not on filedocumented in this encounter Additional Health Concerns Assessment Noted Time PHQ-9 Depression Total Score: 3 03/20/20 25 2:00 PM SUPERVISOR TELEPHONE INFORMATION documented as of this encounter Care Teams Quality Worker Relationship Specialty Start Date End Date Parveen Bear DO [address] [place] [phone] PCP - General Family Practice 06/26/23 documented as of this encounter
--- OUTSIDE RECORDS SUMMARY | 2025-03-25 12:59 | XMS_ITS | Encounter Summary ---
Author Organization [facility] Address [address] [place] [address] Care Team Providers Care Baseball Scout Name Role Phone Parveen Bear Primary Care Provider [phone] Encounter Details Date Type Department Care Team (Late st Contact Info) Description 03/14/2025 Orders Only [facility] HIM [address] [place] [address] Provider, Abstract NO ADDRESS ON [...] worry about transportation for future doctor visits, turkey picker medication, etc.? No 2024 Housing Stability [...] on file Legal Sex Male 5:26 AM AREA OPERATIONS DIRECTOR Gender Identity Male 11/15/2024 4:33 PM CDT Sexual Orientation Not on file documented as of this encounter Plan of Treatment Upcoming Encounters Date Type Department Care Team (Late st Contact Info) Description 03/29/2025 8:40 AM AREA OPERATIONS DIRECTOR Office Visit [address] [phone] Parveen Bear DO [address] [place] [phone] 04/19/2025 11:30 AM AREA OPERATIONS DIRECTOR Office Visit [facility] Neurosurgery [address] [place] [phone] Cristal Judge NP [address] [place] [phone] 10/04/2025 2:40 PM CDT Office Visit [address] [phone] Parveen Bear DO [address] [place] [phone] documented as of this encounter Procedures Procedure Name Priority Date/Time Associated Diagnosis Comments COMPREHENSIVE METABOLIC PANEL Routine 03/05/2025 10:47 AM AREA OPERATIONS DIRECTOR documented in this encounter Results * COMPREHENSIVE METABOLIC PANEL (03/05/2025 10:47 AM AREA OPERATIONS DIRECTOR) Blood us Abstract Provider CHEMISTRY ORDERABLES Final Res ult documented in this encounter Visit Diagnoses Not on filedocumented in this encounter Care Teams Baseball Scout Relationship Specialty Start Date End Date Parveen Bear DO [address] [place] [address] PCP - General Family Practice 06/26/23 documented as of this encounter
--- OUTSIDE RECORDS SUMMARY | 2025-03-25 12:59 | XMS_ITS | Encounter Summary ---
Author Organization [facility] Address [address] [place] [address] Care Team Providers Care Boom Supervisor Name Role Phone Parveen Bear DO Primary Care Provider [phone] Reason for Visit * Reason Comments Provider Call Encounter Details Date Type Department Care Team (Late st Contact Info) Description 03/22/2025 Telephone [facility] Medicine [place] [address] [phone] Parveen Bear DO [address] [phone] Provider Call Social History Tobacco [...] worry about transportation for future doctor visits, waste picker medication, etc.? No 2024 Housing Stability [...] on file Legal Sex Male 5:26 AM MANAGER PATHOLOGY Gender Identity Male 11/15/2024 4:33 PM CDT Sexual Orientation Not on file documented as of this encounter Miscellaneous Notes * Telephone Encounter - Carla Choi LPN - 03/22/2025 4:09 PM CST Noted. GER PATHOLOGY * Telephone Encounter - Bertram Magana - 03/22/2025 4:03 PM CST Copied from [facility] #[id number]. Topic: [id number] Call >> Mar 22, 2025 4:02 PM Bertram Victoria wrote: Caller is requesting to speak with Clinical Care Team. Caller Name: Carin Black PRAKASH PT Callback Number: [phone] Is the caller a Physician, Nurse Practitioner or Physician Brushing Operator? No Call Notes: Admitted patient to home health services today 03/22, will get PT and OT and will fax orders with plan of care by the end of this week Is this addressing an immediate patient care need? No GER PATHOLOGY documented in this encounter Plan of Treatment Upcoming Encounters Date Type Department Care Team (Late st Contact Info) Description 03/29/2025 8:40 AM MANAGER PATHOLOGY Office Visit [facility] [address] [place] [phone] Parveen Bear DO [address] [place] [phone] 04/19/2025 11:30 AM MANAGER PATHOLOGY Office Visit [facility] Neurosurgery [address] [place] [address] Cristal Judge NP [address] [place] [phone] 10/04/2025 2:40 PM CDT Office Visit [facility] [address] [place] [phone] Parveen Bear DO [address] [place] [phone] documented as of this encounter Visit Diagnoses Not on filedocumented in this encounter Additional Health Concerns Assessment Noted Time PHQ-9 Depression Total Score: 3 03/20/20 25 2:00 PM MANAGER PATHOLOGY documented as of this encounter Care Teams Boom Supervisor Relationship Specialty Start Date End Date Parveen Bear DO [address] [place] [phone] PCP - General Family Practice 06/26/23 documented as of this encounter
--- OUTSIDE RECORDS SUMMARY | 2025-03-25 12:59 | XMS_ITS | Encounter Summary ---
Author Organization [facility] Address [address] [place] [address] Care Team Providers Care Brickmason Helper Name Role Phone Parveen Bear DO Primary Care Provider [phone] Encounter Details Date Type Department Care Team (Late st Contact Info) Description 03/17/2025 Results Follow-Up [facility] Family Medicine [place] [address] [place] [phone] Leela Ramires, SALICYLIC ACID BLENDER [address] [phone] TSH, CBC WITH DIFFERENTIAL, LIPID [...] about transportation for future doctor visits, pick pulling machine operator medication, etc.? No 2024 Housing [...] on file Legal Sex Male 5:26 AM TAIL TRIMMER Gender Identity Male 11/15/2024 4:33 PM CDT Sexual Orientation Not on file documented as of this encounter Plan of Treatment Upcoming Encounters Date Type Department Care Team (Late st Contact Info) Description 03/29/2025 8:40 AM TAIL TRIMMER Office Visit [address] [phone] Parveen Bear DO [address] [place] [phone] 04/19/2025 11:30 AM TAIL TRIMMER Office Visit [facility] Neurosurgery [address] [place] [address] Cristal Judge NP [address] [place] [phone] 10/04/2025 2:40 PM CDT Office Visit [address] [phone] Parveen Bear DO [address] [place] [phone] documented as of this encounter Visit Diagnoses Not on filedocumented in this encounter Care Teams Brickmason Helper Relationship Specialty Start Date End Date Parveen Bear DO [address] [place] [phone] PCP - General Family Practice 06/26/23 documented as of this encounter
--- NOTE | 2025-03-25 18:28 | PC.NURSE ---
patient's daughter requesting patient have an easy to chew diet. Order placed.
[2025-03-26 02:55] LABS: Hematocrit 28.1 % (37-53); Hemoglobin 9.40 g/dL (11.27-16.99); Mean Corpuscular HGB Conc 33.5 g/dL (30-55); Mean Corpuscular Hemoglobin 30.5 pg (27-33); Mean Corpuscular Volume 91.2 fl (82-101); Nucleated Red Blood Cells % 0 %; Platelet Count 178 10^3/cmm (157-399); Red Blood Count 3.08 10^6/uL (3.85-5.65); White Blood Count 4.99 10^3/uL (3.29-11.43)
[2025-03-26 04:00] VITALS: BP 147/65; PULSE 57; RESP 12; TEMP 36.4; O2SAT 96
[2025-03-26] MEDS: LOSARTAN 100 MG TABLET PO (05:25)
[2025-03-26 07:48] VITALS: BP 155/72; PULSE 60; RESP 18; TEMP 35.9; O2SAT 98
[2025-03-26 12:00] VITALS: BP 113/64; PULSE 74; RESP 28; TEMP 36.3; O2SAT 96
--- NOTE | 2025-03-26 12:04 | P.PN_ITS ---
Subjective 2 Subjective: Denies any new complaints today. Has been generally weak. Cussed with him assessment by PT and findings as well as discussion with CM. He is agreeable to additional rehabilitation at SNF. Vitals/I&O/Wt Last Vital Signs Temp 96.6 F L 03/26/25 07:48 Pulse 60 03/26/25 07:48 Resp 18 03/26/25 07:48 BP 155/72 03/26/25 07:48 Pulse Ox 98 03/26/25 07:48 O2 Del Method Room Air 03/26/25 07:48 03/25/25 03/26/25 03/26/25 22:59 06:59 14:59 Intake Total 1000 / 2000 955 / 2955 240 / 240 Output Total 420 / 420 850 / 1270 1050 / 1050 Balance 580 / 1580 105 / 1685 -810 / -810 Weight last 48 hrs Weight 67.4 kg Weight 69.6 kg Weight 72.575 kg Physical Exam 2 Narrative: Sitting up in bed. Const: COMMON NORMALS: patient oriented x3 and alert GENERAL APPEARANCE: c ooperative ORIENTATION/CONSCIOUSNESS: Yes awake HENMT: COMMON NORMALS: oropharynx normal Neck/C-Spine: COMMON NORMALS: no JVD Resp: COMMON NORMALS: normal respiratory effort and clear to auscultation bilaterally AUSCULTATION: clear to auscultation bilaterally Cardio: COMMON NORMALS: no JVD, regular rhythm, S1 normal heart sound present, S2 normal heart sound present and No murmurs present (Cardio) RHYTHM: regular rhythm HEART SOUNDS: S1 normal heart sound present and S2 normal heart sound present GI: COMMON NORMALS: Normal to inspection, nondistended, normoactive bowel sounds present, Soft to palpation and non-tender PALPATION: Yes Soft to palpation Extremity: COMMON NORMALS: no joint enlargement and no pedal edema N ARRATIVE EXTREMITY EXAM: No drift in upper extremities or lower extremity OTHER: L AKA Neuro: COMMON NORMALS: patient oriented x3 and moves all extremities S ENSORIUM/ORIENTATION: Yes alert Skin: COMMON NORMALS: no rashes or lesions noted GENERAL SKIN EXAM: no rashes or lesions noted Data 03/26/25 02:35 03/25/25 01:32 A&P Assessment and plan 1. Fall: Generalized weakness. Reviewed CBC, anemia, hemoglobin of 9.4. Reviewed vitamin D, still pending. Reviewed PT assessment note, discussed with rn case management. He is agreeable for further rehabilitation at SNF, arrangements are being made by case management. Will stop further IV fluid. Oral intake is tolerating. This may be secondary to his recent gastroenteritis. Possible dehydration with reported 2 weeks of diarrhea. Continues on gentle IV hydration. Monitor for risk of fluid overload. Oral intake is tolerating. So far no further diarrhea since last night. Urinalysis unremarkable. Chest x-ray unremarkable. Magnesium within normal limits. Reviewed TSH, free T4, discussed with him, unremarkable. Reviewed B12, folate, unremarkable. Noted pending 25 hydroxy vitamin D level, 1, 25 hydroxy vitamin D level. Reviewed CT C-spine, head CT, abdomen pelvis CT, chest x-ray. PT eval, OT eval reviewed notes. Discussed with rn case management. Would benefit from further rehabilitation, they will work with him regarding arrangements. Opioid-induced constipation with presence of recent gastroenteritis. Stool panel pending. Colace 200 mg by mouth twice a day plus senna 17.2 mg by mouth twice a day plus IV normal saline 100 ML?s per hour Neuropathy Depression: Resume bupropion, duloxetine Seasonal allergies Status post recent cervical spine surgery. Anemia. We will monitor hemoglobin level intermittently. Repeat blood count requested. GERD Hypertension: Resume losartan Arthritis Restless leg syndrome. Resume gabapentin. BPH: Resume Flomax DVT perplexes. Bilateral SCD PDMP PDMP Reviewed: Not Reviewed Attestations 2 Medical Necessity Statement*: Continue hospitalization for assessment and management of generalized weakness, rehabilitation arrangements. and Moderate MDM includes amount and/or complexity of data reviewed/ordered [ resulted lab(s)/test(s) and other healthcare professional discussion] and described risk of complication, morbidity or mortality of management as documented Diagnoses Fall W19.XXXA
--- NOTE | 2025-03-26 15:10 | PC.NURSE ---
report called to Hilary Garcia RN o med surg and patient transported via bed to 259. Family at bedside and informed of new room number.
[2025-03-26 17:39] VITALS: BP 118/64; PULSE 65; RESP 18; TEMP 36.4; O2SAT 94
[2025-03-26 20:00] VITALS: BP 117/60; PULSE 89; RESP 15; TEMP 36.4; O2SAT 94
[2025-03-26 22:00] VITALS: PULSE 60
[2025-03-27] VITALS (9 sets, daily range): BP systolic 122–136; BP diastolic 63–74; PULSE 61–72; RESP 16–18; TEMP 36.4–37; O2SAT 92–95; BMI 22.9
[2025-03-27] MEDS: LOSARTAN 100 MG TABLET PO (05:04)
--- NOTE | 2025-03-27 10:43 | PM.PN ---
Subjective Subjective: He denies additional symptoms. He has been falling frequently at home. Vitals/I&O/Wt Last Vital Signs Temp 97.6 F 03/27/25 08:00 Pulse 72 03/27/25 08:00 Resp 18 03/27/25 08:00 BP 134/72 03/27/25 08:00 Pulse Ox 94 03/27/25 08:00 O2 Del Method Room Air 03/27/25 04:00 03/26/25 03/27/25 03/27/25 22:59 06:59 14:59 Intake Total 480 / 1960 200 / 2160 300 / 300 Output Total 200 / 1250 1050 / 2300 450 / 450 Balance 280 / 710 -850 / -140 -150 / -150 Weight last 48 hrs Weight 68.5 kg Weight 67.4 kg Weight 69.6 kg Physical Exam Narrative: Sitting up in bed. Const: COMMON NORMALS: patient oriented x3 and alert GENERAL APPEARANCE: cooperative ORIENTATION/CONSCIOUSNESS: Yes awake OTHER: C-collar in place. HENMT: COMMON NORMALS: oropharynx normal Neck/C-Spine: COMMON NORMALS: no JVD Resp: COMMON NORMALS: normal respiratory effort and clear to auscultation bilaterally AUSCULTATION: clear to auscultation bilaterally Cardio: COMMON NORMALS: no JVD, regular rhythm, S1 normal heart sound present, S2 normal heart sound present and No murmurs present (Cardio) RHYTHM: regular rhythm HEART SOUNDS: S1 normal heart sound present and S2 normal heart sound present GI: COMMON NORMALS: Normal to inspection, nondistended, normoactive bowel sounds present, Soft to palpation and non-tender PALPATION: Yes Soft to palpation Extremity: COMMON NORMALS: no joint enlargement and no pedal edema NARRATIVE EXTREMITY EXAM: No drift in upper extremities or lower extremity OTHER: L AKA Neuro: COMMON NORMALS: patient oriented x3 and moves all extremities SENSORIUM/ORIENTATION: Yes alert Skin: COMMON NORMALS: no rashes or lesions noted GENERAL SKIN EXAM: no rashes or lesions noted Data 03/26/25 02:35 03/25/25 01:32 A&P Assessment and plan 1. Fall: Generalized weakness. Has been falling frequently. Moderate intention tremor, mild dysmetria on exam with FNF, cannot really examine lower extremities due to AKA and prosthesis. With lack of coordination possibly contributing to his falls. Discussed with business case analyst. Reviewed CBC, anemia, hemoglobin of 9.4. Reviewed vitamin D, still pending. Reviewed PT assessment note, discussed with business case analyst. He is agreeable for further rehabilitation at SNF, arrangements are being made by case management. Oral intake is tolerating. This may be secondary to his recent gastroenteritis. Possible dehydration with reported 2 weeks of diarrhea. Received gentle IV hydration. Monitor for risk of fluid overload. Oral intake is tolerating. So far no further diarrhea since last night. Urinalysis unremarkable. Chest x-ray unremarkable. Magnesium within normal limits. Reviewed TSH, free T4, discussed with him, unremarkable. Reviewed B12, folate, unremarkable. Noted pending 25 hydroxy vitamin D level, 1, 25 hydroxy vitamin D level. Reviewed CT C-spine, head CT, abdomen pelvis CT, chest x-ray. Opioid-induced constipation with presence of recent gastroenteritis. Stool panel pending. Colace 200 mg by mouth twice a day plus senna 17.2 mg by mouth twice a day plus IV normal saline 100 ML?s per hour Neuropathy Depression: Resume bupropion, duloxetine Seasonal allergies Status post recent cervical spine surgery. Anemia. We will monitor hemoglobin level intermittently. Repeat blood count requested. GERD Hypertension: Resume losartan Arthritis Restless leg syndrome. Resume gabapentin. BPH: Resume Flomax DVT perplexes. Bilateral SCD PDMP PDMP Reviewed: Not Reviewed Attestations Medical Necessity Statement*: Continue hospitalization for assessment and management after frequent falls, deconditioning, rehabilitation arrangements. and Moderate MDM includes amount and/or complexity of data reviewed/ordered [ other healthcare professional discussion] as documented Diagnoses Fall W19.XXXA
--- NOTE | 2025-03-27 16:07 | PC.NURSE ---
This nurse, with the help of PN nursing program director, Feliz, removed 26 arielle at bedside from medial back surgical incision. Pt tolerated well.
[2025-03-28] VITALS (7 sets, daily range): BP systolic 103–130; BP diastolic 56–70; PULSE 68–80; RESP 16–18; TEMP 36.6–36.7; O2SAT 91–96
[2025-03-28] MEDS: LOSARTAN 100 MG TABLET PO (04:29)
--- NOTE | 2025-03-28 14:25 | P.PN_ITS ---
Vitals/I&O/Wt Last Vital Signs Temp 97.8 F 03/28/25 11:49 Pulse 80 03/28/25 11:49 Resp 18 03/28/25 11:49 BP 103/63 03/28/25 11:49 Pulse Ox 96 03/28/25 11:49 O2 Del Method Room Air 03/28/25 04:00 03/27/25 03/28/25 03/28/25 22:59 06:59 14:59 Intake Total 240 / 660 360 / 360 Output Total 600 / 1750 400 / 2150 Balance -360 / -1090 -400 / -1490 360 / 360 Weight last 48 hrs Weight 71.668 kg Weight 68.5 kg Physical Exam 2 Narrative: Sitting up in bed. Const: COMMON NORMALS: patient oriented x3 and alert GENERAL APPEARANCE: c ooperative ORIENTATION/CONSCIOUSNESS: Yes awake OTHER: C-collar in place. HENMT: COMMON NORMALS: oropharynx normal Neck/C-Spine: COMMON NORMALS: no JVD Resp: COMMON NORMALS: normal respiratory effort and clear to auscultation bilaterally AUSCULTATION: clear to auscultation bilaterally Cardio: COMMON NORMALS: no JVD, regular rhythm, S1 normal heart sound present, S2 normal heart sound present and No murmurs present (Cardio) RHYTHM: regular rhythm HEART SOUNDS: S1 normal heart sound present and S2 normal heart sound present GI: COMMON NORMALS: Normal to inspection, nondistended, normoactive bowel sounds present, Soft to palpation and non-tender PALPATION: Yes Soft to palpation Extremity: COMMON NORMALS: no joint enlargement and no pedal edema N ARRATIVE EXTREMITY EXAM: No drift in upper extremities or lower extremity OTHER: L AKA Neuro: COMMON NORMALS: patient oriented x3 and moves all extremities S ENSORIUM/ORIENTATION: Yes alert Skin: COMMON NORMALS: no rashes or lesions noted GENERAL SKIN EXAM: no rashes or lesions noted Data 03/26/25 02:35 03/25/25 01:32 A&P Assessment and plan 1. Fall: Generalized weakness. Continue to work with therapy. Has been falling frequently. Moderate intention tremor, mild dysmetria on exam with FNF, cannot really examine lower extremities due to AKA and prosthesis. Reduced sensation, as well as improper size prosthesis after his current prosthesis broke at home and he has been using one that is too large. With lack of coordination is contributing to his falls. Discussed with protective services case worker. Reviewed vitamin D, still pending. Reviewed PT assessment note, discussed with protective services case worker. He is agreeable for further rehabilitation at SNF, arrangements are being made by case management. Oral intake is tolerating. This may be secondary to his recent gastroenteritis. Possible dehydration with reported 2 weeks of diarrhea. Received gentle IV hydration. Monitor for risk of fluid overload. Oral intake is tolerating. So far no further diarrhea since last night. Urinalysis unremarkable. Chest x-ray unremarkable. Magnesium within normal limits. Reviewed TSH, free T4, discussed with him, unremarkable. Reviewed B12, folate, unremarkable. Noted pending 25 hydroxy vitamin D level, 1, 25 hydroxy vitamin D level. Reviewed CT C-spine, head CT, abdomen pelvis CT, chest x-ray. Opioid-induced constipation with presence of recent gastroenteritis. Stool panel pending. Colace 200 mg by mouth twice a day plus senna 17.2 mg by mouth twice a day plus IV normal saline 100 ML?s per hour Neuropathy Depression: Resume bupropion, duloxetine Seasonal allergies Status post recent cervical spine surgery. Anemia. We will monitor hemoglobin level intermittently. Repeat blood count requested. GERD Hypertension: Resume losartan Arthritis Restless leg syndrome. Resume gabapentin. Resume ropinirole BPH: Resume Flomax DVT perplexes. Bilateral SCD PDMP PDMP Reviewed: Not Reviewed Attestations 2 Medical Necessity Statement*: Continue hospitalization for assessment and management after frequent falls, deconditioning, rehabilitation arrangements. Diagnoses Fall W19.XXXA
[2025-03-29 03:58] VITALS: BP 118/64; PULSE 72; RESP 17; TEMP 36.3; O2SAT 90
[2025-03-29] MEDS: LOSARTAN 100 MG TABLET PO (04:45)
[2025-03-29 05:38] VITALS: PULSE 61
[2025-03-29 07:14] VITALS: BP 145/66; PULSE 66; RESP 18; TEMP 36.5; O2SAT 92
--- NOTE | 2025-03-29 09:17 | PM.DCS ---
Discharge Providers Date of Admission: 03/25/25 03:51 Date of Discharge: March 29, 2025 Attending Provider at Admission: Ej Sarmiento DO Attending Provider at Discharge: Chago Ashton Primary Care Provider: Parveen Bear DO Diagnoses at Discharge Discharge Diagnosis 1. Fall: Reason for Visit Reason for Visit: fall hit head Brief History: The patient is an 84-year-old male who present chief complaint of generalized weakness and falls. The last week leading up to his hospitalization he states that he has fallen approximately 4-5 times. He attributes his falls to generalized weakness. In the 48 hours leading up to his hospitalization he admits to nausea and emesis. The patient states that he is been having diarrhea and has been using laxatives and imaging performed in the emergency department actually shows that the patient is now constipated. In 48 hours leading up to his hospitalization the patient denies fever, rigors, cough, wheeze, abdominal pain, myalgia, dysuria, chest pain, dyspnea, light headiness, dizziness, diaphoresis, palpitations, sensation of a rapid heartbeat, since an irregular heartbeat, diplopia, blurry vision, dysphagia, dysphagia, paresthesia/anesthesia/myasthenia of any particular part of his body. He does admit to headache due to his fall. He presents for further evaluation Hospital Course Hospital Course All workup so far going back without abnormality, with unremarkable thyroid function, B12, folic acid, vitamin D is minimally low, unremarkable urinalysis, without otherwise signs of infection afebrile, without leukocytosis. 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 Surgical wound arielle removed during hospitalization. He needs [facility] further regiment of appropriately sized prosthesis. Physical Exam Const: COMMON NORMALS: patient oriented x3 and alert GENERAL APPEARANCE: cooperative ORIENTATION/CONSCIOUSNESS: Yes awake HENMT: COMMON NORMALS: oropharynx normal Neck/C-Spine: COMMON NORMALS: no JVD Resp: COMMON NORMALS: normal respiratory effort and clear to auscultation bilaterally AUSCULTATION: clear to auscultation bilaterally Cardio: COMMON NORMALS: no JVD, regular rhythm, S1 normal heart sound present, S2 normal heart sound present and No murmurs present (Cardio) RHYTHM: regular rhythm HEART SOUNDS: S1 normal heart sound present and S2 normal heart sound present GI: COMMON NORMALS: Normal to inspection, nondistended, normoactive bowel sounds present, Soft to palpation and non-tender PALPATION: Yes Soft to palpation Extremity: COMMON NORMALS: no joint enlargement and no pedal edema Neuro: COMMON NORMALS: patient oriented x3 and moves all extremities SENSORIUM/ORIENTATION: Yes alert Skin: COMMON NORMALS: no rashes or lesions noted GENERAL SKIN EXAM: no rashes or lesions noted Discharge Data Studies Completed and Pending Completed Studies During Hospitalization Category Date Time Status CT abdomen pelvis w con* [id number] Stat Cat Scan 03/25/25 01:[address] cervical spin wo con* [id number] Stat Cat Scan 03/25/25 01:[address] head wo con* [id number] Stat Cat Scan 03/25/25 01:21 Completed XR chest 1V portable [id number] Stat Exams 03/25/25 01:21 Completed Pending at discharge Category Date Time Status C.Diff PCR (Lab) Routine Lab 03/25/25 03:50 Ordered OVA and Parasites, Conc and PE Routine Lab 03/25/25 03:50 Ordered Salmonella / Shigella / Campy Routine Lab 03/25/25 03:50 Ordered Vitamin D 1,25 Dihydroxy Routine Lab 03/25/25 01:32 Received Radiology Impressions Abdomen/Pelvis CT 03/25/25 01:21 IMPRESSION: 1. Moderate fecal retention, correlate for constipation. 2. Grade 1 anterolisthesis of L5 on S1 measures 1 cm. Multilevel laminectomies at L5, L4, L3, and L2. Posterior midline cutaneous skin arielle. 3. No hydronephrosis or delayed nephrogram. Cervical Spine CT 03/25/25 01:21 IMPRESSION: 1. No acute cervical spine fracture or subluxation. 2. Multilevel degenerative changes. 3. ACDF at C4-C6. The anterior plate is well seated. No CT evidence of hardware complication. Interbody spacers present at C3-C4. Chest X-Ray 03/25/25 01:21 IMPRESSION: No consolidation. Head CT 03/25/25 01:21 IMPRESSION: No acute intracranial hemorrhage. No midline shift or mass effect. Laboratory Results WBC 4.99 10^3/uL (3.29-11.43) 03/26/25 02:35 RBC 3.08 10^6/uL (3.85-5.65) L 03/26/25 02:35 Hgb 9.40 g/dL (11.27-16.99) L 03/26/25 02:35 Hct 28.1 % (37-53) L 03/26/25 02:35 MCV 91.2 fl (82-101) 03/26/25 02:35 MCH 30.5 pg (27-33) 03/26/25 02:35 MCHC 33.5 g/dL (30-55) 03/26/25 02:35 RDW 11.5 % (12.1-15.1) L 03/26/25 02:35 Plt Count 178 10^3/cmm (157-399) 03/26/25 02:35 MPV 8.5 fL (7.4-10.4) 03/26/25 02:35 Neut % (Auto) 53.1 % 03/26/25 02:35 Lymph % (Auto) 30.9 % 03/26/25 02:35 [place] % (Auto) 11.4 % 03/26/25 02:35 Eos % (Auto) 3.6 % 03/26/25 02:35 Baso % (Auto) 0.4 % 03/26/25 02:35 Neut # (Auto) 2.65 10^3/uL (1.8-7.7) 03/26/25 02:35 Lymph # (Auto) 1.5 10^3/uL (0.8-4.8) 03/26/25 02:35 [facility] # (Auto) 0.6 10^3/uL (0.2-0.9) 03/26/25 02:35 Eos # (Auto) 0.2 10^3/uL (0.0-0.8) 03/26/25 02:35 Baso # (Auto) 0.0 10^3/uL (0.0-0.1) 03/26/25 02:35 Nucleated RBC % (auto) 0 % 03/26/25 02:35 Nucleated RBCs # 0.0 /100WBC 03/26/25 02:35 ESR 17 mm/hr (0-10) H 03/25/25 01:32 Sodium 137 mmol/L (136-145) 03/25/25 01:32 Potassium 4.1 mmol/L (3.5-5.1) 03/25/25 01:32 Chloride 103 mmol/L (98-107) 03/25/25 01:32 Carbon Dioxide 25 mmol/L (22-29) 03/25/25 01:32 Anion Gap 13.1 (5-19) 03/25/25 01:32 BUN 13 mg/dL (8-23) 03/25/25 01:32 Creatinine 0.8 mg/dL (0.7-1.2) 03/25/25 01:32 GFR Calculation Not Reportable 03/25/25 01:32 Glucose 92 mg/dL (65-115) 03/25/25 01:32 Calculated Osmolality 284 mOsm/kg (285-295) L 03/25/25 01:32 Lactic Acid 0.5 mmol/L (0.5-2.2) 03/25/25 01:32 Calcium 8.7 mg/dL (8.5-10.5) 03/25/25 01:32 Phosphorus 3.3 mg/dL (2.5-4.5) 03/25/25 01:32 Magnesium 1.9 mg/dL (1.7-2.3) 03/25/25 01:32 Total Bilirubin 0.2 mg/dL (0.15-1.2) 03/25/25 01:32 AST 11 U/L (0-40) 03/25/25 01:32 ALT 8 U/L (0-41) 03/25/25 01:32 Alkaline Phosphatase 77 U/L (40-130) 03/25/25 01:32 C-Reactive Protein 46.6 mg/L (0.0-4.9) H 03/25/25 01:32 Total Protein 5.9 g/dL (6.6-8.7) L 03/25/25 01:32 Albumin 3.6 g/dL (3.5-5.2) 03/25/25 01:32 Globulin 2.3 g/dL (1.3-4.6) 03/25/25 01:32 Lipase 11 U/L (13-60) L 03/25/25 01:32 Vitamin B12 555 pg/mL (232-1245) 03/25/25 01:32 25-OH Vitamin D Total 32 ng/mL (30-100) 03/25/25 01:32 Folate 15.6 ng/mL (4.5-32.2) 03/25/25 01:32 TSH 2.43 uIU/mL (0.27-4.20) 03/25/25 01:32 Free T4 1.10 ng/dL (0.82-1.77) 03/25/25 01:32 Urine Color Yellow (Yellow) 03/25/25 00:47 Urine Appearance Clear (CLEAR) 03/25/25 00:47 Urine pH 6.0 (5-7) 03/25/25 00:47 Ur Specific [place] 1.008 (1.005-1.030) 03/25/25 00:47 Urine Protein Negative (Negative) 03/25/25 00:47 Urine Glucose (UA) Negative (Normal) 03/25/25 00:47 Urine Ketones Negative (Negative) 03/25/25 00:47 Urine Blood Negative (Negative) 03/25/25 00:47 Urine Nitrate Negative (Negative) 03/25/25 00:47 Urine Bilirubin Negative (Negative) 03/25/25 00:47 Urine Urobilinogen 0.2 mg/dL (Negative) 03/25/25 00:47 Ur Leukocyte Esterase Negative (Negative) 03/25/25 00:47 Urine RBC 0-2 /hpf (0-2) 03/25/25 00:47 Urine WBC 0-5 /hpf (0-5) 03/25/25 00:47 Ur Squamous Epith Cells 0-5 /hpf (0-5) 03/25/25 00:47 Amorphous Sediment Not Reportable 03/25/25 00:47 Urine Bacteria None seen /hpf (NONE) 03/25/25 00:47 Hyaline Casts 0-4 /lpf H 03/25/25 00:47 Vitals Last Vital Signs Temp 97.7 F 03/29/25 07:14 Pulse 66 03/29/25 07:14 Resp 18 03/29/25 07:14 BP 145/66 03/29/25 07:14 Pulse Ox 92 03/29/25 07:14 O2 Del Method Room Air 03/29/25 07:14 Discharge Plan Discharge Patient Disposition: Xfer SNF Condition: Stable Prescriptions: Continued gabapentin 400 mg capsule 400 mg PO TID ropinirole 2 mg tablet 2 mg PO BID tamsulosin 0.4 mg capsule 0.4 mg PO DAILY trazodone 100 mg tablet 100 mg PO BEDTIME bupropion HCl [Wellbutrin XL] 150 mg tablet extended release 24 hr 150 mg PO QAM prednisone 1 mg tablet 1 mg PO DAILY losartan 100 mg tablet 100 mg PO DAILY acetaminophen [Tylenol] 325 mg Tablet 650 mg PO QID PRN (Reason: Fever Or Pain) duloxetine 30 mg capsule,delayed release(DR/EC) 30 mg PO DAILY Probiotic 10 billion cell Capsule 10,000 mmu cells PO DAILY Emiliana-Maben Heartburn 1,650-1,000 mg Tablet, Effervescent 1 tab PO Q6H PRN (Reason: Stomach Upset) Rx Instructions: dissolved in 4 ounces of water Discharge Order = DC NOW: Discharge Order (Routine); Ordered 03/29/25 Ordered By: Chago Ashton Referrals: Parveen Bear DO [Primary Care Provider] - 4-7 days Discharge Activity: As per PT/OT instructions Patient Instructions: Opioid Safety, Patient Portal & [facility] Instructions Activity Restrictions/Additional Instructions: Maintain fall precautions. Continue to work with physical therapy on strengthening and balance. [facility] to [facility] a properly sized prosthetic. Follow-up with orthopedic surgery for reassessment of healing of the neck wound. Discharge Attestations Time Spent in Discharge Care*: greater than 30 min Quality Metrics Clinical Quality Measures [ No reported AMI, CVA or VTE this stay] Coding Level of Care Code 44607 Total time (in minutes) for Discharge: 35 Diagnoses Fall W19.XXXA
[2025-03-29 10:55] VITALS: BP 132/68; PULSE 68; O2SAT 93
--- NOTE | 2025-03-29 10:55 | PC.NURSE ---
This nurse gave report to ROYCE Gonzalez at [facility] at 1052. Family transporting pt to their facility.
[2025-03-29 11:15] LABS: Vit D 1,25 (Oh)2, Total 16 pg/mL (18-72); Vit D2 1,25 (Oh)2 <8 pg/mL; Vit D3 1,25 (Oh)2 16 pg/mL
== END 2025-03-29 10:56 | disposition skilled nursing facility (03) ==
LOC: ER 00:50 → ER IP 04:22 → CSU 13:12 → MEDSURG 03-26 15:07
PROVIDERS: Admitting Provider Internal Medicine; Emergency Provider Student in an Organized Health Care Education/Training Program; PCP Family Medicine; Visit Provider Internal Medicine
DX: S01.01XA Laceration without foreign body of scalp, initial encounter (principal); W19.XXXA Unspecified fall, initial encounter; Z91.81 History of falling; K59.09 Other constipation; K21.9 Gastro-esophageal reflux disease without esophagitis; D64.9 Anemia, unspecified; I10 Essential (primary) hypertension; Z87.891 Personal history of nicotine dependence; Z66 Do not resuscitate; Z98.890 Other specified postprocedural states
CPT/HCPCS: 36415; 70450; 71045; 72125; 74177; 80053; 81001; 82306; 82607; 82652; 82746; 83605; 83690; 83735; 84100; 84439; 84443; 85025; 85651; 86140; 97110; 97116; 97162; 97165; 97530; 97535; 99285; G0378; J7030; J7512; J9999